=== PATIENT | female | born 1955 | race Caucasian/White ===

== ENCOUNTER 2017-01-28 11:10 | Observation (INO) | payer OTHER ==
[~2017-01-28] VITALS: Ht 149.9 cm; Wt 105.4 kg
[~2017-01-28 11:10] MED LIST: ALPR1TAB2 PO; CLOT45CR28 VG; CPR250T; FLUC100T PO; HYDR-3714 PO; HYDR-3812 PO; MELO15TA14 PO; METF-380 PO; METH4TAB PO; METR500T PO; MICO45CR71 VG; MOTRIN; OXYC-12 PO; PRD1T; SIMV20TA3 PO; SULF1TAB35 PO
--- OUTSIDE RECORDS SUMMARY | 2017-01-28 11:17 | XMS REPORT | Continuity of Care Document ---
Author Author Formerly [facility], [facility] of [facility] Address Unknown Phone Unavailable Allergies Active Description Code Type Severity Reaction Onset Reported/Identified Relationship to Patient Clinical Status Yes No Known Drug Allergies [id number] Drug Allergy Unknown N/ A 08/14/2007 Yes sulfa drug Drug Allergy 06/18/2010 Yes SULFA SULFA Unknown NAUSEA 06/14/2015 Medications Problems Date Dx Coded Attending Type Code Diagnosis Diagnosed By 06/12/2010 Ot 250.00 06/12/2010 Ot 272.4 06/12/2010 Ot 278.00 06/12/2010 Ot 305.1 06/12/2010 Ot 345.90 06/12/2010 Ot 414.01 06/12/2010 Ot 790.6 06/12/2010 Ot V17.3 06/12/2010 Ot V85.4 06/18/2010 KATE PALOMO MD 272.4 HYPERLIPIDEMIA UNSPECIFIED 06/18/2010 KATE PALOMO MD 311 Depressive Disorder Nos 06/18/2010 KATE PALOMO MD 401.1 HYPERTENSION, BENIGN ESSENTIAL 06/18/2010 KATE PALOMO MD 414.00 Coronary Atherosclerosis Of Unspecified Type Of Vessel [place] Graft 06/18/2010 KATE PALOMO MD 716.90 Arthritis/ Arthropathy, Unspecified 06/18/2010 272.4 HYPERLIPIDEMIA UNSPECIFIED 06/18/2010 311 Depressive Disorder Nos 06/18/2010 401.1 HYPERTENSION, BENIGN ESSENTIAL 06/18/2010 414.00 Coronary Atherosclerosis Of Unspecified Type Of Vessel [place] Graft 06/18/2010 716.90 Arthritis/ Arthropathy, Unspecified 06/18/2010 272.4 HYPERLIPIDEMIA UNSPECIFIED 06/18/2010 311 Depressive Disorder Nos 06/18/2010 401.1 HYPERTENSION, BENIGN ESSENTIAL 06/18/2010 414.00 Coronary Atherosclerosis Of Unspecified Type Of Vessel [place] Graft 06/18/2010 716.90 Arthritis/ Arthropathy, Unspecified 06/18/2010 WILBERTO ROGERS PHD 272.4 HYPERLIPIDEMIA UNSPECIFIED 06/18/2010 KEN PORTILLO, WILBERTO A 311 Depressive Disorder Nos 06/18/2010 KEN PHD, WILBERTO A 401.1 HYPERTENSION, BENIGN ESSENTIAL 06/18/2010 KEN PHD, WILBERTO A 414.00 Coronary Atherosclerosis Of Unspecified Type Of Vessel [place] Graft 06/18/2010 KEN PHD, WILBERTO A 716.90 Arthritis/ Arthropathy, Unspecified 06/18/2010 STACIA GOVEA, KATE 272.4 HYPERLIPIDEMIA UNSPECIFIED 06/18/2010 STACIA GOVEA, KATE 311 Depressive Disorder Nos 06/18/2010 STACIA GOVEA, KATE 401.1 HYPERTENSION, BENIGN ESSENTIAL 06/18/2010 STACIA GOVEA, KATE 414.00 Coronary Atherosclerosis Of Unspecified Type Of Vessel [place] Graft 06/18/2010 STACIA GOVEA, KATE 71Eduardo.90 Arthritis/ Arthropathy, Unspecified 06/18/2010 STACIA GOVEA, KATE 272.4 HYPERLIPIDEMIA UNSPECIFIED 06/18/2010 STACIA GOVEA, KATE 311 Depressive Disorder Nos 06/18/2010 STACIA GOVEA, KATE 401.1 HYPERTENSION, BENIGN ESSENTIAL 06/18/2010 STACIA GOVEA, KATE 414.00 Coronary Atherosclerosis Of Unspecified Type Of Vessel [place] Graft 06/18/2010 STACIA GOVEA, KATE 716.90 Arthritis/ Arthropathy, Unspecified 06/18/2010 STACIA GOVEA, KATE 272.4 HYPERLIPIDEMIA UNSPECIFIED 06/18/2010 STACIA GOVEA, KATE 311 Depressive Disorder Nos 06/18/2010 STACIA GOVEA, KATE 401.1 HYPERTENSION, BENIGN ESSENTIAL 06/18/2010 STACIA GOVEA, KATE 414.00 Coronary Atherosclerosis Of Unspecified Type Of Vessel [place] Graft 06/18/2010 KATE PALOMO MD 716.90 Arthritis/ Arthropathy, Unspecified 06/18/2010 STACIA GOVEA, KATE 272.4 HYPERLIPIDEMIA UNSPECIFIED 06/18/2010 STACIA GOVEA, KATE 311 Depressive Disorder Nos 06/18/2010 STACIA GOVEA, KATE 401.1 HYPERTENSION, BENIGN ESSENTIAL 06/18/2010 STACIA GOVEA, KATE 414.00 Coronary Atherosclerosis Of Unspecified Type Of Vessel [place] Graft 06/18/2010 STACIA GOVEA, KATE 716.90 Arthritis/ Arthropathy, Unspecified 06/18/2010 STACIA GOVEA, KATE 272.4 HYPERLIPIDEMIA UNSPECIFIED 06/18/2010 STACIA GOVEA, KATE 311 Depressive Disorder Nos 06/18/2010 STACIA GOVEA, KATE 401.1 HYPERTENSION, BENIGN ESSENTIAL 06/18/2010 STACIA GOVEA, KATE 414.00 Coronary Atherosclerosis Of Unspecified Type Of Vessel [place] Graft 06/18/2010 STACIA GOVEA, KATE 716.90 Arthritis/ Arthropathy, Unspecified 06/18/2010 STACIA GOVEA, KATE 272.4 HYPERLIPIDEMIA UNSPECIFIED 06/18/2010 STACIA GOVEA, KATE 311 Depressive Disorder Nos 06/18/2010 STACIA GOVEA, KATE 401.1 HYPERTENSION, BENIGN ESSENTIAL 06/18/2010 STACIA GOVEA, KATE 414.00 Coronary Atherosclerosis Of Unspecified Type Of Vessel [place] Graft 06/18/2010 STACIA GOVEA, KATE 716.90 Arthritis/ Arthropathy, Unspecified 06/23/2010 STACIA GOVEA, KATE 414.01 CAD 06/23/2010 414.01 CAD 06/23/2010 414.01 CAD 06/23/2010 KEN PHD, WILBERTO Fabian 414.01 CAD 06/23/2010 STACIA GOVEA, KATE 414.01 CAD 06/23/2010 STACIA GOVEA, KATE 414.01 CAD 06/23/2010 STACIA GOVEA, KATE 414.01 CAD 06/23/2010 STACIA GOVEA, KATE 414.01 CAD 06/23/2010 STACIA GOVEA, KATE 414.01 CAD 06/23/2010 STACIA GOVEA, KATE 414.01 CAD 12/19/2010 Ot 724.1 03/14/2011 KATE PALOMO MD 272.0 HYPERCHOLESTEROLEMIA PURE 03/14/2011 KATE PALOMO MD 599.0 Urinary Tract Infection Site Not Specified 03/14/2011 272.0 HYPERCHOLESTEROLEMIA PURE 03/14/2011 599.0 Urinary Tract Infection Site Not Specified 03/14/2011 272.0 HYPERCHOLESTEROLEMIA PURE 03/14/2011 599.0 Urinary Tract Infection Site Not Specified 03/14/2011 KEN PHD, WILBERTO Fabian 272.0 HYPERCHOLESTEROLEMIA PURE 03/14/2011 WILBERTO ROGERS PHD 599.0 Urinary Tract Infection Site Not Specified 03/14/2011 KATE PALOMO MD 272.0 HYPERCHOLESTEROLEMIA PURE 03/14/2011 KATE PALOMO MD 599.0 Urinary Tract Infection Site Not Specified 03/14/2011 KATE PALOMO MD 272.0 HYPERCHOLESTEROLEMIA PURE 03/14/2011 STACIA GOVEA, KATE 599.0 Urinary Tract Infection Site Not Specified 03/14/2011 KATE PALOMO MD 272.0 HYPERCHOLESTEROLEMIA PURE 03/14/2011 STACIA GOVEA, KATE 599.0 Urinary Tract Infection Site Not Specified 03/14/2011 STACIA GOVEA, KATE 272.0 HYPERCHOLESTEROLEMIA PURE 03/14/2011 STACIA GOVEA, KATE 599.0 Urinary Tract Infection Site Not Specified 03/14/2011 KATE PALOMO MD 272.0 HYPERCHOLESTEROLEMIA PURE 03/14/2011 STACIA GOVEA, KATE 599.0 Urinary Tract Infection Site Not Specified 03/14/2011 KATE PALOMO MD 272.0 HYPERCHOLESTEROLEMIA PURE 03/14/2011 STACIA GOVEA, KATE 599.0 Urinary Tract Infection Site Not Specified 03/31/2011 KATE PALOMO MD 790.29 Hyperglycemia 03/31/2011 790.29 Hyperglycemia 03/31/2011 790.29 Hyperglycemia 03/31/2011 WILBERTO ROGERS PHD 790.29 Hyperglycemia 03/31/2011 STACIA GOVEA, KATE 790.29 Hyperglycemia 03/31/2011 STACIA GOVEA, KATE 790.29 Hyperglycemia 03/31/2011 STACIA GOVEA, KATE 790.29 Hyperglycemia 03/31/2011 STACIA GOVEA, KATE 790.29 Hyperglycemia 03/31/2011 STACIA GOVEA, KATE 790.29 Hyperglycemia 03/31/2011 STACIA GOVEA, KATE 790.29 Hyperglycemia 10/25/2011 KATE PALOMO MD 250.00 DIABETES MELLITUS WITHOUT MENTION OF COMPLICATION TYPE II OR UNSPECIFIED TYPE NOT STATED UNCONTROLLED 10/25/2011 250.00 DIABETES MELLITUS WITHOUT MENTION OF COMPLICATION TYPE II OR UNSPECIFIED TYPE NOT STATED UNCONTROLLED 10/25/2011 250.00 DIABETES MELLITUS WITHOUT MENTION OF COMPLICATION TYPE II OR UNSPECIFIED TYPE NOT STATED UNCONTROLLED 10/25/2011 WILBERTO ROGERS PHD 250.00 DIABETES MELLITUS WITHOUT MENTION OF COMPLICATION TYPE II OR UNSPECIFIED TYPE NOT STATED UNCONTROLLED 10/25/2011 KATE PALOMO MD 250.00 DIABETES MELLITUS WITHOUT MENTION OF COMPLICATION TYPE II OR UNSPECIFIED TYPE NOT STATED UNCONTROLLED 10/25/2011 KATE PALOMO MD 250.00 DIABETES MELLITUS WITHOUT MENTION OF COMPLICATION TYPE II OR UNSPECIFIED TYPE NOT STATED UNCONTROLLED 10/25/2011 KATE PALOMO MD 250.00 DIABETES MELLITUS WITHOUT MENTION OF COMPLICATION TYPE II OR UNSPECIFIED TYPE NOT STATED UNCONTROLLED 10/25/2011 KATE PALOMO MD 250.00 DIABETES MELLITUS WITHOUT MENTION OF COMPLICATION TYPE II OR UNSPECIFIED TYPE NOT STATED UNCONTROLLED 10/25/2011 STACIA GOVEA, KATE 250.00 DIABETES MELLITUS WITHOUT MENTION OF COMPLICATION TYPE II OR UNSPECIFIED TYPE NOT STATED UNCONTROLLED 10/25/2011 STACIA GOVEA, KATE 250.00 DIABETES MELLITUS WITHOUT MENTION OF COMPLICATION TYPE II OR UNSPECIFIED TYPE NOT STATED UNCONTROLLED 12/02/2011 KATE PALOMO MD 726.32 LATERAL EPICONDYLITIS (TENNIS ELBOW) 12/02/2011 726.32 LATERAL EPICONDYLITIS (TENNIS ELBOW) 12/02/2011 726.32 LATERAL EPICONDYLITIS (TENNIS ELBOW) 12/02/2011 WILBERTO ROGERS PHD 726.32 LATERAL EPICONDYLITIS (TENNIS ELBOW) 12/02/2011 STACIA GOVEA, KATE 726.32 LATERAL EPICONDYLITIS (TENNIS ELBOW) 12/02/2011 STACIA GOVEA, KATE 726.32 LATERAL EPICONDYLITIS (TENNIS ELBOW) 12/02/2011 STACIA GOVEA, KATE 726.32 LATERAL EPICONDYLITIS (TENNIS ELBOW) 12/02/2011 STACIA GOVEA, KATE 726.32 LATERAL EPICONDYLITIS (TENNIS ELBOW) 12/02/2011 STACIA GOVEA, KATE 726.32 LATERAL EPICONDYLITIS (TENNIS ELBOW) 12/02/2011 STACIA GOVEA, KATE 726.32 LATERAL EPICONDYLITIS (TENNIS ELBOW) 10/30/2012 311 DEPRESSIVE DISORDER NOS 10/30/2012 311 DEPRESSIVE DISORDER NOS 10/30/2012 KEN PORTILLO, WILBERTO Fabian 311 DEPRESSIVE DISORDER NOS 10/30/2012 KATE PALOMO MD 311 DEPRESSIVE DISORDER NOS 10/30/2012 STACIA GOVEA, KATE 311 DEPRESSIVE DISORDER NOS 10/30/2012 STACIA GOVEA, KATE 311 DEPRESSIVE DISORDER NOS 10/30/2012 STACIA GOVEA, KATE 311 DEPRESSIVE DISORDER NOS 10/30/2012 STACIA GOVEA, KATE 311 DEPRESSIVE DISORDER NOS 02/04/2013 KATE PALOMO MD 781.0 ABNORMAL INVOLUNTARY MOVEMENTS 02/04/2013 KATE PALOMO MD 781.0 ABNORMAL INVOLUNTARY MOVEMENTS 02/04/2013 KATE PALOMO MD 781.0 ABNORMAL INVOLUNTARY MOVEMENTS 02/04/2013 KATE PALOMO MD 781.0 ABNORMAL INVOLUNTARY MOVEMENTS 02/04/2013 KATE PALOMO MD 781.0 ABNORMAL INVOLUNTARY MOVEMENTS 01/09/2014 KATE PALOMO MD 724.5 BACKACHE UNSPECIFIED 01/09/2014 KATE PALOMO MD 724.5 BACKACHE UNSPECIFIED 06/14/2015 DONNIE GOVEA, STEPHAN Fabian Ot 616.10 06/14/2015 DONNIE GOVEA, STEPHAN A Ot 625.8 08/01/2015 DONNIE GOVEA, STEPHAN A Ot 682.2 10/28/2015 MABLE BATISTA Ot B37.3 10/28/2015 MABLE BATISTA Ot F17.210 02/03/2016 ARGENTINA ULLOA DO Ot F17.210 02/03/2016 ARGENTINA ULLOA DO Ot M79.642 Procedures Code [place] [address] A1C (IN-HOUSE) 70175 ROUTINE VENIPUNCTURE 10/26/2012 00358 CMP 10/26/2012 95893 LIPID PANEL 10/26 [id number] GFR CALC (RESULT ONLY) 10/26/2012 61344 PSYCH DIAG INTER EXAM 10/30/2012 61099 PSYCHO TESTING 1 HR W COMP 12/26/2012 66691 PSYTX PT&/FAMILY 45 MINUTES 12/31/2012 30158 ROUTINE VENIPUNCTURE 02/04/2013 33401 MICRO ALBUMIN-IN HOUSE 02/04/2013 17349 A1C (IN-HOUSE) 35937 CMP 02/04/2013 96423 LIPID PANEL 02/04 7138858 GFR CALC (RESULT ONLY) 02/04/2013 44484 ROUTINE VENIPUNCTURE 10/22/2013 56133 A1C (IN-HOUSE) 66525 LIPID PANEL 10/22 74111 CMP 10/22/2013 [id number] GFR CALC (RESULT ONLY) 10/22/2013 47439 URINE DRUG SCREEN (IN-HOUSE) 01/09/2014 64387 URINE OPIATES GC/MS 01/10/2014 72138 A1C (IN-HOUSE) 39019 MICRO ALBUMIN-IN HOUSE 06/19/2014 49623 MICROALBUMIN Results Encounters ACCT No. Visit Date/Time Discharge Status Pt. Type Provider Facility Loc./Unit Complaint [id number] 06/19/2014 08:58:00 06/19/2014 23: 59:59 CLS Outpatient KATE PALOMO MD [id number] 01/09/2014 15:54:00 01/09/2014 23: 59:59 CLS Outpatient KATE PALOMO MD [id number] 10/22/2013 08:47:00 10/22/2013 23: 59:59 CLS Outpatient KATE PALOMO MD [id number] 05/27/2013 15:22:00 05/27/2013 23: 59:59 CLS Outpatient KATE PALOMO MD [id number] 02/04/2013 09:04:00 02/04/2013 23: 59:59 CLS Outpatient KATE PALOMO MD [id number] 12/28/2012 08:51:00 12/28/2012 23: 59:59 CLS Outpatient KEN PHD, WILBERTO Fabian [id number] 12/25/2012 12:01:00 12/25/2012 23: 59:59 CLS Outpatient [id number] 10/30/2012 08:00:00 10/30/2012 23: 59:59 CLS Outpatient [id number] 10/26/2012 08:03:00 10/26/2012 23: 59:59 [place] [id number] 12/02/2011 08:12:00 12/02/2011 23: 59:59 CLS Outpatient KATE PALOMO MD
[2017-01-28] MEDS ORDERED: RX-NITROGLYCERIN 0.4 MG TAB BTL 25'S SL ONE ×2 (11:21→11:30)
[2017-01-28] MEDS ORDERED: ASPIRIN 81 MG CHEW (CHILDREN'S ASA) ONE (11:21)
[2017-01-28 11:30] LABS: BASOPHILS # (AUTO) 0.1 10^3/uL (0.0-0.1); BASOPHILS % (AUTO) 1 % (0-10); EOSINOPHILS # (AUTO) 0.2 10^3/uL (0.0-0.3); EOSINOPHILS % (AUTO) 1 % (0-10); LYMPHOCYTES # (AUTO) 3.6 X 10^3 (1.0-4.0); LYMPHOCYTES % (AUTO) 28 % (12-44); MEAN CORPUSCULAR HEMOGLOBIN 30 PG (25-34); MEAN CORPUSCULAR HGB CONC 35 G/DL (32-36); MEAN CORPUSCULAR VOLUME 88 FL (80-99); MEAN PLATELET VOLUME 11.3 FL (7.4-10.4); MONOCYTES # (AUTO) 0.5 X 10^3 (0.0-1.0); MONOCYTES % (AUTO) 4 % (0-12); NEUTROPHILS # (AUTO) 8.6 X 10^3 (1.8-7.8); NEUTROPHILS % (AUTO) 66 % (42-75); PLATELET COUNT 272 10^3/uL (130-400); RED BLOOD COUNT 5.42 10^6/uL (4.35-5.85); RED CELL DISTRIBUTION WIDTH 13.7 % (10.0-14.5)
[2017-01-28] MEDS ORDERED: ASPIRIN 81 MG CHEW (CHILDREN'S ASA) PO ONE (11:30)
--- NOTE | 2017-01-28 11:38 | ED Chest Pain ---
General Chief Complaint: Chest Pain Stated Complaint: L ARM PAIN, CP Nursing Triage Note: Ambulatory to ED 5 with reports of intermittent chest pain for the past two weeks. Patient reports that she woke up this morning and was more short of breath than normal and her left shoulder hurt, then progressed into chest pain. Nursing Sepsis Screen: No Definite Risk Source: patient Exam Limitations: no limitations History of Present Illness Time seen by provider: 11:11 Initial Comments Here with report of intermittent chest pain over the last 2 weeks but worse this morning. She states she woke up at about 530 and she was short of breath. She then was having left shoulder pain. That has progressed to intermittent chest pain and numbness of the left hand. She has history of previous heart catheter procedure with ballooning but no stent. She has been off meds for a while for cholesterol problems. Has had some intermittent nausea and vomiting recently. Also intermittent sweating that is sometimes associated with the chest pain. Timing/Duration: 1 week, getting worse, changing over time, intermittent Severity/Quality: moderate Location: shoulder Radiation: arms Prior CP/Workup: cardiac cath Modifying Factors: improves with rest ASA po COMPUTER SYSTEM TECHNICIAN: No NTG SL COMPUTER SYSTEM TECHNICIAN: No Associated Symptoms: No abdominal pain, No back pain, diaphoresis fatigue nausea/vomiting shortness of breath Allergies and Home Medications Allergies Uncoded Allergies: SULFA (Adverse Reaction, Unknown, NAUSEA, 06/14/15) Home Medications No Active Prescriptions or Reported Meds Review of Systems Constitutional: see HPINo chills, No fever EENTM: No Symptoms Reported Respiratory: See HPIDenies Cough, Shortness of Air Cardiovascular: See HPI Gastrointestinal: See HPI Genitourinary: No Symptoms Reported Musculoskeletal: see HPINo back pain, muscle pain Skin: no symptoms reported Psychiatric/Neurological: No Symptoms Reported All Other Systems Reviewed Negative Unless Noted: Yes Past Tfvztzm-Sozipu-Xsnurn Hx Patient Social History Alcohol Use: Denies Use Recreational Drug Use: No Smoking Status: Current Everyday Smoker Type Used: Cigarettes 2nd Hand Smoke Exposure: Yes Recent Foreign Travel: No Contact w/Someone Who Travel: No Recent Infectious Disease Expo: No Recent Hopitalizations: No Immunizations Up To Date Tetanus Booster (TDap): Unknown Surgeries HX Surgeries: Yes (TUBAL LIGATION 30 YRS AGO) Surgeries: Cardiac, Tubal Ligation Respiratory Hx Respiratory Disorders: No Cardiovascular Hx Cardiac Disorders: Yes (yrs ago irreg heart beat) Cardiac Disorders: High Cholesterol, Hypertension Neurological Hx Neurological Disorders: No Reproductive System Hx Reproductive Disorders: No Sexually Transmitted Disease: No Genitourinary Hx Genitourinary Disorders: Yes (recurrent vulvovaginal candidiasis) Gastrointestinal Hx Gastrointestinal Disorders: No Musculoskeletal Hx Musculoskeletal Disorders: No Endocrine Hx Endocrine Disorders: Yes Endocrine Disorders: Diabetes, Non-Insulin dep HEENT HX ENT Disorders: No Cancer Hx Cancer: No Psychosocial Hx Psychiatric Problems: No Integumentary HX Skin/Integumentary Disorder: No Blood Transfusions Hx Blood Disorders: No Reviewed Nursing Assessment Reviewed/Agree w Nursing PMH: Yes Family Medical History Significant Family History: Heart Disease, Hypertension Physical Exam Vital Signs Vital Sign - Last 12Hours 01/28/17 11:12 Temp 98.1 Pulse 72 Resp 18 B/P 186/106 Pulse Ox 92 O2 Delivery Room Air Capillary Refill : Less Than 3 Seconds General Appearance: No Apparent Distress WD/WN HEENT: PERRL/EOMI Pharynx Normal Neck: Non Tender Supple Respiratory: Lungs Clear Normal Breath Sounds Cardiovascular: Regular Rate, Rhythm No Murmur Gastrointestinal: Non Tender Soft Extremity: Non Tender No Calf Tenderness Neurologic/Psychiatric: Alert Oriented x3 Skin: Normal Color Warm/Dry Progress/Results/Core Measures Results/Orders Lab Results Laboratory Tests Test 01/28/17 11:20 01/28/17 11:31 Range/Units Alanine Aminotransferase (ALT/SGPT) 26 0-55 U/L Albumin 3.6 3.2-4.5 G/DL Alkaline Phosphatase 102 40-136 U/L Anion Gap 12 5-14 MMOL/L Aspartate Amino Transf (AST/SGOT) 29 5-34 U/L BUN/Creatinine Ratio 9 Basophils # (Auto) 0.1 0.0-0.1 10^3/uL Basophils (%) (Auto) 1 0-10 % Blood Urea Nitrogen 7 7-18 MG/DL Calcium Level 9.2 8.5-10.1 MG/DL Carbon Dioxide Level 24 21-32 MMOL/L Chloride Level 102 98-107 MMOL/L Creatinine 0.74 0.60-1.30 MG/DL Eosinophils # (Auto) 0.2 0.0-0.3 10^3/uL Eosinophils (%) (Auto) 1 0-10 % Estimat Glomerular Filtration Rate > 60 Glucose Level 253 H 70-105 MG/DL Hematocrit 48 35-52 % Hemoglobin 16.5 H 11.5-16.0 G/DL Lymphocytes # (Auto) 3.6 1.0-4.0 X 10^3 Lymphocytes (%) (Auto) 28 12-44 % Magnesium Level 1.6 L 1.8-2.4 MG/DL Mean Corpuscular Hemoglobin 30 25-34 PG Mean Corpuscular Hemoglobin Concent 35 32-36 G/DL Mean Corpuscular Volume 88 80-99 FL Mean Platelet Volume 11.3 H 7.4-10.4 FL Monocytes # (Auto) 0.5 0.0-1.0 X 10^3 Monocytes (%) (Auto) 4 0-12 % Myoglobin 18.5 10.0-92.0 NG/ML Neutrophils # (Auto) 8.6 H 1.8-7.8 X 10^3 Neutrophils (%) (Auto) 66 42-75 % Platelet Count 272 130-400 10^3/uL Potassium Level 3.9 3.6-5.0 MMOL/L Red Blood Count 5.42 4.35-5.85 10^6/uL Red Cell Distribution Width 13.7 10.0-14.5 % Sodium Level 138 135-145 MMOL/L Total Bilirubin 0.3 0.1-1.0 MG/DL Total Protein 7.3 6.4-8.2 G/DL Troponin I < 0.30 <0.30 NG/ML White Blood Count 13.0 H 4.3-11.0 10^3/uL Activated Partial Thromboplast Time 30 24-35 SEC D-Dimer 0.35 0.00-0.49 UG/ML INR Comment 0.9 0.8-1.4 Prothrombin Time 12.2 12.2-14.7 SEC My Orders Orders-JEFFREY WATSON MD Cbc With Automated Diff (01/28/17 11:21) Magnesium (01/28/17 11:21) Chest 1 View, Ap/Pa Only (01/28/17 11:21) Ekg Tracing (01/28/17 11:21) Cardiac Profile 1 (01/28/17 11:21) Comprehensive Metabolic Panel (01/28/17 11:21) Myoglobin Serum (01/28/17 11:21) Protime With Inr (01/28/17 11:21) Partial Thromboplastin Time (01/28/17 11:21) O2 (01/28/17 11:21) Monitor-Rhythm Ecg Trace Only (01/28/17 11:21) Lipid Panel (01/29/17 06:00) Aspirin Chewable Tablet (Baby Aspirin Ch (01/28/17 11:30) Rx-Nitroglycerin Sl Tabs (Rx-Nitrostat S (01/28/17 11:30) Saline Lock/Iv-Start (01/28/17 11:21) Fibrin Degradation Products (01/28/17 11:21) Aspirin Chewable Tablet (Baby Aspirin Ch (01/28/17 11:21) Rx-Nitroglycerin Sl Tabs (Rx-Nitrostat S (01/28/17 11:21) Metoprolol Succinate (Xl) Tab (Toprol Xl (01/28/17 11:45) Medications Given in ED Current Medications Medications Dose Ordered Sig/Maegan Route Start Time Stop Time Status Last Admin Dose Admin Aspirin 324 mg ONCE ONCE PO 01/28/17 11:30 01/28/17 11:31 DC 01/28/17 11:28 324 MG Metoprolol Succinate 50 mg ONCE ONCE PO 01/28/17 11:45 01/28/17 11:46 DC 01/28/17 11:54 50 MG Nitroglycerin 0.4 mg UD ONCE SL 01/28/17 11:30 01/28/17 11:31 DC 01/28/17 11:30 0.4 MG Vital Signs/I&O Vital Sign - Last 12Hours 01/28/17 01/28/17 01/28/17 01/28/17 11:12 11:12 11:15 11:28 Temp 98.1 98.1 Pulse 72 Resp 18 B/P 186/106 Pulse Ox 92 92 O2 Delivery Room Air Room Air Room Air 01/28/17 11:29 Temp 98.1 Blood Pressure Mean: 132 Progress Note : Progress Note Seen and evaluated on arrival. IV, labs, EKG and chest x-ray ordered. ASA 324 mg by mouth. Nitroglycerin sublingual ordered. This was given one time with complete relief of pain. Blood pressure was noted to be elevated. Monitor patient. Toprol-XL 50 mg by mouth given. 1225: Dr. Matteo carreno for admission. 1230: Discussed case with Dr. Decker. He accepts patient in consult. Dr. Felipe accepts patient for admission, observation status. Patient agrees with plan. ECG Initial ECG Impression Date: Jan 28, 2017 Initial ECG Impression Time: 11:15 Initial ECG Rate: 74 Initial ECG Rhythm: Normal Sinus Initial ECG Impression: Normal Comment Sinus rhythm with leftward axis. No evidence of ST elevation [place]. Similar to previous of 06/12/2010 except rate increased slightly. Interpreted by me. Departure Communication Time/Spoke to Admitting Phy: 12:25 Time/Spoke to Consulting Physi: 12:30 Impression Impression: Primary Impression: Chest pain Qualified Code: R07.9 - Chest pain, unspecified Disposition: ADMITTED INPATIENT Condition: Stable Decision to Admit Reason: Admit from ER (General) Decision to Admit/Date: Jan 28, 2017 Time/Decision to Admit Time: 12:25 Departure-Patient Inst. Referrals: KATE PALOMO MD (PCP/Family) Primary Care Physician Scripts No Active Prescriptions or Reported Meds JEFFREY WATSON MD Jan 28, 2017 11:38
[2017-01-28 11:49] LABS: ALANINE AMINOTRANSFERASE 26 U/L (0-55); ALBUMIN 3.6 G/DL (3.2-4.5); ANION GAP 12 MMOL/L (5-14); ASPARTATE AMINO TRANSFERASE 29 U/L (5-34); BILIRUBIN,TOTAL 0.3 MG/DL (0.1-1.0); BLOOD UREA NITROGEN 7 MG/DL (7-18); BUN/CREATININE RATIO 9; CALCIUM 9.2 MG/DL (8.5-10.1); CARBON DIOXIDE 24 MMOL/L (21-32); CHLORIDE 102 MMOL/L (98-107); CREATININE SERUM 0.74 MG/DL (0.60-1.30); GFR ESTIMATED > 60; GLUCOSE 253 MG/DL (70-105); MAGNESIUM 1.6 MG/DL (1.8-2.4); POTASSIUM 3.9 MMOL/L (3.6-5.0); SODIUM 138 MMOL/L (135-145); TOTAL PROTEIN 7.3 G/DL (6.4-8.2)
[2017-01-28 11:56] LABS: INR 0.9 (0.8-1.4); PROTHROMBIN TIME PATIENT 12.2 SEC (12.2-14.7)
[2017-01-28 11:56] LABS: MYOGLOBIN SERUM 18.5 NG/ML (10.0-92.0)
--- NOTE | 2017-01-28 11:58 | Diagnostic Imaging Report ---
INDICATION: Chest pain x2 weeks. Increasing shortness of air. Left shoulder pain.. TECHNIQUE: Single view chest 11:35 AM. CORRELATION STUDY: 12/19/2010 FINDINGS: Heart size and mediastinum are relatively stable. Lung [place] overall relatively clear. No infiltrate. IMPRESSION: 1. Overall relatively stable portable chest. Dictated by: Dictated on workstation # [id number]
[2017-01-28 13:10] VITALS: BP 162/77
[2017-01-28] MEDS ORDERED: NITROGLYCERIN SUBLINGUAL 0.4 MG TAB (NITROSTAT) SL PRN (13:30)
[2017-01-28] MEDS ORDERED: morphine INJ 4 MG/ML 1 ML (VIAL/SYRINGE) IV PRN (13:30)
[2017-01-28] MEDS ORDERED: CATHETER FLUSH 10 ML SYR IV PRN (13:30)
[2017-01-28] MEDS: NS IV 1000 ML 1,000 ML IV SCH (13:42)
[2017-01-28] MEDS ORDERED: FLU TRIvalent (5 YOA+) 2016-17 (AFLURIA) 0.5 ML IM ONE (14:00)
[2017-01-28 14:26] LABS: BILIRUBIN,URINE NEGATIVE (NEGATIVE); KETONES,URINE NEGATIVE (NEGATIVE); LEUKOCYTE ESTERASE ,URINE 3+ (NEGATIVE); NITRITE,URINE POSITIVE (NEGATIVE); PH,URINE 6 (5-9); PROTEIN,URINE 1+ (NEGATIVE); UROBILINOGEN,URINE NORMAL (NORMAL)
[2017-01-28 14:37] LABS: SQUAMOUS EPITHELIAL CELL,UR 25-50 /HPF; WBC,URINE 25-50 /HPF
--- NOTE | 2017-01-28 14:39 | Consultation-Cardiology ---
HPI-Cardiology Cardiology Consultation: Date of Consultation 01/28/17 Date of Admission 01/28/17 Attending Physician Bc Car MD Admitting Physician Bc Car MD Consulting Physician PATO SANDERS MD, FACP, FACC, [facility] [place], CCDS HPI: Chief Complaint: Chest discomfort 62 yo woman with approx 3 weeks of chest discomfort: L parasternal, sharp to dull, mild to moderate, lasting up to 3 hours, a few times a week, with radiation to L arm only on one occasion (today), improved with s/l NTG but not completely relieved, aggravated by emotional stress but not physical exertion. She also has chronic slowly progressive exertional shortness of breath. Denies leg swelling or palp or syncope Review of Systems-Cardiology Review of Systems Constitutional: No malaise, No tiredness Eyes: No vision change Ears/Nose/Throat: No ear discharge, No nasal drainage, No recent hearing loss Respiratory: As described under HPI Cardiovascular: As described under HPI Gastrointestinal: No constipation, No diarrhea, No vomiting Genitourinary: No dysuria, No hematuria, No urine frequency changes Musculoskeletal: back pain (chronic) joint pain (chronic) Skin: No rash, No ulcerations Psychiatric/Neurological: No focal weakness, No seizure, No syncope Hematologic: No bleeding abnormalities All Other Systems Reviewed Negative Unless Noted: Yes [id number] Hx Patient Social History Alcohol Use: Denies Use Recreational Drug Use: No Smoking Status: Current Everyday Smoker Type Used: Cigarettes 2nd Hand Smoke Exposure: Yes Recent Foreign Travel: No Recent Infectious Disease Expo: No Hospitalization with Isolation: Denies Physical Abuse Screen: No Sexual Abuse: No Immunizations Up To Date Tetanus Booster (TDap): Unknown Past Medical History PMH As described under Assessment. Family Medical History Family Medical History: Has fam history of early CAD (father and a brother) Allergies and Home Medications Allergies Uncoded Allergies: SULFA (Adverse Reaction, Unknown, NAUSEA, 06/14/15) Home Medications No Active Prescriptions or Reported Meds Physical Exam-Cardiology Physical Exam Vital Signs/I&O Vital Sign - Last 12Hours 01/28/17 01/28/17 01/28/17 01/28/17 11:12 11:12 11:15 11:28 Temp 98.1 98.1 Pulse 72 Resp 18 B/P 186/106 Pulse Ox 92 92 O2 Delivery Room Air Room Air Room Air 01/28/17 01/28/17 01/28/17 01/28/17 11:29 12:49 13:10 13:30 Temp 98.1 98.1 98.1 Pulse 60 60 Resp 18 18 B/P 162/77 Pulse Ox 97 97 O2 Delivery Room Air Room Air 01/28/17 14:00 Pulse 58 Capillary Refill : Less Than 3 Seconds Constitutional: AAO x 3 well-developed well-nourished other (obese) HEENT: PERRL other (bilateral palpebral xanthelasma) EOMINo xanthelasmas are seen Neck: carotid pulses are 2 + bilaterally with good upstrokes Respiratory: No accessory muscle use, lungs clear to percussion lungs clear to auscultation Cardiovascular: regular rate-rhythm S1 and S2 systolic murmur (faint ASHLEY at card base) Gastrointestinal: No tender, softNo guarding, No rebound, No audible bowel sounds Extremities: No clubbing, No cyanosis, No significant edema Neurologic/Psychiatric: oriented x 3 grossly intact power is 5/5 both on sides Skin: No rash on exposed areas, No ulcerations on exposed areas Data Review Labs Laboratory Tests 01/28/17 11:20: Alanine Aminotransferase (ALT/SGPT) 26, Albumin 3.6, Alkaline Phosphatase 102, Anion Gap 12, Aspartate Amino Transf (AST/SGOT) 29, BUN/Creatinine Ratio 9, Basophils # (Auto) 0.1, Basophils (%) (Auto) 1, Blood Urea Nitrogen 7, Calcium Level 9.2, Carbon Dioxide Level 24, Chloride Level 102, Creatinine 0.74, Eosinophils # (Auto) 0.2, Eosinophils (%) (Auto) 1, Estimat Glomerular Filtration Rate > 60, Glucose Level 253H, Hematocrit 48, Hemoglobin 16.5H, Lymphocytes # (Auto) 3.6, Lymphocytes (%) (Auto) 28, Magnesium Level 1.6L, Mean Corpuscular Hemoglobin 30, Mean Corpuscular Hemoglobin Concent 35, Mean Corpuscular Volume 88, Mean Platelet Volume 11.3H, Monocytes # (Auto) 0.5, Monocytes (%) (Auto) 4, Myoglobin 18.5, Neutrophils # (Auto) 8.6H, Neutrophils ( %) (Auto) 66, Platelet Count 272, Potassium Level 3.9, Red Blood Count 5.42, Red Cell Distribution Width 13.7, Sodium Level 138, Total Bilirubin 0.3, Total Protein 7.3, Troponin I < 0.30, White Blood Count 13.0H 01/28/17 11:31: Activated Partial Thromboplast Time 30, D-Dimer 0.35, INR Comment 0.9, Prothrombin Time 12.2 01/28/17 14:15: Laboratory Tests 01/28/17 11:20 A/P-Cardiology Assessment/Admission Diagnosis Nonspecific chest discomfort without evidence of ACS so far Hypertension Hyperlipidemia, by history Bilateral xanthelasmas DM II Obesity with BMI approx 47 Chronic tobacco use Fam history of early CAD Discussion and Recomendations * Admitted to tele. Serial card enzymes and ECG. Consider cath if positive for NSTEMI, otherwise noninvasive cor risk stratification * Treat with beta-christy and aspirin and statin * Management of DM II is by the Medical Service * I advised her to quit smoking * Monitor labs * Further decisions based on hosp course Clinical Quality Measures AMI/AHF: ASA po Prior to arrival: No DVT/VTE Risk/Contraindication: Risk Factor Score Per Nursin RFS Level Per Nursing on Admit: 4+=Very High PATO SANDERS MD FACP FACC CCDS Jan 28, 2017 14:39
[2017-01-28] MEDS ORDERED: meTOproloL SUCCINATE 50 MG (TOPROL XL) TAB PO NR (14:45)
[2017-01-28 16:03] VITALS: BP 137/83
[2017-01-28] MEDS: inSUlin (REGULAR) HUMAN 1 UNIT/0.01 ML (CHARGE PER UNIT) SC SCH ×2 (17:39→21:34)
--- NOTE | 2017-01-28 19:29 | History & Physicial (CHS) ---
HPI History of Present Illness: 62-year-old female presents to [facility] emergency department with a report of chest pain intermittently. She does admit this been going on off and on over the past 2 weeks but was worse upon awakening today. She also had associated shortness of breath. She describes the pain was in the left shoulder also. She does complain of numbness of her left hand but she wonders whether this has something to do with diabetes as well. She recently had trouble with her insurance and has been off of her medications for diabetes and hyperlipidemia. Source: patient Exam Limitations: no limitations Date seen by provider: Jan 28, 2017 Time seen by provider: 18:00 Attending Physician Bc Car MD PCP Bc Car MD Consult Date of Admission Jan 28, 2017 at 12:44 Home Medications Home Medications Reviewed patient Home Medication Reconciliation Form Allergies Uncoded Allergies: SULFA (Adverse Reaction, Unknown, NAUSEA, 06/14/15) [id number] Hx Patient Social History Marrital Status: Alcohol Use: Denies Use Recreational Drug Use: No Smoking Status: Current Everyday Smoker Type Used: Cigarettes 2nd Hand Smoke Exposure: Yes Recent Foreign Travel: No Contact w/other who traveled: No Recent Hopitalizations: No Recent Infectious Disease Expo: No Physical Abuse Screen: No Sexual Abuse: No Immunizations Up To Date Tetanus Booster (TDap): Unknown Family Medical History Significant Family History: Heart Disease, Hypertension Review of Systems (CHC) Constitutional: see HPI Reviewed Test Results Reviewed Test Results Lab Laboratory Tests Test 01/28/17 11:20 01/28/17 11:31 01/28/17 14:15 01/28/17 16:03 Range/Units Alanine Aminotransferase (ALT/SGPT) 26 0-55 U/L Albumin 3.6 3.2-4.5 G/DL Alkaline Phosphatase 102 40-136 U/L Anion Gap 12 5-14 MMOL/L Aspartate Amino Transf (AST/SGOT) 29 5-34 U/L BUN/Creatinine Ratio 9 Basophils # (Auto) 0.1 0.0-0.1 10^3/uL Basophils (%) (Auto) 1 0-10 % Blood Urea Nitrogen 7 7-18 MG/DL Calcium Level 9.2 8.5-10.1 MG/DL Carbon Dioxide Level 24 21-32 MMOL/L Chloride Level 102 98-107 MMOL/L Creatinine 0.74 0.60-1.30 MG/DL Eosinophils # (Auto) 0.2 0.0-0.3 10^3/uL Eosinophils (%) (Auto) 1 0-10 % Estimat Glomerular Filtration Rate > 60 Glucose Level 253 H 70-105 MG/DL Hematocrit 48 35-52 % Hemoglobin 16.5 H 11.5-16.0 G/DL Lymphocytes # (Auto) 3.6 1.0-4.0 X 10^3 Lymphocytes (%) (Auto) 28 12-44 % Magnesium Level 1.6 L 1.8-2.4 MG/DL Mean Corpuscular Hemoglobin 30 25-34 PG Mean Corpuscular Hemoglobin Concent 35 32-36 G/DL Mean Corpuscular Volume 88 80-99 FL Mean Platelet Volume 11.3 H 7.4-10.4 FL Monocytes # (Auto) 0.5 0.0-1.0 X 10^3 Monocytes (%) (Auto) 4 0-12 % Myoglobin 18.5 10.0-92.0 NG/ML Neutrophils # (Auto) 8.6 H 1.8-7.8 X 10^3 Neutrophils (%) (Auto) 66 42-75 % Platelet Count 272 130-400 10^3/uL Potassium Level 3.9 3.6-5.0 MMOL/L Red Blood Count 5.42 4.35-5.85 10^6/uL Red Cell Distribution Width 13.7 10.0-14.5 % Sodium Level 138 135-145 MMOL/L Total Bilirubin 0.3 0.1-1.0 MG/DL Total Protein 7.3 6.4-8.2 G/DL Troponin I < 0.30 <0.30 NG/ML White Blood Count 13.0 H 4.3-11.0 10^3/uL Activated Partial Thromboplast Time 30 24-35 SEC D-Dimer 0.35 0.00-0.49 UG/ML INR Comment 0.9 0.8-1.4 Prothrombin Time 12.2 12.2-14.7 SEC Urine Bacteria LARGE H /HPF Urine Bilirubin NEGATIVE NEGATIVE Urine Casts NONE /LPF Urine Clarity VERY CLOUDY H Urine Color YELLOW Urine Crystals NONE /LPF Urine Culture Indicated YES Urine Glucose (UA) 1+ H NEGATIVE Urine Ketones NEGATIVE NEGATIVE Urine Leukocyte Esterase 3+ H NEGATIVE Urine Mucus NEGATIVE /LPF Urine Nitrite POSITIVE H NEGATIVE Urine Protein 1+ H NEGATIVE Urine RBC 0-2 /HPF Urine RBC (Auto) 3+ H NEGATIVE Urine Specific [place] 1.010 L 1.016-1.022 Urine Squamous Epithelial Cells 25-50 H /HPF Urine Urobilinogen NORMAL NORMAL MG/DL Urine WBC 25-50 H /HPF Urine pH 6 5-9 Glucometer 220 H 70-110 MG/DL Test 01/28/17 17:18 Range/Units Troponin I < 0.30 <0.30 NG/ML Radiology NAME: KENISHA LUA [facility] REC#: [id number] PT STATUS: ADM Enzo : 1955 PHYSICIAN: JEFFREY WATSON MD ADMIT DATE: 01/28/17/ICU Signed Date of Exam: 01/28/17 CHEST 1 VIEW, AP/PA ONLY INDICATION: Chest pain x2 weeks. Increasing shortness of air. Left shoulder pain.. TECHNIQUE: Single view chest 11:35 AM. CORRELATION STUDY: 12/19/2010 FINDINGS: Heart size and mediastinum are relatively stable. Lung domingo overall relatively clear. No infiltrate. IMPRESSION: 1. Overall relatively stable portable chest. Dictated by: Dictated on workstation # [id number] Dict: 01/28/17 1150 Trans: 01/28/17 1720 [facility] [id number] Interpreted by: RILEY VILLATORO DO Electronically signed by:RILEY VILLATORO DO 01/28/17 1722 Physical Exam-([facility]) Physical Exam Vital Signs VS - Last 72 Hours, by Label 01/28/17 01/28/17 01/28/17 01/28/17 11:12 11:12 11:15 11:28 Temp 98.1 98.1 Pulse 72 Resp 18 B/P 186/106 Pulse Ox 92 92 O2 Delivery Room Air Room Air Room Air 01/28/17 01/28/17 01/28/17 01/28/17 11:29 12:49 13:10 13:30 Temp 98.1 98.1 98.1 Pulse 60 60 Resp 18 18 B/P 162/77 Pulse Ox 97 97 O2 Delivery Room Air Room Air 01/28/17 01/28/17 01/28/17 14:00 16:03 16:05 Temp 97.4 Pulse 58 54 Resp 18 B/P 137/83 Pulse Ox 96 96 O2 Delivery Room Air Capillary Refill : Less Than 3 Seconds General Appearance: no apparent distress Eyes: Bilateral Eye Normal Inspection HEENT: pharynx normal Neck: non-tender supple Respiratory: lungs clear Cardiovascular: regular rate, rhythm no edema no gallop bradycardia Gastrointestinal: soft Rectal: deferred Back: normal inspection Extremities: no pedal edema Assessment/Plan Assessment/Plan Admission Dx 1. Chest pain with negative cardiac enzymes and EKG 2. Diabetes mellitus--known but untreated Plan 1. Chest pain with negative cardiac enzymes and EKG -Cardiology consultation 2. Diabetes mellitus--known but untreated -Patient to be started back on metformin 1 g twice a day. -She is currently on sliding scale insulin. Diagnosis/Problems: Clinical Quality Measures AMI/AHF: ASA po Prior to arrival: No DVT/VTE Risk/Contraindication: Risk Factor Score Per Nursin RFS Level Per Nursing on Admit: 4+=Very High ALFREDO SANDOVAL MD Jan 28, 2017 19:29
[2017-01-28 20:00] VITALS: BP 134/68
[2017-01-28] MEDS: ATORVASTATIN 40 MG (LIPITOR) TABLET PO SCH (21:33)
[2017-01-28 23:59] VITALS: BP 132/67
[2017-01-29 04:00] VITALS: BP 136/76
[2017-01-29 04:34] LABS: BASOPHILS # (AUTO) 0.1 10^3/uL (0.0-0.1); BASOPHILS % (AUTO) 1 % (0-10); EOSINOPHILS # (AUTO) 0.3 10^3/uL (0.0-0.3); EOSINOPHILS % (AUTO) 2 % (0-10); LYMPHOCYTES % (AUTO) 33 % (12-44); MEAN CORPUSCULAR HEMOGLOBIN 30 PG (25-34); MEAN CORPUSCULAR HGB CONC 33 G/DL (32-36); MEAN CORPUSCULAR VOLUME 90 FL (80-99); MEAN PLATELET VOLUME 11.9 FL (7.4-10.4); MONOCYTES # (AUTO) 0.6 X 10^3 (0.0-1.0); MONOCYTES % (AUTO) 5 % (0-12); NEUTROPHILS # (AUTO) 7.1 X 10^3 (1.8-7.8); NEUTROPHILS % (AUTO) 59 % (42-75); PLATELET COUNT 249 10^3/uL (130-400); RED BLOOD COUNT 5.08 10^6/uL (4.35-5.85); RED CELL DISTRIBUTION WIDTH 13.9 % (10.0-14.5)
[2017-01-29 05:03] LABS: ALANINE AMINOTRANSFERASE 20 U/L (0-55); ALBUMIN 3.2 G/DL (3.2-4.5); ANION GAP 11 MMOL/L (5-14); ASPARTATE AMINO TRANSFERASE 22 U/L (5-34); BILIRUBIN,TOTAL 0.3 MG/DL (0.1-1.0); BLOOD UREA NITROGEN 11 MG/DL (7-18); BUN/CREATININE RATIO 14; CALCIUM 8.8 MG/DL (8.5-10.1); CARBON DIOXIDE 26 MMOL/L (21-32); CHLORIDE 103 MMOL/L (98-107); CREATININE SERUM 0.76 MG/DL (0.60-1.30); GFR ESTIMATED > 60; GLUCOSE 167 MG/DL (70-105); MAGNESIUM 1.6 MG/DL (1.8-2.4); SODIUM 140 MMOL/L (135-145); TOTAL PROTEIN 6.1 G/DL (6.4-8.2)
[2017-01-29 05:04] LABS: CHOLESTEROL 244 MG/DL (< 200); DIRECT LDL 187 MG/DL (1-129); TRIGLYCERIDES 284 MG/DL (<150); VLDL CHOLESTEROL 57 MG/DL (5-40)
[2017-01-29 05:24] LABS: THYROID STIMULATING HORMONE 3.34 UIU/ML (0.35-4.94)
[2017-01-29] MEDS: inSUlin (REGULAR) HUMAN 1 UNIT/0.01 ML (CHARGE PER UNIT) SC SCH ×4 (05:54→20:16)
[2017-01-29] MEDS: metFORMIN 500 MG (GLUCOPHAGE) TAB PO SCH ×2 (06:11→17:56)
[2017-01-29 08:00] VITALS: BP 135/59
[2017-01-29] MEDS ORDERED: meTOprolol SUCCINATE 100 MG (TOPROL XL) TAB PO SCH (09:00)
[2017-01-29 09:13] VITALS: BP 106/50
[2017-01-29] MEDS: ASPIRIN E.C. 325 MG (ECOTRIN) TABLET PO SCH (09:18)
--- NOTE | 2017-01-29 10:27 | Cardiology Progress Note ---
Subjective Subjective/Events-last exam patient is sitting up in a chair, still having mild left sided chest discomfort. No shortness of breath. Review of Systems General: No Chills, No Night Sweats, No Fatigue, No Malaise, No Appetite, No Other HEENT: No Head Aches, No Visual Changes, No Eye Pain, No Ear Pain, No Dysphasia , No Sinus Congestion, No Post Nasal Drip, No Sore Throat, No Other Pulmonary: No Dyspnea, No Cough, No Pleuritic Chest Pain, No Other Cardiovascular: : Chest Pain: PalpitationsNo: Edema, Lt Headedness, Other, Paroxysmal Noc. Dyspnea Objective-Cardiology Exam Last Set of Vital Signs Vital Signs 01/29/17 09:13 Temp 98.2 Pulse 46 Resp 12 B/P 106/50 Pulse Ox 95 O2 Delivery Room Air Capillary Refill : Less Than 3 Seconds I&O Bad tableGeneral: Alert, Oriented X3, Cooperative HEENT: Atraumatic, PERRLA Neck: Supple, No JVD, No Thyromegaly Lungs: Clear to Auscultation, Normal Air Movement Heart: Regular Rate, Normal S1, Normal S2, No Murmurs Abdomen: Normal Bowel Sounds, Soft, No Tenderness, No Hepatosplenomegaly, No Masses Extremities: No Clubbing, No Cyanosis, No Edema, Normal Pulses, No Tenderness/ Swelling Skin: No Rashes, No Breakdown, No Significant Lesion Neuro: Normal Gait, Normal Speech, Strength at 5/5 X4 Ext, Normal Tone, Sensation Intact Psych/Mental Status: Mental Status NL, Mood NL Results Lab Laboratory Tests 01/28/17 11:20 01/29/17 03:50 A/P-Cardiology Admission Diagnosis chest pain nonspecific etiology Coronary artery disease Hypertension Hyperlipidemia Assessment/Plan Chest pain nonspecific etiology, atypical in presentation, history of coronary artery disease, planning to evaluate stress test in the morning. Coronary artery disease, history of cardiac catheterization done in 2009 with balloon angioplasty to the obtuse marginal branch. Maintained on aspirin at this time. Bradycardia, intolerance to beta blockers. I will discontinue. Hypertension, evaluate tolerance to lisinopril Hyperlipidemia, on Lipitor, monitor lipids, add Fish oil Bilateral xanthelasmas DM II, followed and managed by primary care physician Obesity with BMI approx 47, High risk for sleep apnea, consider sleep study Chronic tobacco use Fam history of early CAD Clinical Quality Measures AMI/AHF: ASA po Prior to arrival: No DVT/VTE Risk/Contraindication: Risk Factor Score Per Nursin RFS Level Per Nursing on Admit: 4+=Very High ALMA ROSA EDMOND MD Jan 29, 2017 10:27 ALMA ROSA EDMOND MD Jan 29, 2017 10:27
[2017-01-29 12:25] VITALS: BP 137/85
[2017-01-29] MEDS: NS IV 1000 ML 1,000 ML IV SCH (13:54)
--- NOTE | 2017-01-29 14:47 | Progress Note (SOAP) ---
Subjective Subjective/Events-last exam Patient reports she slept overnight without much severe pain. She still has discomfort in the left arm. No shortness of breath. Date seen by provider: Jan 29, 2017 Objective Exam Last Set of Vital Signs Vital Signs Date Time Temp Pulse Resp B/P Pulse Ox O2 Delivery O2 Flow Rate FiO2 01/29/17 13:00 56 01/29/17 12:25 97.5 20 137/85 96 Room Air Capillary Refill : Less Than 3 Seconds I&O Bad tableGeneral: No Acute Distress Neck: Supple Lungs: Clear to Auscultation Heart: Regular Rate Abdomen: Soft Extremities: No Clubbing, No Edema, No Tenderness/Swelling Results/Procedures Lab Laboratory Tests 01/28/17 16:03: Glucometer 220H 01/28/17 17:18: Troponin I < 0.30 01/28/17 21:27: Glucometer 227H 01/29/17 03:50: Alanine Aminotransferase (ALT/SGPT) 20, Albumin 3.2, Alkaline Phosphatase 80, Anion Gap 11, Aspartate Amino Transf (AST/SGOT) 22, BUN/Creatinine Ratio 14, Basophils # (Auto) 0.1, Basophils (%) (Auto) 1, Blood Urea Nitrogen 11, Calcium Level 8.8, Carbon Dioxide Level 26, Chloride Level 103, Cholesterol Level 244H, Creatinine 0.76, Eosinophils # (Auto) 0.3, Eosinophils (%) (Auto) 2, Estimat Glomerular Filtration Rate > 60, Glucose Level 167H, HDL Cholesterol 31L, Hematocrit 46, Hemoglobin 15.1, LDL Cholesterol Direct 187H, Lymphocytes # (Auto ) 4.0, Lymphocytes (%) (Auto) 33, Magnesium Level 1.6L, Mean Corpuscular Hemoglobin 30, Mean Corpuscular Hemoglobin Concent 33, Mean Corpuscular Volume 90, Mean Platelet Volume 11.9H, Monocytes # (Auto) 0.6, Monocytes (%) (Auto) 5, Neutrophils # (Auto) 7.1, Neutrophils (%) (Auto) 59, Platelet Count 249, Potassium Level 4.0, Red Blood Count 5.08, Red Cell Distribution Width 13.9, Sodium Level 140, Thyroid Stimulating Hormone (TSH) 3.34, Total Bilirubin 0.3, Total Protein 6.1L, Triglycerides Level 284H, VLDL Cholesterol 57H, White Blood Count 12.0H 01/29/17 10:12: Glucometer 282H Microbiology 01/28/17 Urine Culture - Preliminary, Resulted Gram Negative Andrey Radiology NAME: KENISHA LUA [facility] REC#: [id number] PT STATUS: ADM Enzo : 1955 PHYSICIAN: JEFFREY WATSON MD ADMIT DATE: 01/28/17/ICU Signed Date of Exam: 01/28/17 CHEST 1 VIEW, AP/PA ONLY INDICATION: Chest pain x2 weeks. Increasing shortness of air. Left shoulder pain.. TECHNIQUE: Single view chest 11:35 AM. CORRELATION STUDY: 12/19/2010 FINDINGS: Heart size and mediastinum are relatively stable. Lung domingo overall relatively clear. No infiltrate. IMPRESSION: 1. Overall relatively stable portable chest. Dictated by: Dictated on workstation # [id number] Dict: 01/28/17 1150 Trans: 01/28/17 1720 [facility] [id number] Interpreted by: RILEY VILLATORO DO Electronically signed by:RILEY VILLATORO DO 01/28/17 1722 Assessment/Plan Assessment/Plan Admission Dx 1. Chest pain with negative cardiac enzymes and EKG 2. Diabetes mellitus--known but untreated Plan 1. Chest pain with negative cardiac enzymes and EKG -Cardiology consultation 01/29 cardiology consultation noted. -at this time patient will remained on cardiac stepdown and have lexiscan in the morning 2. Diabetes mellitus--known but untreated -Patient to be started back on metformin 1 g twice a day. -She is currently on sliding scale insulin. 01/29 she is back on metformin -she was informed of her glucose 167 this morning and she received a total of 3 units insulin -insulin has not became part of her standard regiment as of yet. Will continue to monitor the glucose. Diagnosis/Problems: Clinical Quality Measures AMI/AHF: ASA po Prior to arrival: No DVT/VTE Risk/Contraindication: Risk Factor Score Per Nursin RFS Level Per Nursing on Admit: 4+=Very High ALFREDO SANDOVAL MD Jan 29, 2017 14:47
[2017-01-29 15:00] VITALS: BP 117/54
[2017-01-29 19:42] VITALS: BP 117/63
[2017-01-29] MEDS: ATORVASTATIN 40 MG (LIPITOR) TABLET PO SCH (20:16)
[2017-01-29] MEDS: NITROFURANTOIN 100 MG (MACROBID) CAPSULE PO SCH (20:16)
[2017-01-30] VITALS (7 sets, daily range): BP systolic 118–171; BP diastolic 56–96
[2017-01-30] MEDS: inSUlin (REGULAR) HUMAN 1 UNIT/0.01 ML (CHARGE PER UNIT) SC SCH ×3 (06:00→15:42)
[2017-01-30] MEDS: metFORMIN 500 MG (GLUCOPHAGE) TAB PO SCH (06:14)
[2017-01-30] MEDS ORDERED: MAGNESIUM OXIDE (MAG-OX)400 MG TAB PO NR (08:45)
[2017-01-30] MEDS ORDERED: lisINopril 5 MG (PRINIVIL) TABLET PO SCH (09:00)
[2017-01-30] MEDS: ASPIRIN E.C. 325 MG (ECOTRIN) TABLET PO SCH (09:12)
--- NOTE | 2017-01-30 09:16 | Progress Note-Cardiology ---
Cardiology SOAP Progress Note Subjective: She does not report cp or palp or syncope Objective: I&O/Vital Signs Vital Sign - Last 12Hours 01/30/17 01/30/17 01/30/17 00:00 00:56 04:00 Temp 97.8 98.2 Pulse 66 49 56 Resp 14 16 B/P 123/56 118/64 Pulse Ox 96 97 O2 Delivery Room Air Room Air Intake and Output 01/29/17 23:59 Intake Total 1095 ml Output Total 300 ml Balance 795 ml Weight (Pounds): 232 Weight (Ounces): 7.0 Weight (Calculated Kilograms): 105.898306 Constitutional: AAO x 3 well-developed well-nourished other (obese) Respiratory: No accessory muscle use, lungs clear to percussion lungs clear to auscultation Cardiovascular: regular rate-rhythm S1 and S2 systolic murmur (faint ASHLEY at card base) Gastrointestional: No tender, softNo guarding, No rebound, No audible bowel sounds Extremities: No clubbing, No cyanosis, No significant edema Neurologic/Psychiatric: oriented x 3 grossly intact power is 5/5 both on sides Skin: No rash on exposed areas, No ulcerations on exposed areas Results/Procedures: Labs Laboratory Tests 01/29/17 10:12: Glucometer 282H 01/29/17 14:51: Glucometer 253H 01/29/17 19:57: Glucometer 211H 01/30/17 06:13: Glucometer 161H Microbiology 01/28/17 Urine Culture - Preliminary, Resulted Escherichia Coli A/P: Assessment: Nonspecific chest discomfort without evidence of ACS so far Hypertension Hyperlipidemia, by history Bilateral xanthelasmas DM II Obesity with BMI approx 47 Chronic tobacco use Fam history of early CAD Plan: * Continue current regimen * MPI today * Risk factor modification again reviewed; advised to quit smoking immediately and completely Clinical Quality Measures AMI/AHF: ASA po Prior to arrival: PATO Epps MD FACP FAC CCDS Jan 30, 2017 09:16
[2017-01-30] MEDS ORDERED: IBUP-2055 PO (09:53)
[2017-01-30] MEDS ORDERED: ACET325T49 PO (09:53)
[2017-01-30] MEDS: NITROFURANTOIN 100 MG (MACROBID) CAPSULE PO SCH (10:49)
[2017-01-30] MEDS ORDERED: REGADENOSON 0.4 MG/5 ML SYR (LEXISCAN) IV ONE ×2 (14:11→14:30)
[2017-01-30] MEDS ORDERED: METF500T4 PO (15:45)
[2017-01-30] MEDS ORDERED: ATOR40TA PO (15:45)
[2017-01-30] MEDS ORDERED: LISI-556 PO (15:45)
[2017-01-30] MEDS ORDERED: ACETAMINOPHEN 325 MG TABLET/CAPLET (TYLENOL) PO NR (15:45)
[2017-01-30] MEDS ORDERED: ASPI325T32 PO (15:45)
[2017-01-30] MEDS ORDERED: NITR100C10 PO (15:45)
[2017-01-30] MEDS ORDERED: METO-352 PO (17:05)
--- NOTE | 2017-01-31 09:47 | STRESS TEST ---
PROCEDURE PHYSICIAN: PATO DECKER DATE OF PROCEDURE: 01/30/2017 RESTING AND POST REGADENOSON TECHNETIUM 99M TETROFOSMIN SPECT CT IMAGING: ORDERING PHYSICIAN: Dr. Decker. PRIMARY PHYSICIAN: Dr. Car OTHER PHYSICIAN: Dr. Felipe Baseline images were carried out after injection of 10.94 mCi of technetium 99m tetrofosmin. This was followed by 0.4 mg of regadenoson and 31.2 mCi of technetium 99m tetrofosmin for stress imaging. The electrocardiogram showed sinus rhythm at baseline with nonspecific T wave abnormality. The electrocardiogram did not change significantly with regadenoson infusion. Review of images at rest and following stress, does not indicate any distinct perfusion defects consistent with significant myocardial ischemia or infarction. Gated images show normal global left ventricular systolic function with normal regional wall motion. Left ventricular ejection fraction is calculated to be 71%. Left ventricular end-diastolic volume is 52 mL. TID is absent (1.07). CONCLUSIONS: 1. No evidence of significant ischemia or infarction on this study. 2. Normal regional wall motion. Normal global left ventricular systolic function with a calculated ejection fraction of 71%. 3. Normal left ventricular cavity size. Job ID: [id number] Dictated Date: 01/30/2017 16:45:00 Station Helper Date: 01/31/2017 09:43:36 / erica
--- NOTE | 2017-01-31 11:33 | ECHOCARDIOGRAPHY REPORT ---
PROCEDURE PHYSICIAN: PATO DECKER DATE OF PROCEDURE: 01/29/2017 TWO DIMENSIONAL ECHOCARDIOGRAM REPORT PRIMARY PHYSICIAN: Dr. Car OTHER PHYSICIAN: REFERRING PHYSICIAN: ORDERING PHYSICIAN: Dr. Decker INDICATION FOR THE PROCEDURE: Chest discomfort. MEASUREMENTS DERIVED VALUES LV DIAMETER (LAX) NORMALS NORMALS Diastolic 4.5 (3.6-5.2) Eject. Fract. (60%+/-6%) Systolic (2.3-3.9) Diastolic Vol. % Shortening (0.22-0.42) Systolic Vol. Aortic Root 2.5 IVS THICKNESS Diastolic 1.3 (0.6-1.1) LVPW THICKNESS Diastolic 1.3 (0.6-1.1) LA DIAMETER Systolic 4 (2.1-3.7) DESCRIPTION: This is a technically difficult study. It is not suitable for wall motion analysis. Global left systolic function appears well preserved. There appears to be a minimal amount of pericardial fluid which does not appear to be of hemodynamic significance. There is mild to moderate mitral annular calcification and aortic valve sclerosis. Aortic, mitral and tricuspid valve leaflets, to the extent visualized, seemed to have good leaflet excursion. There is no Doppler evidence of significant valvular stenosis. There is no evidence of significant intracardiac shunt on this transthoracic echocardiographic study. Inferior vena cava is not well visualized. CONCLUSIONS: 1. Technically difficult study. 2. Normal global left ventricular systolic function with an ejection fraction of approximately 65%. 3. No evidence of significant valvular regurgitation. 4. Aortic valve sclerosis and mitral annular calcification, mild to moderate, without evidence of significant valvular stenosis. 5. Mild concentric left ventricular hypertrophy. Job ID: [id number] Dictated Date: 01/31/2017 10:02:53 Assistant Golf Course Superintendent Date: 01/31/2017 11:28:10 / erica
--- NOTE | 2017-01-31 21:03 | Discharge Summary ---
Diagnosis/Chief Complaint Date of Admission Jan 28, 2017 at 13:04 Date of Discharge Jan 30, 2017 at 18:10 Admission Diagnosis Admission Diagnosis 1. Chest pain with negative cardiac enzymes and EKG 2. Diabetes mellitus--known but untreated Discharge Diagnosis 1. Chest pain with negative cardiac enzymes and EKG -Cardiology consultation 01/29 cardiology consultation noted. 01/30 Stress test done and unremarkable 2. Diabetes mellitus--known but untreated -Patient to be started back on metformin 1 g twice a day. -She is currently on sliding scale insulin. 01/29 she is back on metformin -she was informed of her glucose 167 this morning and she received a total of 3 units insulin -insulin has not became part of her standard regiment as of yet. Will continue to monitor the glucose. 01/30 on d/c resumed metformin, lisinopril, beta christy started per Cardiology and statin Chief Complaint/HPI Chief Complaint/HPI 62-year-old female presents to [facility] emergency department with a report of chest pain intermittently. She does admit this been going on off and on over the past 2 weeks but was worse upon awakening today. She also had associated shortness of breath. She describes the pain was in the left shoulder also. She does complain of numbness of her left hand but she wonders whether this has something to do with diabetes as well. She recently had trouble with her insurance and has been off of her medications for diabetes and hyperlipidemia. Discharge Summary-Simple/Stand Consultations Discharge Physical Examination Allergies: Uncoded Allergies: SULFA (Adverse Reaction, Unknown, NAUSEA, 06/14/15) Vitals & I&Os Vital Sign - Last 12Hours Date Time Temp Pulse Resp B/P Pulse Ox O2 Delivery O2 Flow Rate FiO2 01/30/17 19:32 68 18 149/67 97 01/30/17 16:00 96.6 Room Air General Appearance: Alert, No Acute Distress Respiratory: Clear to Auscultation, Normal Air Movement Cardiovascular: Regular Rate, No Murmurs Abdominal: Normal Bowel Sounds, Soft Neuro: Normal Speech Psych/Mental Status: Mental Status NL Hospital Course See final discharge diagnosis. Labs Laboratory Tests Test 01/30/17 06:13 01/30/17 10:47 01/30/17 15:41 Range/Units Glucometer 161 H 158 H 138 H 70-110 MG/DL Radiology Reviewed NAME: CHANELLKENISHA Kenyon MED REC#: [id number] PT STATUS: ADM Enzo : 1955 PHYSICIAN: JEFFREY WATSON MD ADMIT DATE: 01/28/17/ICU Signed Date of Exam: 01/28/17 CHEST 1 VIEW, AP/PA ONLY INDICATION: Chest pain x2 weeks. Increasing shortness of air. Left shoulder pain.. TECHNIQUE: Single view chest 11:35 AM. CORRELATION STUDY: 12/19/2010 FINDINGS: Heart size and mediastinum are relatively stable. Lung domingo overall relatively clear. No infiltrate. IMPRESSION: 1. Overall relatively stable portable chest. Dictated by: Dictated on workstation # [id number] Dict: 01/28/17 1150 Trans: 01/28/17 1720 JUAN RAMON [id number] Interpreted by: RILEY VILLATORO DO Electronically signed by:RILEY VILLATORO DO 01/28/17 1722 Discharge Instructions to patient/family Please see electonic discharge instructions given to patient. Discharge Medications Reviewed and agree with Discharge Medication list on patient's Discharge Instruction sheet Clinical Quality Measures AMI/AHF: ASA po Prior to arrival: No DVT/VTE Risk/Contraindication: Risk Factor Score Per Nursin RFS Level Per Nursing on Admit: 4+=Very High Copy Copies To 1: KATE PALOMO MD, BETHANY N MD Jan 31, 2017 21:03
== END 2017-01-30 17:54 | disposition home or self-care (01) ==
LOC: EDUNIT# 11:10 → ER 11:12 → UNDOADMOB 12:44 → ICU 12:44 → UNDODISOB 01-30 18:10
PROVIDERS: ADMIT Family Medicine; ATTEND Internal Medicine
DX: R07.9 Chest pain, unspecified (principal); E11.65 Type 2 diabetes mellitus with hyperglycemia; I10 Essential (primary) hypertension; F17.210 Nicotine dependence, cigarettes, uncomplicated; Z79.84 Long term (current) use of oral hypoglycemic drugs; Z79.899 Other long term (current) drug therapy; Z91.14 Patient's other noncompliance with medication regimen
CPT/HCPCS: 36415; 71010; 78452; 80053; 80061; 81000; 82962; 83735; 83874; 84443; 84484; 85025; 85379; 85610; 85730; 87077; 87088; 87186; 93005; 93017; 93041; 93306; G0378

== ENCOUNTER 2018-06-05 12:03 | Emergency (ER) | payer SELFPAY ==
[~2018-06-05] VITALS: Ht 149.9 cm; Wt 105.4 kg
[~2018-06-05 12:03] MED LIST changes: +ACET325T49 PO; +ACHD5005 PO; +ASPI325T32 PO; +ATOR40TA PO; -HYDR-3812 PO; +IBUP-2055 PO; +LISI-556 PO; +METF500T5 PO; +METO-352 PO; +NITR100C10 PO
--- OUTSIDE RECORDS SUMMARY | 2018-06-05 12:09 | XMS REPORT ---
Author Author KATE PALOMO [facility] Address [address] [place] [address] Care Team Providers Care Ict Development Manager Name Role Phone KATE PALOMO Unavailable PROBLEMS Type Condition ICD9-CM Code [id number] Code Onset Dates Condition Status SNOMED Code Problem Type 2 diabetes mellitus without complication, without long-term current use of insulin E11.9 Active [id number] ALLERGIES No Information SOCIAL HISTORY Never Assessed PLAN OF CARE VITAL SIGNS MEDICATIONS Unknown Medications RESULTS No Results PROCEDURES No Known procedures IMMUNIZATIONS No Known Immunizations MEDICAL (GENERAL) HISTORY Type Description Date Medical History hypertension Medical History hyperlipidemia Medical History type II diabetes Surgical History tubal ligation Surgical History heart cath Hospitalization History chest pain, uncontrolled DM, HTN-[facility] 01/28/17 Hospitalization History surgeries
--- OUTSIDE RECORDS SUMMARY | 2018-06-05 12:09 | XMS REPORT ---
Author Author KATE PALOMO [facility] Address [address] [place] [address] Care Team Providers Care Geodetic Technician Name Role Phone KATE PALOMO Unavailable PROBLEMS Type Condition ICD9-CM Code [id number] Code Onset Dates Condition Status SNOMED Code Problem Type 2 diabetes mellitus without complication, without long-term current use of insulin E11.9 Active [id number] ALLERGIES No Information SOCIAL HISTORY Never Assessed PLAN OF CARE VITAL SIGNS MEDICATIONS Unknown Medications RESULTS No Results PROCEDURES No Known procedures IMMUNIZATIONS No Known Immunizations MEDICAL (GENERAL) HISTORY Type Description Date Medical History hypertension Medical History hyperlipidemia Medical History type II diabetes Surgical History tubal ligation Surgical History heart cath Hospitalization History chest pain, uncontrolled DM, HTN-[facility] 01/28/17 Hospitalization History surgeries
--- OUTSIDE RECORDS SUMMARY | 2018-06-05 12:09 | XMS REPORT ---
Author Author DOROTHY FUNG Organization [facility] Address [address] [place] [address] Care Team Providers Care Obstetric Assistant Name Role Phone DOROTHY FUNG Unavailable PROBLEMS Type Condition ICD9-CM Code [id number] Code Onset Dates Condition Status SNOMED Code Problem Type 2 diabetes mellitus without complication, without long-term current use of insulin E11.9 Active [id number] ALLERGIES No Information SOCIAL HISTORY Never Assessed PLAN OF CARE VITAL SIGNS MEDICATIONS Medication Instructions Dosage Frequency Start Date End Date Duration Status Ibuprofen 200 mg Orally PRN 2-3 tablets as needed Active Nitrofurantoin 100 mg Orally twice a day 1 capsule with food 12h Jan, Jan, Active Acetaminophen 325 MG Orally PRN 1 tablet as needed Active Lisinopril 5 MG Orally Once a day 1 tablet 24h Active metformin 1,000 mg by oral route 2 times a day 1 tablet 12h Nov, Active Atorvastatin Calcium 40 MG Orally Once a day 1 tablet 24h Active Aspirin 325 MG Orally Once a day 1 tablet 24h Active Metoprolol Succinate 50 mg Orally Once a day 1 tablet 24h Active RESULTS No Results PROCEDURES No Known procedures IMMUNIZATIONS No Known Immunizations MEDICAL (GENERAL) HISTORY Type Description Date Medical History hypertension Medical History hyperlipidemia Medical History type II diabetes Surgical History tubal ligation Surgical History heart cath Hospitalization History chest pain, uncontrolled DM, HTN-[facility] 01/28/17 Hospitalization History surgeries
--- OUTSIDE RECORDS SUMMARY | 2018-06-05 12:11 | XMS REPORT | Continuity of Care Document ---
Author Author Formerly [facility] Address Unknown Phone Unavailable Allergies Active Description Code Type Severity Reaction Onset Reported/Identified Relationship to Patient Clinical Status Yes No Known Drug Allergies [id number] Drug Allergy Unknown N/A 08/14/2007 Yes sulfa drug Drug Allergy 06/18/2010 Yes SULFA SULFA Unknown NAUSEA 06/14/2015 Medications There is no data. Problems Date Dx Coded Attending Type Code Diagnosis Diagnosed By 06/12/2010 Ot 250.00 DIAB ESSIE WO COMPL, TYPE II OR UNSPEC TY 06/12/2010 Ot 272.4 HYPERLIPIDEMIA NEC/NOS 06/12/2010 Ot 278.00 OBESITY, NOS 06/12/2010 Ot 305.1 TOBACCO USE DISORDER 06/12/2010 Ot 345.90 EPILEPSY UNSPEC W/O MENTION INTRACTABLE 06/12/2010 Ot 414.01 CORONARY ATHEROSCLEROSIS OF [place] CORON 06/12/2010 Ot 790.6 ABN BLOOD CHEMISTRY NEC 06/12/2010 Ot V17.3 FAM HX- ISCHEM HEART DIS 06/12/2010 Ot V85.4 BODY MASS INDEX 40 AND OVER, ADULT 06/18/2010 KATE PALOMO MD 272.4 HYPERLIPIDEMIA UNSPECIFIED 06/18/2010 KATE PALOMO MD 311 Depressive Disorder Nos 06/18/2010 KATE PALOMO MD 401.1 HYPERTENSION, BENIGN ESSENTIAL 06/18/2010 KATE PALOMO MD 414.00 Coronary Atherosclerosis Of Unspecified Type Of Vessel [place] Or Graft 06/18/2010 KATE PALOMO MD 716.90 Arthritis/ Arthropathy, Unspecified 06/18/2010 272.4 HYPERLIPIDEMIA UNSPECIFIED 06/18/2010 311 Depressive Disorder Nos 06/18/2010 401.1 HYPERTENSION, BENIGN ESSENTIAL 06/18/2010 414.00 Coronary Atherosclerosis Of Unspecified Type Of Vessel [place] Or Graft 06/18/2010 716.90 Arthritis/ Arthropathy, Unspecified 06/18/2010 272.4 HYPERLIPIDEMIA UNSPECIFIED 06/18/2010 311 Depressive Disorder Nos 06/18/2010 401.1 HYPERTENSION, BENIGN ESSENTIAL 06/18/2010 414.00 Coronary Atherosclerosis Of Unspecified Type Of Vessel [place] Graft 06/18/2010 716.90 Arthritis/ Arthropathy, Unspecified 06/18/2010 KEN PHD, WILBERTO A 272.4 HYPERLIPIDEMIA UNSPECIFIED 06/18/2010 KEN PHD, WILBERTO A 311 Depressive Disorder Nos 06/18/2010 KEN PHD, WILBERTO A 401.1 HYPERTENSION, BENIGN ESSENTIAL 06/18/2010 [facility] PHD, WILBERTO A 414.00 Coronary Atherosclerosis Of Unspecified Type Of Vessel [place] Graft 06/18/2010 [facility] PHD, WILBERTO A 716.90 Arthritis/ Arthropathy, Unspecified 06/18/2010 STACIA GOVEA, KATE 272.4 HYPERLIPIDEMIA UNSPECIFIED 06/18/2010 STACIA GOVEA, KATE 311 Depressive Disorder Nos 06/18/2010 STACIA GOVEA, KATE 401.1 HYPERTENSION, BENIGN ESSENTIAL 06/18/2010 STACIA GOVEA, KATE 414.00 Coronary Atherosclerosis Of Unspecified Type Of Vessel [place] Graft 06/18/2010 STACIA GOVEA, KATE 716.90 Arthritis/ Arthropathy, Unspecified 06/18/2010 STACIA GOVEA, KATE 272.4 HYPERLIPIDEMIA UNSPECIFIED 06/18/2010 STACIA GOVEA, KATE 311 Depressive Disorder Nos 06/18/2010 STACIA GOVEA, KATE 401.1 HYPERTENSION, BENIGN ESSENTIAL 06/18/2010 STACIA GOVEA, KATE 414.00 Coronary Atherosclerosis Of Unspecified Type Of Vessel [place] Graft 06/18/2010 STACIA GOVEA, KATE 716.90 Arthritis/ Arthropathy, Unspecified 06/18/2010 STACIA GOVEA, KATE 272.4 HYPERLIPIDEMIA UNSPECIFIED 06/18/2010 STACIA GOVEA, KATE 311 Depressive Disorder Nos 06/18/2010 STACIA GOVEA, KATE 401.1 HYPERTENSION, BENIGN ESSENTIAL 06/18/2010 STACIA GOVEA, KATE 414.00 Coronary Atherosclerosis Of Unspecified Type Of Vessel [place] Graft 06/18/2010 STACIA GOVEA, KATE 716.90 Arthritis/ Arthropathy, Unspecified 06/18/2010 STACIA GOVEA, KATE 272.4 HYPERLIPIDEMIA UNSPECIFIED 06/18/2010 STACIA GOVEA, KATE 311 Depressive Disorder Nos 06/18/2010 STACIA GOVEA, KATE 401.1 HYPERTENSION, BENIGN ESSENTIAL 06/18/2010 STACIA GOVEA, KATE 414.00 Coronary Atherosclerosis Of Unspecified Type Of Vessel [place] Graft 06/18/2010 STACIA GOVEA, KATE 716.90 Arthritis/ Arthropathy, Unspecified 06/18/2010 STACIA GOVEA, KATE 272.4 HYPERLIPIDEMIA UNSPECIFIED 06/18/2010 STACIA GOVEA, KATE 311 Depressive Disorder Nos 06/18/2010 STACIA GOVEA, KATE 401.1 HYPERTENSION, BENIGN ESSENTIAL 06/18/2010 STACIA GOVEA, KATE 414.00 Coronary Atherosclerosis Of Unspecified Type Of Vessel [place]raft 06/18/2010 KATE PALOMO MD 716.90 Arthritis/ Arthropathy, Unspecified 06/18/2010 STACIA GOVEA, KATE 272.4 HYPERLIPIDEMIA UNSPECIFIED 06/18/2010 STACIA GOVEA, KATE 311 Depressive Disorder Nos 06/18/2010 STACIA GOVEA, KATE 401.1 HYPERTENSION, BENIGN ESSENTIAL 06/18/2010 STACIA GOVEA, KATE 414.00 Coronary Atherosclerosis Of Unspecified Type Of Vessel [place] 06/18/2010 STACIA GOVEA, KATE 716.90 [...] GOVEA, KATE 414.01 CAD 12/19/2010 Ot 724.1 PAIN IN THORACIC SPINE 03/14/2011 KATE PALOMO MD 272.0 HYPERCHOLESTEROLEMIA PURE 03/14/2011 KATE PALOMO MD 599.0 Urinary Tract Infection Site Not Specified 03/14/2011 272.0 HYPERCHOLESTEROLEMIA PURE 03/14/2011 599.0 Urinary Tract Infection Site Not Specified 03/14/2011 272.0 HYPERCHOLESTEROLEMIA PURE 03/14/2011 599.0 Urinary Tract Infection Site Not Specified 03/14/2011 WILBERTO ROGERS PHD 272.0 HYPERCHOLESTEROLEMIA PURE 03/14/2011 WILBERTO ROGERS PHD [...] 03/31/2011 STACIA GOVEA, KATE 790.29 Hyperglycemia 03/31/2011 KATE PALOMO MD 790.29 Hyperglycemia 03/31/2011 STACIA GOVEA, KATE 790.29 [...] EPICONDYLITIS (TENNIS ELBOW) 12/02/2011 STACIA GOVEA, KATE Gibbs6.32 LATERAL EPICONDYLITIS (TENNIS ELBOW) 12/02/2011 STACIA GOVEA, KATE Gibbs6.32 LATERAL EPICONDYLITIS (TENNIS ELBOW) 12/02/2011 KATE PALOMO MD6.32 LATERAL EPICONDYLITIS (TENNIS ELBOW) 10/30/2012 311 DEPRESSIVE DISORDER NOS 10/30/2012 311 DEPRESSIVE DISORDER NOS 10/30/2012 KEN PORTILLO, WILBERTO Fabian 311 DEPRESSIVE DISORDER NOS 10/30/2012 STACIA GOVEA, KATE 311 DEPRESSIVE DISORDER NOS 10/30/2012 STACIA GOVEA, KATE 311 DEPRESSIVE DISORDER NOS 10/30/2012 KATE PALOMO MD 311 DEPRESSIVE DISORDER NOS 10/30/2012 STACIA GOVEA, KATE 311 DEPRESSIVE DISORDER NOS 10/30/2012 KATE PALOMO MD 311 DEPRESSIVE DISORDER NOS 02/04/2013 KATE PALOMO MD 781.0 ABNORMAL INVOLUNTARY MOVEMENTS 02/04/2013 KATE PALOMO MD 781.0 ABNORMAL INVOLUNTARY MOVEMENTS 02/04/2013 KATE PALOMO MD 781.0 ABNORMAL INVOLUNTARY MOVEMENTS 02/04/2013 KATE PALOMO MD 781.0 ABNORMAL INVOLUNTARY MOVEMENTS 02/04/2013 KATE PALOMO MD 781.0 ABNORMAL INVOLUNTARY MOVEMENTS 01/09/2014 KATE PALOMO MD 724.5 BACKACHE UNSPECIFIED 01/09/2014 KATE PALOMO MD 724.5 BACKACHE UNSPECIFIED 06/14/2015 DONNIE GOVEA, STEPHAN A Ot 616.10 VAGINITIS NOS 06/14/2015 DONNIE GOVEA, STEPHAN A Ot 625.8 FEM GENITAL SYMPTOMS NEC 08/01/2015 DONNIE GOVEA, STEPHAN Fabian Ot 682.2 CELLULITIS OF TRUNK 10/28/2015 MABLE BATISTA Ot B37.3 CANDIDIASIS OF [place] AND VAGINA 10/28/2015 MABLE BATISTA Ot F17.210 NICOTINE DEPENDENCE, CIGARETTES, UNCOMPL 02/01/2016 EDOUARD ULLOA DOA K Ot F17.210 NICOTINE DEPENDENCE, CIGARETTES, UNCOMPL 02/01/2016 EDOUARD ULLOA DOA K Ot M79.642 PAIN IN LEFT HAND 02/03/2016 EDOUARD ULLOA DOA K Ot F17.210 02/03/2016 EDOUARD ULLOA DOA K Ot M79.642 01/30/2017 KATE PALOMO MD Ot E11.65 TYPE 2 DIABETES MELLITUS WITH HYPERGLYCE 01/30/2017 KATE PALOMO MD Ot F17.210 NICOTINE DEPENDENCE, CIGARETTES, UNCOMPL 01/30/2017 KATE PALOMO MD Ot I10 ESSENTIAL (PRIMARY) HYPERTENSION 01/30/2017 KATE PALOMO MD Ot R07.9 CHEST PAIN, UNSPECIFIED 01/30/2017 KATE PALOMO MD Ot Z79.84 LONG-TERM (CURRENT) USE OF ORAL HYPOGLYC 01/30/2017 KATE PALOMO MD Ot Z79.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 01/30/2017 KATE PALOMO MD Ot Z91.14 PATIENT'S OTHER NONCOMPLIANCE WITH MEDIC 01/31/2017 DONNIE GOVEA, STEPHAN A Ot 616.10 VAGINITIS NOS 01/31/2017 STEPHAN FIELDS MD Ot 625.8 FEM GENITAL SYMPTOMS NEC 01/31/2017 ARGENTINA ULLOA DO Ot F17.210 NICOTINE DEPENDENCE, CIGARETTES, UNCOMPL 01/31/2017 ARGENTINA ULLOA DO Ot M79.642 PAIN IN LEFT HAND 02/08/2017 ARGENTINA ULLOA DO Ot F17.210 NICOTINE DEPENDENCE, CIGARETTES, UNCOMPL 02/08/2017 ARGENTINA ULLOA DO Ot M79.642 PAIN IN LEFT HAND Procedures Code Description Performed By Performed On 00.40 PROCEDURE ON SINGLE VESSEL 06/11/2010 00.66 PERC TRANSLUMINAL CORON ANGIOPLASTY PTCA 06/11/2010 88.56 CORONAR ARTERIOGR-2 CATH 06/11/2010 17149 A1C (IN-HOUSE) 10/25/2012 95565 ROUTINE VENIPUNCTURE 10/26/2012 99627 CMP 10/26/2012 33756 LIPID PANEL 10/26/2012 5900553 GFR CALC (RESULT ONLY) 10/26/2012 06945 PSYCH DIAG INTER EXAM 10/30/2012 57129 PSYCHO TESTING 1 HR W COMP 12/26/2012 61011 PSYTX PT&/FAMILY 45 MINUTES 12/31/2012 35521 ROUTINE VENIPUNCTURE 02/04/2013 51901 MICRO ALBUMIN-IN HOUSE 02/04/2013 74850 A1C (IN-HOUSE) 02/04/2013 88324 CMP 02/04/2013 39326 LIPID PANEL 02/04/2013 9816733 GFR CALC (RESULT ONLY) 02/04/2013 01693 ROUTINE VENIPUNCTURE 10/22/2013 43212 A1C (IN-HOUSE) 10/22/2013 40806 LIPID PANEL 10/22/2013 47213 CMP 10/22/2013 6548003 GFR CALC (RESULT ONLY) 10/22/2013 36452 URINE DRUG SCREEN (IN-HOUSE ) 01/09/2014 71350 URINE OPIATES GC/MS 01/10/2014 27457 A1C (IN-HOUSE) 06/19/2014 18917 MICRO ALBUMIN-IN HOUSE 06/19/2014 15942 MICROALBUMIN 06/19/2014 Results Test Result Range Complete blood count (CBC) with automated white blood cell (WBC) differential - 01/28/17 11:20 Blood leukocytes automated count (number/volume) 13.0 10*3/uL 4.3-11.0 Blood erythrocytes automated count (number/volume) 5.42 10*6/uL 4.35-5.85 Venous blood hemoglobin measurement (mass/volume) 16.5 g/dL 11.5-16.0 Blood hematocrit (volume fraction) 48 % 35-52 Automated erythrocyte mean corpuscular volume 88 [foz_us] 80-99 Automated erythrocyte mean corpuscular hemoglobin (mass per erythrocyte) 30 pg 25-34 Automated erythrocyte mean corpuscular hemoglobin concentration measurement ( mass/volume) 35 g/dL 32-36 Automated erythrocyte distribution width ratio 13.7 % 10.0-14.5 Automated blood platelet count (count/volume) 272 10*3/uL 130-400 Automated blood platelet mean volume measurement 11.3 [foz_us] 7.4-10.4 Automated blood neutrophils/100 leukocytes 66 % 42-75 Automated blood lymphocytes/100 leukocytes 28 % 12-44 Blood monocytes/100 leukocytes 4 % 0-12 Automated blood eosinophils/100 leukocytes 1 % 0-10 Automated blood basophils/100 leukocytes 1 % 0-10 Blood neutrophils automated count (number/volume) 8.6 10*3 1.8-7.8 Blood lymphocytes automated count (number/volume) 3.6 10*3 1.0-4.0 Blood monocytes automated count (number/volume) 0.5 10*3 0.0-1.0 Automated eosinophil count 0.2 10*3/uL 0.0-0.3 Automated blood basophil count (count/volume) 0.1 10*3/uL 0.0-0.1 Comprehensive metabolic panel - 01/28/17 11:20 Serum or plasma sodium measurement (moles/volume) 138 mmol/L 135-145 Serum or plasma potassium measurement (moles/volume) 3.9 mmol/L 3.6-5.0 Serum or plasma chloride measurement (moles/volume) 102 mmol/L 98-107 Carbon dioxide 24 mmol/L 21-32 Serum or plasma anion gap determination (moles/volume) 12 mmol/L 5-14 Serum or plasma urea nitrogen measurement (mass/volume) 7 mg/dL 7-18 Serum or plasma creatinine measurement (mass/volume) 0.74 mg/dL 0.60-1.30 Serum or plasma urea nitrogen/creatinine mass ratio 9 NRG Serum or plasma creatinine measurement with calculation of estimated glomerular filtration rate > NRG Serum or plasma glucose measurement (mass/volume) 253 mg/dL 70-105 Serum or plasma calcium measurement (mass/volume) 9.2 mg/dL 8.5-10.1 Serum or plasma total bilirubin measurement (mass/volume) 0.3 mg/dL 0.1-1.0 Serum or plasma alkaline phosphatase measurement (enzymatic activity/volume) 102 U/L 40-136 Serum or plasma aspartate aminotransferase measurement (enzymatic activity/ volume) 29 U/L 5-34 Serum or plasma alanine aminotransferase measurement (enzymatic activity/volume ) 26 U/L 0-55 Serum or plasma protein measurement (mass/volume) 7.3 g/dL 6.4-8.2 Serum or plasma albumin measurement (mass/volume) 3.6 g/dL 3.2-4.5 Magnesium - 01/28/17 11:20 Magnesium 1.6 mg/dL 1.8-2.4 Serum or plasma troponin i.cardiac measurement (mass/volume) - 01/28/17 11:20 Serum or plasma troponin i.cardiac measurement (mass/volume) < ng/ mL <0.30 Myoglobin, serum - 01/28/17 11:20 Myoglobin, serum 18.5 ng/mL 10.0-92.0 Fibrin D-dimer FEU measurement in platelet poor plasma (mass/volume) - 11:31 Fibrin D-dimer FEU measurement in platelet poor plasma (mass/volume) 0.35 ug/mL 0.00-0.49 PT panel in platelet poor plasma by coagulation assay - 01/28/17 11:31 Prothrombin time (PT) in platelet poor plasma by coagulation assay 12.2 s 12.2-14.7 INR in platelet poor plasma or blood by coagulation assay 0.9 0.8-1.4 Activated partial thromboplastin time (aPTT) in platelet poor plasma bycoagulation assay - 01/28/17 11:31 Activated partial thromboplastin time (aPTT) in platelet poor plasma bycoagulation assay 30 s 24-35 Complete urinalysis with reflex to culture - 01/28/17 14:15 Urine color determination YELLOW NRG Urine clarity determination VERY CLOUDY NRG Urine pH measurement by test strip 6 5-9 Specific gravity of urine by test strip 1.010 1.016- 1.022 Urine protein assay by test strip, semi-quantitative 1+ NEGATIVE Urine glucose detection by automated test strip 1+ NEGATIVE Erythrocytes detection in urine sediment by light microscopy 3+ NEGATIVE Urine ketones detection by automated test strip NEGATIVE NEGATIVE Urine nitrite detection by test strip POSITIVE NEGATIVE Urine total bilirubin detection by test strip NEGATIVE NEGATIVE Urine urobilinogen measurement by automated test strip (mass/volume) NORMAL NORMAL Urine leukocyte esterase detection by dipstick 3+ NEGATIVE Automated urine sediment erythrocyte count by microscopy (number/high power field) [HPF] NRG Automated urine sediment leukocyte count by microscopy (number/high power field ) [HPF] NRG Bacteria detection in urine sediment by light microscopy LARGE NRG Squamous epithelial cells detection in urine sediment by light microscopy 25-50 NRG Crystals detection in urine sediment by light microscopy NONE NRG Casts detection in urine sediment by light microscopy NONE NRG Mucus detection in urine sediment by light microscopy NEGATIVE NRG Complete urinalysis with reflex to culture YES NRG Bacterial urine culture - 01/28/17 14:15 Bacterial urine culture [id number] NRG COLONY COUNT >100,000/ML NRG FTX;REPORTABLE SENSITIVITY REPORTED AT 1642, 3-17 NR FREE TEXT ENTRY 3 MIXED GRAM POSITIVE NORMAN NR Bacterial susceptibility panel - 01/28/17 14:15 Gentamicin susceptibility test by minimum inhibitory concentration < = NRG Trimethoprim/sulfamethoxazole susceptibility test by minimum inhibitoryconcentration <= NRG Ampicillin susceptibility test by minimum inhibitory concentration 8 NRG Tobramycin susceptibility test by minimum inhibitory concentration < = NRG Cefazolin susceptibility test by minimum inhibitory concentration < = NRG Ceftriaxone susceptibility test by minimum inhibitory concentration <= NRG Ampicillin/sulbactam susceptibility test by minimum inhibitory concentration 4 NRG Piperacillin/tazobactam susceptibility test by minimum inhibitory concentration <= NRG Ciprofloxacin susceptibility test by minimum inhibitory concentration <= NRG Meropenem susceptibility test by minimum inhibitory concentration < = NRG Nitrofurantoin susceptibility test by minimum inhibitory concentration <= NRG Aztreonam susceptibility test by minimum inhibitory concentration < = NRG Extended spectrum beta lactamase (ESBL) producing bacteria susceptibility test by minimum inhibitory concentration - NR Capillary blood glucose measurement by glucometer (mass/volume) - 01/28/17 16: 03 Capillary blood glucose measurement by glucometer (mass/volume) 220 mg/dL 70-110 Serum or plasma troponin i.cardiac measurement (mass/volume) - 01/28/17 17:18 Serum or plasma troponin i.cardiac measurement (mass/volume) < ng/ mL <0.30 Capillary blood glucose measurement by glucometer (mass/volume) - 01/28/17 21: 27 Capillary blood glucose measurement by glucometer (mass/volume) 227 mg/dL 70-110 Complete blood count (CBC) with automated white blood cell (WBC) differential - 01/29/17 03:50 Blood leukocytes automated count (number/volume) 12.0 10*3/uL 4.3-11.0 Blood erythrocytes automated count (number/volume) 5.08 10*6/uL 4.35-5.85 Venous blood hemoglobin measurement (mass/volume) 15.1 g/dL 11.5-16.0 Blood hematocrit (volume fraction) 46 % 35-52 Automated erythrocyte mean corpuscular volume 90 [foz_us] 80-99 Automated erythrocyte mean corpuscular hemoglobin (mass per erythrocyte) 30 pg 25-34 Automated erythrocyte mean corpuscular hemoglobin concentration measurement ( mass/volume) 33 g/dL 32-36 Automated erythrocyte distribution width ratio 13.9 % 10.0-14.5 Automated blood platelet count (count/volume) 249 10*3/uL 130-400 Automated blood platelet mean volume measurement 11.9 [foz_us] 7.4-10.4 Automated blood neutrophils/100 leukocytes 59 % 42-75 Automated blood lymphocytes/100 leukocytes 33 % 12-44 Blood monocytes/100 leukocytes 5 % 0-12 Automated blood eosinophils/100 leukocytes 2 % 0-10 Automated blood basophils/100 leukocytes 1 % 0-10 Blood neutrophils automated count (number/volume) 7.1 10*3 1.8-7.8 Blood lymphocytes automated count (number/volume) 4.0 10*3 1.0-4.0 Blood monocytes automated count (number/volume) 0.6 10*3 0.0-1.0 Automated eosinophil count 0.3 10*3/uL 0.0-0.3 Automated blood basophil count (count/volume) 0.1 10*3/uL 0.0-0.1 Comprehensive metabolic panel - 01/29/17 03:50 Serum or plasma sodium measurement (moles/volume) 140 mmol/L 135-145 Serum or plasma potassium measurement (moles/volume) 4.0 mmol/L 3.6-5.0 Serum or plasma chloride measurement (moles/volume) 103 mmol/L 98-107 Carbon dioxide 26 mmol/L 21-32 Serum or plasma anion gap determination (moles/volume) 11 mmol/L 5-14 Serum or plasma urea nitrogen measurement (mass/volume) 11 mg/dL 7-18 Serum or plasma creatinine measurement (mass/volume) 0.76 mg/dL 0.60-1.30 Serum or plasma urea nitrogen/creatinine mass ratio 14 NRG Serum or plasma creatinine measurement with calculation of estimated glomerular filtration rate > NRG Serum or plasma glucose measurement (mass/volume) 167 mg/dL 70-105 Serum or plasma calcium measurement (mass/volume) 8.8 mg/dL 8.5-10.1 Serum or plasma total bilirubin measurement (mass/volume) 0.3 mg/dL 0.1-1.0 Serum or plasma alkaline phosphatase measurement (enzymatic activity/volume) 80 U/L 40-136 Serum or plasma aspartate aminotransferase measurement (enzymatic activity/ volume) 22 U/L 5-34 Serum or plasma alanine aminotransferase measurement (enzymatic activity/volume ) 20 U/L 0-55 Serum or plasma protein measurement (mass/volume) 6.1 g/dL 6.4-8.2 Serum or plasma albumin measurement (mass/volume) 3.2 g/dL 3.2-4.5 Magnesium - 01/29/17 03:50 Magnesium 1.6 mg/dL 1.8-2.4 Lipid 1996 panel - 01/29/17 03:50 Serum or plasma triglyceride measurement (mass/volume) 284 mg/dL <150 Serum or plasma cholesterol measurement (mass/volume) 244 mg/dL < 200 Serum or plasma cholesterol in HDL measurement (mass/volume) 31 mg/ dL 40-60 Cholesterol in LDL [mass/volume] in serum or plasma by direct assay 187 mg/dL 1-129 Serum or plasma cholesterol in VLDL measurement (mass/volume) 57 mg/ dL 5-40 THYROID STIMULATING HORMONE - 01/29/17 03:50 THYROID STIMULATING HORMONE 3.34 u[iU]/mL 0.35-4.94 Capillary blood glucose measurement by glucometer (mass/volume) - 01/29/17 10: 12 Capillary blood glucose measurement by glucometer (mass/volume) 282 mg/dL 70-110 Capillary blood glucose measurement by glucometer (mass/volume) - 01/29/17 14: 51 Capillary blood glucose measurement by glucometer (mass/volume) 253 mg/dL 70-110 Capillary blood glucose measurement by glucometer (mass/volume) - 01/29/17 19: 57 Capillary blood glucose measurement by glucometer (mass/volume) 211 mg/dL 70-110 Capillary blood glucose measurement by glucometer (mass/volume) - 01/30/17 06: 13 Capillary blood glucose measurement by glucometer (mass/volume) 161 mg/dL 70-110 Capillary blood glucose measurement by glucometer (mass/volume) - 01/30/17 10: 47 Capillary blood glucose measurement by glucometer (mass/volume) 158 mg/dL 70-110 Capillary blood glucose measurement by glucometer (mass/volume) - 01/30/17 15: 41 Capillary blood glucose measurement by glucometer (mass/volume) 138 mg/dL 70-110 Encounters ACCT No. Visit Date/Time Discharge Status Pt. Type Provider Facility Loc./Unit Complaint [id number] 06/19/2014 08:58:00 06/19/2014 23:59:59 CLS Outpatient KATE PALOMO MD [id number] 01/09/2014 15:54:00 01/09/2014 23:59:59 CLS Outpatient KATE PALOMO MD [id number] 10/22/2013 08:47:00 10/22/2013 23:59:59 CLS Outpatient KATE PALOMO MD [id number] 05/27/2013 15:22:00 05/27/2013 23:59:59 CLS Outpatient KATE PALOMO MD [id number] 02/04/2013 09:04:00 02/04/2013 23:59:59 CLS Outpatient KATE PALOMO MD [id number] 12/28/2012 08:51:00 12/28/2012 23:59:59 CLS Outpatient KEN PHD, WILBERTO Fabian [id number] 12/25/2012 12:01:00 12/25/2012 23:59:59 CLS Outpatient [id number] 10/30/2012 08:00:00 10/30/2012 23:59:59 CLS Outpatient [id number] 10/26/2012 08:03:00 10/26/2012 23:59:59 [place] [id number] 12/02/2011 08:12:00 12/02/2011 23:59:59 CLS Outpatient KATE PALOMO MD [id number] 01/28/2017 12:44:00 01/30/2017 18:10:00 DIS Inpatient KATE PALOMO MD [facility] ICU CHEST PAIN, DM UNCONTROLLED, HTN [id number] 02/01/2016 09:22:00 02/01/2016 10:47:00 DIS Emergency ARTEMIO DO, ARGENTINA K [facility] ER LEFT THUMB/HAND PAIN [id number] 10/28/2015 14:23:00 10/28/2015 16:38:00 DIS Emergency MABLE BATISTA [facility] ER POSS YEAST INFECTION [id number] 08/01/2015 18:44:00 08/01/2015 19:53:00 DIS Emergency DONNIE GOVEA, STEPHAN Fabian [facility] ER BITE/ALLERGIC REACTION [id number] 06/14/2015 09:44:00 06/14/2015 10:16:00 DIS Emergency DONNIE GOVEA, STEPHAN Fabian [facility] ER VAGINAL PAIN [id number] 06/05/2018 12:05:00 ACT Emergency WALTER GOVEA, JEFFREY Renner [facility] ER LARGE BUMP DRAINING ON REAR-END [id number] 02/15/2017 15:16:00 Document Registration [id number] 02/15/2017 15:16:00 Document Registration [id number] 02/15/2017 15:16:00 Document Registration [id number] 02/15/2017 15:16:00 Document Registration [id number] 02/15/2017 15:16:00 Document Registration [id number] 06/14/2015 09:44:00 Document Registration [id number] 06/14/2015 09:44:00 Document Registration
--- NOTE | 2018-06-05 12:40 | ED Integumentary General ---
General Stated Complaint: LARGE BUMP DRAINING ON REAR-END Source: patient Exam Limitations: no limitations History of Present Illness Date Seen by Provider: Jun 05, 2018 Time Seen by Provider: 12:35 Initial Comments Patient is a 63-year-old female who presents to the emergency room with complaints of a large bump on her left buttocks that has been draining for the past few days. She said it started with pain to that area and she started taking Bactrim that she had left over from a previous infection and has been on it for 2 days. Patient reports the pain has become worse. Timing/Duration: week, getting worse, changing over time Severity: mild Possible Cause: no cause identified Modifying Factors: improves with other (antibiotics) Associated Symptoms: No fever Allergies and Home Medications Home Medications Acetaminophen 325 Mg Tablet, 325 MG PO DAILY PRN PRN for PAIN, (Reported) Aspirin 325 Mg Tablet.dr, 325 MG PO DAILY Prescribed by: DOROTHY FUNG on 01/30/17 154 Atorvastatin Calcium 40 Mg Tablet, 40 MG PO HS Prescribed by: DOROTHY FUNG on 01/30/17 1545 Hydrocodone Bit/Acetaminophen 1 Tab Tab, 1 EACH PO Q6H PRN for PAIN Prescribed by: CODY MENDES on 06/05/18 1501 Ibuprofen 200 Mg Tablet, 400-600 MG PO DAILY PRN PRN for INFLAMMATION, (Reported ) TAKES 2-3 (200 MG) TABLETS Lisinopril 5 Mg Tablet, 5 MG PO DAILY Prescribed by: DOROTHY FUNG on 01/30/17 1545 Metformin HCl 500 Mg Tablet, 1,000 MG PO BID@ Prescribed by: DOROTHY FUNG on 01/30/17 1545 Metoprolol Succinate 50 Mg Tab.er.24h, 50 MG PO DAILY Prescribed by: KEYSHA ELMORE on 01/30/17 1705 Nitrofurantoin Monohyd/M-Cryst 100 Mg Capsule, 100 MG PO BID Prescribed by: DOROTHY FUNG on 01/30/17 1545 Sulfamethoxazole/Trimethoprim 1 Each Tablet, 1 EACH PO BID Prescribed by: CODY MENDES on 06/05/18 1501 Patient Home Medication List Home Medication List Reviewed: Yes Constitutional: see HPI; No chills, No diaphoresis, No fever EENTM: no symptoms reported Respiratory: see HPI; No short of breath, No wheezing Cardiovascular: see HPI; No chest pain, No palpitations Gastrointestinal: see HPI; No abdominal pain, No nausea, No vomiting Genitourinary: see HPI; No decreased output, No discharge, No dysuria Musculoskeletal: see HPI; No back pain, No gout Skin: see HPI, lesions, lumps Psychiatric/Neurological: See HPI; Denies Anxiety, Denies Depressed Endocrine: See HPI; Denies Excessive Sweating, Denies Flushing Hematologic/Lymphatic: See HPI Past Rtiulvp-Naynvt-Kenobc Hx Past Med/Social Hx: Reviewed Nursing Past Med/Soc Hx Patient Social History Type Used: Cigarettes 2nd Hand Smoke Exposure: Yes Recent Foreign Travel: No Contact w/Someone Who Travel: No Recent Hopitalizations: No Immunizations Up To Date Tetanus Booster (TDap): Unknown Past Medical History Surgeries: Yes (TUBAL LIGATION 30 YRS AGO) Cardiac, Tubal Ligation Respiratory: No Cardiac: Yes High Cholesterol, Hypertension Neurological: No Reproductive Disorders: No Sexually Transmitted Disease: No Gastrointestinal: No Musculoskeletal: No Endocrine: Yes Diabetes, Non-Insulin dep Cancer: No Psychosocial: No Integumentary: No Blood Disorders: No Family Medical History Reviewed Nursing Family Hx Heart Disease, Hypertension Physical Exam Vital Signs Vital Signs - First Documented 06/05/18 12:21 Temp 96.9 Pulse 81 Resp 18 B/P (MAP) 120/104 (109) Pulse Ox 98 O2 Delivery Room Air Capillary Refill : General Appearance: WD/WN, no apparent distress HEENT: PERRL/EOMI, normal ENT inspection, TMs normal, pharynx normal Neck: non-tender, full range of motion, supple, normal inspection Cardiovascular: regular rate, rhythm, no edema, no gallop, no JVD, no murmur Respiratory: chest non-tender, lungs clear, normal breath sounds, no respiratory distress, no accessory muscle use Gastrointestinal: normal bowel sounds, non tender, soft, no organomegaly, no pulsatile mass Back: normal inspection, no CVA tenderness, no vertebral tenderness Extremities: normal range of motion, non-tender, normal inspection, no pedal edema, no calf tenderness Neurologic/Psychiatric: alert, normal mood/affect, oriented x 3 Skin: other (abscess to the left buttocks) Skin Problem Location: other Skin Problem Character: abscess (left buttocks.), drainage (purulent brown drainage), erythema (there is an area about the size of 8 cm around abscess that is erythematous.) Procedures/Interventions I&D : Blade Size: 11 I & D Procedure: betadine prep Progress The area of the abscess was already draining a purulent brown drainage. A culture was sent. The area was white down with a Betadine swab and opening the abscess was unroofed with an 11 blade scalpel and large amounts of purulent drainage was expressed. I explored the wound and there is no evidence of tunneling just localized collection of drainage. Progress/Results/Core Measures Results/Orders Lab Results Laboratory Tests Test 06/05/18 13:03 06/05/18 13:55 Range/Units White Blood Count 23.8 H 4.3-11.0 10^3/uL Red Blood Count 4.84 4.35-5.85 10^6/uL Hemoglobin 14.7 11.5-16.0 G/DL Hematocrit 43 35-52 % Mean Corpuscular Volume 90 80-99 FL Mean Corpuscular Hemoglobin 30 25-34 PG Mean Corpuscular Hemoglobin Concent 34 32-36 G/DL Red Cell Distribution Width 13.8 10.0-14.5 % Platelet Count 272 130-400 10^3/uL Mean Platelet Volume 11.7 H 7.4-10.4 FL Neutrophils (%) (Auto) 88 H 42-75 % Lymphocytes (%) (Auto) 7 L 12-44 % Monocytes (%) (Auto) 4 0-12 % Eosinophils (%) (Auto) 0 0-10 % Basophils (%) (Auto) 0 0-10 % Neutrophils # (Auto) 21.0 H 1.8-7.8 X 10^3 Lymphocytes # (Auto) 1.7 1.0-4.0 X 10^3 Monocytes # (Auto) 1.0 0.0-1.0 X 10^3 Eosinophils # (Auto) 0.1 0.0-0.3 10^3/uL Basophils # (Auto) 0.0 0.0-0.1 10^3/uL Neutrophils % (Manual) 85 % Lymphocytes % (Manual) 10 % Monocytes % (Manual) 5 % Eosinophils % (Manual) 0 % Basophils % (Manual) 0 % Band Neutrophils 0 % Blood Morphology Comment NORMAL Sodium Level 138 135-145 MMOL/L Potassium Level 3.8 3.6-5.0 MMOL/L Chloride Level 102 98-107 MMOL/L Carbon Dioxide Level 25 21-32 MMOL/L Anion Gap 11 5-14 MMOL/L Blood Urea Nitrogen 16 7-18 MG/DL Creatinine 1.31 H 0.60-1.30 MG/DL Estimat Glomerular Filtration Rate 41 BUN/Creatinine Ratio 12 Glucose Level 218 H 70-105 MG/DL Calcium Level 9.8 8.5-10.1 MG/DL Total Bilirubin 0.4 0.1-1.0 MG/DL Aspartate Amino Transf (AST/SGOT) 17 5-34 U/L Alanine Aminotransferase (ALT/SGPT) 16 0-55 U/L Alkaline Phosphatase 96 40-136 U/L C-Reactive Protein High Sensitivity 34.60 H 0.00-0.50 MG/DL Total Protein 7.6 6.4-8.2 GM/DL Albumin 3.5 3.2-4.5 GM/DL Lactic Acid Level 1.64 0.50-2.00 MMOL/L My Orders Orders - CODY MENDES Wound Culture (06/05/18 12:32) Cbc With Automated Diff (06/05/18 12:32) Comprehensive Metabolic Panel (06/05/18 12:32) Hs C Reactive Protein (06/05/18 12:32) Lidocaine 1% Inj 20 Ml (Xylocaine 1% Inj (06/05/18 12:45) Hydrocodone/Apap 5/325 Tablet (Lortab 5 (06/05/18 12:45) Manual Differential (06/05/18 13:03) Blood Culture (06/05/18 13:59) Lactic Acid Analyzer (06/05/18 13:59) Ceftriaxone Injection (Rocephin Injectio (06/05/18 15:00) Medications Given in ED Current Medications Medications Dose Ordered Sig/Maegan Route Start Time Stop Time Status Last Admin Dose Admin Acetaminophen/ Hydrocodone Bitart 1 tab ONCE ONCE PO 06/05/18 12:45 06/05/18 12:46 DC 06/05/18 12:50 1 TAB Ceftriaxone Sodium 1000 mg/ Sodium Chloride 50 ml @ 100 mls/hr ONCE ONCE IV 06/05/18 15:00 06/05/18 15:29 DC 06/05/18 15:10 100 MLS/HR Vital Signs/I&O 06/05/18 06/05/18 12:21 16:00 Temp 96.9 96.8 Pulse 81 72 Resp 18 12 B/P (MAP) 120/104 (109) 153/77 Pulse Ox 98 98 O2 Delivery Room Air Room Air Departure Impression Primary Impression: Abscess Disposition: 01 HOME, SELF-CARE Condition: Stable/Unchanged Departure-Patient Inst. Decision time for Depature: 13:40 Referrals: KATE PALOMO MD (PCP/Family) Primary Care Physician Patient Instructions: Skin Abscess, MRSA (DC) Add. Discharge Instructions: Take medication as directed. Follow-up with Dr. Palomo tomorrow at 1:20 PM for recheck. Return back to the emergency room for any increased fevers, pain, nausea, vomiting. Scripts Hydrocodone Bit/Acetaminophen (Hydrocodone/Acetaminophen 5/325mg Tablet) 1 Tab Tab 1 EACH PO Q6H PRN for PAIN, #14 TAB Prov: CODY MENDES 06/05/18 Sulfamethoxazole/Trimethoprim (Bactrim Ds Tablet) 1 Each Tablet 1 EACH PO BID for 7 Days, #14 TAB Prov: CODY MENDES 06/05/18 CODY MENDES Jun 05, 2018 12:40
[2018-06-05] MEDS ORDERED: LIDOCAINE 1% INJ 20 ML 20 ML VIAL INJ ONE (12:45)
[2018-06-05] MEDS ORDERED: HYDROcodone/APAP 5 MG/325 MG (LORTAB) TAB PO ONE (12:45)
[2018-06-05 13:13] LABS: BASOPHILS % (AUTO) 0 % (0-10); EOSINOPHILS # (AUTO) 0.1 10^3/uL (0.0-0.3); EOSINOPHILS % (AUTO) 0 % (0-10); HEMATOCRIT 43 % (35-52); HEMOGLOBIN 14.7 G/DL (11.5-16.0); LYMPHOCYTES # (AUTO) 1.7 X 10^3 (1.0-4.0); LYMPHOCYTES % (AUTO) 7 % (12-44); MEAN CORPUSCULAR HEMOGLOBIN 30 PG (25-34); MEAN CORPUSCULAR HGB CONC 34 G/DL (32-36); MEAN CORPUSCULAR VOLUME 90 FL (80-99); MEAN PLATELET VOLUME 11.7 FL (7.4-10.4); MONOCYTES % (AUTO) 4 % (0-12); NEUTROPHILS % (AUTO) 88 % (42-75); PLATELET COUNT 272 10^3/uL (130-400); RED BLOOD COUNT 4.84 10^6/uL (4.35-5.85); RED CELL DISTRIBUTION WIDTH 13.8 % (10.0-14.5); WHITE BLOOD COUNT 23.8 10^3/uL (4.3-11.0)
[2018-06-05 13:29] LABS: BAND NEUTROPHILS 0 %; BASOPHILS % (MANUAL) 0 %; EOSINOPHILS % (MANUAL) 0 %; LYMPHOCYTES % (MANUAL) 10 %; MONOCYTES % (MANUAL) 5 %; NEUTROPHILS % (MANUAL) 85 %; RBC MORPH NORMAL
[2018-06-05 13:36] LABS: ALBUMIN 3.5 GM/DL (3.2-4.5); BILIRUBIN,TOTAL 0.4 MG/DL (0.1-1.0); CALCIUM 9.8 MG/DL (8.5-10.1); CREATININE SERUM 1.31 MG/DL (0.60-1.30); POTASSIUM 3.8 MMOL/L (3.6-5.0); TOTAL PROTEIN 7.6 GM/DL (6.4-8.2)
[2018-06-05] MEDS ORDERED: ACHD5005 PO ×2 (13:42→15:01)
[2018-06-05] MEDS ORDERED: SULF1TAB35 PO ×2 (13:42→15:01)
[2018-06-05] MEDS ORDERED: cefTRIAXone INJECTION 1,000 MG in NS (IVPB) 50 ML IV ONE (15:00)
[2018-06-05 16:00] VITALS: BP 153/77
== END 2018-06-05 16:00 | disposition home or self-care (01) ==
LOC: EDUNIT# 12:03 → ER 12:05
DX: L02.31 Cutaneous abscess of buttock (principal); I10 Essential (primary) hypertension; E78.00 Pure hypercholesterolemia, unspecified; E11.9 Type 2 diabetes mellitus without complications; Z79.82 Long term (current) use of aspirin; Z79.84 Long term (current) use of oral hypoglycemic drugs; Z98.51 Tubal ligation status; Z77.22 Contact with and (suspected) exposure to environmental tobacco smoke (acute) (chronic)
CPT/HCPCS: 36415; 80053; 83605; 85007; 85027; 86141; 87040; 87070; 87077; 87186; 87205; 96365

== ENCOUNTER 2018-09-22 16:30 | Emergency (ER) | payer SELFPAY ==
[~2018-09-22] VITALS: Ht 147.3 cm; Wt 117.9 kg
[~2018-09-22 16:30] MED LIST changes: +METF-397 PO; -METF500T5 PO
[2018-09-22] MEDS ORDERED: ALTEPLASE 100 MG/VIAL (ACTIVASE) IV ONE ×2 (16:38→17:30)
[2018-09-22 16:51] LABS: BASOPHILS # (AUTO) 0.1 10^3/uL (0.0-0.1); BASOPHILS % (AUTO) 1 % (0-10); EOSINOPHILS # (AUTO) 0.2 10^3/uL (0.0-0.3); EOSINOPHILS % (AUTO) 2 % (0-10); HEMATOCRIT 46 % (35-52); HEMOGLOBIN 15.6 G/DL (11.5-16.0); LYMPHOCYTES # (AUTO) 3.5 X 10^3 (1.0-4.0); LYMPHOCYTES % (AUTO) 24 % (12-44); MEAN CORPUSCULAR HEMOGLOBIN 30 PG (25-34); MEAN CORPUSCULAR HGB CONC 34 G/DL (32-36); MEAN CORPUSCULAR VOLUME 90 FL (80-99); MEAN PLATELET VOLUME 11.5 FL (7.4-10.4); MONOCYTES # (AUTO) 0.7 X 10^3 (0.0-1.0); MONOCYTES % (AUTO) 5 % (0-12); NEUTROPHILS # (AUTO) 10.5 X 10^3 (1.8-7.8); NEUTROPHILS % (AUTO) 70 % (42-75); PLATELET COUNT 307 10^3/uL (130-400); RED BLOOD COUNT 5.13 10^6/uL (4.35-5.85); RED CELL DISTRIBUTION WIDTH 13.8 % (10.0-14.5)
--- NOTE | 2018-09-22 16:52 | Diagnostic Imaging Report ---
INDICATION: New onset right-sided weakness and slurred speech. COMPARISON: None. DISCUSSION: No intracranial hemorrhage, mass, midline shift, or hydrocephalus. The ventricles and sulci are normal size and configuration for age. The visualized orbits, paranasal sinuses, mastoid air cells, and calvarium are unremarkable. IMPRESSION: 1. Negative head CT. Dictated by: Dictated on workstation # [id number]
--- NOTE | 2018-09-22 16:58 | Diagnostic Imaging Report ---
Indication: Altered mental status. Comparison: 01/28/2017. Discussion: Single portable upright view of the chest was obtained. Mild cardiomegaly. No focal consolidation, pleural fluid or pneumothorax. No osseous abnormality. Impression: Mild cardiomegaly. Dictated by: Dictated on workstation # [id number]
--- OUTSIDE RECORDS SUMMARY | 2018-09-22 17:01 | XMS REPORT ---
Author Author VINEET IRAHETA Organization [facility] Address [address] [place] [address] Care Team Providers Care Cigar Maker Name Role Phone VINEET IRAHETA Unavailable PROBLEMS Type Condition ICD9-CM Code [id number] Code Onset Dates Condition Status SNOMED Code Problem Type 2 diabetes mellitus without complication, without long-term current use of insulin E11.9 Active [id number] ALLERGIES No Known Allergies ENCOUNTERS Encounter Location Date Diagnosis [facility] [id number] [place] [address] May, [facility] [id number] [place] [address]98- 6569 May, Abscess, gluteal, left L02.31 [facility] [id number] [place] [address]- 2509 March, [facility] [id number] [place] [address]- 1071 Jan, Type 2 diabetes mellitus without complication, without long- term current use of insulin E11.9 [facility] [id number] [place] [id number] Jan, [facility] [id number] [place] [address]78- 9639 Jan, [facility] [id number] [place] [address] 17[address]- 4998 Feb, [facility] [id number] [place] [address] 65609- 7664 Feb, [facility] [address] [place] [address] Nov, [facility] [id number] [address] Nov, [facility] [address] [id number] [place] [address] May, [facility] [place] [facility] [address] [id number] [place] [address]006 May, [facility] [place] [facility] [address] [id number] [place] [address] 80[address] Apr, [facility] [place] [facility] [address] [id number] [place] [address] 9762 Apr, [facility] [place] [facility] [address] [id number] [place] [address] Jan, [facility] [place] [facility] [address] [id number] [place] [address] 3867 Jan, [facility] [place] [facility] [address] [id number] [place] [address]461 Dec, [facility] [place] [facility] [address] [id number] [place] [address] 0608 Dec, [facility] [place] [facility] [address] [facility] [id number] [place] [address] Dec, [facility] [place] [facility] [address] [facility] [id number] [place] [address] Dec, [facility] [place] [facility] [address] [id number] [place] [address] 8606 Dec, [facility] [place] [facility] [address] [id number] [place] [address] 7981 Oct, [facility] [place] [facility] [address] [id number] [place] [address] 8196 Oct, [facility] [place] [facility] [address] [facility] [id number] [place] [address] 7536 Oct, [facility] [place] [facility] [address] [id number] [place] [address] 254 Oct, [facility] [address] [id number] [place] [address] 4[address] Sep, [facility] [place] [facility] [address] [id number] [place] [address] 2546 Sep, [facility] [place] [facility] [address] [facility] [id number] [place] [address] 2546 Aug, [facility] [place] [facility] [address] [id number] [place] [address] 2546 Aug, [facility] [place] [facility] [address] [id number] [place] [address]46 Jun, [facility] [place] [facility] [address] [id number] [place] [address] 8[address] May, [facility] [place] [facility] [address] [id number] [place] [address] 2546 May, [facility] [place] [facility] [address] [id number] [place] [address] May, [facility] [place] [facility] [address] [id number] [place] [address]36 May, [facility] [place] [facility] [address] [facility] [id number] [place] [address] 8786 Apr, [facility] [place] [facility] [address] [id number] [place] [address] Feb, [facility] [place] [facility] [address] [id number] [place] [address] Jan, [facility] [place] [facility] [address] [id number] [place] [address]46 Jan, [facility] [place] [facility] [address] [facility] [id number] [place] [address] Jan, [facility] [place] [facility] [address] [facility] [id number] [place] [address] 2546 Dec, [facility] [place] [facility] [address] [id number] [place] [address] 9153 Dec, 2012 [facility] [address] [id number] [place] [address] 08 Dec, 2012 [facility] [place] [facility] [address] [id number] [place] [address]76 05 Dec, 2012 [facility] [address] [id number] [place] [address]- [address]236 Oct, [facility] [place] [facility] [address] [id number] [place] [address] 0366 Oct, [facility] [address] [id number] [place] [address] Oct, [facility] [address] [facility] [id number] [place] [address]- [address]45 Oct, [facility] [address] [id number] [place] [address]- [address]328 Oct, [facility] [address] [id number] [place] [address]- 9445 Oct, [facility] [address] [facility] [id number] [place] [address]- 8955 Sep, [facility] [address] [facility] [id number] [place] [address]- [address] 13 Sep, 2012 [facility] [place] [facility] [address] [id number] [place] [address] Sep, [facility] [place] [facility] [address] [id number] [place] [address]- 2581 Sep, [facility] [place] [facility] [address] [id number] [place] [address]- 3216 Sep, [facility] [place] [facility] [address] [facility] [id number] [place] [address]- 9926 Sep, [facility] [place] [facility] [address] [id number] [place] [address]- 8496 Aug, [facility] [address] [id number] [place] [address]- 2633 Aug, [facility] [place] [facility] [address] [id number] [place] [address]- 5884 Jul, [facility] [place] [facility] [address] [id number] [place] [address]- 5729 May, [facility] [place] [facility] [address] [id number] [place] [address]- 9265 Apr, [facility] [place] [facility] [address] [id number] [place] [address]- 5362 March, [facility] [place] [facility] [address] [id number] [place] [address]- 9206 Feb, [facility] [place] [facility] [address] [id number] [place] [address]- 1353 Feb, [facility] [place] [facility] [address] [id number] [place] [address]- 0334 Jan, [facility] [place] [facility] [address] [id number] [place] [address]- 5989 Jan, [facility] [place] [facility] [address] [id number] [place] [address]- 9306 Jan, [facility] [place] [facility] [address] [id number] [place] [address]- 4005 Dec, [facility] [place] [facility] [address] [id number] [place] [address]- 4307 Nov, [facility] [place] [facility] [address] [id number] [place] [address]- 7869 Nov, [facility] [place] [facility] [address] [id number] [place] [address]- 5946 Nov, [facility] [place] [facility] [address] [id number] [place] [address]- 1866 Nov, [facility] [place] [facility] [address] [id number] [place] [address]- [address] Oct, [facility] [address] [address] Oct, [facility] [address] [address] Oct, [facility] [address] [address]- 9[address] Oct, [facility] [address] [address]- 2541 Oct, [facility] [address] [address]- [address] Sep, [facility] [id number] [address] Aug, [facility] [address] [address] Oct, [facility] [id number] [address]- 8041 Oct, [facility] [address] [address]- [address] Sep, [facility] [id number] [address]- [address] Sep, [facility] [address] [address] Aug, [facility] [id number] [address]- [address] Aug, IMMUNIZATIONS Vaccine Route Administration Date Status ROCEPHIN 1 GM (IM) IM Intramuscular June 06, 2018 Administered SOCIAL HISTORY Never Assessed REASON FOR VISIT Incision and Drainage--tcuppettRn, ER fu for I & D done yesterday, Pt reports she thought was to get an rx for Bactrim from ER. No rx was sent. Pt taking Bactrim that she had from home old rx. PLAN OF CARE Activity Details Follow Up 1 Week with PCP f.u abscess Reason: VITAL SIGNS Height 59 in 2018-06-06 Weight 231.7 lbs 2018-06-06 Temperature 98.2 degrees Fahrenheit 2018-06-06 Heart Rate 84 bpm 2018-06-06 Respiratory Rate 20 2018-06-06 BMI 46.79 kg/m2 2018-06-06 Blood pressure systolic 128 mmHg 2018-06-06 Blood pressure diastolic 82 mmHg 2018-06-06 MEDICATIONS Medication Instructions Dosage Frequency Start Date End Date Duration Status Bactrim DS 800-160 MG Orally Twice a day 1 tablet 12h May,May 10 day(s) Active Metoprolol Succinate 50 mg Orally Once a day 1 tablet 24h Not- Taking Atorvastatin Calcium 40 MG Orally Once a day 1 tablet 24h Not- Taking Lisinopril 5 MG Orally Once a day 1 tablet 24h Not-Taking Hydrocodone-Acetaminophen 5-325 MG Orally every 6 hrs 1 tablet as needed 6h Active metformin 1,000 mg by oral route 2 times a day 1 tablet 12h Nov, Not-Taking Aspirin 325 MG Orally Once a day 1 tablet 24h Not-Taking RESULTS No Results PROCEDURES Procedure Date Ordered Result Body Site ROCEPHIN 1 GM (IM) June 06, 2018 THER/PROPH/DIAG INJ, SC/IM June 06, 2018 INSTRUCTIONS MEDICATIONS ADMINISTERED No Known Medications MEDICAL (GENERAL) HISTORY Type Description Date Medical History hypertension Medical History hyperlipidemia Medical History type II diabetes Surgical History tubal ligation Surgical History heart cath Hospitalization History chest pain, uncontrolled DM, HTN-[facility] 01/28/17 Hospitalization History surgeries
--- OUTSIDE RECORDS SUMMARY | 2018-09-22 17:01 | XMS REPORT ---
Author Author VINEET IRAHETA Organization [facility], [place] Address [address] [place] [address] Care Team Providers Care Tar Boiler Name Role Phone VINEET IRAHETA Unavailable PROBLEMS Type Condition ICD9-CM Code [id number] Code Onset Dates Condition Status SNOMED Code Problem Type 2 diabetes mellitus without complication, without long-term current use of insulin E11.9 Active [id number] ALLERGIES No Information ENCOUNTERS Encounter Location Date Diagnosis [facility] [place] [id number] [place] [address] 97700- 6270 May, [facility] [place] [id number] [place] [address] 28587- 9414 May, [facility] [place] [id number] [place] [address] 83032- 2295 March, [facility] [place] [id number] [place] [address] 85569- 7238 Jan, Type 2 diabetes mellitus without complication, without long- term current use of insulin E11.9 [facility] [id number] [place] [address] [id number] Jan, [facility] [place] [id number] [place] [address]- 1954 Jan, [facility] [place] [id number] [place] [address] 18098- 3238 Feb, [facility] [place] [id number] [place] [address] 37275- 7947 Feb, [facility] [place] [id number] [place] [address] 78581- 1172 Nov, [facility] [place] [id number] [place] [address] 68664- 2546 Nov, [facility] [place] [facility] [address] [id number] [place] [address] May, [facility] [place] [facility] [address] [id number] [place] [address]- 0384 May, [facility] [place] [facility] [address] [facility] [id number] [place] [address]- 7665 Apr, [facility] [place] [facility] [address] [id number] [place] [address] 1243 Apr, [facility] [place] [facility] [address] [id number] [place] [address]- 0392 Jan, [facility] [place] [facility] [address] [facility] [id number] [place] [address]- 7335 Jan, [facility] [place] [facility] [address] [facility] [id number] [place] [address]- 0959 Dec, [facility] [place] [facility] [address] [facility] [id number] [place] [address]- 1532 Dec, [facility] [place] [facility] [address] [facility] [id number] [place] [address]- 6099 Dec, [facility] [place] [facility] [address] [facility] [id number] [place] [address]- 0777 Dec, [facility] [place] [facility] [address] [facility] [id number] [place] [address]- 6252 Dec, [facility] [place] [facility] [address] [facility] [id number] [place] [address]- 1445 Oct, [facility] [place] [facility] [address] [facility] [id number] [place] [address] Oct, [facility] [place] [facility] [address] [facility] [id number] [place] [address]- 8956 Oct, [facility] [place] [facility] [address] [facility] [id number] [place] [address] 1986 Oct, [facility] [place] [facility] [address] [id number] [place] [address]- 4573 07 Sep, 2013 [facility] [place] [facility] [address] [id number] [place] [address]- 8248 Sep, [facility] [place] [facility] [address] [id number] [place] [address]- 2702 10 Aug, 2013 [facility] [place] [facility] [address] [id number] [place] [address]- 9474 Aug, [facility] [place] [facility] [address] [id number] [place] [address]- 2934 Jun, [facility] [place] [facility] [address] [id number] [place] [address]- 7516 May, [facility] [place] [facility] [address] [id number] [place] [address]- 7314 May, [facility] [place] [facility] [address] [id number] [place] [address]- 2386 May, [facility] [place] [facility] [address] [id number] [place] [address]- 9444 May, [facility] [place] [facility] [address] [id number] [place] [address]- 2179 Apr, [facility] [place] [facility] [address] [id number] [place] [address]- 5082 Feb, [facility] [place] [facility] [address] [id number] [place] [address]- 4408 Jan, [facility] [place] [facility] [address] [id number] [place] [address]- 0936 Jan, [facility] [place] [facility] [address] [id number] [place] [address]- 2546 Jan, [facility] [place] [facility] [address] [id number] [place] [address]- 2826 Dec, [facility] [place] [facility] [address] [id number] [place] [address]- 0925 Dec, [facility] [place] [facility] [address] [id number] [place] [address]- 5481 Dec, [facility] [place] [facility] [address] [id number] [place] [address] Dec, [facility] [place] [facility] [address] [id number] [place] [address]- 1421 Oct, [facility] [place] [facility] [address] [id number] [place] [address]- 1045 Oct, [facility] [place] [facility] [address] [id number] [place] [address]- 2089 Oct, [facility] [place] [facility] [address] [id number] [place] [address]- 0941 Oct, [facility] [place] [facility] [address] [id number] [place] [address]- 3439 Oct, [facility] [place] [facility] [address] [id number] [place] [address]- 1331 Oct, [facility] [place] [facility] [address] [id number] [place] [address]- 5810 Sep, [facility] [place] [facility] [address] [id number] [place] [address]- 0883 Sep, [facility] [place] [facility] [address] [id number] [address]- 2853 Sep, [facility] [place] [facility] [address] [id number], [place] [address]- 3645 Sep, [facility] [place] [facility] [address] [id number], [place] [address]- 4088 Sep, [facility] [place] [facility] [address] [id number] [place] [address]- 5844 Sep, [facility] [place] [facility] [address] [id number] [place] [address]- 1320 Aug, [facility] [place] [facility] [address] [id number] [place] [address]- 6806 11 Aug, 2012 [facility] [address] [id number] [place] [address]- 2966 Jul, [facility] [address] [id number] [place] [address] 2546 May, [facility] [address] [id number] [place] [address]- 3466 Apr, [facility] [address] [id number] [place] [address]- 2216 March, [facility] [address] [id number] [place] [address]- 1906 Feb, [facility] [address] [id number] [place] [address]- 0786 Feb, [facility] [address] [id number] [place] [address]- 5666 Jan, [facility] [address] [id number] [place] [address]- 1986 Jan, [facility] [address] [id number] [place] [address]- 0286 Jan, [facility] [address] [id number] [place] [address]- 8546 Dec, [facility] [address] [id number] [place] [address]- 4646 Nov, [facility] [address] [id number] [place] [address]- 6826 Nov, [facility] [address] [id number] [place] [address]- 4076 Nov, [facility] [address] [id number] [place] [address]- 2546 Nov, [facility] [address] [id number] [place] [address]- 3730 Oct, [facility] [place] [address] [address]- 5541 Oct, [facility] [place] [address] [facility] [id number] 7085 Oct, [facility] [place] [address] 3338 Oct, [facility] [place] [address] [facility] [id number], [place] [address]- 1980 Oct, [facility] [place] [address] [facility] [id number], [place] [address]- 8188 Sep, [facility] [place] [id number] [place] [address] 57563- 6849 Aug, [facility] [place] [id number], [place] [address]- 4736 Oct, [facility] [place] [id number], [place] [address]- 4841 Oct, [facility] [place] [id number], [place] [address]- 9676 Sep, [facility] [place] [id number] [place] [address]- 0859 Sep, [facility] [place] [id number] [address]- 5791 Aug, [facility] [place] [address] [address]- 1146 Aug, IMMUNIZATIONS No Known Immunizations SOCIAL HISTORY Never Assessed REASON FOR VISIT Medication question PLAN OF CARE VITAL SIGNS MEDICATIONS Medication Instructions Dosage Frequency Start Date End Date Duration Status Hydrocodone-Acetaminophen 5-325 MG Orally every 6 hrs 1 tablet as needed May, May, 07 days Active RESULTS No Results PROCEDURES No Known procedures INSTRUCTIONS MEDICATIONS ADMINISTERED No Known Medications MEDICAL (GENERAL) HISTORY Type Description Date Medical History hypertension Medical History hyperlipidemia Medical History type II diabetes Surgical History tubal ligation Surgical History heart cath Hospitalization History chest pain, uncontrolled DM, [facility] 01/28/17 Hospitalization History surgeries
--- OUTSIDE RECORDS SUMMARY | 2018-09-22 17:02 | XMS REPORT | Continuity of Care Document ---
Author Author [facility] Address Unknown Phone Unavailable Allergies Active Description Code Type Severity Reaction Onset Reported/Identified Relationship to Patient Clinical Status Yes No Known Drug Allergies [id number] Drug Allergy Unknown N/A 08/14/2007 Yes sulfa [...] INTRACTABLE 06/12/2010 Ot 414.01 CORONARY ATHEROSCLEROSIS OF [place] CORON 06/12/2010 Ot 790.6 ABN BLOOD CHEMISTRY NEC 06/12/2010 Ot V17.3 FAM HX- ISCHEM HEART DIS 06/12/2010 Ot V85.4 BODY MASS INDEX 40 AND OVER, ADULT 06/18/2010 KATE PALOMO MD 272.4 HYPERLIPIDEMIA UNSPECIFIED 06/18/2010 KATE PALOMO MD 311 Depressive Disorder Nos 06/18/2010 KATE PALOMO MD 401.1 HYPERTENSION, BENIGN ESSENTIAL 06/18/2010 KATE PALOMO MD 414.00 Coronary Atherosclerosis Of Unspecified Type Of Vessel [place] Or Graft 06/18/2010 KATE PALOMO MD 716.90 Arthritis/ Arthropathy, Unspecified 06/18/2010 272.4 HYPERLIPIDEMIA UNSPECIFIED 06/18/2010 311 Depressive Disorder Nos 06/18/2010 401.1 HYPERTENSION, BENIGN ESSENTIAL 06/18/2010 414.00 Coronary Atherosclerosis Of Unspecified Type Of Vessel [place] Or Graft 06/18/2010 716.90 Arthritis/ Arthropathy, Unspecified 06/18/2010 272.4 HYPERLIPIDEMIA UNSPECIFIED 06/18/2010 311 Depressive Disorder Nos 06/18/2010 401.1 HYPERTENSION, BENIGN ESSENTIAL 06/18/2010 414.00 Coronary Atherosclerosis Of Unspecified Type Of Vessel [place] Or Graft 06/18/2010 716.90 Arthritis/ Arthropathy, Unspecified 06/18/2010 KEN PHD, WILBERTO A 272.4 HYPERLIPIDEMIA UNSPECIFIED 06/18/2010 KEN PHD, WILBERTO A 311 Depressive Disorder Nos 06/18/2010 KEN PHD, WILBERTO A 401.1 HYPERTENSION, BENIGN ESSENTIAL 06/18/2010 [facility], WIL[facility]ERTO A 414.00 Coronary Atherosclerosis Of Unspecified Type Of Vessel [place] Or Graft 06/18/2010 [facility] PHD, WILBERTO A 716.90 Arthritis/ Arthropathy, Unspecified 06/18/2010 STACIA GOVEA, KATE 272.4 HYPERLIPIDEMIA UNSPECIFIED 06/18/2010 STACIA GOVEA, KATE 311 Depressive Disorder Nos 06/18/2010 STACIA GOVEA, KATE 401.1 HYPERTENSION, BENIGN ESSENTIAL 06/18/2010 STACIA GOVEA, KATE 414.00 Coronary Atherosclerosis Of Unspecified Type Of Vessel [place] Or Graft 06/18/2010 STACIA GOVEA, KATE 716.90 Arthritis/ Arthropathy, Unspecified 06/18/2010 STACIA GOVEA, KATE 272.4 HYPERLIPIDEMIA UNSPECIFIED 06/18/2010 STACIA GOVEA, KATE 311 Depressive Disorder Nos 06/18/2010 STACIA GOVEA, KATE 401.1 HYPERTENSION, BENIGN ESSENTIAL 06/18/2010 STACIA GOVEA, KATE 414.00 Coronary Atherosclerosis Of Unspecified Type Of Vessel [place] Or Graft 06/18/2010 STACIA GOVEA, KATE 716.90 Arthritis/ Arthropathy, Unspecified 06/18/2010 STACIA GOVEA, KATE 272.4 HYPERLIPIDEMIA UNSPECIFIED 06/18/2010 STACIA GOVEA, KATE 311 Depressive Disorder Nos 06/18/2010 STACIA GOVEA, KATE 401.1 HYPERTENSION, BENIGN ESSENTIAL 06/18/2010 STACIA GOVEA, KATE 414.00 Coronary Atherosclerosis Of Unspecified Type Of Vessel [place] Or Graft 06/18/2010 STACIA GOVEA, KATE 716.90 Arthritis/ Arthropathy, Unspecified 06/18/2010 STACIA GOVEA, KATE 272.4 HYPERLIPIDEMIA UNSPECIFIED 06/18/2010 STACIA GOVEA, KATE 311 Depressive Disorder Nos 06/18/2010 STACIA GOVEA, KATE 401.1 HYPERTENSION, BENIGN ESSENTIAL 06/18/2010 STACIA GOVEA, KATE 414.00 Coronary Atherosclerosis Of Unspecified Type Of Vessel [place] Or Graft 06/18/2010 STACIA GOVEA, KATE 716.90 Arthritis/ Arthropathy, Unspecified 06/18/2010 STACIA GOVEA, KATE 272.4 HYPERLIPIDEMIA UNSPECIFIED 06/18/2010 STACIA GOVEA, KATE 311 Depressive Disorder Nos 06/18/2010 STACIA GOVEA, KATE 401.1 HYPERTENSION, BENIGN ESSENTIAL 06/18/2010 STACIA GOVEA, KATE 414.00 Coronary Atherosclerosis Of Unspecified Type Of Vessel [place] Or Graft 06/18/2010 KATE PALOMO MD 716.90 Arthritis/ Arthropathy, Unspecified 06/18/2010 STACIA GOVEA, KATE 272.4 HYPERLIPIDEMIA UNSPECIFIED 06/18/2010 STACIA GOVEA, KATE 311 Depressive Disorder Nos 06/18/2010 STACIA GOVEA, KATE 401.1 HYPERTENSION, BENIGN ESSENTIAL 06/18/2010 STACIA GOVEA, KATE 414.00 Coronary Atherosclerosis Of Unspecified Type Of Vessel [place] Or Graft 06/18/2010 STACIA GOVEA, KATE 716.90 Arthritis/ Arthropathy, Unspecified 06/23/2010 STACIA GOVEA, KATE 414.01 CAD 06/23/2010 414.01 CAD 06/23/2010 414.01 CAD 06/23/2010 KEN PHD, WILBRETO Fabian 414.01 CAD 06/23/2010 STACIA GOVEA, KATE [...] 625.8 FEM GENITAL SYMPTOMS NEC 08/01/2015 DONNIE GOEVA, STEPHAN Fabian Ot 682.2 CELLULITIS OF TRUNK [...] UNSPECIFIED 01/30/2017 KATE PALOMO MD Ot Z79.84 CUSTODIAL (CURRENT) USE OF ORAL HYPOGLYC 01/30/2017 KATE PALOMO MD Ot Z79.899 OTHER CLINICAL SUPPORT ASSOCIATE (CURRENT) DRUG THERAPY 01/30/2017 KATE PALOMO MD Ot Z91.14 PATIENT'S OTHER NONCOMPLIANCE WITH MEDIC 01/31/2017 STEPHAN FIELDS MD Ot 616.10 VAGINITIS NOS 01/31/2017 STEPHAN FIELDS MD Ot 625.8 FEM GENITAL SYMPTOMS NEC 01/31/2017 ARGENTINA ULLOA DO Ot F17.210 NICOTINE DEPENDENCE, CIGARETTES, UNCOMPL 01/31/2017 ARGENTINA ULLOA DO Ot M79.642 PAIN IN LEFT HAND 02/08/2017 ARGENTINA ULLOA DO Ot F17.210 NICOTINE DEPENDENCE, CIGARETTES, UNCOMPL 02/08/2017 ARGENTINA ULLOA DO Ot M79.642 PAIN IN LEFT HAND 06/07/2018 CODY MENDES Ot E11.9 TYPE 2 DIABETES MELLITUS WITHOUT COMPLIC 06/07/2018 CODY MENDES Ot E78.00 PURE HYPERCHOLESTEROLEMIA, UNSPECIFIED 06/07/2018 CODY MENDES Ot I10 ESSENTIAL (PRIMARY) HYPERTENSION 06/07/2018 CODY MENDES Ot L02.31 CUTANEOUS ABSCESS OF BUTTOCK 06/07/2018 CODY MENDES Ot R22.2 LOCALIZED SWELLING, MASS AND LUMP, TRUNK 06/07/2018 CODY MENDES Ot Z77.22 CNTCT W AND EXPSR TO ENVIRON TOBACCO SMO 06/07/2018 CODY MENDES Ot Z79.82 CUSTODIAL (CURRENT) USE OF ASPIRIN 06/07/2018 CODY MENDES Ot Z79.84 CLINICAL SUPPORT ASSOCIATE (CURRENT) USE OF ORAL HYPOGLYC 06/07/2018 CODY MENDES Ot Z98.51 TUBAL LIGATION STATUS Procedures Code Description Performed By Performed On 00.40 PROCEDURE ON SINGLE VESSEL 06/11/2010 00.66 PERC TRANSLUMINAL CORON ANGIOPLASTY PTCA 06/11/2010 88.56 CORONAR ARTERIOGR-2 CATH 06/11/2010 42267 A1C (IN-HOUSE) 10/25/2012 87393 ROUTINE VENIPUNCTURE 10/26/2012 26203 CMP 10/26/2012 47904 LIPID PANEL 10/26/2012 1646723 GFR CALC (RESULT ONLY) 10/26/2012 65260 PSYCH DIAG INTER EXAM 10/30/2012 51757 PSYCHO TESTING 1 HR W COMP 12/26/2012 26237 PSYTX PT&/FAMILY 45 MINUTES 12/31/2012 25289 ROUTINE VENIPUNCTURE 02/04/2013 42934 MICRO ALBUMIN-IN HOUSE 02/04/2013 00773 A1C (IN-HOUSE) 02/04/2013 29824 CMP 02/04/2013 18020 LIPID PANEL 02/04/2013 2147323 GFR CALC (RESULT ONLY) 02/04/2013 79675 ROUTINE VENIPUNCTURE 10/22/2013 50824 A1C (IN-HOUSE) 10/22/2013 21630 LIPID PANEL 10/22/2013 10559 CMP 10/22/2013 2864652 GFR CALC (RESULT ONLY) 10/22/2013 93101 URINE DRUG SCREEN (IN-HOUSE ) 01/09/2014 85816 URINE OPIATES GC/MS 01/10/2014 81203 A1C (IN-HOUSE) 06/19/2014 29202 MICRO ALBUMIN-IN HOUSE 06/19/2014 63288 MICROALBUMIN 06/19/2014 Results Test Result Range Complete [...] culture - 01/28/17 14:15 Bacterial urine culture [id number] NRG COLONY COUNT >100,000/ML NRG FTX;REPORTABLE SENSITIVITY REPORTED AT 1642, 317 NR FREE TEXT ENTRY 3 MIXED GRAM POSITIVE NORMAN NRG Bacterial susceptibility panel - 01/28/17 14:15 Gentamicin [...] susceptibility test by minimum inhibitory concentration - NRG Capillary blood glucose measurement by glucometer (mass/volume) [...] measurement by glucometer (mass/volume) 138 mg/dL 70-110 Gram stain microscopy - 06/05/18 12:30 GRAM STAIN RESULT FEW WBC'S NRG Bacteria identification in wound by culture - 06/05/18 12:30 Bacteria identification in wound by culture [id number] NR FREE TEXT EXTERNAL SEE COMMENT NRG QUANTITY OF GROWTH Moderate Growth NR Bacterial susceptibility panel - 06/05/18 12:30 Gentamicin susceptibility test by minimum inhibitory concentration < = NRG Trimethoprim/sulfamethoxazole susceptibility test by minimum inhibitoryconcentration <= NRG Tobramycin susceptibility test by minimum inhibitory concentration < = NRG Cefazolin susceptibility test by minimum inhibitory concentration < = NRG Ceftriaxone susceptibility test by minimum inhibitory concentration <= NRG Piperacillin/tazobactam susceptibility test by minimum inhibitory concentration <= NRG Ciprofloxacin susceptibility test by minimum inhibitory concentration <= NRG Meropenem susceptibility test by minimum inhibitory concentration < = NRG Aztreonam susceptibility test by minimum inhibitory concentration < = NRG Complete blood count (CBC) with automated white blood cell (WBC) differential - 06/05/18 13:03 Blood leukocytes automated count (number/volume) 23.8 10*3/uL 4.3-11.0 Blood erythrocytes automated count (number/volume) 4.84 10*6/uL 4.35-5.85 Venous blood hemoglobin measurement (mass/volume) 14.7 g/dL 11.5-16.0 Blood hematocrit (volume fraction) 43 % 35-52 Automated erythrocyte mean corpuscular volume 90 [foz_us] 80-99 Automated erythrocyte mean corpuscular hemoglobin (mass per erythrocyte) 30 pg 25-34 Automated erythrocyte mean corpuscular hemoglobin concentration measurement ( mass/volume) 34 g/dL 32-36 Automated erythrocyte distribution width ratio 13.8 % 10.0-14.5 Automated blood platelet count (count/volume) 272 10*3/uL 130-400 Automated blood platelet mean volume measurement 11.7 [foz_us] 7.4-10.4 Automated blood neutrophils/100 leukocytes 88 % 42-75 Automated blood lymphocytes/100 leukocytes 7 % 12-44 Blood monocytes/100 leukocytes 4 % 0-12 Automated blood eosinophils/100 leukocytes 0 % 0-10 Automated blood basophils/100 leukocytes 0 % 0-10 Blood neutrophils automated count (number/volume) 21.0 10*3 1.8-7.8 Blood lymphocytes automated count (number/volume) 1.7 10*3 1.0-4.0 Blood monocytes automated count (number/volume) 1.0 10*3 0.0-1.0 Automated eosinophil count 0.1 10*3/uL 0.0-0.3 Automated blood basophil count (count/volume) 0.0 10*3/uL 0.0-0.1 Blood manual differential performed detection - 06/05/18 13:03 Blood monocytes/100 leukocytes 5 % NRG Manual blood segmented neutrophils/100 leukocytes 85 % NRG Blood band neutrophils/100 leukocytes 0 % NRG Manual blood lymphocytes/100 leukocytes 10 % NRG Manual eosinophils/100 leukocytes in nose 0 % NRG Manual blood basophils/100 leukocytes 0 % NR Blood erythrocyte morphology finding identification [facility] Comprehensive metabolic panel - 06/05/18 13:03 Serum or plasma sodium measurement (moles/volume) 138 mmol/L 135-145 Serum or plasma potassium measurement (moles/volume) 3.8 mmol/L 3.6-5.0 Serum or plasma chloride measurement (moles/volume) 102 mmol/L 98-107 Carbon dioxide 25 mmol/L 21-32 Serum or plasma anion gap determination (moles/volume) 11 mmol/L 5-14 Serum or plasma urea nitrogen measurement (mass/volume) 16 mg/dL 7-18 Serum or plasma creatinine measurement (mass/volume) 1.31 mg/dL 0.60-1.30 Serum or plasma urea nitrogen/creatinine mass ratio 12 NRG Serum or plasma creatinine measurement with calculation of estimated glomerular filtration rate 41 NRG Serum or plasma glucose measurement (mass/volume) 218 mg/dL 70-105 Serum or plasma calcium measurement (mass/volume) 9.8 mg/dL 8.5-10.1 Serum or plasma total bilirubin measurement (mass/volume) 0.4 mg/dL 0.1-1.0 Serum or plasma alkaline phosphatase measurement (enzymatic activity/volume) 96 U/L 40-136 Serum or plasma aspartate aminotransferase measurement (enzymatic activity/ volume) 17 U/L 5-34 Serum or plasma alanine aminotransferase measurement (enzymatic activity/volume ) 16 U/L 0-55 Serum or plasma protein measurement (mass/volume) 7.6 g/dL 6.4-8.2 Serum or plasma albumin measurement (mass/volume) 3.5 g/dL 3.2-4.5 Serum or plasma C reactive protein measurement (mass/volume) - 06/05/18 13:03 Serum or plasma C reactive protein measurement (mass/volume) 34.60 mg/dL 0.00-0.50 Blood lactic acid measurement (moles/volume) - 06/05/18 13:55 Blood lactic acid measurement (moles/volume) 1.64 mmol/L 0.50-2.00 Bacterial blood culture - 06/05/18 13:55 Bacterial blood culture NG NRG Bacterial blood culture - 06/05/18 14:20 Bacterial blood culture NG NRG Encounters ACCT No. Visit Date/Time Discharge Status Pt. Type Provider Facility Loc./Unit Complaint [id number] 06/19/2014 08:58:00 06/19/2014 23:59:59 CLS Outpatient KATE PALOMO MD [id number] 01/09/2014 15:54:00 01/09/2014 23:59:59 CLS Outpatient KATE PALOMO MD [id number] 10/22/2013 08:47:00 10/22/2013 23:59:59 CLS Outpatient KATE PALOMO MD [id number] 05/27/2013 15:22:00 05/27/2013 23:59:59 CLS Outpatient KATE PALOMO MD [id number] 02/04/2013 09:04:00 02/04/2013 23:59:59 CLS Outpatient KATE PALOMO MD [id number] 12/28/2012 08:51:00 12/28/2012 23:59:59 CLS Outpatient KEN PORTILLO, WILBERTO Fabian [id number] 12/25/2012 12:01:00 12/25/2012 23:59:59 CLS Outpatient [id number] 10/30/2012 08:00:00 10/30/2012 23:59:59 CLS Outpatient [id number] 10/26/2012 08:03:00 10/26/2012 23:59:59 [place] [id number] 12/02/2011 08:12:00 12/02/2011 23:59:59 [place] [id number] 06/06/2018 13:20:00 06/06/2018 23:59:59 [facility] [id number] 06/05/2018 12:05:00 06/05/2018 16:00:00 DIS Outpatient CODY MENDES [facility] ER LARGE BUMP DRAINING ON REAR-END [id number] 01/28/2017 12:44:00 01/30/2017 18:10:00 DIS Inpatient KATE PALOMO MD [facility] ICU CHEST PAIN, DM UNCONTROLLED, HTN [id number] 02/01/2016 09:22:00 02/01/2016 10:47:00 DIS Emergency ARGENTINA ULLOA DO [facility] ER LEFT THUMB/HAND PAIN [id number] 10/28/2015 14:23:00 10/28/2015 16:38:00 DIS Emergency MABLE BATISTA [facility] ER POSS YEAST INFECTION [id number] 08/01/2015 18:44:00 08/01/2015 19:53:00 DIS Emergency STEPHAN FIELDS MD [facility] ER BITE/ALLERGIC REACTION [id number] 06/14/2015 09:44:00 06/14/2015 10:16:00 DIS Emergency STEPHAN FIELDS MD [facility] ER VAGINAL PAIN [id number] 02/15/2017 15:16:00 Document Registration [id number] 02/15/2017 15:16:00 Document Registration [id number] 02/15/2017 15:16:00 Document Registration [id number] 02/15/2017 15:16:00 Document Registration [id number] 02/15/2017 15:16:00 Document Registration [id number] 06/14/2015 09:44:00 Document Registration [id number] 06/14/2015 09:44:00 Document Registration
[2018-09-22 17:11] LABS: ALANINE AMINOTRANSFERASE 17 U/L (0-55); ALBUMIN 3.6 GM/DL (3.2-4.5); ALKALINE PHOSPHATASE 81 U/L (40-136); BILIRUBIN,TOTAL 0.3 MG/DL (0.1-1.0); BUN/CREATININE RATIO 14; CALCIUM 9.5 MG/DL (8.5-10.1); CARBON DIOXIDE 22 MMOL/L (21-32); CHLORIDE 102 MMOL/L (98-107); CREATININE SERUM 0.81 MG/DL (0.60-1.30); GFR ESTIMATED > 60; GLUCOSE 235 MG/DL (70-105); POTASSIUM 4.1 MMOL/L (3.6-5.0); SODIUM 138 MMOL/L (135-145); TOTAL PROTEIN 7.5 GM/DL (6.4-8.2)
[2018-09-22] MEDS ORDERED: NS 250 ML (IVPB) BAG IV ONE (17:15)
[2018-09-22] MEDS ORDERED: IOHEXOL 350 MG/ML 100 ML (OMNIPAQUE 350) VIAL IV ONE (17:15)
[2018-09-22] MEDS ORDERED: RECEIVED CONTRAST (Hold Metformin) IV SCH (17:15)
[2018-09-22 17:16] LABS: FIBRIN DEGRADATION PRODUCTS 1.54 UG/ML (0.00-0.49); PROTHROMBIN TIME PATIENT 13.2 SEC (12.2-14.7)
[2018-09-22 17:22] LABS: BAND NEUTROPHILS 1 %; BASOPHILS % (MANUAL) 1 %; EOSINOPHILS % (MANUAL) 2 %; LYMPHOCYTES % (MANUAL) 26 %; MONOCYTES % (MANUAL) 2 %; NEUTROPHILS % (MANUAL) 65 %; REACTIVE LYMPHOCYTES 3 %
[2018-09-22 17:24] LABS: POIKILOCYTOSIS SLIGHT
[2018-09-22 17:25] LABS: ROULEAUX MOD; STOMATOCYTES SLIGHT; TOXIC GRANULATION/VACUOLAZATIO 3+
[2018-09-22 17:35] LABS: BILIRUBIN,URINE NEGATIVE (NEGATIVE); CLARITY,URINE CLEAR; COLOR,URINE YELLOW; GLUCOSE, URINE (UA) NEGATIVE (NEGATIVE); KETONES,URINE NEGATIVE (NEGATIVE); LEUKOCYTE ESTERASE ,URINE NEGATIVE (NEGATIVE); NITRITE,URINE NEGATIVE (NEGATIVE); PH,URINE 5 (5-9); PROTEIN,URINE 2+ (NEGATIVE); UROBILINOGEN,URINE NORMAL (NORMAL)
--- NOTE | 2018-09-22 17:40 | Diagnostic Imaging Report ---
PROCEDURE: CT angiography of the head and CT angiography of the neck with and without contrast. TECHNIQUE: Contiguous noncontrast images were obtained from the skull base through the vertex. After intravenous contrast administration, helical CT angiography of the neck was performed. Source data was reformatted into multiple 2D MIP projections. Delayed post contrast acquisition was also obtained. INDICATION: Right weakness and difficulty with speech. There is a normal three-vessel branching pattern arising from the aortic arch. Common carotid arteries are widely patent in the neck, however, there is mild atherosclerotic disease at the bifurcation of the right carotid artery with sjux-gb-[id number] stenosis related to atherosclerosis at the origin of the left internal carotid artery. Otherwise, internal carotid arteries are widely patent in the neck. Both vertebral arteries are also patent as is the basilar artery. Within the head, there is normal opacification of anterior, middle and posterior cerebral arteries without evidence of filling defect or stenosis. Note is made of origin of the left posterior cerebral artery. There is no evidence of aneurysm or vascular malformation. IMPRESSION: Atherosclerotic disease at the origins of internal carotid arteries, greater on the left. No stenosis, occlusion or filling defect is seen within the great vessels of the neck or head. Dictated by: Dictated on workstation # [id number]
[2018-09-22 17:43] LABS: AMORPHOUS SEDIMENT,UR MOD AMOR URATES /LPF; BACTERIA,URINE NEGATIVE /HPF; SQUAMOUS EPITHELIAL CELL,UR 0-2 /HPF
--- NOTE | 2018-09-22 18:19 | ED Neurological Problem ---
General Chief Complaint: Neuro-Stroke Like Symptoms Stated Complaint: STROKE Nursing Triage Note: BACK FROM CT. PT ARRIVED WITH RIGHT SIDED WEAKNESS, FACIAL DROOPING, AND NOT ABLE TO ANSWER SOME QUESTIONS. SYMPTOMS STARTED AT APPX 1600 ET WAS WITNESSED BY FAMILY. EMS REPORTS BLOOD SUGAR 217 Nursing Sepsis Screen: No Definite Risk Source: patient Exam Limitations: no limitations History of Present Illness Date Seen by Provider: Sep 22, 2018 Time Seen by Provider: 16:30 Initial Comments This 63-year-old woman presents to the emergency room with acute stroke like symptoms including right facial droop, difficulty with speech, and right-sided weakness that started suddenly at a proximally 16:00. Onset was witnessed by family. EMS reports fingerstick blood sugar was 217. She is unable to answer questions appropriately or follow commands appropriately. Family provided additional history after arrival and helped with the stroke exclusion criteria. Decision for TPA was deferred to patient's daughter who is the next of kin present. Allergies and Home Medications Allergies Coded Allergies: Sulfa (Sulfonamide Antibiotics) (Verified Adverse Reaction, Unknown, NAUSEA, 09/22/18) Home Medications Acetaminophen 325 Mg Tablet, 325 MG PO DAILY PRN PRN for PAIN, (Reported) Aspirin 325 Mg Tablet.dr, 325 MG PO DAILY Prescribed by: DOROTHY FUNG on 01/30/17 1545 Atorvastatin Calcium 40 Mg Tablet, 40 MG PO HS Prescribed by: DOROTHY FUNG on 01/30/17 1545 Hydrocodone Bit/Acetaminophen 1 Tab Tab, 1 EACH PO Q6H PRN for PAIN Prescribed by: CODY MENDES on 06/05/18 1501 Ibuprofen 200 Mg Tablet, 400-600 MG PO DAILY PRN PRN for INFLAMMATION, (Reported ) TAKES 2-3 (200 MG) TABLETS Lisinopril 5 Mg Tablet, 5 MG PO DAILY Prescribed by: DOROTHY FUNG on 01/30/17 1545 Metformin HCl 500 Mg Tablet, 1,000 MG PO BID@ Prescribed by: DOROTHY FUNG on 01/30/17 1545 Metoprolol Succinate 50 Mg Tab.er.24h, 50 MG PO DAILY Prescribed by: KEYSHA ELMORE on 01/30/17 1705 Nitrofurantoin Monohyd/M-Cryst 100 Mg Capsule, 100 MG PO BID Prescribed by: DOROTHY FUNG on 01/30/17 1545 Sulfamethoxazole/Trimethoprim 1 Each Tablet, 1 EACH PO BID Prescribed by: CODY MENDES on 06/05/18 1501 Patient Home Medication List Home Medication List Reviewed: Yes Review of Systems Review of Systems Constitutional: no symptoms reported Eyes: No Symptoms Reported Ears, Nose, Mouth, Throat: see HPI Respiratory: no symptoms reported Cardiovascular: no symptoms reported Gastrointestinal: no symptoms reported Genitourinary: no symptoms reported : No Musculoskeletal: no symptoms reported Skin: no symptoms reported Psychiatric/Neurological: See HPI Endocrine: See HPI Hematologic/Lymphatic: No Symptoms Reported Past Nfcmyjs-Bcwdak-Vuvibf Hx Patient Social History Smoking Status: Current Everyday Smoker Type Used: Cigarettes 2nd Hand Smoke Exposure: Yes Recent Foreign Travel: No Contact w/Someone Who Travel: No Recent Infectious Disease Expo: No Recent Hopitalizations: No Immunizations Up To Date Tetanus Booster (TDap): Unknown Past Medical History Surgeries: Yes (TUBAL LIGATION 30 YRS AGO) Cardiac (angioplasty), Tubal Ligation Respiratory: No Cardiac: Yes Coronary Artery Disease, High Cholesterol, Hypertension Neurological: No : No Reproductive Disorders: No Sexually Transmitted Disease: No Genitourinary: No Gastrointestinal: Yes Irritable Bowel (with fecal incontinence) Musculoskeletal: No Endocrine: Yes Diabetes, Non-Insulin dep, Lupus Cancer: No Psychosocial: No Integumentary: No Blood Disorders: No Family Medical History Heart Disease, Hypertension Physical Exam Vital Signs Vital Signs - First Documented 09/22/18 09/22/18 16:40 17:42 Pulse 74 Resp 16 B/P (MAP) 154/96 (115) Pulse Ox 93 O2 Delivery Room Air O2 Flow Rate 2.00 Capillary Refill : Less Than 3 Seconds Height, Weight, BMI Height: 4'10.00" Weight: 260lbs. 7.0oz. 117.357866py; 46.9 BMI Method:Stated General Appearance: WD/WN, mild distress HEENT: PERRL/EOMI, pharynx normal, other (right-sided facial droop) Neck: normal inspection Respiratory: lungs clear, normal breath sounds, no respiratory distress, no accessory muscle use Cardiovascular: regular rate, rhythm, no edema, no murmur Gastrointestinal: non tender, soft Extremities: normal inspection Neurologic/Psychiatric: alert, other (see NIH for) Crainal Nerves: PERRL, abnormal speech (and expressive aphasia, dysarthria, and apraxia), facial droop (right-sided) Coordination/Gait: ABN nose to finger (R) (weakness of the right arm prevents test), ABN nose to finger (L) (could not follow the commands to perform this function) Motor/Sensory: no sensory deficit Skin: normal color, warm/dry Stroke Onset of Symptoms Date of Onset of Symptoms: Sep 22, 2018 NIH Stroke Scale Assessment Level of Consciousness: 0=Alert (0), Level of Consciousness-Questions: 2= Answer neither question (2), LOC Commands: 0=Performs both tasks (0), Visual Hdez: 0=No visual loss (0), Facial Movement (Facial Paresis): 2=Partial paralysis (2), Motor Function-Arms Right: 3=No effort/gravity (3), Motor Function-Arms Left: 0=No drift (0), Motor Function-Legs Right: 3=No effort/ gravity (3), Motor Function-Legs Left: 3=No effort/gravity (3), Limb Ataxia: 1= Present in one limb (1), Sensory: 0=Normal:no loss (0), Best Language: 2=Severe aphasia (2), Dysarthria: 1=Mild to moderate loss (1), Extinction & Inattention: 2=ProfoundHemiInattention (2), Total: 19 Stroke Thrombolytic Exclusion Age 18 or Over: Yes Intracranial Neoplasm/Aneurysm: No Progress/Results/Core Measures Results/Orders Lab Results Laboratory Tests Test 09/22/18 16:45 09/22/18 17:01 Range/Units White Blood Count 15.0 H 4.3-11.0 10^3/uL Red Blood Count 5.13 4.35-5.85 10^6/uL Hemoglobin 15.6 11.5-16.0 G/DL Hematocrit 46 35-52 % Mean Corpuscular Volume 90 80-99 FL Mean Corpuscular Hemoglobin 30 25-34 PG Mean Corpuscular Hemoglobin Concent 34 32-36 G/DL Red Cell Distribution Width 13.8 10.0-14.5 % Platelet Count 307 130-400 10^3/uL Mean Platelet Volume 11.5 H 7.4-10.4 FL Neutrophils (%) (Auto) 70 42-75 % Lymphocytes (%) (Auto) 24 12-44 % Monocytes (%) (Auto) 5 0-12 % Eosinophils (%) (Auto) 2 0-10 % Basophils (%) (Auto) 1 0-10 % Neutrophils # (Auto) 10.5 H 1.8-7.8 X 10^3 Lymphocytes # (Auto) 3.5 1.0-4.0 X 10^3 Monocytes # (Auto) 0.7 0.0-1.0 X 10^3 Eosinophils # (Auto) 0.2 0.0-0.3 10^3/uL Basophils # (Auto) 0.1 0.0-0.1 10^3/uL Neutrophils % (Manual) 65 % Lymphocytes % (Manual) 26 % Monocytes % (Manual) 2 % Eosinophils % (Manual) 2 % Basophils % (Manual) 1 % Band Neutrophils 1 % Reactive Lymphocytes 3 % Toxic Granulation 3+ Poikilocytosis SLIGHT Stomatocytes SLIGHT Rouleau MOD Prothrombin Time 13.2 12.2-14.7 SEC INR Comment 1.0 0.8-1.4 Activated Partial Thromboplast Time 25 24-35 SEC D-Dimer 1.54 H 0.00-0.49 UG/ML Sodium Level 138 135-145 MMOL/L Potassium Level 4.1 3.6-5.0 MMOL/L Chloride Level 102 98-107 MMOL/L Carbon Dioxide Level 22 21-32 MMOL/L Anion Gap 14 5-14 MMOL/L Blood Urea Nitrogen 11 7-18 MG/DL Creatinine 0.81 0.60-1.30 MG/DL Estimat Glomerular Filtration Rate > 60 BUN/Creatinine Ratio 14 Glucose Level 235 H 70-105 MG/DL Calcium Level 9.5 8.5-10.1 MG/DL Corrected Calcium 9.8 8.5-10.1 MG/DL Total Bilirubin 0.3 0.1-1.0 MG/DL Aspartate Amino Transf (AST/SGOT) 21 5-34 U/L Alanine Aminotransferase (ALT/SGPT) 17 0-55 U/L Alkaline Phosphatase 81 40-136 U/L Troponin I < 0.30 <0.30 NG/ML Total Protein 7.5 6.4-8.2 GM/DL Albumin 3.6 3.2-4.5 GM/DL Urine Color YELLOW Urine Clarity CLEAR Urine pH 5 5-9 Urine Specific Wilson 1.025 H 1.016-1.022 Urine Protein 2+ H NEGATIVE Urine Glucose (UA) NEGATIVE NEGATIVE Urine Ketones NEGATIVE NEGATIVE Urine Nitrite NEGATIVE NEGATIVE Urine Bilirubin NEGATIVE NEGATIVE Urine Urobilinogen NORMAL NORMAL MG/DL Urine Leukocyte Esterase NEGATIVE NEGATIVE Urine RBC (Auto) 4+ H NEGATIVE Urine RBC 5-10 H /HPF Urine WBC NONE /HPF Urine Squamous Epithelial Cells 0-2 /HPF Urine Crystals PRESENT H /LPF Urine Amorphous Sediment MOD SHERRELL URATES H /LPF Urine Bacteria NEGATIVE /HPF Urine Casts NONE /LPF Urine Mucus NEGATIVE /LPF Urine Culture Indicated NO My Orders Orders - BANDAR BAR MD Ct Head Wo-R/O Stroke (09/22/18 16:33) Cbc With Automated Diff (09/22/18 16:34) Protime With Inr (09/22/18 16:34) Partial Thromboplastin Time (09/22/18 16:34) Comprehensive Metabolic Panel (09/22/18 16:34) Fibrin Degradation Products (09/22/18 16:34) Troponin I (09/22/18 16:34) Ua Culture If Indicated (09/22/18 16:34) Chest 1 View, Ap/Pa Only (09/22/18 16:34) Catheter(Urinary) Insert & Ass 03,15 (09/22/18 16:34) Ekg Tracing (09/22/18 16:34) Nothing By Mouth (09/23/18 Breakfast) Accucheck Stat ONCE (09/22/18 16:34) Saline Lock/Iv-Start (09/22/18 16:34) Saline Lock/Iv-Start (09/22/18 16:34) Vital Signs Stroke Patient Q15M (09/22/18 16:34) O2 (09/22/18 16:34) Intake & Output 06,14,22 (09/22/18 16:34) Monitor-Rhythm Ecg Trace Only (09/22/18 16:34) Dysphagia Screening Tool (09/22/18 16:34) Post Thrombolytic Adminstratio (09/22/18 16:34) Lipid Panel (09/23/18 06:00) Alteplase (Activase) (Activase Injection (09/22/18 16:38) I-Stat Bedside Testing (09/22/18 16:42) Manual Differential (09/22/18 16:45) Ct Angio Head/Neck (09/22/18 16:59) Iohexol Injection (Omnipaque 350 Mg/Ml 1 (09/22/18 17:15) Contrast Received (Contrast Received) (09/22/18 17:15) Ns (Ivpb) (Sodium Chloride 0.9%) (09/22/18 17:15) Alteplase (Activase) (Activase Injection (09/22/18 17:30) Post Thrombolytic Adminstratio (09/22/18 17:20) Medications Given in ED Current Medications Medications Dose Ordered Sig/Maegan Route Start Time Stop Time Status Last Admin Dose Admin Alteplase, Recombinant (0.9mg/ kg-max 90mg) with ... ONCE ONCE IV 09/22/18 17:30 09/22/18 17:31 DC 09/22/18 16:58 90 MG Iohexol 75 ml ONCE ONCE IV 09/22/18 17:15 09/22/18 17:23 DC 09/22/18 17:07 80 ML Sodium Chloride 250 ml ONCE ONCE IV 09/22/18 17:15 09/22/18 17:23 DC 09/22/18 17:07 80 ML Vital Signs/I&O 09/22/18 09/22/18 16:40 17:42 Pulse 74 Resp 16 B/P (MAP) 154/96 (115) Pulse Ox 93 O2 Delivery Room Air Nasal Cannula O2 Flow Rate 2.00 Blood Pressure Mean: 115 iStat Bedside Lab Testing Sodium (Na): 140.00 Potassium (K): 4.10 Chloride (CI): 100.00 TCO2: 28.00 Glucose (Glu): 232.00 Urea Nitrogen (BUN)/Urea: 12.00 Creatinine (Crea): 0.60 Anion Gap*: 17.00 FSBG Bedside Testing Finger Stick Blood Glucose: 232 Initial ECG Impression Date: Sep 22, 2018 Initial ECG Impression Time: 17:19 Initial ECG Rate: 67 Initial ECG Rhythm: Normal Sinus Initial ECG Intervals: Normal Initial ECG Impression: Normal Comment Normal sinus rhythm with no ST elevation or depression. No abnormal intervals or axis deviation. Diagnostic Imaging Diagonstic Imaging: CT Plain Films/CT/US/NM/MRI: head Comments CT head viewed by me and report reviewed. See report below: NAME: KENISHA LUA [facility] REC#: [id number] PT STATUS: REG ER : 1955 PHYSICIAN: BANDAR BAR MD ADMIT DATE: 09/22/18/ER Signed Date of Exam: 09/22/18 CT HEAD WO-R/O STROKE INDICATION: New onset right-sided weakness and slurred speech. COMPARISON: None. DISCUSSION: No intracranial hemorrhage, mass, midline shift, or hydrocephalus. The ventricles and sulci are normal size and configuration for age. The visualized orbits, paranasal sinuses, mastoid air cells, and calvarium are unremarkable. IMPRESSION: 1. Negative head CT. Dictated by: Dictated on workstation # [id number] Dict: 09/22/18 1649 Trans: 09/22/181702 Interpreted by: KATE KENNEY MD Electronically signed by: KATE KENNEY MD 09/22/181702 Diagonstic Imaging: Xray Plain Films/CT/US/NM/MRI: chest Comments NAME: KENISHA LUA [facility] REC#: [id number] PT STATUS: REG ER : 1955 PHYSICIAN: BANDAR BAR MD ADMIT DATE: 09/22/18/ER Signed Date of Exam: 09/22/18 CHEST 1 VIEW, AP/PA ONLY Indication: Altered mental status. Comparison: 01/28/2017. Discussion: Single portable upright view of the chest was obtained. Mild cardiomegaly. No focal consolidation, pleural fluid or pneumothorax. No osseous abnormality. Impression: Mild cardiomegaly. Dictated by: Dictated on workstation # [id number] Dict: 09/22/18 165 Trans: 09/22/181702 Interpreted by: KATE KENNEY MD Electronically signed by: KATE KENNEY MD 09/22/181702 Diagonstic Imaging: CT Plain Films/CT/US/NM/MRI: other (CT angiogram head and neck) Comments CT angiogram head and neck discussed with radiologist and report reviewed. See report below: NAME: KENISHA LUA [facility] REC#: [id number] PT STATUS: REG ER : 1955 PHYSICIAN: BANDAR BAR MD ADMIT DATE: 09/22/18/ER Draft Date of Exam:09/22/18 CT ANGIO HEAD/NECK PROCEDURE: CT angiography of the head and CT angiography of the neck with and without contrast. TECHNIQUE: Contiguous noncontrast images were obtained from the skull base through the vertex. After intravenous contrast administration, helical CT angiography of the neck was performed. Source data was reformatted into multiple 2D MIP projections. Delayed post contrast acquisition was also obtained. INDICATION: Right weakness and difficulty with speech. There is a normal three-vessel branching pattern arising from the aortic arch. Common carotid arteries are widely patent in the neck, however, there is mild atherosclerotic disease at the bifurcation of the right carotid artery with [id number] stenosis related to atherosclerosis at the origin of the left internal carotid artery. Otherwise, internal carotid arteries are widely patent in the neck. Both vertebral arteries are also patent as is the basilar artery. Within the head, there is normal opacification of anterior, middle and posterior cerebral arteries without evidence of filling defect or stenosis. Note is made of origin of the left posterior cerebral artery. There is no evidence of aneurysm or vascular malformation. IMPRESSION: Atherosclerotic disease at the origins of internal carotid arteries, greater on the left. No stenosis, occlusion or filling defect is seen within the great vessels of the neck or head. Dictated on workstation # [id number] Dict: 09/22/18 1732 Trans: 09/22/18 1739 [facility] [id number] Interpreted by: NANCY CHOWDHURY MD Critical Care Note Critical Care Start Time: 16:30 Stop Time: 18:30 Total Time (minutes) 120 Progress Patient was identified as a probable stroke in the field. Stroke activation was paged and patient was taken promptly to the CT scanner. No hemorrhage or mass was identified. NIH was performed with an initial score of 19. Patient had significant speech deficits including dysarthria, expressive aphasia, and apraxia. She also had significant right sided weakness with nearly flaccid right upper extremity. She had significant facial droop. I reviewed TPA exclusion criteria with the family. Patient was a TPA candidate and risks and benefits were discussed with family. Decision for TPA was deferred to the patient's daughter who was the only next of kin family member present. I explained the benefits including potential reduction in stroke symptoms versus risks which included up to a 6 percent chance of life-threatening bleed. The patient's daughter believed her mother would want to accept the risks and proceed with TPA treatment. TPA was initiated by 16:58. Creatinine was found to be 0.6 by i-STAT testing. Patient was then taken to CT angiogram for evaluation for possible large vessel occlusion. In the meantime case was discussed with Dr. Marie, stroke neurologist at [facility]. She agreed with TPA administration and further evaluation with CT angiogram. [facility] was placed on standby and arrived at this facility shortly thereafter to remain on standby. CT angiogram was discussed with the radiologist. No large vessel occlusion was identified and patient did not appear immediately a candidate for intravascular interventions. I discussed the case with Dr. Smyth on the primary attending service who preferred the patient be transferred due to her more complex presentation of stroke deficits. I discussed with family as well who also agreed they wanted the patient transferred to receive the best possible specialty care. Risks and benefits of transfer were reviewed with the family. Transfer was accepted by [facility]. Patient's symptoms remained fairly unchanged throughout her ER stay. She did complete the TPA infusion and departed for transfer to with [facility] at 16:30. Imaging studies were clouded to . Departure Impression Primary Impression: Stroke Qualified Codes: I63.9 - Cerebral infarction, unspecified Additional Impressions: Expressive aphasia Apraxia Right sided weakness Disposition: XFER T-[facility] HOSP Condition: Improved Departure-Patient Inst. Referrals: KATE PALOMO MD (PCP/Family) Primary Care Physician BANDAR BAR MD Sep 22, 2018 18:19
[2018-09-22 18:32] VITALS: BP 173/96
== END 2018-09-22 18:32 | disposition short-term general hospital (02) ==
LOC: EDUNIT# 16:30 → ER 16:33
DX: I63.9 Cerebral infarction, unspecified (principal); R48.2 Apraxia; R47.01 Aphasia; R53.1 Weakness; I25.10 Atherosclerotic heart disease of native coronary artery without angina pectoris; E78.00 Pure hypercholesterolemia, unspecified; I10 Essential (primary) hypertension; F17.210 Nicotine dependence, cigarettes, uncomplicated; E11.9 Type 2 diabetes mellitus without complications; Z95.5 Presence of coronary angioplasty implant and graft; Z98.51 Tubal ligation status; Z88.2 Allergy status to sulfonamides; Z79.82 Long term (current) use of aspirin; Z79.84 Long term (current) use of oral hypoglycemic drugs
CPT/HCPCS: 36415; 51702; 70450; 70496; 70498; 71045; 80053; 81000; 84484; 85007; 85027; 85379; 85610; 85730; 92977; 93005; 93041; 96374; 99291

== ENCOUNTER 2018-10-05 14:40 | Inpatient (IN) | payer SELFPAY ==
[~2018-10-05] VITALS: Ht 147.3 cm; Wt 99.8 kg
[2018-10-07 14:25] VITALS: BP 133/74
--- OUTSIDE RECORDS SUMMARY | 2018-10-07 14:34 | XMS REPORT | Clinical Summary ---
Author Author [facility] Organization [facility] Address Unknown Phone Unavailable Care Team Providers Care Tower Hoist Operator Name Role Phone Bc Car MD PCP Source Comments Some departments are not documenting in the electronic medical record. If you do not see the information that you expected, contact Release of Information in the Health Information Management department at [phone] for further assistance in locating additional records.[facility] Allergies Active Allergy Reactions Severity Noted Date Comments Sulfa (Sulfonamide UNKNOWN Low 09/23/2018 Antibiotics) Current Medications Prescription Sig. Disp. Refills Start End Date Status Date atorvastatin (LIPITOR) 80 Take one tablet by mouth 10/07/20 Active mg tablet daily. 18 lisinopril (PRINIVIL; Take one tablet by mouth 10/07/20 Active ZESTRIL) 10 mg tablet daily. 18 aspirin 81 mg chewable Chew one tablet by mouth 10/07/20 Active tablet daily. Take with food. 18 fluoxetine (PROZAC) 20 mg Take one capsule by mouth 10/07/20 Active capsule daily. 18 docusate (COLACE) 100 mg Take one capsule by mouth 10/07/20 Active capsule twice daily. 18 metFORMIN (GLUCOPHAGE) Take one tablet by mouth 10/07/20 Active 500 mg tablet twice daily with meals. 18 Active Problems Problem Noted Date Morbid obesity (HCC) 09/26/2018 DMII (diabetes mellitus, type 2) (HCC) 09/24/2018 HLD (hyperlipidemia) 09/24/2018 HTN (hypertension) 09/24/2018 Stroke (cerebrum) ([facility]) 09/22/2018 Resolved Problems Problem Noted Date Resolved Date Dysphagia 09/24/2018 09/28/2018 Encounters Date Type Specialty Care Team Description 09/26/2018 Hospital Cardiology Porfirio Patton DO Encounter 09/25/2018 Anesthesia Cardiology Ryan Lerner MD Event 09/23/2018 Procedure Pass 09/22/2018 [facility] Apple Marie MD Stroke (cerebrum) (HCC) - Encounter Manny Lake MD 10/07/2018 Porfirio Patton DO Maali, Laith, MD Faheem, Nida, MD 09/22/2018 Procedure Pass from Last 3 Months Family History Medical History Relation Name Comments Stroke Brother Relation Name Status Comments Brother Social History Tobacco Use Types Packs/Day Years Used Date Current Every Day Smoker Cigarettes 1 46 Smokeless Tobacco: Never Used Alcohol Use Drinks/Week oz/Week Comments No Sex Assigned at Date Recorded Not on file Last Filed Vital Signs Vital Sign Reading Time Taken Blood Pressure 114/68 10/07/2018 5:47 AM LEAD RADIATION THERAPIST Pulse 58 10/07/2018 5:47 AM LEAD RADIATION THERAPIST Temperature 36.3 C (97.4 F) 10/07/2018 5:47 AM LEAD RADIATION THERAPIST Respiratory Rate - - Oxygen Saturation 97% 10/07/2018 5:47 AM LEAD RADIATION THERAPIST Inhaled Oxygen - - Concentration Weight 102.9 kg (226 lb 13.7 oz) 09/26/2018 5:00 PM LEAD RADIATION THERAPIST Height 160 cm (5' 2.99") 09/26/2018 5:00 PM LEAD RADIATION THERAPIST Body Mass Index 40.2 09/26/2018 5:00 PM LEAD RADIATION THERAPIST Plan of Treatment Health Maintenance Due Date Last Done Comments HEPATITIS C SCREENING 1954 PHYSICAL (COMPREHENSIVE) 1961 EXAM HIV SCREENING 1969 DTAP/TDAP VACCINES (1 - 1972 Tdap) CERVICAL CANCER SCREENING 1984 BREAST CANCER SCREENING 1994 COLORECTAL CANCER 2004 SCREENING SHINGLES RECOMBINANT 2004 VACCINE (1 of 2) INFLUENZA VACCINE 06/20/2018 Procedures Procedure Name Priority Date/Time Associated Diagnosis Comments POC GLUCOSE 10/07/2018 Results for this 9:06 AM LEAD RADIATION THERAPIST procedure are in the results section. CBC Routine 10/07/2018 Results for this 4:55 AM LEAD RADIATION THERAPIST procedure are in the results section. BASIC METABOLIC PANEL Routine 10/07/2018 Results for this 4:55 AM LEAD RADIATION THERAPIST procedure are in the results section. POC GLUCOSE 10/07/2018 Results for this 3:18 AM LEAD RADIATION THERAPIST procedure are in the results section. POC GLUCOSE 10/06/2018 Results for this 9:12 PM LEAD RADIATION THERAPIST procedure are in the results section. POC GLUCOSE 10/06/2018 Results for this 5:26 PM LEAD RADIATION THERAPIST procedure are in the results section. POC GLUCOSE 10/06/2018 Results for this 12:17 PM LEAD RADIATION THERAPIST procedure are in the results section. POC GLUCOSE 10/06/2018 Results for this 8:10 AM LEAD RADIATION THERAPIST procedure are in the results section. POC GLUCOSE 10/06/2018 Results for this 3:34 AM LEAD RADIATION THERAPIST procedure are in the results section. POC GLUCOSE 10/05/2018 Results for this 8:34 PM LEAD RADIATION THERAPIST procedure are in the results section. POC GLUCOSE 10/05/2018 Results for this 5:02 PM LEAD RADIATION THERAPIST procedure are in the results section. POC GLUCOSE 10/05/2018 Results for this 1:12 PM LEAD RADIATION THERAPIST procedure are in the results section. POC GLUCOSE 10/05/2018 Results for this 7:57 AM LEAD RADIATION THERAPIST procedure are in the results section. CBC Routine 10/05/2018 Results for this 5:06 AM LEAD RADIATION THERAPIST procedure are in the results section. BASIC METABOLIC PANEL Routine 10/05/2018 Results for this 5:06 AM LEAD RADIATION THERAPIST procedure are in the results section. POC GLUCOSE 10/05/2018 Results for this 3:23 AM LEAD RADIATION THERAPIST procedure are in the results section. POC GLUCOSE 10/04/2018 Results for this 9:51 PM LEAD RADIATION THERAPIST procedure are in the results section. POC GLUCOSE 10/04/2018 Results for this 5:45 PM LEAD RADIATION THERAPIST procedure are in the results section. POC GLUCOSE 10/04/2018 Results for this 11:56 AM LEAD RADIATION THERAPIST procedure are in the results section. POC GLUCOSE 10/04/2018 Results for this 9:04 AM LEAD RADIATION THERAPIST procedure are in the results section. POC GLUCOSE 10/04/2018 Results for this 7:41 AM LEAD RADIATION THERAPIST procedure are in the results section. POC GLUCOSE 10/04/2018 Results for this 2:57 AM LEAD RADIATION THERAPIST procedure are in the results section. POC GLUCOSE 10/03/2018 Results for this 8:46 PM LEAD RADIATION THERAPIST procedure are in the results section. POC GLUCOSE 10/03/2018 Results for this 8:37 PM LEAD RADIATION THERAPIST procedure are in the results section. POC GLUCOSE 10/03/2018 Results for this 5:35 PM LEAD RADIATION THERAPIST procedure are in the results section. POC GLUCOSE 10/03/2018 Results for this 12:29 PM LEAD RADIATION THERAPIST procedure are in the results section. POC GLUCOSE 10/03/2018 Results for this 8:06 AM LEAD RADIATION THERAPIST procedure are in the results section. BASIC METABOLIC PANEL Routine 10/03/2018 Results for this 6:12 AM LEAD RADIATION THERAPIST procedure are in the results section. CBC Routine 10/03/2018 Results for this 6:12 AM LEAD RADIATION THERAPIST procedure are in the results section. POC GLUCOSE 10/02/2018 Results for this 8:55 PM LEAD RADIATION THERAPIST procedure are in the results section. POC GLUCOSE 10/02/2018 Results for this 5:22 PM LEAD RADIATION THERAPIST procedure are in the results section. POC GLUCOSE 10/02/2018 Results for this 12:24 PM LEAD RADIATION THERAPIST procedure are in the results section. POC GLUCOSE 10/02/2018 Results for this 8:28 AM LEAD RADIATION THERAPIST procedure are in the results section. POC GLUCOSE 10/02/2018 Results for this 1:57 AM LEAD RADIATION THERAPIST procedure are in the results section. POC GLUCOSE 10/01/2018 Results for this 9:26 PM LEAD RADIATION THERAPIST procedure are in the results section. POC GLUCOSE 10/01/2018 Results for this 6:19 PM LEAD RADIATION THERAPIST procedure are in the results section. POC GLUCOSE 10/01/2018 Results for this 12:38 PM LEAD RADIATION THERAPIST procedure are in the results section. POC GLUCOSE 10/01/2018 Results for this 9:05 AM LEAD RADIATION THERAPIST procedure are in the results section. BASIC METABOLIC PANEL Routine 10/01/2018 Results for this 5:35 AM LEAD RADIATION THERAPIST procedure are in the results section. CBC Routine 10/01/2018 Results for this 5:35 AM LEAD RADIATION THERAPIST procedure are in the results section. POC GLUCOSE 10/01/2018 Results for this 3:10 AM LEAD RADIATION THERAPIST procedure are in the results section. POC GLUCOSE 09/30/2018 Results for this 9:14 PM LEAD RADIATION THERAPIST procedure are in the results section. POC GLUCOSE 09/30/2018 Results for this 12:50 PM LEAD RADIATION THERAPIST procedure are in the results section. POC GLUCOSE 09/30/2018 Results for this 9:53 AM LEAD RADIATION THERAPIST procedure are in the results section. POC GLUCOSE 09/30/2018 Results for this 8:53 AM LEAD RADIATION THERAPIST procedure are in the results section. POC GLUCOSE 09/30/2018 Results for this 3:08 AM LEAD RADIATION THERAPIST procedure are in the results section. POC GLUCOSE 09/29/2018 Results for this 9:22 PM LEAD RADIATION THERAPIST procedure are in the results section. POC GLUCOSE 09/29/2018 Results for this 5:10 PM LEAD RADIATION THERAPIST procedure are in the results section. POC GLUCOSE 09/29/2018 Results for this 11:43 AM LEAD RADIATION THERAPIST procedure are in the results section. ANTI-NUCLEAR Routine 09/29/2018 Results for this AB(ANITHA)-QUANT 9:28 AM LEAD RADIATION THERAPIST procedure are in the results section. ANTI-NUCLEAR Routine 09/29/2018 Results for this ANTIBODY(ANITHA) 9:28 AM LEAD RADIATION THERAPIST procedure are in the results section. POC GLUCOSE 09/29/2018 Results for this 8:11 AM LEAD RADIATION THERAPIST procedure are in the results section. POC GLUCOSE 09/29/2018 Results for this 2:36 AM LEAD RADIATION THERAPIST procedure are in the results section. POC GLUCOSE 09/28/2018 Results for this 8:47 PM LEAD RADIATION THERAPIST procedure are in the results section. POC GLUCOSE 09/28/2018 Results for this 5:52 PM LEAD RADIATION THERAPIST procedure are in the results section. BASIC METABOLIC PANEL Routine 09/28/2018 Results for this 1:38 PM LEAD RADIATION THERAPIST procedure are in the results section. CBC Routine 09/28/2018 Results for this 1:38 PM LEAD RADIATION THERAPIST procedure are in the results section. POC GLUCOSE 09/28/2018 Results for this 11:24 AM LEAD RADIATION THERAPIST procedure are in the results section. POC GLUCOSE 09/28/2018 Results for this 7:42 AM LEAD RADIATION THERAPIST procedure are in the results section. POC GLUCOSE 09/27/2018 Results for this 8:58 PM LEAD RADIATION THERAPIST procedure are in the results section. POC GLUCOSE 09/27/2018 Results for this 5:23 PM LEAD RADIATION THERAPIST procedure are in the results section. ABDOMEN AP ONLY Routine 09/27/2018 Results for this 4:56 PM LEAD RADIATION THERAPIST procedure are in the results section. POC GLUCOSE 09/27/2018 Results for this 12:01 PM LEAD RADIATION THERAPIST procedure are in the results section. POC GLUCOSE 09/27/2018 Results for this 7:34 AM LEAD RADIATION THERAPIST procedure are in the results section. POC GLUCOSE 09/26/2018 Results for this 8:39 PM LEAD RADIATION THERAPIST procedure are in the results section. POC GLUCOSE 09/26/2018 Results for this 4:37 PM LEAD RADIATION THERAPIST procedure are in the results section. CBC Routine 09/26/2018 Results for this 11:31 AM LEAD RADIATION THERAPIST procedure are in the results section. BASIC METABOLIC PANEL Routine 09/26/2018 Results for this 11:29 AM LEAD RADIATION THERAPIST procedure are in the results section. POC GLUCOSE 09/26/2018 Results for this 11:17 AM LEAD RADIATION THERAPIST procedure are in the results section. KERI W/O CONTRAST & W/ 3D Routine 09/26/2018 Results for this ON CART 9:05 AM LEAD RADIATION THERAPIST procedure are in the results section. POC GLUCOSE 09/26/2018 Results for this 8:13 AM LEAD RADIATION THERAPIST procedure are in the results section. POC GLUCOSE 09/26/2018 Results for this 3:50 AM LEAD RADIATION THERAPIST procedure are in the results section. POC GLUCOSE 09/25/2018 Results for this 8:21 PM LEAD RADIATION THERAPIST procedure are in the results section. POC GLUCOSE 09/25/2018 Results for this 5:26 PM LEAD RADIATION THERAPIST procedure are in the results section. UA REFLEX CULTURE LABEL Routine 09/25/2018 Results for this 12:45 PM LEAD RADIATION THERAPIST procedure are in the results section. URINALYSIS MICROSCOPIC Routine 09/25/2018 Results for this REFLEX TO CULTURE 12:45 PM LEAD RADIATION THERAPIST procedure are in the results section. URINALYSIS DIPSTICK Routine 09/25/2018 Results for this REFLEX TO CULTURE 12:45 PM LEAD RADIATION THERAPIST procedure are in the results section. CULTURE-URINE 09/25/2018 Results for this W/SENSITIVITY 12:45 PM LEAD RADIATION THERAPIST procedure are in the results section. POC GLUCOSE 09/25/2018 Results for this 12:44 PM LEAD RADIATION THERAPIST procedure are in the results section. SWALLOW MOTION SERIES Routine 09/25/2018 Results for this 9:55 AM LEAD RADIATION THERAPIST procedure are in the results section. POC GLUCOSE 09/25/2018 Results for this 8:10 AM LEAD RADIATION THERAPIST procedure are in the results section. POC GLUCOSE 09/25/2018 Results for this 4:22 AM LEAD RADIATION THERAPIST procedure are in the results section. MAGNESIUM Routine 09/25/2018 Results for this 4:15 AM LEAD RADIATION THERAPIST procedure are in the results section. PHOSPHORUS Routine 09/25/2018 Results for this 4:15 AM LEAD RADIATION THERAPIST procedure are in the results section. CBC STAT 09/25/2018 Results for this 4:15 AM LEAD RADIATION THERAPIST procedure are in the results section. BASIC METABOLIC PANEL STAT 09/25/2018 Results for this 4:15 AM LEAD RADIATION THERAPIST procedure are in the results section. POC GLUCOSE 09/24/2018 Results for this 9:19 PM LEAD RADIATION THERAPIST procedure are in the results section. POC GLUCOSE 09/24/2018 Results for this 5:27 PM LEAD RADIATION THERAPIST procedure are in the results section. POC GLUCOSE 09/24/2018 Results for this 12:31 PM LEAD RADIATION THERAPIST procedure are in the results section. 2-D + DOPPLER Routine 09/24/2018 Results for this ECHOCARDIOGRAM 10:11 AM LEAD RADIATION THERAPIST procedure are in the results section. CT HEAD WO CONTRAST Routine 09/24/2018 Results for this 8:35 AM LEAD RADIATION THERAPIST procedure are in the results section. POC GLUCOSE 09/24/2018 Results for this 7:52 AM LEAD RADIATION THERAPIST procedure are in the results section. MAGNESIUM Routine 09/24/2018 Results for this 3:55 AM LEAD RADIATION THERAPIST procedure are in the results section. PHOSPHORUS Routine 09/24/2018 Results for this 3:55 AM LEAD RADIATION THERAPIST procedure are in the results section. CBC STAT 09/24/2018 Results for this 3:55 AM LEAD RADIATION THERAPIST procedure are in the results section. BASIC METABOLIC PANEL STAT 09/24/2018 Results for this 3:55 AM LEAD RADIATION THERAPIST procedure are in the results section. POC GLUCOSE 09/24/2018 Results for this 3:52 AM LEAD RADIATION THERAPIST procedure are in the results section. POC GLUCOSE 09/23/2018 Results for this 8:43 PM LEAD RADIATION THERAPIST procedure are in the results section. POC GLUCOSE 09/23/2018 Results for this 5:26 PM LEAD RADIATION THERAPIST procedure are in the results section. ABDOMEN AP ONLY Routine 09/23/2018 Results for this 2:40 PM LEAD RADIATION THERAPIST procedure are in the results section. ABDOMEN AP ONLY Routine 09/23/2018 Results for this 2:11 PM LEAD RADIATION THERAPIST procedure are in the results section. POC GLUCOSE 09/23/2018 Results for this 12:55 PM LEAD RADIATION THERAPIST procedure are in the results section. PHENCYCLIDINES-URINE Routine 09/23/2018 Results for this RANDOM 11:00 AM LEAD RADIATION THERAPIST procedure are in the results section. OPIATES-URINE RANDOM Routine 09/23/2018 Results for this 11:00 AM LEAD RADIATION THERAPIST procedure are in the results section. COCAINE-URINE RANDOM Routine 09/23/2018 Results for this 11:00 AM LEAD RADIATION THERAPIST procedure are in the results section. CANNABINOIDS-URINE RANDOM Routine 09/23/2018 Results for this 11:00 AM LEAD RADIATION THERAPIST procedure are in the results section. BENZODIAZEPINES-URINE Routine 09/23/2018 Results for this RANDOM 11:00 AM LEAD RADIATION THERAPIST procedure are in the results section. BARBITURATES-URINE RANDOM Routine 09/23/2018 Results for this 11:00 AM LEAD RADIATION THERAPIST procedure are in the results section. AMPHETAMINES-URINE RANDOM Routine 09/23/2018 Results for this 11:00 AM LEAD RADIATION THERAPIST procedure are in the results section. UA REFLEX CULTURE LABEL Routine 09/23/2018 Results for this 11:00 AM LEAD RADIATION THERAPIST procedure are in the results section. URINALYSIS MICROSCOPIC Routine 09/23/2018 Results for this REFLEX TO CULTURE 11:00 AM LEAD RADIATION THERAPIST procedure are in the results section. URINALYSIS DIPSTICK Routine 09/23/2018 Results for this REFLEX TO CULTURE 11:00 AM LEAD RADIATION THERAPIST procedure are in the results section. POC GLUCOSE 09/23/2018 Results for this 8:46 AM LEAD RADIATION THERAPIST procedure are in the results section. MAGNESIUM Routine 09/23/2018 Results for this 3:07 AM LEAD RADIATION THERAPIST procedure are in the results section. PHOSPHORUS Routine 09/23/2018 Results for this 3:07 AM LEAD RADIATION THERAPIST procedure are in the results section. CBC STAT 09/23/2018 Results for this 3:07 AM LEAD RADIATION THERAPIST procedure are in the results section. BASIC METABOLIC PANEL STAT 09/23/2018 Results for this 3:07 AM LEAD RADIATION THERAPIST procedure are in the results section. MRI HEAD WO CONTRAST Routine 09/22/2018 Results for this 11:03 PM CDT procedure are in the results section. HEMOGLOBIN A1C Routine 09/22/2018 Results for this 8:50 PM CDT procedure are in the results section. CBC Routine 09/22/2018 Results for this 8:50 PM CDT procedure are in the results section. CONSULT IV THERAPY TEAM STAT 09/22/2018 8:18 PM CDT PHOSPHORUS Add on 09/22/2018 Results for this 8:07 PM CDT procedure are in the results section. MAGNESIUM Add on 09/22/2018 Results for this 8:07 PM CDT procedure are in the results section. LIPID PROFILE 09/22/2018 Results for this 8:07 PM CDT procedure are in the results section. BASIC METABOLIC PANEL 09/22/2018 Results for this 8:07 PM CDT procedure are in the results section. POC GLUCOSE 09/22/2018 Results for this 7:55 PM CDT procedure are in the results section. from Last 3 Months Results * POC GLUCOSE (10/07/2018 9:06 AM) Only the most recent of 71 results within the time period is included. Glucose, POC 137 (H) 70 - 100 MG/DL [facility] Performing Organization Address City/State/Zipcode Phone Number [facility] [address] [place] [address] * CBC (10/07/2018 4:55 AM) Only the most recent of 10 results within the time period is included. White Blood Cells 14.1 (H) 4.5 - 11.0 K/UL [facility] RBC 5.03 (H) 4.0 - 5.0 M/UL [facility] Hemoglobin 15.2 (H) 12.0 - 15.0 GM/DL [facility] Hematocrit 46.5 (H) 36 - 45 % [facility] MCV 92.4 80 - 100 FL [facility] MCH 30.3 26 - 34 PG [facility] MCHC 32.7 32.0 - 36.0 G/DL [facility] RDW 13.7 11 - 15 % [facility] Platelet Count 251 150 - 400 K/UL [facility] MPV 9.5 7 - 11 FL [facility] Specimen Blood Performing Organization Address City/[facility] Phone Number [facility] [address] [place] [address] * BASIC METABOLIC PANEL (10/07/2018 4:55 AM) Only the most recent of 10 results within the time period is included. Sodium 134 (L) 137 - 147 MMOL/L [facility] Potassium 4.8 3.5 - 5.1 MMOL/L [facility] Chloride 100 98 - 110 MMOL/L [facility] CO2 26 21 - 30 MMOL/L [facility] Anion Gap 8 3 - 12 [facility] Glucose 134 (H) 70 - 100 MG/DL [facility] Blood Urea Nitrogen 23 7 - 25 MG/DL [facility] Creatinine 0.86 0.4 - 1.00 MG/DL [facility] Calcium 9.8 8.5 - 10.6 MG/DL [facility] eGFR Non >60 >60 mL/min [facility] Comment: The eGFR is not validated for use in drug dosing adjustments.Continue to use estimated creatinine clearance per dosing reference text.Please contact the Clinical Pharmacist for questions. eGFR >60 >60 mL/min [facility] Comment: The eGFR is not validated for use in drug dosing adjustments.Continue to use estimated creatinine clearance per dosing reference text.Please contact the Clinical Pharmacist for questions. Specimen Blood Performing Organization Address [facility] Cent[facility] Phone Number [facility] [address] [place] [address] * ANTI-NUCLEAR AB(ANITHA)-QUANT (09/29/2018 9:28 AM) ANITHA Titer/Pattern 80 (H)Comment: NUCLEOLAR <80 [facility] Performing Organization Address [facility]/Zipcode Phone Number [facility] [address] [place] [address] * ANTI-NUCLEAR ANTIBODY(ANITHA) (09/29/2018 9:28 AM) ANITHA Screen SEE TITER <80 TITER [facility] Specimen Blood Performing Organization Address City/State/Zipcode Phone Number [facility] [address] [place] [address] * ABDOMEN AP ONLY (09/27/2018 4:56 PM) Only the most recent of 3 results within the time period is included. Impressions Performed At Retained barium distributed throughout the colon related to prior swallow [facility] studies. Diverticulosis of the colon. No radiographic evidence of bowel obstruction. Finalized by Eliazar Velasquez M.D. on 09/28/2018 7:49 AM. Dictated by Eliazar Velasquez M.D. on 09/28/2018 7:47 AM. Narrative Performed At constipation. [facility] Technique: 2 portable AP supine views of the abdomen were obtained. Comparison: Comparison is made to an examination of 09/23/2018.. Findings: There is residual contrast distributed throughout the colon from the level of the cecum to the rectum. There are are diverticula lead of the distal descending colon and sigmoid. There is no significant dilatation of large or small bowel. Procedure Note Interface, Radiant Results - 09/28/2018 7:52 AM LEAD RADIATION THERAPIST constipation. Technique: 2 portable AP supine views of the abdomen were obtained. Comparison: Comparison is made to an examination of 09/23/2018.. Findings: There is residual contrast distributed throughout the colon from the level of the cecum to the rectum. There are are diverticula lead of the distal descending colon and sigmoid. There is no significant dilatation of large or small bowel. IMPRESSION Retained barium distributed throughout the colon related to prior swallow studies. Diverticulosis of the colon. No radiographic evidence of bowel obstruction. Finalized by Eliazar Velasquez M.D. on 09/28/2018 7:49 AM. Dictated by Eliazar Velasquez M.D. on 09/28/2018 7:47 AM. Performing Organization Address City/State/Zipcode Phone Number [facility] * TRANSESOPHAGEAL ECHOCARDIOGRAM (09/26/2018 9:05 AM) BSA 2.14 m2 [facility] CV ECHO PV CASHIER CHECKER Renetta RN, Natalia RN OTHER [facility] Cardiology Ultrasound Siemens [id number] [facility] Machine ECHO EF 55 % [facility] Narrative Performed At OTHER OUTSIDE LAB Aortic Valve: Mobile linear echodensity that inserts from the base of the LVOT to the level of the aortic valve and prolapses in the LVOT with cardiac motion. Very unusual location for (bacterial or non bacterial) vegetation or thrombus although in the Differential Diagnosis. Mobile or Flial Subaortic membrane also is a probability. No hemodynamically significant stenosis or regurgitation. Aorta: Normal aortic root and ascending aortic size. There is 8 x 6 x 10 mm calcified atherosclerotic plaque in the distal aortic arch/Proximal descending aorta. Left Ventricle: Normal size. Normal ejection fraction. Hypokinesis of the basal inferior inferolateral thomas. Performing Organization Address [facility] Phone Number OTHER [facility]SIDE LAB * UA REFLEX CULTURE LABEL (09/25/2018 12:45 PM) Only the most recent of 2 results within the time period is included. UA Reflex Culture LAB LABEL [facility] Specimen Urine Performing Organization Address [facility] Phone Number [facility] [address] [place] [address] * URINALYSIS MICROSCOPIC REFLEX TO CULTURE (09/25/2018 12:45 PM) Only the most recent of 2 results within the time period is included. WBCs,UA 20-50 0 - 2 /HPF [facility] RBCs,UA 2-10 0 - 3 /HPF [facility] Comment,UA Urine submitted for reflex [facility] culture if criteria are met:WBC>10, positive nitrite and/or >=1+ leukocyte esterase. If quantity is not sufficient, an addendum will follow. MucousUA TRACE [facility] Bacteria,UA FEW (A) NEG-NEG [facility] Squamous Epithelial Cells 0-2 0 - 5 [facility] Specimen Urine Performing Organization Address [facility] Phone Number MAIN LAB [address] [place] [address] * URINALYSIS DIPSTICK REFLEX TO CULTURE (09/25/2018 12:45 PM) Only the most recent of 2 results within the time period is included. Color,UA YELLOW [facility] Turbidity,UA 1+ (A) CLEAR-CLEAR [facility] Specific Mico-Urine 1.011 1.003 - 1.035 [facility] pH,UA 8.0 5.0 - 8.0 [facility] Protein,UA NEG NEG-NEG [facility] Glucose,UA NEG NEG-NEG [facility] Ketones,UA NEG NEG-NEG MAIN LAB Bilirubin,UA NEG NEG-NEG MAIN LAB Blood,UA 1+ (A) NEG-NEG MAIN LAB Urobilinogen,UA NORMAL NORM-NORMAL MAIN LAB Nitrite,UA POS (A) NEG-NEG MAIN LAB Leukocytes,UA 1+ (A) NEG-NEG MAIN LAB Urine Ascorbic Acid, UA NEG NEG-NEG MAIN LAB Specimen Urine Performing Organization Address City/State/Zipcode Phone Number MAIN LAB [address] [place] [address] * CULTURE-URINE W/SENSITIVITY (09/25/2018 12:45 PM) Battery Name URINE CULTURE MAIN LAB Specimen Description URINE MAIN LAB Special Requests NONE MAIN LAB Culture >100,000 organisms/ml MAIN LAB ESCHERICHIA COLI (A) Report Status FINAL MAIN LAB 09/27/2018 Organism ID >100,000 organisms/ml MAIN LAB ESCHERICHIA COLI Specimen Urine Organism Antibiotic Method Susceptibility >100,000 organisms/ml Ampicillin RAMÓN (MCG/ML) <=4 SUSCEPTIBLE: escherichia coli INTERPRETATION Susceptible >100,000 organisms/ml Amoxicil/Clav Acid RAMÓN (MCG/ML) <=4/2 SUSCEPTIBLE: escherichia coli INTERPRETATION Susceptible >100,000 organisms/ml Levofloxacin RAMÓN (MCG/ML) <=1 SUSCEPTIBLE: escherichia coli INTERPRETATION Susceptible >100,000 organisms/ml Nitrofurantoin RAMÓN (MCG/ML) <=16 SUSCEPTIBLE: escherichia coli INTERPRETATION Susceptible >100,000 organisms/ml Gentamicin RAMÓN (MCG/ML) <=2 SUSCEPTIBLE: escherichia coli INTERPRETATION Susceptible >100,000 organisms/ml Trimethsulfa RAMÓN (MCG/ML) <=0.5/9.5 SUSCEPTIBLE: escherichia coli INTERPRETATION Susceptible >100,000 organisms/ml Piperacil/Tazobactam RAMÓN (MCG/ML) <=2/4 SUSCEPTIBLE: escherichia coli INTERPRETATION Susceptible >100,000 organisms/ml Tetracycline RAMÓN (MCG/ML) <=2 SUSCEPTIBLE: escherichia coli INTERPRETATION Susceptible >100,000 organisms/ml Cefepime RAMÓN (MCG/ML) <=1 SUSCEPTIBLE: escherichia coli INTERPRETATION Susceptible >100,000 organisms/ml Ertapenem RAMÓN (MCG/ML) <=0.25 SUSCEPTIBLE: escherichia coli INTERPRETATION Susceptible >100,000 organisms/ml Ceftriaxone RAMÓN (MCG/ML) <=1 SUSCEPTIBLE: escherichia coli INTERPRETATION Susceptible >100,000 organisms/ml Method RAMÓN (MCG/ML) RAMÓN (MCG/ML) escherichia coli INTERPRETATION INTERPRETATION Performing Organization Address City/[facility] Phone Number [facility] [address] [place] [address] * SWALLOW MOTION SERIES (09/25/2018 9:55 AM) Impressions Performed At 1. Laryngeal penetration with thin consistency barium without aspiration. [facility] RESULTS 2. Please see separately dictated report from the Department of Speech Pathology for further description. By my electronic signature, I attest that I have personally reviewed the images for this examination and formulated the interpretations and opinions expressed in this report Finalized by Luigi Reyna M.D. on 09/25/2018 10:51 AM. Dictated by Evelina Hidalgo M.D. on 09/25/2018 10:35 AM. Narrative Performed At SWALLOW MOTION SERIES [facility] RAD RESULTS CLINICAL HISTORY: 63-year-old female, dysphagia. TECHNIQUE: The procedure was performed in conjunction with members of the department of speech pathology. Video fluoroscopy was performed during swallowing of various consistencies of barium. The patient tolerated the procedure well and left the department in stable condition. TOTAL FLUOROSCOPY TIME: 72 seconds FINDINGS: Laryngeal penetration with thin consistency barium. No aspiration with all tested consistencies of barium. Procedure Note Interface, Radiant Results - 09/25/2018 10:54 AM LEAD RADIATION THERAPIST SWALLOW MOTION SERIES CLINICAL HISTORY: 63-year-old female, dysphagia. TECHNIQUE: The procedure was performed in conjunction with members of the department of speech pathology. Video fluoroscopy was performed during swallowing of various consistencies of barium. The patient tolerated the procedure well and left the department in stable condition. TOTAL FLUOROSCOPY TIME: 72 seconds FINDINGS: Laryngeal penetration with thin consistency barium. No aspiration with all tested consistencies of barium. IMPRESSION 1. Laryngeal penetration with thin consistency barium without aspiration. 2. Please see separately dictated report from the Department of Speech Pathology for further description. By my electronic signature, I attest that I have personally reviewed the images for this examination and formulated the interpretations and opinions expressed in this report Finalized by Luigi Reyna M.D. on 09/25/2018 10:51 AM. Dictated by Evelina Hidalgo M.D. on 09/25/2018 10:35 AM. Performing Organization Address City/[facility] Phone Number [facility] RES[facility] * PHOSPHORUS (09/25/2018 4:15 AM) Only the most recent of 4 results within the time period is included. Phosphorus 3.3Comment: NOTE NEW REFERENCE 2.0 - 4.5 MG/DL [facility] MAIN LAB RANGES Specimen Blood Performing Organization Address [facility] Phone Number [facility] MAIN LAB [address] [place] [address] * MAGNESIUM (09/25/2018 4:15 AM) Only the most recent of 4 results within the time period is included. Magnesium 1.9 1.6 - 2.6 mg/dL [facility] MAIN LAB Specimen Blood Performing Organization Address [facility] Phone Number [facility] MAIN LAB [address] [place] [address] * 2-D + DOPPLER ECHOCARDIOGRAM (09/24/2018 10:11 AM) IVS 1.28 0.6 - 0.9 cm OTHER OUTSIDE LAB LVIDD 5.42 3.8 - 5.2 cm OTHER OUTSIDE LAB LVIDS 3.92 2.2 - 3.5 cm OTHER OUTSIDE LAB PW 1.29 0.6 - 0.9 cm OTHER OUTSIDE LAB TDI e' 0.09 m/s OTHER OUTSIDE LAB Right Ventricular Mid 2.52 1.9 - 3.5 cm OTHER OUTSIDE LAB Diameter LA size 3.64 2.7 - 3.8 cm OTHER OUTSIDE LAB LA volume 46.66 22 - 52 mL OTHER OUTSIDE LAB Right Atrial Area 15.03 <18 cm2 OTHER OUTSIDE LAB Right Atrial Major 5.01 2.2 - 2.8 cm OTHER OUTSIDE LAB Dimension and a peak gradient of 7.92 mmHg OTHER OUTSIDE LAB AV peak velocity 1.41 m/s OTHER OUTSIDE LAB MV Peak A Carlos 0.62 m/s OTHER OUTSIDE LAB MV Peak E Carlos PW 0.88 m/s OTHER OUTSIDE LAB Right Ventricular Basal 3.69 2.5 - 4.1 cm OTHER OUTSIDE LAB Diameter Right Heart Systolic 2.20 >1.7 cm OTHER OUTSIDE LAB Mmode TAPSE Sinus 3.14 2.7 - 3.3 cm OTHER OUTSIDE LAB Ascending aorta 3.37 2.0 - 3.6 cm OTHER OUTSIDE LAB BSA 2.15 m2 OTHER OUTSIDE LAB FS 27.68 28 - 44 % OTHER OUTSIDE LAB EF 47.06 % OTHER OUTSIDE LAB Left Atrium Index 21.70 16 - 34 OTHER OUTSIDE LAB E/A ratio 1.42 OTHER OUTSIDE LAB E/E' ratio 9.78 OTHER OUTSIDE LAB LV mass 292.52 66 - 150 g OTHER OUTSIDE LAB RWT 0.48 <=0.42 OTHER OUTSIDE LAB Cardiology Ultrasound Siemens [id number] OTHER OUTSIDE LAB Machine Left Ventricle Mass Index 136.05 44 - 88 g/m2 OTHER OUTSIDE LAB ECHO EF 55 % OTHER OUTSIDE LAB Narrative Performed At OTHER OUTSIDE LAB 1. Technically difficult study with poor visualization of cardiac structures. 2. Probably normal left ventricular systolic function with an EF of 55%. 3. Assessment of wall motion was limited due to poor visualization.On the contrast images, the basal inferolateral wall and anterolateral wall appeared akinetic. 4. Normal diastolic function.Normal left atrial pressure. 5. RV is not well seen, but in limited views, the size and function are probably normal. 6. MAC with non specific mitral valve thickening.Trace MR. 7. Valvular structures note well visualized.Doppler interrogation suggested no significant dysfunction. 8. Peak PAP not able to be calculated due to poor TR envelope. 9. Normal aortic root size. 10. No pericardial effusion. No prior studies available for comparison. Performing Organization Address City/State/Zipcode Phone Number OTHER OUTSIDE LAB * CT HEAD WO CONTRAST (09/24/2018 8:35 AM) Impressions Performed At 1. Evolving subacute infarct within the left MCA distribution predominantly [facility] RESULTS involving the basal ganglia, external capsule, and small portion of the frontal convexity. 2. Stable small areas of intermediate attenuation hemorrhage within portions of the putamen and caudate concordant with the recent MRI. 3. No new areas of hemorrhage or new foci of low attenuation ischemia Finalized by Elbert Guillen M.D. on 09/24/2018 11:50 AM. Dictated by Elbert Guillen M.D. on 09/24/2018 11:41 AM. Narrative Performed At CT head [facility] RESULTS Stroke, suspected. TPA administration with some conversion. Technique: Multiple contiguous axial images were obtained through the head without contrast. Coronal reconstructions were performed from the source data. Findings: Comparison is made with the MRI of the head from September 22, 2018. Areas of hypodensity involving the left basal ganglia and cortical portions of the left frontal lobe and insula and left external capsule are again noted concordant with areas of infarction which were also demonstrated on the diffusion-weighted MRI from November 3. Areas of intermediate attenuation within a portions of the basal ganglia infarct (image 17 of series 2 at the putamen and 19 of series 2 at the caudate) are concordant with the areas of susceptibility demonstrated on the MRI heme sensitive sequences and are compatible with some areas of hemorrhage within the infarct territory. There has been no significant progression of hemorrhage since the MRI. Additional there are no new areas of hemorrhage. Ventricle sizes remain normal. There is no extra-axial fluid collection. Basilar cisterns are patent. Procedure Note Interface, Radiant Results - 09/24/2018 11:53 AM LEAD RADIATION THERAPIST CT head Stroke, suspected. TPA administration with some conversion. Technique: Multiple contiguous axial images were obtained through the head without contrast. Coronal reconstructions were performed from the source data. Findings: Comparison is made with the MRI of the head from September 22, 2018. Areas of hypodensity involving the left basal ganglia and cortical portions of the left frontal lobe and insula and left external capsule are again noted concordant with areas of infarction which were also demonstrated on the diffusion-weighted MRI from September 22. Areas of intermediate attenuation within a portions of the basal ganglia infarct (image 17 of series 2 at the putamen and 19 of series 2 at the caudate) are concordant with the areas of susceptibility demonstrated on the MRI heme sensitive sequences and are compatible with some areas of hemorrhage within the infarct territory. There has been no significant progression of hemorrhage since the MRI. Additional there are no new areas of hemorrhage. Ventricle sizes remain normal. There is no extra-axial fluid collection. Basilar cisterns are patent. IMPRESSION 1. Evolving subacute infarct within the left MCA distribution predominantly involving the basal ganglia, external capsule, and small portion of the frontal convexity. 2. Stable small areas of intermediate attenuation hemorrhage within portions of the putamen and caudate concordant with the recent MRI. 3. No new areas of hemorrhage or new foci of low attenuation ischemia Finalized by Elbert Guillen M.D. on 09/24/2018 11:50 AM. Dictated by Elbert Guillen M.D. on 09/24/2018 11:41 AM. Performing Organization Address City/State/Zipcode Phone Number [facility] RAD RESULTS * PHENCYCLIDINES-URINE RANDOM (09/23/2018 11:00 AM) Phencyclidine (PCP) NEG NEG-NEG [facility] Comment: RESULTS WERE OBTAINED BY IMMUNOASSAY AND ARE PRESUMPTIVE ONLY. POSITIVE INDICATES THE PRESENCE OF SUBSTANCE WITH CHARACTERISTICS SIMILAR TO DRUG-DRUG CLASS OR METABOLITE IN CONC. EQUAL TO OR EXCEEDING VALUES LISTED. PHENCYCLIDINE (PCP)25 NG/ML Specimen Urine - Urine Performing Organization Address [facility] Phone Number MAIN LAB [address] [place] [address] * OPIATES-URINE RANDOM (09/23/2018 11:00 AM) Opiates-Urine NEG NEG-NEG [facility] Comment: RESULTS WERE OBTAINED BY IMMUNOASSAY AND ARE PRESUMPTIVE ONLY. POSITIVE INDICATES THE PRESENCE OF SUBSTANCE WITH CHARACTERISTICS SIMILAR TO DRUG-DRUG CLASS OR METABOLITE IN CONC. EQUAL TO OR EXCEEDING VALUES LISTED. OPIATES 2000 NG/ML Specimen Urine - Urine Performing Organization Address [facility] Phone Number MAIN LAB [address] [place] [address] * COCAINE-URINE RANDOM (09/23/2018 11:00 AM) Cocaine-Urine NEG NEG-NEG MAIN LAB Comment: RESULTS WERE OBTAINED BY IMMUNOASSAY AND ARE PRESUMPTIVE ONLY. POSITIVE INDICATES THE PRESENCE OF SUBSTANCE WITH CHARACTERISTICS SIMILAR TO DRUG-DRUG CLASS OR METABOLITE IN CONC. EQUAL TO OR EXCEEDING VALUES LISTED. COCAINE 300 NG/ML Specimen Urine - Urine Performing Organization [facility] Phone Number MAIN LAB [address] [place] [address] * CANNABINOIDS-URINE RANDOM (09/23/2018 11:00 AM) THC NEG NEG-NEG MAIN LAB Comment: RESULTS WERE OBTAINED BY IMMUNOASSAY AND ARE PRESUMPTIVE ONLY. POSITIVE INDICATES THE PRESENCE OF SUBSTANCE WITH CHARACTERISTICS SIMILAR TO DRUG-DRUG CLASS OR METABOLITE IN CONC. EQUAL TO OR EXCEEDING VALUES LISTED. CANNABINOIDS 50 NG/ML Specimen Urine - Urine Performing Organization Address [facility] Phone Number MAIN LAB [address] [place] [address] * BENZODIAZEPINES-URINE RANDOM (09/23/2018 11:00 AM) Benzodiazepines NEG NEG-NEG MAIN LAB Comment: RESULTS WERE OBTAINED BY IMMUNOASSAY AND ARE PRESUMPTIVE ONLY. POSITIVE INDICATES THE PRESENCE OF SUBSTANCE WITH CHARACTERISTICS SIMILAR TO DRUG-DRUG CLASS OR METABOLITE IN CONC. EQUAL TO OR EXCEEDING VALUES LISTED. BENZODIAZEPINES 200 NG/ML Specimen Urine - Urine Performing Organization Address [facility] Phone Number MAIN LAB [address] [place] [address] * BARBITURATES-URINE RANDOM (09/23/2018 11:00 AM) Barbiturates,Urine NEG NEG-NEG [facility] Comment: RESULTS WERE OBTAINED BY IMMUNOASSAY AND ARE PRESUMPTIVE ONLY. POSITIVE INDICATES THE PRESENCE OF SUBSTANCE WITH CHARACTERISTICS SIMILAR TO DRUG-DRUG CLASS OR METABOLITE IN CONC. EQUAL TO OR EXCEEDING VALUES LISTED. BARBITURATES 200 NG/ML Specimen Urine - Urine Performing Organization Address [facility] Phone Number [facility] [address] [place] [address] * AMPHETAMINES-URINE RANDOM (09/23/2018 11:00 AM) Amphetamines NEG NEG-NEG [facility] Comment: RESULTS WERE OBTAINED BY IMMUNOASSAY AND ARE PRESUMPTIVE ONLY. POSITIVE INDICATES THE PRESENCE OF SUBSTANCE WITH CHARACTERISTICS SIMILAR TO DRUG-DRUG CLASS OR METABOLITE IN CONC. EQUAL TO OR EXCEEDING VALUES LISTED. AMPHETAMINES 1000 NG/ML Specimen Urine - Urine Performing Organization Address [facility] Phone Number [facility] MAIN LAB [address] [place] [address] * MRI HEAD WO CONTRAST (09/22/2018 11:03 PM) Impressions Performed At 1.Recent infarct (6 hours to 7 days in age) within the left lentiform [facility] RESULTS nucleus with associated susceptibility signal suggestive of hemorrhage. No mass effect or midline shift. 2.Other scattered small areas of high diffusion signal throughout the left MCA distribution likely additional tiny infarcts. 3.Mild supratentorial white matter FLAIR hyperintensities most likely chronic microvascular ischemic changes. Finalized by CALEB MONTOYA M.D. on 09/23/2018 7:33 AM. Dictated by CALEB MONTOYA M.D. on 09/23/2018 7:07 AM. Narrative Performed At MRI BRAIN WITHOUT CONTRAST [facility] RESULTS HISTORY: 63 years old Female, left basal ganglia stroke. TECHNIQUE: MR images of the brain were acquired without intravenous contrast. COMPARISON: None available at the time of this dictation. FINDINGS: BRAIN PARENCHYMA: There is an area of restricted diffusion within the left lentiform nucleus with associated FLAIR hyperintensities and susceptibility signal. No other scattered faint small areas of high diffusion signal within the left MCA distribution involving the cortex scattered deep white matter. There is involvement of the left insula, lateral temporal lobe, high frontal lobe, and high parietal lobe. Mild white matter chronic small vessel ischemic changes. VENTRICLES/EXTRA-AXIAL SPACES: No hydrocephalus or extra-axial fluid collections. FLOW VOIDS: Intact. EXTRACRANIAL STRUCTURES: Visualized structures are normal. Procedure Note Interface, Radiant Results - 09/23/2018 7:36 AM LEAD RADIATION THERAPIST MRI BRAIN WITHOUT CONTRAST HISTORY: 63 years old Female, left basal ganglia stroke. TECHNIQUE: MR images of the brain were acquired without intravenous contrast. COMPARISON: None available at the time of this dictation. FINDINGS: BRAIN PARENCHYMA: There is an area of restricted diffusion within the left lentiform nucleus with associated FLAIR hyperintensities and susceptibility signal. No other scattered faint small areas of high diffusion signal within the left MCA distribution involving the cortex scattered deep white matter. There is involvement of the left insula, lateral temporal lobe, high frontal lobe, and high parietal lobe. Mild white matter chronic small vessel ischemic changes. VENTRICLES/EXTRA-AXIAL SPACES: No hydrocephalus or extra-axial fluid collections. FLOW VOIDS: Intact. EXTRACRANIAL STRUCTURES: Visualized structures are normal. IMPRESSION 1. Recent infarct (6 hours to 7 days in age) within the left lentiform nucleus with associated susceptibility signal suggestive of hemorrhage. No mass effect or midline shift. 2. Other scattered small areas of high diffusion signal throughout the left MCA distribution likely additional tiny infarcts. 3. Mild supratentorial white matter FLAIR hyperintensities most likely chronic microvascular ischemic changes. Finalized by CALEB MONTOYA M.D. on 09/23/2018 7:33 AM. Dictated by CALEB MONTOYA M.D. on 09/23/2018 7:07 AM. Performing Organization Address City/State/Zipcode Phone Number RAD RESULTS * HEMOGLOBIN A1C (09/22/2018 8:50 PM) Hemoglobin A1C 7.6 (H) 4.0 - 6.0 % [facility] Comment: The ADA recommends that most patients with type 1 and type 2 diabetes maintain an A1c level <7%. Specimen Blood Performing Organization Address City/State/Zipcode Phone Number MAIN LAB [address] [place] [address] * LIPID PROFILE (09/22/2018 8:07 PM) Cholesterol 256 (H) <200 MG/DL [facility] Triglycerides 226 (H) <150 MG/DL [facility] HDL 34 (L) >40 MG/DL [facility] LDL 175 (H) <100 MG/DL [facility] VLDL 45 MG/DL [facility] Non HDL Cholesterol 222 MG/DL [facility] Comment: Calculated non-HDL Cholesterol (non-HDL-C) indirectly measures LDL-C, Lp(a), IDL-C, and VLDL-C.It is a surrogate marker for Apoprotein B.Goal should be less than 130 mg/dL. Performing Organization Address City/State/Zipcode Phone Number MAIN LAB [address] [place] [address] from Last 3 Months
--- OUTSIDE RECORDS SUMMARY | 2018-10-07 14:38 | XMS REPORT | Encounter Summary ---
Author Author [facility] Organization [facility] Address Unknown Phone Unavailable Care Team Providers Care Pediatric Surgeon Name Role Phone Bc Car MD PCP Reason for Visit * Auth/Cert Status Reason Specialty Diagnoses / Referred By Referred To Procedures Contact Contact Diagnoses Stroke (cerebrum) (HCC) Stroke Encounter Details Date Type Department Care Team Description 09/26/2018 Anesthesia Cardiovascular Medicine Ryan Lerner MD Event [facility] [place] [address] [place] [address] [phone] Anesthesia Record Procedure Name Responsible Anesthesia Start Time Anesthesia Stop Time Anesthesiologist TRANSESOPHAGEAL Ryan Lerner MD 09/26/18 0833 09/26/18 0914 ECHOCARDIOGRAM Date Time Event Comment 753 AN Equip Check 2017 0833 Anes Start 0833 An Start Data 0835 Start Supplemental O2 0835 Anesthesia Ready 0913 an stop data 0914 Handoff to RN I completed my SBAR handoff to the receiving nurse. 0914 An Stop Meds Name Total lidocaine (2%) 200 mg/10mL Injection 40 mg syringe propofol (DIPRIVAN) infusion 375.49 mg phenylephrine (ODILON-SYNEPHRINE) 0.1 mg/mL 400 mcg injection (SYRINGE) sodium chloride 0.9 % infusion (500 200 mL mL bag) * Name O2 * No blood administrations on file. Type Details Placement Removal Peripheral PreHospital Outside Facility; R; 09/22/18 1947 by 09/27/18 1044 by Jeovanny IV Forearm; 18 G; Dislodgement; 09/27/18; Grady 1044 Peripheral 09/22/18; 2049; IV Therapy; L; Anterior; 09/22/182049 by Robbi , 10/01/18403 by Eddie, IV Forearm; 22 G; No; 2; 1 inches (Rita Anne, ROBINSON Hartman, ROBINSON drawn.); 10/01/18; 0404 Wounds 09/23/18; 0900; Right; Arm; Rash; 09/23/18 0900 by Desean, 1033 by Carissa, (NOT for 09/29/18; 1033 ROBINSON Michael RN Pressure Injuries) in this encounter Social History Tobacco Use Types Packs/Day Years Used Date Current Every Day Smoker Cigarettes 1 46 Smokeless Tobacco: Never Used Alcohol Use Drinks/Week oz/Week Comments No Sex Assigned at Date Recorded Not on file as of this encounter Functional Status Functional Status Response Date of Assessment Does the patient have a hearing impairment: No 09/25/2018 as of this encounter OR Notes * Anesthesia Postprocedure Evaluation - Ryan Lerner MD - 09/26/2018 9:31 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 Sex: female Procedure Date: 09/26/2018 Procedure: * No procedures listed * Surgeon: * No surgeons listed * Post-Anesthesia Vitals BP: 118/69 (09/26 920) Pulse: 68 (09/26 920) Respirations: 20 PER MINUTE (09/26 920) SpO2: 94 % (09/26 920) O2 Delivery: Nasal Cannula (09/26 920) Height: 160 cm (63") (09/26 905) Post Anesthesia Evaluation Note Evaluation location: pre/post Patient participation: recovered; patient participated in evaluation Level of consciousness: sleepy but conscious Pain score: 0 Pain management: adequate Hydration: normovolemia Temperature: 36.0C - 38.4C Airway patency: adequate Perioperative Events Perioperative events: no Post-op nausea and vomiting: no PONV Postoperative Status Cardiovascular status: hemodynamically stable Respiratory status: spontaneous ventilation and supplemental oxygen Follow-up needed: none Perioperative Events Perioperative Event: No Emergency Case Activation: No * Anesthesia Preprocedure Evaluation - Ryan Lerner MD - 09/26/2018 8:04 AM SOFT WORK 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 Anesthesia Pre-Procedure Evaluation Name: Vidhi Andrea : 1955 Age: 63 y.o. Sex: female Procedure Date: 09/26/2018 Procedure: * No procedures listed * Physical Assessment Vital Signs (last filed in past 24 hours): BP: 140/67 (09/26 400) Temp: 36.9 C (98.5 F) (09/26 400) Pulse: 60 (09/26 400) Respirations: 17 PER MINUTE (09/26 400) SpO2: 94 % (09/26 400) O2 Delivery: None (Room Air) (09/25 2000) Patient History Allergies Allergen Reactions Sulfa (Sulfonamide Antibiotics) UNKNOWN Current Medications Not on File Review of Systems/Medical History Patient summary reviewed Nursing notes reviewed Pertinent labs reviewed PONV Screening: Female gender No history of anesthetic complications No family history of anesthetic complications Airway - negative Pulmonary Current smoker 1 ppd x 40 years Cardiovascular Exercise tolerance: <4 METS (recent stroke) Beta Toña therapy: No Beta blockers within 24 hours: n/a Hypertension, Hyperlipidemia GI/Hepatic/Renal Failed swallow test yesterday Neuro/Psych CVA (right sided weakness), residual symptoms L basal ganglia stroke, transferred here on 09/22/18 after [facility]. Endocrine/Other Diabetes; using insulin 157 fsbs today Physical Exam Airway Findings Mallampati: III TM distance: <3 FB Mouth opening: good Airway patency: adequate Dental Findings: Comments: Edentulous upper, poor dentition lower. Multiple missing teeth Cardiovascular Findings: Rhythm: regular Rate: normal Pulmonary Findings: Negative Abdominal Findings: Negative Neurological Findings: Motor deficit Comments: Recent L basal ganglia stroke with deficits on right side. Diagnostic Tests Hematology: Lab Results Component Value Date HGB 14.5 09/25/2018 HCT 43.0 09/25/2018 PLTCT 249 09/25/2018 WBC 15.1 09/25/2018 MCV 91.3 09/25/2018 MCH 30.7 09/25/2018 MCHC 33.7 09/25/2018 MPV 10.4 09/25/2018 RDW 13.9 09/25/2018 General Chemistry: Lab Results Component Value Date NA 137 09/25/2018 K 4.0 09/25/2018 CL 102 09/25/2018 CO2 25 09/25/2018 GAP 10 09/25/2018 BUN 13 09/25/2018 CR 0.56 09/25/2018 GLU 224 09/25/2018 CA 9.2 09/25/2018 MG 1.9 09/25/2018 PO4 3.3 09/25/2018 Coagulation: No results found for: PT, PTT, INR Anesthesia Plan ASA score: 3 Plan: MAC Induction method: intravenous NPO status: acceptable Informed Consent Anesthetic plan and risks discussed with patient (daughter, consent obtained from. ). Blood products consent: daughter. Blood Consent: consented Plan discussed with: anesthesiologist. in this encounter Plan of Treatment Not on fileas of this encounter Visit Diagnoses Not on filein this encounter Administered Medications Medication Order MAR Action Action Date Dose Rate Site lidocaine (PF) injection Given 09/26/2018 40 mg INTRA-PROCEDURE MED, Starting Mon 08:36 SOFT WORK CIGAR MACHINE OPERATOR 09/26/18 at 0836, Until Mon09/26/18 at 0913, Anesthesia Intra-op phenylephrine in NS injection syringe Given 09/26/2018 100 mcg INTRA-PROCEDURE MED, Starting Mon 09:00 SOFT WORK CIGAR MACHINE OPERATOR 09/26/18 at 0854, Until Mon09/26/18 at 0913, Symptomatic Hypotension, Anesthesia Intra-op Given 09/26/2018 100 mcg 09:05 SOFT WORK CIGAR MACHINE OPERATOR Given 09/26/2018 100 mcg 09:09 SOFT WORK CIGAR MACHINE OPERATOR propofol (DIPRIVAN) infusion Bolus 09/26/2018 20,600 mcg 20 mL, Intravenous, INTRA-PROCEDURE 08:40 SOFT WORK CIGAR MACHINE OPERATOR MED(CONT), Starting Mon09/26/18 at 0835, Until Mon09/26/18 at 0913, Anesthesia Intra-op Dose/Rate Change 09/26/2018 120 74.3 mL/hr 08:43 SOFT WORK CIGAR MACHINE OPERATOR mcg/kg/min Bolus 09/26/2018 20,600 mcg 08:45 SOFT WORK CIGAR MACHINE OPERATOR sodium chloride 0.9 % infusion Given - New 09/26/2018 INTRA-PROCEDURE MED(CONT), Starting Mon Bag 08:33 SOFT WORK CIGAR MACHINE OPERATOR 09/26/18 at 0833, Until 09/26/18 at 0913, Anesthesia Intra-op in this encounter
--- OUTSIDE RECORDS SUMMARY | 2018-10-07 14:38 | XMS REPORT | Encounter Summary ---
Author Author [facility] Organization [facility] Address Unknown Phone Unavailable Care Team Providers Care Lathe Sander Name Role Phone Bc Car MD PCP Encounter Details Date Type Department Care Team Description 09/22/2018 Procedure [address] [facility] [place] [address] Social History Tobacco Use Types Packs/Day Years Used Date Never Assessed Sex Assigned at Date Recorded Not on file as of this encounter Plan of Treatment Not on fileas of this encounter Visit Diagnoses Not on filein this encounter
--- OUTSIDE RECORDS SUMMARY | 2018-10-07 14:38 | XMS REPORT | Encounter Summary ---
Author Author [facility] Organization [facility] Address Unknown Phone Unavailable Care Team Providers Care Topstitcher Zigzag Name Role Phone Bc Car MD PCP Encounter Details Date Type Department Care Team Description 09/23/2018 Procedure [facility] [place] [address] Social History Tobacco Use Types Packs/Day Years Used Date Current Every Day Smoker Cigarettes 1 46 Smokeless Tobacco: Never Used Alcohol Use Drinks/Week oz/Week Comments No Sex Assigned at Date Recorded Not on file as of this encounter Plan of Treatment Not on fileas of this encounter Visit Diagnoses Not on filein this encounter
--- OUTSIDE RECORDS SUMMARY | 2018-10-07 14:38 | XMS REPORT | Encounter Summary ---
Author Author [facility] Organization [facility] Address Unknown Phone Unavailable Care Team Providers Care Blower And Compressor Assembler Name Role Phone Bc Car MD PCP Reason for Visit * Auth/Cert Status Reason Specialty Diagnoses / Referred By Referred To Procedures Contact Contact Diagnoses Stroke (cerebrum) ([facility]) Stroke Encounter Details Date Type Department Care Team Description 09/22/2018 [place] [id number] Apple Marie MD Stroke (cerebrum) (HCC) - Encounter [id number] [facility] [address] [facility] 10/07/2018 [place] [address] [place] [address] [phone] Manny Artis MD [address] [place] [address] [phone] Porfirio Nina DO [address] [facility] [address] [place] [address] [phone] Jarocho Yarbrough MD [address] [place] [address] [phone] Anali Paris MD [address] [facility] [address] [place] [address] Social History Tobacco Use Types Packs/Day Years Used Date Current Every Day Smoker Cigarettes 1 46 Smokeless Tobacco: Never Used Alcohol Use Drinks/Week oz/Week Comments No Sex Assigned at Date Recorded Not on file as of this encounter Last Filed Vital Signs Vital Sign Reading Time Taken Blood Pressure 114/68 10/07/2018 5:47 AM ELECTRICAL RESEARCH ENGINEER Pulse 58 10/07/2018 5:47 AM ELECTRICAL RESEARCH ENGINEER Temperature 36.3 C (97.4 F) 10/07/2018 5:47 AM ELECTRICAL RESEARCH ENGINEER Respiratory Rate - - Oxygen Saturation 97% 10/07/2018 5:47 AM ELECTRICAL RESEARCH ENGINEER Inhaled Oxygen - - Concentration Weight 102.9 kg (226 lb 13.7 oz) 09/26/2018 5:00 PM ELECTRICAL RESEARCH ENGINEER Height 160 cm (5' 2.99") 09/26/2018 5:00 PM ELECTRICAL RESEARCH ENGINEER Body Mass Index 40.2 09/26/2018 5:00 PM ELECTRICAL RESEARCH ENGINEER in this encounter Functional Status Functional Status Response Date of Assessment Does the patient have a hearing impairment: No 09/25/2018 as of this encounter Medications at Time of Discharge Medication Sig. Disp. Refills Start Date End Date aspirin 81 mg chewable Chew one tablet by mouth 10/07/2018 tablet daily. Take with food. atorvastatin (LIPITOR) 80 Take one tablet by mouth 10/07/2018 mg tablet daily. docusate (COLACE) 100 mg Take one capsule by mouth 10/07/2018 capsule twice daily. fluoxetine (PROZAC) 20 mg Take one capsule by mouth 10/07/2018 capsule daily. lisinopril (PRINIVIL; Take one tablet by mouth 10/07/2018 ZESTRIL) 10 mg tablet daily. metFORMIN (GLUCOPHAGE) Take one tablet by mouth 10/07/2018 500 mg tablet twice daily with meals. as of this encounter Progress Notes * Grady Up - 10/07/2018 11:10 AM ELECTRICAL RESEARCH ENGINEER Report given to ROBINSON Cabrera at [facility], contact information of Primary RN given incase of further questions or complications. [facility] * Grady Up - 10/07/2018 10:29 AM ELECTRICAL RESEARCH ENGINEER Vidhi Andrea discharged on 10/07/2018. . Discharge instructions reviewed with patient and family. Valuables returned: Personal Items / Valuables: Clothing. Home medications: . Functional assessment at discharge complete: Yes . * Hernando Alexandre, ROBINSON - 10/06/2018 6:17 PM ELECTRICAL RESEARCH ENGINEER Patient offered assistance with eating but, patient able to eat and refused remainder of meal after eating bites of chicken, mashed potatoes with gravy and apple sauce. Patient offered to have different food ordered but, patient declined. Patient up once during shift without using call light. Patient given demonstration and return demonstration of call light use prior to and after patient out of bed with alarm alert when patient exited bed. * Andre Yoon DO - 10/06/2018 3:11 AM ELECTRICAL RESEARCH ENGINEER Formatting of this note may be different from the original. Neurology Progress Note Today's Date: 10/06/2018 Name: Vidhi Andrea Admission Date: 09/22/2018 LOS: 14 days Assessment/Plan: Active Problems: Stroke (cerebrum) (HCC) DMII (diabetes mellitus, type 2) (HCC) HLD (hyperlipidemia) HTN (hypertension) Morbid obesity (HCC) Vidhi Valera a 63 y.o.femalewith DMII, HLD, HTN transferred from OSH for right sided weakness, aphasia and found to have a left MCA ischemic stroke ( ESUS) with hemorrhagic conversion involving the basal ganglia. Patients mental status is improving but she continues to have significant expressive aphasia. L BG Ischemic Stroke S/p t-PA at OSH prior to transfer CTA with no LVO, no intervention pursued MRI with left Basal ganglia ischemic stroke with evidence of mild hemorrhagic conversion Repeat CT head 09/24 with stable findings and expected evolution of ischemic stroke Stroke workup: a1c 7.6, LDL 175 Echo technically limited, EF 55% normal left ventricle size, but possible inferolateral akinesis. No hx or evidence of afib 09/26 KERI w/ LVOT echodensity that may be a subaortic membrane, less likely to be a vegetation or thrombus. Etiology: cryptogenic PLAN: - continue ASA 81mg - LDCF while inpatient; will discharge on metformin 500mg BID - continue lisinopril 10mg daily - continue atorvastatin 80mg - PT/OT/NEIGHBORHOOD WORKER - machine hamper maker monitor on discharge - Continue prozac 20mg qD for motor recovery Stroke risk factor modification - optimize BP, goal SBP<140mmHg - optimize blood sugar, goal HbA1c<7 - optimize lipids, goal LDL<100 (or <70 if HbA1c>7) - Tobacco cessation - ASA compliance - Rehab to follow up with the patient 09/30, appreciate insight and expertise regarding disposition planning and post-stroke rehabilitation - patient qualifies for IPR per Rehab Medicine - Plan for event monitor at discharge UTI, resolved - s/p cefpodoxime HTN - continue lisinopril 10mg daily HLD - LDL 176 on admission - continueatorvastatin to 80mg Constipation - continue milk of magnesia, senokot, docusate - BM achieved with milk of molasses enema Morbid Obesity CTM Weight loss counseling when appropriate FEN: no IVF; replace electrolytes as needed; full liquid diet PPx: heparin Code: FULL Dispo: family involved in decision to have patient go to [facility] vs another [facility] facility closer to home. Medicaid application approved. Pt to be seen by Dr Muro during the day. Andre Yoon, PGY-2 Subjective: Vidhi Andrea is a 63 y.o. female. Pt seen and examined at bedside this AM. NAEO , no complaints. Pt still w/ expressive aphasia and some receptive aphasia as well. Plan to discharge to [facility] soon. Objective: Scheduled Meds: aspirin chewable tablet 81 mg 81 mg Oral QDAY atorvastatin (LIPITOR) tablet 80 mg 80 mg Oral QDAY docusate (COLACE) capsule 100 mg 100 mg Oral BID fluoxetine (PROZAC) capsule 20 mg 20 mg Oral QDAY heparin (porcine) PF syringe 5,000 Units 5,000 Units Subcutaneous Q8H insulin aspart U-100 (NOVOLOG FLEXPEN) injection PEN 0-7 Units 0-7 Units Subcutaneous 5 X Day lisinopril (PRINIVIL; ZESTRIL) tablet 10 mg 10 mg Oral QDAY milk of magnesia (CONC) oral suspension 10 mL 10 mL Oral QDAY senna/docusate (SENOKOT-S) tablet 1 tablet 1 tablet Oral BID Continuous Infusions: PRN and Respiratory Meds:pancrelipase 20,000 Units/ sodium bicarbonate 650 mg(# ) PRN (Clean Rice Grader And Reel Tender from Rx) Vital Signs: Last Filed Vital Signs: 24 Hour Range BP: 128/63 (10/05 2123) Temp: 36.4 C (97.5 F) (10/05 2123) Pulse: 56 (10/05 2123) Respirations: 18 PER MINUTE (10/05 2123) SpO2: 95 % (10/05 2123) O2 Delivery: None (Room Air) (10/05 2123) BP: (107-132)/(58-99) Temp: [36.4 C (97.5 F)-36.8 C (98.3 F)] Pulse: [54-72] Respirations: [16 PER MINUTE-18 PER MINUTE] SpO2: [94 %-98 %] O2 Delivery: None (Room Air) Intensity Pain Scale (Self Report): 0 PAINAD Total Score: 0 ICP Monitoring: Intake/Output Summary: (Last 24 hours) Intake/Output Summary (Last 24 hours) at 10/06/18 0311 Last data filed at 10/05/18 0541 Gross per 24 hour Intake 0 ml Output 0 ml Net 0 ml Physical Exam: General: NAD, lethargic, obese HEENT: normocephalic, atraumatic Mental status: lethargic, following commands but requires repeated questioning Speech: expressive aphasia w/ limited vocabulary, normal articulation CN: PERRL, EOMI, tongue midline, hearing intact, V1-3 intact LT, facial symmetry Motor: 5/5 throughout Sensation intact LT throughout Reflexes: 2+ throughout Laboratory Review: 24-hour labs: Results for orders placed or performed during the hospital encounter of (from the past 24 hour(s)) BASIC METABOLIC PANEL Collection Time: 10/05/18 5:06 AM Result Value Ref Range Sodium 133 (L) 137 - 147 MMOL/L Potassium 4.3 3.5 - 5.1 MMOL/L Chloride 102 98 - 110 MMOL/L CO2 23 21 - 30 MMOL/L Anion Gap 8 3 - 12 Glucose 140 (H) 70 - 100 MG/DL Blood Urea Nitrogen 25 7 - 25 MG/DL Creatinine 0.72 0.4 - 1.00 MG/DL Calcium 9.2 8.5 - 10.6 MG/DL eGFR Non >60 >60 mL/min eGFR >60 >60 mL/min CBC Collection Time: 10/05/18 5:06 AM Result Value Ref Range White Blood Cells 13.1 (H) 4.5 - 11.0 K/UL RBC 4.99 4.0 - 5.0 M/UL Hemoglobin 15.7 (H) 12.0 - 15.0 GM/DL Hematocrit 45.7 (H) 36 - 45 % MCV 91.7 80 - 100 FL MCH 31.4 26 - 34 PG MCHC 34.3 32.0 - 36.0 G/DL RDW 13.9 11 - 15 % Platelet Count 244 150 - 400 K/UL MPV 10.5 7 - 11 FL POC GLUCOSE Collection Time: 10/05/18 7:57 AM Result Value Ref Range Glucose, POC 149 (H) 70 - 100 MG/DL POC GLUCOSE Collection Time: 10/05/18 1:12 PM Result Value Ref Range Glucose, POC 128 (H) 70 - 100 MG/DL POC GLUCOSE Collection Time: 10/05/18 5:02 PM Result Value Ref Range Glucose, POC 128 (H) 70 - 100 MG/DL POC GLUCOSE Collection Time: 10/05/18 8:34 PM Result Value Ref Range Glucose, POC 124 (H) 70 - 100 MG/DL POC GLUCOSE Collection Time: 10/06/18 3:34 AM Result Value Ref Range Glucose, POC 136 (H) 70 - 100 MG/DL Point of Care Testing: (Last 24 hours): Glucose: (!) 140 (10/05/18 0506) POC Glucose (Download): (!) 124 (10/05/182033) Radiology and Other Diagnostics Review: Pertinent radiology reviewed. Andre Yoon DO Pager Associated attestation - Anali Muro MD - 10/06/2018 1:30 PM ELECTRICAL RESEARCH ENGINEER Formatting of this note may be different from the original. ATTESTATION I personally performed the lawson portions of the E/M visit, discussed case with resident and concur with resident documentation of history, physical exam, assessment, and treatment plan unless otherwise noted. Staff name: Anali Muro MD Date: 10/06/2018 * Mare Vieyra MA,CCC-NEIGHBORHOOD WORKER - 10/05/2018 3:46 PM ELECTRICAL RESEARCH ENGINEER SPEECH-LANGUAGE PATHOLOGY DAILY TREATMENT NOTE Patient seen 1x this date. Documentation reflects all daily treatment sessions. SUMMARY OF THERAPY SESSION: Follow up this date for ongoing dysphagia and aphasia therapy completed with no family present. Pt demonstrated increased frustration and intermittent yelling throughout session. Pt tolerated regular solids and thin liquids with no overt s/s aspiration. No diet upgrade observed in orders, so re-confirmed with team. Pt participated in object identification and simple step command following. Pt demonstrated increased verbal output, although phrasing limited and responses minimally effective in making wants and needs known. Pt identified items in F=3 in with 30% accuracy. Y/N response accuracy remains ~80% for general information and ~100% for biographical information. Continue t question efficacy of communication board given inconsistency with picture identification. See below for further details. RECOMMENDATIONS: Regular diet with thin liquids Swallow precautions; 100% supervision, small bites/sips, slow rate, check for pocketing PO meds as tolerated NEIGHBORHOOD WORKER will follow for ongoing dysphagia and aphasia management. Ongoing NEIGHBORHOOD WORKER at next level of care Consistent supervision recommended upon discharge as anticipate patient's impaired safety awareness and/or problem solving (or communication) will impact their ability to call for help. Goal : Pt will participate in ongoing assessment of speech/language given minimal cues to participate. Met Comment: See Summary above and goal description below. Pt demonstrated intermittent frustration with frequent verbal responses of "I don't know" when unable to achieve correct verbalization. Continue to address this goal Goal: Pt will identify objects from a field of three with use of written/verbal cues. Met Comment: Pt able to identify 1/3 items in x2 tasks when presented with verbal and tactile cues. Pt observed to "draw lines" from picture to picture. Continue to Address this goal Goal : Pt will answer simple y/n questions with 70% accuracy, given moderate cues. Met Comment: pt answered simple y/n biographical questions with 100% accuracy when given written cues for Y/N. She answered simple y/n questions regarding general information with 80% accuracy and minimal cues. Continue goal at this level to ensure accuracy Goal : Pt will follow simple 1-step commands with 60% accuracy, given moderate cues. Not met Comment: Despite maximum multimodal cues and written instruction, pt unable to complete simple one step commands. Perseveration noted. Continue to address this goal Goal: pt will tolerate regular diet with thin liquids with adequate mastication and less than 10% overt s/s aspiration Met Comment: No concerns for aspiration with regular solids and thin liquids. Pt remains on mechanical soft solids despite NEIGHBORHOOD WORKER recs. See summary above for clarification. Continue goal at this level to ensure accuracy PLAN / RECOMMENDATIONS: Continue treatment 3-5x/week and Patient would benefit from further speech therapy post acute hospitalization. Speech Discharge Recommendations: The patient could benefit from further intervention in a/an, Inpatient Setting Speech recommend ongoing assistance for: Safety concerns, Swallow strategies, To maximize communication Therapist: Mare Vieyra MA,CCC-NEIGHBORHOOD WORKER Voalte: [id number] Date: 10/05/2018 * Grazyna Matthews - 10/05/2018 3:10 PM ELECTRICAL RESEARCH ENGINEER PHYSICAL THERAPY MOBILITY NOTE Patient was assigned for activity with the mobility aide by the supervising therapist. Patient declined to participate despite encouragement. Aide: Grazyna Matthews Date: 10/05/2018 * Hannah Ro, RN - 10/05/2018 1:22 PM ELECTRICAL RESEARCH ENGINEER Pt AOx3, NIHS score 4. Tolerating RA. SR c PVCs on tele, HR 60s. Denies pain. Up to chair this am. Will continue to monitor. * Moraima Baig, OT - 10/05/2018 1:10 PM ELECTRICAL RESEARCH ENGINEER OCCUPATIONAL THERAPY Occupational therapy attempted to see patient for therapy session. Patient currently eating lunch and requesting therapy return later. OT will continue to follow and provide intervention as indicated. oMraima Baig, OTR/L [id number] * Enriqueta Gonsales, PT - 10/05/2018 11:52 AM ELECTRICAL RESEARCH ENGINEER PHYSICAL THERAPY PROGRESS NOTE MOBILITY: Progressive Mobility Level: Walk laps Distance Walked (feet): 400 ft Level of Assistance: Stand by assistance Assistive Device: None Time Tolerated: 11-30 minutes Activity Limited By: Fatigue SUBJECTIVE: Significant hospital events: Hx: HTN, DM, admitted with left basal ganglia ischemic stroke s/p tPa with mild hemorrhagic conversion Mental / Cognitive Status: Alert;Cooperative;Inconsistent with Command Following Pain: Patient demonstrates no signs of pain Pain Interventions: Patient agrees to participate in therapy;Patient assisted into position of comfort Comments: Indepedent prior to admission and living in a 2 level home with her kids and she is guardian of grandson per previous notes this admission BED MOBILITY/TRANSFERS: Bed Mobility: Supine to Sit: Standby Assist;Head of Bed Elevated;No Rail Bed Mobility: Sit to Supine: Standby Assist;HOB Elevated;No Rail Transfer Type: Sit to/from Stand Transfer: Assistance Level: To/From;Bed;Standby Assist Transfer: Assistive Device: None Transfers: Type Of Assistance: For Safety Considerations End Of Activity Status: In Bed;Nursing Notified;Instructed Patient to Request Assist with Mobility;Instructed Patient to Use Call Light GAIT: Gait Distance: 400 feet Gait: Assistance Level: Standby Assist Gait: Assistive Device: None Gait: Descriptors: Pathway deviations Comments: R inattention Comments: Patient completed side stepping along railing to the left and right, backwards walking and high knee walking with cues. Patient declines further mobility following this activity. ASSESSMENT/PROGRESS: Impaired Mobility Due To: Impaired Balance;Safety Concerns;Decreased Activity Tolerance Assessment/Progress: Improving as Expected Comments: Patient remains limited due to fatigue, right inattention and aphasia. Will benefit from ongoing skilled intervention to address deficits and progress safety with mobility. AM-PAC 6 Clicks Basic Mobility Inpatient Turning from your back to your side while in a flat bed without using bed rails : None Moving from lying on your back to sitting on the side of a flatbed without using bedrails : None Moving to and from a bed to a chair (including a wheelchair): None Standing up from a chair using your arms (e.g. wheelchair, or bedside chair): None To walk in hospital room: A Little Climbing 3-5 steps with a railing: A Little Raw Score: 22 Standardized (T-scale) Score: 47.4 Basic Mobility CMS 0-100%: 25.02 CMS G Code Modifier for Basic Mobility: CJ GOALS: Goal Formulation: Patient Unable to Participate in Goal Setting Time For Goal Achievement: 5 days, To, 7 days Pt Will Go Supine To/From Sit: w/ Minimal Assist, Met Pt Will Transfer Bed/Chair: w/ Minimal Assist, Met Pt Will Transfer Sit to Stand: w/ Minimal Assist, Met, Independently Pt Will Ambulate: Greater than 200 Feet, w/ No Device, w/ Stand By Assist Pt Will Go Up / Down Stairs: 3-5 Stairs, w/ Minimal Assist PLAN: Treatment Interventions: Mobility Training;Strengthening;Balance Activities; Endurance Training;Neuromuscular Reeducation Plan Frequency: 5 Days per Week PT Plan for Next Visit: Gait/tasks with focus on attention to the right, stairs if she is agreeable, dynamic balance challenges in standing/upright RECOMMENDATIONS: PT Discharge Recommendations: Inpatient Setting;Recommend Physical Medicine and Rehabilitation Consult to address most appropriate level of rehabilitation placement Therapist: Enriqueta Gonsales, PT Date: 10/05/2018 * Chelsi Santana MD - 10/05/2018 11:39 AM ELECTRICAL RESEARCH ENGINEER Formatting of this note may be different from the original. Neurology Stroke Progress Note Name: Vidhi Andrea Today's Date: 10/05/2018 Admission Date: 09/22/2018 LOS: 13 days Assessment/Plan: Active Problems: Stroke (cerebrum) (HCC) DMII (diabetes mellitus, type 2) (HCC) HLD (hyperlipidemia) HTN (hypertension) Morbid obesity (HCC) Vidhi Valera a 63 y.o.femalewith DMII, HLD, HTN transferred from OSH for right sided weakness, aphasia and found to have a left MCA ischemic stroke ( ESUS) with hemorrhagic conversion involving the basal ganglia. Patients mental status is improving but she continues to have significant expressive aphasia. L BG Ischemic Stroke S/p t-PA at OSH prior to transfer CTA with no LVO, no intervention pursued MRI with left Basal ganglia ischemic stroke with evidence of mild hemorrhagic conversion Repeat CT head 09/24 with stable findings and expected evolution of ischemic stroke Stroke workup: a1c 7.6, LDL 175 Echo technically limited, EF 55% normal left ventricle size, but possible inferolateral akinesis. No hx or evidence of afib 09/26 KERI w/ LVOT echodensity that may be a subaortic membrane, less likely to be a vegetation or thrombus. Etiology: cryptogenic PLAN: - continue ASA 81mg - LDCF while inpatient; will discharge on metformin 500mg BID - continue lisinopril 10mg daily - continue atorvastatin 80mg - PT/OT/NEIGHBORHOOD WORKER - machine hamper maker monitor on discharge - Continue prozac 20mg qD for motor recovery Stroke risk factor modification - optimize BP, goal SBP<140mmHg - optimize blood sugar, goal HbA1c<7 - optimize lipids, goal LDL<100 (or <70 if HbA1c>7) - Tobacco cessation - ASA compliance - Rehab to follow up with the patient 09/30, appreciate insight and expertise regarding disposition planning and post-stroke rehabilitation - patient qualifies for IPR per Rehab Medicine - Plan for event monitor at discharge UTI, resolved - s/p cefpodoxime HTN - continue lisinopril 10mg daily HLD - LDL 176 on admission - continueatorvastatin to 80mg Constipation - continue milk of magnesia, senokot, docusate - BM achieved with milk of molasses enema Morbid Obesity CTM Weight loss counseling when appropriate FEN: no IVF; replace electrolytes as needed; full liquid diet PPx: heparin Code: FULL Dispo: family involved in decision to have patient go to [facility] vs another IPR facility closer to home. Medicaid application approved. Patient seen an discussed with Dr. Marie. Chelsi Santana MD, PhD Neurology Resident, PGY-3 Pager: [phone] Subjective Patient with no acute events overnight. Doing well this morning. used a new word in her vocabulary today (wondering). Still not okay with going to Rehab and gets frustrated at the thought of this. Objective Vital Signs: Last Filed Vital Signs: 24 Hour Range BP: 127/58 (10/05 1016) Temp: 36.8 C (98.3 F) (10/05 1016) Pulse: 60 (10/05 1016) Respirations: 18 PER MINUTE (10/05 1016) SpO2: 96 % (10/05 1016) O2 Delivery: None (Room Air) (10/05 1016) BP: (102-132)/(33-99) Temp: [36.4 C (97.6 F)-36.8 C (98.3 F)] Pulse: [54-78] Respirations: [16 PER MINUTE-18 PER MINUTE] SpO2: [94 %-98 %] O2 Delivery: None (Room Air) Intensity Pain Scale (Self Report): 0 (10/05/18 0846) Vitals: 09/24/18 1011 09/25/18 0601 09/26/18 1700 Weight: 103.6 kg (228 lb 6.3 oz) 103.2 kg (227 lb 8.2 oz) 102.9 kg (226 lb 13.7 oz) Physical Exam Mental status: Patient is alert, unable to answer orientation questions due to aphasia Speech:Expressive aphasia with limited speech and inconsistent command following but improving CN II-XII: PERRL (4->2), EOMI, facial sensation intact. Symmetrical facial movement. Hearing grossly intact. Strong cough, elevates palate, uvula midline. Strong shoulder shrug. Tongue midline. Motor: Normal tone and bulk. No abnormal movement, fasciculation or pronator drift. SA EF EE WE WF FF FE FA TA HF WILLIS HE KF KE DF PF R 4+ 4+ 4+ 5 4+ 4+ 4+ 4+ 4+ L 5 5 5 5 5 5 5 5 5 Sensory: intact to light touch in all four extremities. Reflexes: No clonus, cross adductor. Babinski negative. Right Left Triceps 2 2 Biceps 2 2 Brachioradialis 2 2 Patella 2 2 Ankle 2 2 Plantar flexor flexor Coordination/ fine movement: coordination grossly intact as she reaches for objects Gait: mild hemiparetic gait Lab Review 24-hour labs: Results for orders placed or performed during the hospital encounter of (from the past 24 hour(s)) POC GLUCOSE Collection Time: 10/04/18 11:56 AM Result Value Ref Range Glucose, POC 129 (H) 70 - 100 MG/DL POC GLUCOSE Collection Time: 10/04/18 5:45 PM Result Value Ref Range Glucose, POC 111 (H) 70 - 100 MG/DL POC GLUCOSE Collection Time: 10/04/18 9:51 PM Result Value Ref Range Glucose, POC 132 (H) 70 - 100 MG/DL POC GLUCOSE Collection Time: 10/05/18 3:23 AM Result Value Ref Range Glucose, POC 122 (H) 70 - 100 MG/DL BASIC METABOLIC PANEL Collection Time: 10/05/18 5:06 AM Result Value Ref Range Sodium 133 (L) 137 - 147 MMOL/L Potassium 4.3 3.5 - 5.1 MMOL/L Chloride 102 98 - 110 MMOL/L CO2 23 21 - 30 MMOL/L Anion Gap 8 3 - 12 Glucose 140 (H) 70 - 100 MG/DL Blood Urea Nitrogen 25 7 - 25 MG/DL Creatinine 0.72 0.4 - 1.00 MG/DL Calcium 9.2 8.5 - 10.6 MG/DL eGFR Non >60 >60 mL/min eGFR >60 >60 mL/min CBC Collection Time: 10/05/18 5:06 AM Result Value Ref Range White Blood Cells 13.1 (H) 4.5 - 11.0 K/UL RBC 4.99 4.0 - 5.0 M/UL Hemoglobin 15.7 (H) 12.0 - 15.0 GM/DL Hematocrit 45.7 (H) 36 - 45 % MCV 91.7 80 - 100 FL MCH 31.4 26 - 34 PG MCHC 34.3 32.0 - 36.0 G/DL RDW 13.9 11 - 15 % Platelet Count 244 150 - 400 K/UL MPV 10.5 7 - 11 FL POC GLUCOSE Collection Time: 10/05/18 7:57 AM Result Value Ref Range Glucose, POC 149 (H) 70 - 100 MG/DL Radiology and other Diagnostics Review: Pertinent radiology reviewed. Associated attestation - Apple Marie MD - 10/05/2018 12:01 PM ELECTRICAL RESEARCH ENGINEER Neurology Attending Attestation Patient has been seen and evaluated on attending rounds; lawson elements of the history and physical examination were repeated in order to confirm findings. Goals and plan of care was discussed with the patient. I have reviewed the above note and generally agree with the findings, plan and documentation. I spent a total of 40 minutes in patient care today, with 25 minutes spent counseling the patient and coordinating care. No acute issues overnight, remains stable with expressive aphasia today. Plan for discharge to inpatient rehab today, medically stable for discharge. Apple Marie MD Vascular Neurology * Harjinder Day - 10/04/2018 3:20 PM ELECTRICAL RESEARCH ENGINEER PHYSICAL THERAPY MOBILITY NOTE Patient was mobilized today with the assistance of the P.T. mobility aide as part of the ongoing physical therapy plan of care. Mobility Progressive Mobility Level: Walk laps Distance Walked (feet): 300 ft Level of Assistance: Assist X1 Assistive Device: None Time Tolerated: 11-30 minutes Activity Limited By: Fatigue Aide: Harjinder Day Date: 10/04/2018 * Mare Vieyra MA,CCC-NEIGHBORHOOD WORKER - 10/04/2018 3:18 PM ELECTRICAL RESEARCH ENGINEER SPEECH-LANGUAGE PATHOLOGY NO TREATMENT NOTE @1435: Upon clinician arrival, pt working with Occupational Therapy. This department will attempt to follow up again this PM. @1518: Clinician returned to initiate treatment. Despite maximum encouragement and reinforcement of the importance of speech therapy as part of the rehabilitation process, pt declined. Pt stated with difficulty, "I know what I want and I don't want it." Clinician encouraged pt to participate with next follow up to ensure diet tolerance and to work on improvement of communication. Pt in agreement. Attempted to see patient 2 times Therapist: Mare Vieyra MA,CCC-NEIGHBORHOOD WORKER Voalte: [phone] Date: 10/04/2018 * Moraima Baig OT - 10/04/2018 2:23 PM ELECTRICAL RESEARCH ENGINEER Formatting of this note may be different from the original. OCCUPATIONAL THERAPY PROGRESS NOTE Patient Name: Vidhi Andrea Room/Bed: [id number]/01 Admitting Diagnosis: Stroke Past Medical History: Diagnosis Date DMII (diabetes mellitus, type 2) (HCC) HLD (hyperlipidemia) HTN (hypertension) Mobility Progressive Mobility Level: Walk laps Distance Walked (feet): 400 ft Level of Assistance: Assist X1 Assistive Device: None Time Tolerated: 11-30 minutes Activity Limited By: Mental Status Variability;Fatigue Subjective Pertinent Dx per Physician: 63yo female h/o HTN, HLD, DM, admitted with left basal ganglia ischemic stroke s/p tPa with mild hemorrhagic conversion Precautions: Standard;Falls Pain / Complaints: Patient agrees to participate in therapy;Patient has no c/o pain Comments: Patient supine in bed upon arrival of OT. Patient left sitting in chair, alarm on, call light near, and all needs in reach. Objective Psychosocial Status: Willing and Cooperative to Participate Vision Visual Screen Results: Right Sided Edgar-Inattention Comment: Mild right side edgar-attention noted when walking through doorwards or around obsticles. ADL's Where Assessed: Standing at Sink;In Bathroom Grooming Assist: Minimal Assist Grooming Deficits: Steadying;Verbal Cueing;Supervision/Safety LE Dressing Assist: Minimal Assist LE Dressing Deficits: Steadying;Don/Doff R Sock;Don/Doff L Sock Toileting Assist: Moderate Assist Toileting Deficits: Verbal Cueing;Clothing Management Up;Perineal Hygiene Functional Transfer Assist: Minimal Assist Functional Transfer Deficits: Steadying;Verbal Cueing;Supervision/Safety Comment: Patient ambulated to/from bathroom with minimal assist. Patient initiates pulling down pants, requires maximal verbal cues and direction to remaining tasks. Despite cues patient attempted to ambulate without performing pericare or pulling up brief. Utilized picture board for hand washing sequencing , pt with poor visual attention to task and impulsive as turning on water and ambulating out of bathroom. Performed visual scanning in hallway working on right visual attention. Activity Tolerance Endurance: 3/5 Tolerates 25-30 Minutes Exercise w/Multiple Rests Sitting Balance: 5/5 Moves/Returns Trunkal Midpoint in All Planes > 2 Inches Cognition Overall Cognitive Status: Impaired Comprehension: Receptive Aphasia Expression: Expressive Aphasia Problem Solving: Cueing to Sequence Task;Direction Following Assist Cognition Comment: Performed automatic verbal tasks, patient signing "Happy Birthday" and "[place]" with 100% accuracy. Patient verbalizing "I want" on this date but unable to verbalize remainder of sentence. UE AROM Coordination: Adequate to Complete ADLs Grasp: R Weakened;L Weakened Assessment Assessment: Decreased ADL Status;Decreased Self-Care Trans;Decreased High-Level ADLs;Decreased Endurance;Decreased UE Strength;Decreased Cognition Prognosis: Good;w/Cont OT s/p Acute Discharge Goal Formulation: Patient AM-PAC 6 Clicks Daily Activity Inpatient Putting on and taking off regular lower body clothes?: A Lot Bathing (Including washing, rinsing, drying): A Lot Toileting, which includes using toilet, bedpan, or urinal: A Little Putting on and taking off regular upper body clothing: A Little Taking care of personal grooming such as brushing teeth: A Little Eating meals?: A Little Daily Activity Raw Score: 16 Standardized (t-scale) score: 35.96 CMS 0-100% Score: 53.32 CMS G Code Modifier: CK Plan OT Frequency: 5x/week OT Plan for Next Visit: Duel tasking, command following with 3 choices, making a simple sandwhich with written cues, visual scanning ADL Goals Patient Will Perform Grooming: Standing at Sink;w/ Minimum Assist Patient Will Perform LE Dressing: w/ Minimum Assist Patient Will Perform Toileting: w/ Minimum Assist Functional Transfer Goals Pt Will Perform All Functional Transfers: Minimum Assist OT Discharge Recommendations OT Discharge Recommendations: Inpatient Setting, Recommend PM&R Consult to address most appropriate level of rehabilitation placement ([phone]). Equipment Recommendations: Too early to be determined Therapist: KT Gee [id number] Date: 10/04/2018 * Evangelina Bender - 10/04/2018 1:16 PM ELECTRICAL RESEARCH ENGINEER CLINICAL NUTRITION Clinical Nutrition Follow-Up Summary NAME:Vidhi Andrea :1955 AGE: 63 y.o. ADMISSION DATE: 09/22/2018 DAYS ADMITTED: LOS: 12 days Nutrition Assessment of Patient: Malnutrition Assessment: Does not meet criteria Current Oral Intake: Inconsistent Estimated Calorie Needs: 1227-5267 (25-30 kcal/kg desired wt) Estimated Protein Needs: 75-90 (1.2-1.4g/kg desired wt) Oral Diet Order: Mechanical Soft Oral Supplement: Boost Glucose Control, BID 63 yo F with PMH of HLD, HTN, DM, obesity transferred to after receiving tPA for right facial droop and right sided weakness with mild hemorrhagic conversion. See RD note from 09/24 for subjective information/nutritional Hx. Pt received EN via [facility]ak from 09/23-09/26. Corpak was pulled on 09/26 during KERI and NEIGHBORHOOD WORKER performed bedside swallow eval and recommended mechanical soft diet order. Pt's PO intakes are variable on [facility] soft diet. She was eating cottage cheese and pieces of fruit for lunch this morning and also had tomato soup. She had 2 boost glucose controls on her tray that were unopened but carnation breakfast essentials packet was in a cup. RD offered to mix with milk for pt and she expressed that she prefers this supplement over boost, RD adjusted order. FSBS have ranged between 119-157 mg/dL over the last 24hr. Stroke nutrition therapy not provided d/t cognitive deficits and plans to d/c to an inpatient facility. Recommendation: Continue diet textures/consistencies per NEIGHBORHOOD WORKER recs. Once advanced to regular textures, recommend carb controlled (60gm/meal) + cardiac diet order. Intervention / Plan: Modified supplement to carnation breakfast essentials BID per pt preference. Continue to monitor PO intakes, weight trends, labs, meds, GI health. Nutrition Diagnosis: Altered GI function Etiology: swallowing deficits s/p stroke Signs & Symptoms: NEIGHBORHOOD WORKER findings, need for mechanical soft diet Goals: Patient to consume >75% of meals/supplements Time Frame: Within 72 Hours Status: Partially met;Ongoing Brenda Bender RD, LD Pager: [phone] * Enriqueta Gonsales, PT - 10/04/2018 9:41 AM ELECTRICAL RESEARCH ENGINEER PHYSICAL THERAPY PROGRESS NOTE MOBILITY: Progressive Mobility Level: Walk laps Distance Walked (feet): 400 ft Level of Assistance: Assist X1 Assistive Device: None Time Tolerated: 11-30 minutes Activity Limited By: Mental Status Variability;Fatigue SUBJECTIVE: Significant hospital events: Hx: HTN, DM, admitted with left basal ganglia ischemic stroke s/p tPa with mild hemorrhagic conversion Mental / Cognitive Status: Alert;Cooperative;Inconsistent with Command Following Pain: Patient demonstrates no signs of pain Pain Interventions: Patient agrees to participate in therapy;Patient assisted into position of comfort Comments: Patient mainly able to demonstrate automatic responses and echolalia. Comments: Indepedent prior to admission and living in a 2 level home with her kids and she is guardian of grandson per previous notes this admission BED MOBILITY/TRANSFERS: Bed Mobility: Supine to Sit: Standby Assist;Head of Bed Elevated;No Rail Transfer Type: Sit to/from Stand Transfer: Assistance Level: To/From;Bed;Standby Assist Transfer: Assistive Device: None Transfers: Type Of Assistance: For Safety Considerations Other Transfer Type: Sit to/from Stand Other Transfer: Assistance Level: To/From;Toilet;Standby Assist Other Transfer: Assistive Device: None Other Transfer: Type Of Assistance: For Safety Considerations End Of Activity Status: Up in Chair;Nursing Notified;Instructed Patient to Request Assist with Mobility;Instructed Patient to Use Call Light Comments: Patient able to doff/doff new gown and brief with some assistance. Patient requires cues and assistance for performing hyigene following toileting. GAIT: Gait Distance: 400 feet Gait: Assistance Level: Minimal Assist Gait: Assistive Device: None Gait: Descriptors: Pathway deviations Comments: R inattention ASSESSMENT/PROGRESS: Impaired Mobility Due To: Impaired Balance;Safety Concerns;Decreased Activity Tolerance Assessment/Progress: Improving as Expected;Expect Good Progress Comments: Patient remains limited due to fatigue, right inattention and aphasia. Will benefit from ongoing skilled intervention to address deficits and progress safety with mobility. AM-PAC 6 Clicks Basic Mobility Inpatient Turning from your back to your side while in a flat bed without using bed rails : None Moving from lying on your back to sitting on the side of a flatbed without using bedrails : None Moving to and from a bed to a chair (including a wheelchair): None Standing up from a chair using your arms (e.g. wheelchair, or bedside chair): None To walk in hospital room: A Little Climbing 3-5 steps with a railing: A Little Raw Score: 22 Standardized (T-scale) Score: 47.4 Basic Mobility CMS 0-100%: 25.02 CMS G Code Modifier for Basic Mobility: CJ GOALS: Goal Formulation: Patient Unable to Participate in Goal Setting Time For Goal Achievement: 5 days, To, 7 days Pt Will Go Supine To/From Sit: w/ Minimal Assist, Met Pt Will Transfer Bed/Chair: w/ Minimal Assist, Met Pt Will Transfer Sit to Stand: w/ Minimal Assist, Met, Independently Pt Will Ambulate: Greater than 200 Feet, w/ No Device, w/ Stand By Assist Pt Will Go Up / Down Stairs: 3-5 Stairs, w/ Minimal Assist PLAN: Treatment Interventions: Mobility Training;Strengthening;Balance Activities; Endurance Training;Neuromuscular Reeducation Plan Frequency: 5 Days per Week PT Plan for Next Visit: Gait/tasks with focus on attention to the right, stairs if she is agreeable, dynamic balance challenges in standing/upright RECOMMENDATIONS: PT Discharge Recommendations: Inpatient Setting;Recommend Physical Medicine and Rehabilitation Consult to address most appropriate level of rehabilitation placement Therapist: Enriqueta Gonsales, PT Date: 10/04/2018 * Chelsi Santana MD - 10/04/2018 7:59 AM ELECTRICAL RESEARCH ENGINEER Formatting of this note may be different from the original. Neurology Stroke Progress Note Name: Vidhi Andrea Today's Date: 10/04/2018 Admission Date: 09/22/2018 LOS: 12 days Assessment/Plan: Active Problems: Stroke (cerebrum) (HCC) DMII (diabetes mellitus, type 2) (HCC) HLD (hyperlipidemia) HTN (hypertension) Morbid obesity (HCC) Vidhi Valera a 63 y.o.femalewith DMII, HLD, HTN transferred from OSH for right sided weakness, aphasia and found to have a left MCA ischemic stroke ( ESUS) with hemorrhagic conversion involving the basal ganglia. Patients mental status is improving but she continues to have significant expressive aphasia. L BG Ischemic Stroke S/p t-PA at OSH prior to transfer CTA with no LVO, no intervention pursued MRI with left Basal ganglia ischemic stroke with evidence of mild hemorrhagic conversion Repeat CT head 09/24 with stable findings and expected evolution of ischemic stroke Stroke workup: a1c 7.6, LDL 175 Echo technically limited, EF 55% normal left ventricle size, but possible inferolateral akinesis. No hx or evidence of afib 09/26 KERI w/ LVOT echodensity that may be a subaortic membrane, less likely to be a vegetation or thrombus. Etiology: cryptogenic PLAN: - continue ASA 81mg - LDCF while inpatient; will discharge on metformin 500mg BID - continue lisinopril 10mg daily - continue atorvastatin 80mg - PT/OT/NEIGHBORHOOD WORKER - machine hamper maker monitor on discharge - Continue prozac 20mg qD for motor recovery Stroke risk factor modification - optimize BP, goal SBP<140mmHg - optimize blood sugar, goal HbA1c<7 - optimize lipids, goal LDL<100 (or <70 if HbA1c>7) - Tobacco cessation - ASA compliance - Rehab to follow up with the patient 09/30, appreciate insight and expertise regarding disposition planning and post-stroke rehabilitation - patient qualifies for IPR per Rehab Medicine - Plan for event monitor at discharge UTI, resolved - s/p cefpodoxime HTN - continue lisinopril 10mg daily HLD - LDL 176 on admission - continueatorvastatin to 80mg Constipation - continue milk of magnesia, senokot, docusate - BM achieved with milk of molasses enema Morbid Obesity CTM Weight loss counseling when appropriate FEN: no IVF; replace electrolytes as needed; full liquid diet PPx: heparin Code: FULL Dispo: family involved in decision to have patient go to [facility] vs another IPR facility closer to home. Medicaid application is still pending at this time. Patient seen an discussed with Dr. Marie. Chelsi Santana MD, PhD Neurology Resident, PGY-3 Pager: [phone] Subjective Patient with no acute events overnight. Patient continues to be frustrated with her difficulty communicating but overall is doing well with her therapies. Vocabulary continues to increase. Objective Vital Signs: Last Filed Vital Signs: 24 Hour Range BP: 134/79 (10/04 613) Temp: 36.7 C (98 F) (10/04 613) Pulse: 65 (10/04 613) Respirations: 18 PER MINUTE (10/04 613) SpO2: 98 % (10/04 613) O2 Delivery: None (Room Air) (10/04 613) BP: (132-148)/(61-82) Temp: [36.4 C (97.5 F)-36.8 C (98.2 F)] Pulse: [54-74] Respirations: [17 PER MINUTE-18 PER MINUTE] SpO2: [95 %-99 %] O2 Delivery: None (Room Air) Vitals: 09/24/18 1011 09/25/18 0601 09/26/18 1700 Weight: 103.6 kg (228 lb 6.3 oz) 103.2 kg (227 lb 8.2 oz) 102.9 kg (226 lb 13.7 oz) Physical Exam Mental status: Patient is alert, unable to answer orientation questions due to aphasia Speech:Expressive aphasia with limited speech and inconsistent command following but improving CN II-XII: PERRL (4->2), EOMI, facial sensation intact. Symmetrical facial movement. Hearing grossly intact. Strong cough, elevates palate, uvula midline. Strong shoulder shrug. Tongue midline. Motor: Normal tone and bulk. No abnormal movement, fasciculation or pronator drift. SA EF EE WE WF FF FE FA TA HF WILLIS HE KF KE DF PF R 4+ 4+ 4+ 4+ 4+ 4+ 4+ 4+ 4+ 4+ 4+ 4+ 4+ 4+ 4+ 4+ L 5 5 5 5 5 5 5 5 5 5 5 5 5 5 5 5 Sensory: intact to light touch in all four extremities. Reflexes: No clonus, gurjit, cross adductor. Babinski negative. Right Left Triceps 2 2 Biceps 2 2 Brachioradialis 2 2 Patella 2 2 Ankle 2 2 Plantar flexor flexor Coordination/ fine movement: coordination grossly intact as she reaches for objects Gait: mild hemiparetic gait Lab Review 24-hour labs: Results for orders placed or performed during the hospital encounter of (from the past 24 hour(s)) POC GLUCOSE Collection Time: 10/03/18 8:06 AM Result Value Ref Range Glucose, POC 136 (H) 70 - 100 MG/DL POC GLUCOSE Collection Time: 10/03/18 12:29 PM Result Value Ref Range Glucose, POC 116 (H) 70 - 100 MG/DL POC GLUCOSE Collection Time: 10/03/18 5:35 PM Result Value Ref Range Glucose, POC 119 (H) 70 - 100 MG/DL POC GLUCOSE Collection Time: 10/03/18 8:37 PM Result Value Ref Range Glucose, POC 133 (H) 70 - 100 MG/DL POC GLUCOSE Collection Time: 10/03/18 8:46 PM Result Value Ref Range Glucose, POC 154 (H) 70 - 100 MG/DL POC GLUCOSE Collection Time: 10/04/18 2:57 AM Result Value Ref Range Glucose, POC 157 (H) 70 - 100 MG/DL POC GLUCOSE Collection Time: 10/04/18 7:41 AM Result Value Ref Range Glucose, POC 141 (H) 70 - 100 MG/DL Radiology and other Diagnostics Review: Pertinent radiology reviewed. Associated attestation - Apple Marie MD - 10/04/2018 3:06 PM ELECTRICAL RESEARCH ENGINEER Neurology Attending Attestation Patient has been seen and evaluated on attending rounds; lawson elements of the history and physical examination were repeated in order to confirm findings. Goals and plan of care was discussed with the patient. I have reviewed the above note and generally agree with the findings, plan and documentation. I spent a total of 40 minutes in patient care today, with 25 minutes spent counseling the patient and coordinating care. Stable this AM, awaiting discharge planning completion. . On ASA, antihypertensives, statin for secondary stroke prevention. Will need event monitor after discharge. Significant expressive aphasia which does appear to be minimally improving but certainly quite frustrating for her. Will require stroke follow-up outpatient 6-8 weeks. Apple Marie MD Vascular Neurology * Cristaltatianadarlyn Kenzie, KAIN - 10/03/2018 3:11 PM ELECTRICAL RESEARCH ENGINEER Formatting of this note may be different from the original. OCCUPATIONAL THERAPY PROGRESS NOTE Patient Name: Vidhi Andrea Room/Bed: LM8356/01 Admitting Diagnosis: Stroke Past Medical History: Diagnosis Date DMII (diabetes mellitus, type 2) (HCC) HLD (hyperlipidemia) HTN (hypertension) Mobility Progressive Mobility Level: Walk in hallway Distance Walked (feet): 300 ft Level of Assistance: Assist X1 Assistive Device: None Time Tolerated: 11-30 minutes Activity Limited By: Mental Status Variability;Fatigue Subjective Pertinent Dx per Physician: 63yo female h/o HTN, HLD, DM, admitted with left basal ganglia ischemic stroke s/p tPa with mild hemorrhagic conversion Precautions: Standard;Falls Pain / Complaints: Patient agrees to participate in therapy;Patient demonstrates no signs of pain Comments: Patient continues to be impulsive requiring verbal cues. Per discussion with daughter patient has poor eyesight and wears glasses to correct vision. Objective Psychosocial Status: Willing and Cooperative to Participate Persons Present: Family Vision Visual Screen Results: Right Sided Edgar-Inattention Comment: Mild right side edgar-attention noted when walking through doorwards or around obsticles. ADL's Where Assessed: Standing at Sink;In Bathroom Grooming Assist: Minimal Assist Grooming Deficits: Steadying;Verbal Cueing;Supervision/Safety LE Dressing Assist: Minimal Assist LE Dressing Deficits: Steadying;Don/Doff R Sock;Don/Doff L Sock Functional Transfer Assist: Minimal Assist Functional Transfer Deficits: Steadying;Verbal Cueing;Supervision/Safety Comment: Patient is able to initiate grooming or toileting task with one simple verbal command however is unable to sequence or complete task without verbal cues. Attempted picture board for toileting however patient was unable to sequence task with visual cues and required maximum assist. Activity Tolerance Endurance: 3/5 Tolerates 25-30 Minutes Exercise w/Multiple Rests Sitting Balance: 5/5 Moves/Returns Trunkal Midpoint in All Planes > 2 Inches Comment: Patient and family report feeling tired however patient agreeable to participate with encouragement. Cognition Overall Cognitive Status: Impaired Comprehension: Receptive Aphasia Expression: Expressive Aphasia Problem Solving: Cueing to Sequence Task;Direction Following Assist Cognition Comment: Worked with patient on divided attention and completion of tasks with visual cues. Concerns regarding patient safety in an emergency or with high level IADLs. UE AROM Coordination: Adequate to Complete ADLs UE Strength / Tone Overall Strength / Tone: WFL Able to Perform ADL Tasks Assessment Assessment: Decreased ADL Status;Decreased Self-Care Trans;Decreased High-Level ADLs;Decreased Endurance;Decreased UE Strength;Decreased Cognition Prognosis: Good;w/Cont OT s/p Acute Discharge Goal Formulation: Patient AM-PAC 6 Clicks Daily Activity Inpatient Putting on and taking off regular lower body clothes?: A Lot Bathing (Including washing, rinsing, drying): A Lot Toileting, which includes using toilet, bedpan, or urinal: A Little Putting on and taking off regular upper body clothing: A Little Taking care of personal grooming such as brushing teeth: A Little Eating meals?: A Little Daily Activity Raw Score: 16 Standardized (t-scale) score: 35.96 CMS 0-100% Score: 53.32 CMS G Code Modifier: CK Plan OT Frequency: 5x/week OT Plan for Next Visit: Duel tasking, command following with 3 choices, making a simple sandwhich with written cues ADL Goals Patient Will Perform Grooming: Standing at Sink;w/ Minimum Assist Patient Will Perform LE Dressing: w/ Minimum Assist Patient Will Perform Toileting: w/ Minimum Assist Functional Transfer Goals Pt Will Perform All Functional Transfers: Minimum Assist OT Discharge Recommendations OT Discharge Recommendations: Inpatient Setting, Recommend PM&R Consult to address most appropriate level of rehabilitation placement ([phone]). Equipment Recommendations: Too early to be determined Therapist: Kenzie Jordan, KAINR/L [id number] Date: 10/03/2018 * Mare Vieyra MA,CCC-NEIGHBORHOOD WORKER - 10/03/2018 2:30 PM ELECTRICAL RESEARCH ENGINEER SPEECH-LANGUAGE PATHOLOGY NO TREATMENT NOTE The patient was not seen due to pt meeting with [employer] at bedside. This department will continue to follow. RECOMMENDATIONS: Regular diet with thin liquids Swallow precautions; 100% supervision, small bites/sips, slow rate, check for pocketing PO meds as tolerated NEIGHBORHOOD WORKER will follow for ongoing dysphagia and aphasia management. Ongoing NEIGHBORHOOD WORKER at next level of care Consistent supervision recommended upon discharge as anticipate patient's impaired safety awareness and/or problem solving (or communication) will impact their ability to call for help. Therapist: Mare Vieyra MA,CCC-NEIGHBORHOOD WORKER Voalte: [phone] Date: 10/03/2018 * Enriqueta Gonsales, PT - 10/03/2018 10:14 AM ELECTRICAL RESEARCH ENGINEER PHYSICAL THERAPY NOTE Patient declined to participate despite encouragement and education about the role and benefits of physical therapy. Patient raises voice and repeated states "no." Educated patient on importance of participation in therapy in order to return home safely. Patient states "I want to go home." Despite extensive education, patient continues to decline therapy at this time. Will follow up as able. Physical therapy will continue to follow and provide intervention as indicated. Therapist: Enriqueta Gonsales, PT Date: 10/03/2018 * Chelsi Santana MD - 10/03/2018 7:25 AM ELECTRICAL RESEARCH ENGINEER Formatting of this note may be different from the original. Neurology Stroke Progress Note Name: Vidhi Andrea Today's Date: 10/03/2018 Admission Date: 09/22/2018 LOS: 11 days Assessment/Plan: Active Problems: Stroke (cerebrum) (HCC) DMII (diabetes mellitus, type 2) (HCC) HLD (hyperlipidemia) HTN (hypertension) Morbid obesity (HCC) Vidhi Mccartneys a 63 y.o.femalewith DMII, HLD, HTN transferred from OSH for right sided weakness, aphasia and found to have a left MCA ischemic stroke ( ESUS) with hemorrhagic conversion involving the basal ganglia. Patients mental status is improving but she continues to have significant expressive aphasia. L BG Ischemic Stroke S/p t-PA at OSH prior to transfer CTA with no LVO, no intervention pursued MRI with left Basal ganglia ischemic stroke with evidence of mild hemorrhagic conversion Repeat CT head 09/24 with stable findings and expected evolution of ischemic stroke Stroke workup: a1c 7.6, LDL 175 Echo technically limited, EF 55% normal left ventricle size, but possible inferolateral akinesis. No hx or evidence of afib 09/26 KERI w/ LVOT echodensity that may be a subaortic membrane, less likely to be a vegetation or thrombus. Etiology: cryptogenic PLAN: - continue ASA 81mg - LDCF while inpatient; will discharge on metformin 500mg BID - continue lisinopril 10mg daily - continue atorvastatin 80mg - PT/OT/NEIGHBORHOOD WORKER - snf monitor on discharge - Continue prozac 20mg qD for motor recovery Stroke risk factor modification - optimize BP, goal SBP<140mmHg - optimize blood sugar, goal HbA1c<7 - optimize lipids, goal LDL<100 (or <70 if HbA1c>7) - Tobacco cessation - ASA compliance - Rehab to follow up with the patient 09/30, appreciate insight and expertise regarding disposition planning and post-stroke rehabilitation - patient qualifies for IPR per Rehab Medicine - Plan for event monitor at discharge UTI, resolved - s/p cefpodoxime HTN - continue lisinopril 10mg daily HLD - LDL 176 on admission - continueatorvastatin to 80mg Constipation - continue milk of magnesia, senokot, docusate - BM achieved with milk of molasses enema Morbid Obesity CTM Weight loss counseling when appropriate FEN: no IVF; replace electrolytes as needed; full liquid diet PPx: heparin Code: FULL Dispo: family involved in decision to have patient go to [facility] vs another IPR facility closer to home. Medicaid application is still pending at this time. Patient seen an discussed with Dr. Marie. Chelsi Santana MD, PhD Neurology Resident, PGY-3 Pager: [phone] Subjective Patient with no acute events overnight. Patient continues to be frustrated with her difficulty communicating but overall is doing well with her therapies. Provided encouragement that things will get better with time. Objective Vital Signs: Last Filed Vital Signs: 24 Hour Range BP: 134/72 (10/03 610) Temp: 36.4 C (97.6 F) (10/03 610) Pulse: 60 (10/03 610) Respirations: 20 PER MINUTE (10/03 610) SpO2: 98 % (10/03 610) O2 Delivery: None (Room Air) (10/03 610) BP: (110-135)/(63-76) Temp: [36.4 C (97.6 F)-36.9 C (98.5 F)] Pulse: [56-70] Respirations: [18 PER MINUTE-20 PER MINUTE] SpO2: [94 %-98 %] O2 Delivery: None (Room Air) Vitals: 09/24/18 1011 09/25/18 0601 09/26/18 1700 Weight: 103.6 kg (228 lb 6.3 oz) 103.2 kg (227 lb 8.2 oz) 102.9 kg (226 lb 13.7 oz) Physical Exam Mental status: Patient is alert, unable to answer orientation questions due to aphasia Speech:Expressive aphasia with limited speech and inconsistent command following. CN II-XII: PERRL (4->2), EOMI, facial sensation intact. Symmetrical facial movement. Hearing grossly intact. Strong cough, elevates palate, uvula midline. Strong shoulder shrug. Tongue midline. Motor: Normal tone and bulk. No abnormal movement, fasciculation or pronator drift. SA EF EE WE WF FF FE FA TA HF WILLIS HE KF KE DF PF R 4+ 4+ 4+ 4+ 4+ 4+ 4+ 4+ 4+ 4+ 4+ 4+ 4+ 4+ 4+ 4+ L 5 5 5 5 5 5 5 5 5 5 5 5 5 5 5 5 Sensory: intact to light touch in all four extremities. Reflexes: No clonus, gurjit, cross adductor. Babinski negative. Right Left Triceps 2 2 Biceps 2 2 Brachioradialis 2 2 Patella 2 2 Ankle 2 2 Plantar flexor flexor Coordination/ fine movement: coordination grossly intact as she reaches for objects Gait: mild hemiparetic gait Lab Review 24-hour labs: Results for orders placed or performed during the hospital encounter of (from the past 24 hour(s)) POC GLUCOSE Collection Time: 10/02/18 8:28 AM Result Value Ref Range Glucose, POC 135 (H) 70 - 100 MG/DL POC GLUCOSE Collection Time: 10/02/18 12:24 PM Result Value Ref Range Glucose, POC 127 (H) 70 - 100 MG/DL POC GLUCOSE Collection Time: 10/02/18 5:22 PM Result Value Ref Range Glucose, POC 138 (H) 70 - 100 MG/DL POC GLUCOSE Collection Time: 10/02/18 8:55 PM Result Value Ref Range Glucose, POC 135 (H) 70 - 100 MG/DL CBC Collection Time: 10/03/18 6:12 AM Result Value Ref Range White Blood Cells 12.7 (H) 4.5 - 11.0 K/UL RBC 5.06 (H) 4.0 - 5.0 M/UL Hemoglobin 15.8 (H) 12.0 - 15.0 GM/DL Hematocrit 45.9 (H) 36 - 45 % MCV 90.8 80 - 100 FL MCH 31.2 26 - 34 PG MCHC 34.3 32.0 - 36.0 G/DL RDW 13.9 11 - 15 % Platelet Count 278 150 - 400 K/UL MPV 10.4 7 - 11 FL BASIC METABOLIC PANEL Collection Time: 10/03/18 6:12 AM Result Value Ref Range Sodium 135 (L) 137 - 147 MMOL/L Potassium 4.3 3.5 - 5.1 MMOL/L Chloride 100 98 - 110 MMOL/L CO2 27 21 - 30 MMOL/L Anion Gap 8 3 - 12 Glucose 137 (H) 70 - 100 MG/DL Blood Urea Nitrogen 24 7 - 25 MG/DL Creatinine 0.88 0.4 - 1.00 MG/DL Calcium 9.6 8.5 - 10.6 MG/DL eGFR Non >60 >60 mL/min eGFR >60 >60 mL/min Radiology and other Diagnostics Review: Pertinent radiology reviewed. Associated attestation - Apple Marie MD - 10/04/2018 1:06 PM ELECTRICAL RESEARCH ENGINEER Neurology Attending Attestation Patient has been seen and evaluated on attending rounds; lawson elements of the history and physical examination were repeated in order to confirm findings. Goals and plan of care was discussed with the patient. I have reviewed the above note and generally agree with the findings, plan and documentation. I spent a total of 40 minutes in patient care today, with 25 minutes spent counseling the patient and coordinating care. Stable this AM, awaiting discharge planning completion. . On ASA, antihypertensives, statin for secondary stroke prevention. Will need event monitor after discharge. Significant expressive aphasia which does appear to be minimally improving but certainly quite frustrating for her. Will require stroke follow-up outpatient 6-8 weeks. Apple Marie MD Vascular Neurology * Kenzie Jordan, OT - 10/02/2018 3:57 PM ELECTRICAL RESEARCH ENGINEER Formatting of this note may be different from the original. OCCUPATIONAL THERAPY PROGRESS NOTE Patient Name: Vidhi Andrea Room/Bed: [place] [address] Admitting Diagnosis: Stroke Past Medical History: Diagnosis Date DMII (diabetes mellitus, type 2) (HCC) HLD (hyperlipidemia) HTN (hypertension) Mobility Progressive Mobility Level: Walk in hallway Distance Walked (feet): 300 ft Level of Assistance: Assist X1 Assistive Device: None Time Tolerated: 11-30 minutes Activity Limited By: Mental Status Variability Subjective Pertinent Dx per Physician: 63yo female h/o HTN, HLD, DM, admitted with left basal ganglia ischemic stroke s/p tPa with mild hemorrhagic conversion Precautions: Standard;Falls Pain / Complaints: Patient agrees to participate in therapy;Patient demonstrates no signs of pain Comments: Patient very impulsive requiring consistent cues for safety. Objective Psychosocial Status: Willing and Cooperative to Participate Prior Function Other Function Comments: Pt unable to provide subjective information due to aphasia. No family present. Vision Visual Screen Results: Right Sided Edgar-Inattention Comment: Right side inattention when ambulating in hallways or crowded areas. ADL's Where Assessed: Standing at Sink;In Bathroom Grooming Assist: Minimal Assist Grooming Deficits: Verbal Cueing Toileting Assist: Maximum Assist Toileting Deficits: Verbal Cueing;Clothing Management Up;Perineal Hygiene Functional Transfer Assist: Minimal Assist Functional Transfer Deficits: Steadying;Verbal Cueing;Supervision/Safety Comment: Patient begins a grooming task however is unable to complete without verbal cues. Patient requires assistance for perineal hygiene and clothing management up due to poor sequenceing of toileting task. Patient wets hands and applys soap however does not rinse, dry or turn off water without verbal cues. Activity Tolerance Endurance: 3/5 Tolerates 25-30 Minutes Exercise w/Multiple Rests Sitting Balance: 4/5 Moves/Returns Trunkal Midpoint 1-2 Inches in Multiple Planes Comment: Patient in therapy gym working on visual comprehension of simple one step tasks. patient able to complete 1/5 with accuracy. Patient is able to read written communication with minimum verbal cues. Cognition Overall Cognitive Status: Impaired Comprehension: Receptive Aphasia Expression: Expressive Aphasia Problem Solving: Cueing to Sequence Task;Direction Following Assist Cognition Comment: Worked with patient on tabletop aphasia worksheet to categorize similar objects. Patient required assistance for 10/10 items. UE AROM Coordination: Adequate to Complete ADLs UE Strength / Tone Overall Strength / Tone: WFL Able to Perform ADL Tasks Education Persons Educated: Patient Barriers To Learning: Cognitive Deficits Interventions: Repetition of Instructions;Physical Cueing Teaching Methods: Verbal Instruction;Demonstration Patient Response: More Instruction Required Topics: Role of OT, Goals for Therapy Goal Formulation: Patient Unable to Participate in Goal Setting Assessment Assessment: Decreased ADL Status;Decreased Self-Care Trans;Decreased High-Level ADLs;Decreased Endurance;Decreased UE Strength;Decreased Cognition Prognosis: Good;w/Cont OT s/p Acute Discharge Goal Formulation: Patient AM-PAC 6 Clicks Daily Activity Inpatient Putting on and taking off regular lower body clothes?: A Lot Bathing (Including washing, rinsing, drying): A Lot Toileting, which includes using toilet, bedpan, or urinal: A Little Putting on and taking off regular upper body clothing: A Little Taking care of personal grooming such as brushing teeth: A Little Eating meals?: A Little Daily Activity Raw Score: 16 Standardized (t-scale) score: 35.96 CMS 0-100% Score: 53.32 CMS G Code Modifier: CK Plan OT Frequency: 5x/week OT Plan for Next Visit: Duel tasking, command following with 3 choices ADL Goals Patient Will Perform Grooming: Standing at Sink;w/ Minimum Assist Patient Will Perform LE Dressing: w/ Minimum Assist Patient Will Perform Toileting: w/ Minimum Assist Functional Transfer Goals Pt Will Perform All Functional Transfers: Minimum Assist OT Discharge Recommendations OT Discharge Recommendations: Inpatient Setting, Recommend PM&R Consult to address most appropriate level of rehabilitation placement ([phone]). Equipment Recommendations: Too early to be determined Therapist: Kenzie Jordan, OTR/L [id number] Date: 10/02/2018 * Mare Vieyra MA,CCC-NEIGHBORHOOD WORKER - 10/02/2018 3:53 PM ELECTRICAL RESEARCH ENGINEER SPEECH-LANGUAGE PATHOLOGY DAILY TREATMENT NOTE Patient seen 1x this date. Documentation reflects all daily treatment sessions. SUMMARY OF THERAPY SESSION: Follow up this date for ongoing dysphagia and aphasia therapy completed with no family present. Pt participated in object identification and simple step command following. Pt appeared to improve accuracy with visual cueing of written words for Y/N, simple object identification, and sentence completion. Overall conversation and verbal output limited with one word and often echolalic responses. Question efficacy of communication board, yet will attempt to reassess/train at next session. See below for further details. RECOMMENDATIONS: Regular diet with thin liquids Swallow precautions; 100% supervision, small bites/sips, slow rate, check for pocketing PO meds as tolerated NEIGHBORHOOD WORKER will follow for ongoing dysphagia and aphasia management. Ongoing NEIGHBORHOOD WORKER at next level of care Consistent supervision recommended upon discharge as anticipate patient's impaired safety awareness and/or problem solving (or communication) will impact their ability to call for help. Goal : Pt will participate in ongoing assessment of speech/language given minimal cues to participate. Met Comment: See Summary above and goal description below. Sentence completion with written stimulus: 3/5. Object identification with binary written stimulus: 2/4. Pt demonstrated intermittent frustration with frequent verbal responses of "I don't know" when unable to achieve correct verbalization. Continue to address this goal Goal: Pt will identify objects from a field of three with use of written/verbal cues. Met Comment: Pt able to identify 3/3 items when presented with verbal cues. However , pt only able to identify object function 1/3 despite maximum cues. Continue to Address this goal Goal : Pt will answer simple y/n questions with 70% accuracy, given moderate cues. Met Comment: pt answered simple y/n biographical questions with 100% accuracy when given written cues for Y/N. She answered simple y/n questions regarding general information with 80% accuracy and minimal cues. Continue goal at this level to ensure accuracy Goal : Pt will follow simple 1-step commands with 60% accuracy, given moderate cues. Not met Comment: Despite maximum multimodal cues and written instruction, pt unable to complete simple one step commands. Perseveration noted. Continue to address this goal Goal: pt will tolerate regular diet with thin liquids with adequate mastication and less than 10% overt s/s aspiration Not Addressed Comment: Did not address 2* speech-language goals. Continue goal at this level to ensure accuracy PLAN / RECOMMENDATIONS: Continue treatment 3-5x/week and Patient would benefit from further speech therapy post acute hospitalization. Speech Discharge Recommendations: The patient could benefit from further intervention in a/an, Inpatient Setting Speech recommend ongoing assistance for: Safety concerns, Swallow strategies, To maximize communication Therapist: Mare Vieyra MA,CCC-NEIGHBORHOOD WORKER Voalte: [phone] Date: 10/02/2018 * Mare Vieyra MA,CCC-NEIGHBORHOOD WORKER - 10/02/2018 3:01 PM ELECTRICAL RESEARCH ENGINEER SPEECH-LANGUAGE PATHOLOGY NO TREATMENT NOTE The patient was not seen due to schedule conflict with OT. This department will continue to follow. Attempted to see patient 1x RECOMMENDATIONS: Regular diet with thin liquids Swallow precautions; 100% supervision, small bites/sips, slow rate, check for pocketing PO meds as tolerated NEIGHBORHOOD WORKER will follow for ongoing dysphagia and aphasia management. Ongoing NEIGHBORHOOD WORKER at next level of care Consistent supervision recommended upon discharge as anticipate patient's impaired safety awareness and/or problem solving (or communication) will impact their ability to call for help. Therapist: Mare Vieyra MA,CCC-NEIGHBORHOOD WORKER Voalte: [phone] Date: 10/02/2018 * Rick Caceres, PT - 10/02/2018 1:58 PM ELECTRICAL RESEARCH ENGINEER PHYSICAL THERAPY PROGRESS NOTE MOBILITY: Progressive Mobility Level: Walk in hallway Distance Walked (feet): 160 ft Level of Assistance: Stand by assistance Assistive Device: None Time Tolerated: 0-10 minutes Pt requested to stop and was becoming fatigued SUBJECTIVE: Significant hospital events: Hx: HTN, DM, admitted with left basal ganglia ischemic stroke s/p tPa with mild hemorrhagic conversion Mental / Cognitive Status: Alert;Cooperative;Inconsistent with Command Following -Aphasia; Impulsive Pain: Patient demonstrates no signs of pain Comments: Indepedent prior to admission and living in a 2 level home with her kids and she is guardian of grandson per previous notes this admission BED MOBILITY/TRANSFERS: Bed Mobility: Sit to Supine: Standby Assist;HOB Elevated;No Rail Transfer Type: Sit to Stand Transfer: Assistance Level: From;Toilet;Standby Assist Transfer: Assistive Device: None Transfers: Type Of Assistance: For Safety Considerations GAIT: Gait Distance: 160 feet Gait: Assistance Level: Standby Assist Gait: Assistive Device: None Gait: Descriptors: Pathway deviations, runs into objects on right even with cues Comments: R inattention Stairs: Number Climbed: 3 Stairs: Descriptors: Reciprocal Stairs: Assistance Level: Minimal Assist Stairs: Assistive Device: Two Rails ASSESSMENT/PROGRESS: Impaired Mobility Due To: Impaired Balance;Safety Concerns;Decreased Activity Tolerance Assessment/Progress: Improving as Expected;Expect Good Progress AM-PAC 6 Clicks Basic Mobility Inpatient Turning from your back to your side while in a flat bed without using bed rails : None Moving from lying on your back to sitting on the side of a flatbed without using bedrails : None Moving to and from a bed to a chair (including a wheelchair): A Little Standing up from a chair using your arms (e.g. wheelchair, or bedside chair): A Little To walk in hospital room: A Little Climbing 3-5 steps with a railing: A Little Raw Score: 20 Standardized (T-scale) Score: 43.99 Basic Mobility CMS 0-100%: 33.32 CMS G Code Modifier for Basic Mobility: CJ GOALS: Goal Formulation: Patient Unable to Participate in Goal Setting Time For Goal Achievement: 5 days, To, 7 days Pt Will Go Supine To/From Sit: w/ Minimal Assist, Met Pt Will Transfer Bed/Chair: w/ Minimal Assist, Met Pt Will Transfer Sit to Stand: w/ Minimal Assist, Met, Independently Pt Will Ambulate: New Goal, Greater than 200 Feet, w/ No Device, w/ Stand By Assist Pt Will Go Up / Down Stairs: 3-5 Stairs, w/ Minimal Assist PLAN: Treatment Interventions: Mobility Training;Strengthening;Balance Activities; Endurance Training;Neuromuscular Reeducation Plan Frequency: 5 Days per Week PT Plan for Next Visit: Gait/tasks with focus on attention to the right, stairs if she is agreeable, dynamic balance challenges in standing/upright P.T. mobility aide to assist with ongoing mobilization and exercise per instructions of licensed physical therapy staff RECOMMENDATIONS: PT Discharge Recommendations: Inpatient Setting Therapist: Rick Caceres, PT Date: 10/02/2018 * Chelsi Santana MD - 10/02/2018 11:17 AM ELECTRICAL RESEARCH ENGINEER Formatting of this note may be different from the original. Neurology Stroke Progress Note Name: Vidhi Andrea Today's Date: 10/02/2018 Admission Date: 09/22/2018 LOS: 10 days Assessment/Plan: Active Problems: Stroke (cerebrum) (HCC) DMII (diabetes mellitus, type 2) (HCC) HLD (hyperlipidemia) HTN (hypertension) Morbid obesity (HCC) Vidhi Valera a 63 y.o.femalewith DMII, HLD, HTN transferred from OSH for right sided weakness, aphasia and found to have a left MCA ischemic stroke ( ESUS) with hemorrhagic conversion involving the basal ganglia. Patients mental status is improving but she continues to have significant expressive aphasia. L BG Ischemic Stroke S/p t-PA at OSH prior to transfer CTA with no LVO, no intervention pursued MRI with left Basal ganglia ischemic stroke with evidence of mild hemorrhagic conversion Repeat CT head 09/24 with stable findings and expected evolution of ischemic stroke Stroke workup: a1c 7.6, LDL 175 Echo technically limited, EF 55% normal left ventricle size, but possible inferolateral akinesis. No hx or evidence of afib 09/26 KERI w/ LVOT echodensity that may be a subaortic membrane, less likely to be a vegetation or thrombus. Etiology: cryptogenic PLAN: - continue ASA 81mg - LDCF while inpatient; will discharge on metformin 500mg BID - continue lisinopril 10mg daily - continue atorvastatin 80mg - PT/OT/NEIGHBORHOOD WORKER - snf monitor on discharge - Continue prozac 20mg qD for motor recovery Stroke risk factor modification - optimize BP, goal SBP<140mmHg - optimize blood sugar, goal HbA1c<7 - optimize lipids, goal LDL<100 (or <70 if HbA1c>7) - Tobacco cessation - ASA compliance - Rehab to follow up with the patient 09/30, appreciate insight and expertise regarding disposition planning and post-stroke rehabilitation - patient qualifies for IPR per Rehab Medicine - Plan for event monitor at discharge UTI - Continue cefpodoxime 100mg BID 09/26-09/30 HTN - Non-adherent with machine captain therapies - continue lisinopril 10mg daily HLD - LDL 176 - continueatorvastatin to 80mg Constipation - continue milk of magnesia, senokot, docusate - BM achieved with milk of molasses enema Morbid Obesity CTM Weight loss counseling when appropriate FEN: no IVF; replace electrolytes as needed; full liquid diet PPx: heparin Code: FULL Dispo: family involved in decision to have patient go to [facility] vs another [facility] facility closer to home. Medicaid application is still pending at this time. Patient seen an discussed with Dr. Marie. Chelsi Santana MD, PhD Neurology Resident, PGY-3 Pager: [phone] Subjective Patient with no acute events overnight. Patient finished eating breakfast this morning without difficulty Objective Vital Signs: Last Filed Vital Signs: 24 Hour Range BP: 124/67 (10/02 1006) Temp: 36.9 C (98.4 F) (10/02 1006) Pulse: 65 (10/02 1006) Respirations: 18 PER MINUTE (10/02 1006) SpO2: 94 % (10/02 1006) O2 Delivery: None (Room Air) (10/02 1006) BP: (108-133)/(59-67) Temp: [36.4 C (97.6 F)-37.1 C (98.7 F)] Pulse: [57-70] Respirations: [14 PER MINUTE-19 PER MINUTE] SpO2: [94 %-98 %] O2 Delivery: None (Room Air) Vitals: 09/24/18 1011 09/25/18 0601 09/26/18 1700 Weight: 103.6 kg (228 lb 6.3 oz) 103.2 kg (227 lb 8.2 oz) 102.9 kg (226 lb 13.7 oz) Physical Exam Mental status: Patient is alert, unable to answer orientation questions due to aphasia Speech:Expressive aphasia with limited speech and inconsistent command following. CN II-XII: Visual domingo intact to confrontation, PERRL (4->2), EOMI, facial sensation intact. Symmetrical facial movement. Hearing grossly intact. Strong cough, elevates palate, uvula midline. Strong shoulder shrug. Tongue midline. Motor: Normal tone and bulk. No abnormal movement, fasciculation or pronator drift. SA EF EE WE WF FF FE FA TA HF WILLIS HE KF KE DF PF R 4+ 4+ 4+ 4+ 4+ 4+ 4+ 4+ 4+ 4+ 4+ 4+ 4+ 4+ 4+ 4+ L 5 5 5 5 5 5 5 5 5 5 5 5 5 5 5 5 Sensory: intact to light touch in all four extremities. Reflexes: No clonus, gurjit, cross adductor. Babinski negative. Right Left Triceps 2 2 Biceps 2 2 Brachioradialis 2 2 Patella 2 2 Ankle 2 2 Plantar flexor flexor Coordination/ fine movement: coordination grossly intact as she reaches for objects Gait: mild hemiparetic gait Lab Review 24-hour labs: Results for orders placed or performed during the hospital encounter of (from the past 24 hour(s)) POC GLUCOSE Collection Time: 10/01/18 12:38 PM Result Value Ref Range Glucose, POC 123 (H) 70 - 100 MG/DL POC GLUCOSE Collection Time: 10/01/18 6:19 PM Result Value Ref Range Glucose, POC 128 (H) 70 - 100 MG/DL POC GLUCOSE Collection Time: 10/01/18 9:26 PM Result Value Ref Range Glucose, POC 136 (H) 70 - 100 MG/DL POC GLUCOSE Collection Time: 10/02/18 1:57 AM Result Value Ref Range Glucose, POC 127 (H) 70 - 100 MG/DL POC GLUCOSE Collection Time: 10/02/18 8:28 AM Result Value Ref Range Glucose, POC 135 (H) 70 - 100 MG/DL Radiology and other Diagnostics Review: Pertinent radiology reviewed. Associated attestation - Apple Marie MD - 10/03/2018 1:30 PM ELECTRICAL RESEARCH ENGINEER Neurology Attending Attestation Patient has been seen and evaluated on attending rounds; lawson elements of the history and physical examination were repeated in order to confirm findings. Goals and plan of care was discussed with the patient. I have reviewed the above note and generally agree with the findings, plan and documentation. I spent a total of 40 minutes in patient care today, with 25 minutes spent counseling the patient and coordinating care. Acute ischemic left middle cerebral artery infarction with small degree of left basal ganglia hemorrhagic transformation. Significant expressive aphasia of which she displays significant frustration with when attempting to converse. She does appear to be able to understand during our interaction and follow simple commands but was not able to communicate either verbally or with written word. Plan for event monitor at discharge. Medically stable for discharge, no family at bedside today. Apple Marie MD Vascular Neurology * Leny Cortez RN - 10/02/2018 10:23 AM ELECTRICAL RESEARCH ENGINEER Formatting of this note may be different from the original. Patient can repeat words and sentences from [facility] perfectly. Can not recall pictures or spontaneously offer her own words consistently 10/02/18 1006 NIH Stroke Scale Scores Best Language 2 * Enriqueta Gonsales, PT - 10/01/2018 4:05 PM ELECTRICAL RESEARCH ENGINEER PHYSICAL THERAPY PROGRESS NOTE MOBILITY: Progressive Mobility Level: Walk in hallway Distance Walked (feet): 400 ft Level of Assistance: Assist X1 Assistive Device: None Time Tolerated: 11-30 minutes Activity Limited By: Fatigue SUBJECTIVE: Significant hospital events: 63yo female h/o HTN, HLD, DM, admitted with left basal ganglia ischemic stroke s/p tPa with mild hemorrhagic conversion. Mental / Cognitive Status: Alert;Cooperative;Inconsistent with Command Following (due to aphasia) Persons Present: Family Pain: Patient demonstrates no signs of pain Pain Interventions: Patient agrees to participate in therapy;Patient assisted into position of comfort BED MOBILITY/TRANSFERS: Bed Mobility: Sit to Supine: Standby Assist;HOB Elevated;No Rail Transfer Type: Sit to/from Stand Transfer: Assistance Level: To/From;Bed;Standby Assist Transfer: Assistive Device: None Transfers: Type Of Assistance: For Safety Considerations End Of Activity Status: In Bed;Nursing Notified;Instructed Patient to Request Assist with Mobility;Instructed Patient to Use Call Light GAIT: Gait Distance: 400 feet Gait: Assistance Level: Minimal Assist Gait: Assistive Device: None Gait: Descriptors: Pace: Slow;Normal step length;Pathway deviations Comments: R inattention noted - pt running into thomas on right side x2. Patient fatigues quickly and requires encouragement to complete distance. Activity Limited By: Complaint of Fatigue Comments: Patient declines attempting stairs this date. ACTIVITY/EXERCISE: Comments: Repeated sit to stands with cues for counting out loud to 10. EDUCATION: Persons Educated: Patient/Family Patient Barriers To Learning: Impaired Communication (aphasia) Interventions: Repetition of Instructions;Demonstration Provided Teaching Methods: Verbal Instruction;Demonstration Patient Response: More Instruction Required Topics: Plan/Goals of PT Interventions;Mobility Progression;Safety Awareness;Up with Assist Only;Importance of Increasing Activity;Recommend Continued Therapy ASSESSMENT/PROGRESS: Impaired Mobility Due To: Impaired Balance;Safety Concerns;Decreased Activity Tolerance Assessment/Progress: Should Improve w/ Continued PT Comments: Patient remains limited due to fatigue, right inattention and aphasia. Will benefit from ongoing skilled intervention to address deficits and progress safety with mobility. AM-PAC 6 Clicks Basic Mobility Inpatient Turning from your back to your side while in a flat bed without using bed rails : None Moving from lying on your back to sitting on the side of a flatbed without using bedrails : None Moving to and from a bed to a chair (including a wheelchair): A Little Standing up from a chair using your arms (e.g. wheelchair, or bedside chair): A Little To walk in hospital room: A Little Climbing 3-5 steps with a railing: A Little Raw Score: 20 Standardized (T-scale) Score: 43.99 Basic Mobility CMS 0-100%: 33.32 CMS G Code Modifier for Basic Mobility: CJ GOALS: Goal Formulation: Patient Unable to Participate in Goal Setting Time For Goal Achievement: 5 days, To, 7 days Pt Will Go Supine To/From Sit: w/ Minimal Assist, Met Pt Will Transfer Bed/Chair: w/ Minimal Assist, Met Pt Will Transfer Sit to Stand: w/ Minimal Assist, Met, New Goal, Independently Pt Will Ambulate: 51-100 Feet, w/ Minimal Assist, Met, New Goal, Greater than 200 Feet, w/ No Device, w/ Stand By Assist Pt Will Go Up / Down Stairs: New Goal, 3-5 Stairs, w/ Minimal Assist PLAN: Treatment Interventions: Mobility Training;Strengthening;Balance Activities; Endurance Training;Neuromuscular Reeducation Plan Frequency: 5 Days per Week PT Plan for Next Visit: Trial stairs, repeated short bouts of gait, nustep, 6MWT P.T. mobility aide to assist with ongoing mobilization and exercise per instructions of licensed physical therapy staff. RECOMMENDATIONS: PT Discharge Recommendations: Inpatient Setting;Recommend Physical Medicine and Rehabilitation Consult to address most appropriate level of rehabilitation placement Therapist: Enriqueta Gonsales, PT Date: 10/01/2018 * Evangelina Bender - 10/01/2018 1:28 PM ELECTRICAL RESEARCH ENGINEER CLINICAL NUTRITION Clinical Nutrition Follow-Up Summary NAME:Vidhi Andrea :1955 AGE: 63 y.o. ADMISSION DATE: 09/22/2018 DAYS ADMITTED: LOS: 9 days Nutrition Assessment of Patient: Malnutrition Assessment: Does not meet criteria Current Oral Intake: Improving Estimated Calorie Needs: 9090-5256 (25-30 kcal/kg desired wt) Estimated Protein Needs: 75-90 (1.2-1.4g/kg desired wt) Oral Diet Order: Mechanical Soft Oral Supplement: Boost Glucose Control, BID 63 yo F with PMH of HLD, HTN, DM, obesity transferred to after receiving tPA for right facial droop and right sided weakness with mild hemorrhagic conversion. See RD note from 09/24 for subjective information/nutritional Hx. Pt received EN via corpak from 09/23-09/26. Corpak was pulled on 09/26 during KERI and NEIGHBORHOOD WORKER performed bedside swallow eval and recommended mechanical soft diet order. Pt consumed 100% of breakfast this morning per meal documentation. Corpak removed this morning per nursing documentation. FSBS have ranged between 116- 190 mg/dL over the last 24hr with LDCF insulin onboard. Noted that A1c was 7.6% , LDL 175, BMI 40. However, pt is not appropriate for stroke nutrition therapy at this time d/t aphasia and plans to d/c to a facility. Recommendation: Continue diet textures/consistencies per NEIGHBORHOOD WORKER recs. Once advanced to regular textures, recommend carb controlled (60gm/meal) + cardiac diet order. Intervention / Plan: Continue to monitor PO intakes, weight trends, labs, meds, GI health. Nutrition Diagnosis: Altered GI function Etiology: swallowing deficits s/p stroke Signs & Symptoms: NEIGHBORHOOD WORKER findings, need for mechanical soft diet Goals: Patient to consume >75% of meals/supplements Time Frame: Within 72 Hours Status: Partially met;Ongoing Brenda Bender RD, LD Pager: [phone] * James Martines MD - 10/01/2018 12:49 PM ELECTRICAL RESEARCH ENGINEER Formatting of this note may be different from the original. Physical Medicine & Rehabilitation Consult Service Patient name: Vidhi Andrea Patient age: 63 y.o. Reason for Consult: Evaluate for Post-Acute Rehab/Placement Referring Physician: Apple Marie MD Consulting Physician: Marciano Summers MD Insurance: Payor: / Today's Date: 10/01/2018 Date of Admission: 09/22/2018 Precautions: Fall Assessment & Plan: Vidhi Andrea is a 63 y.o. female admitted to [facility] on 09/22/2018 with the following issues: L basal ganglia ischemic stroke s/p tPA with mild hemorrhagic conversion Post-acute care rehabilitation needs: acute inpatient rehabilitation. Patient with clear medical complexity and goals in at least 2 therapy disciplines (PT/OT /NEIGHBORHOOD WORKER) appropriate for acute inpatient rehabilitation. Above plans discussed with Dr. Summers. Thank you for allowing us to participate in the care of your patient. James Martines MD [phone] PM&R consult pager: [phone] Subjective: Patient seen resting comfortably in bed this morning without any signs of acute distress. She continues to have expressive aphasia with intermittent command following, though she is able to mimic and follow commands much better today compared to when seen previously. No apparent problems per patient, no issues per nursing staff. Physical Exam: Vitals: BP: 125/75 (10/01 1015) Temp: 36.7 C (98.1 F) (10/01 1015) Pulse: 59 (10/01 1015) Respirations: 14 PER MINUTE (10/01 1015) SpO2: 95 % (10/01 1015) O2 Delivery: None (Room Air) (10/01 1015) Body mass index is 40.2 kg/m. GEN: awake, no acute distress HEAD: normocephalic, atraumatic EYES: sclera anicteric, conjunctiva not injected CV: limbs warm and well perfused RESP: respirations easy and regular ABD: non-distended EXT: no edema or erythema in bilateral lower limbs SKIN: no obvious rashes or lesions on exposed surfaces NEURO: Mental Status: alert Speech: + fluent, intermittent comprehension, + repeat Cranial Nerves: II-XII grossly intact MS: Strength 5/5 in all extremities Intake/Output Summary: Intake/Output Summary (Last 24 hours) at 10/01/18 1249 Last data filed at 10/01/18 0905 Gross per 24 hour Intake 240 ml Output 0 ml Net 240 ml Stool Occurrence: 1 Oral Diet Order: Mechanical Soft Last Bowel Movement Date: 10/01/18 Radiology reviewed. Lab: Results for orders placed or performed during the hospital encounter of (from the past 24 hour(s)) POC GLUCOSE Collection Time: 09/30/18 12:50 PM # # Low-High Glucose, POC 125 (H) 70 - 100 MG/DL POC GLUCOSE Collection Time: 09/30/18 9:14 PM # # Low-High Glucose, POC 116 (H) 70 - 100 MG/DL POC GLUCOSE Collection Time: 10/01/18 3:10 AM # # Low-High Glucose, POC 123 (H) 70 - 100 MG/DL CBC Collection Time: 10/01/18 5:35 AM # # Low-High White Blood Cells 11.9 (H) 4.5 - 11.0 K/UL RBC 5.04 (H) 4.0 - 5.0 M/UL Hemoglobin 15.7 (H) 12.0 - 15.0 GM/DL Hematocrit 45.5 (H) 36 - 45 % MCV 90.3 80 - 100 FL MCH 31.2 26 - 34 PG MCHC 34.6 32.0 - 36.0 G/DL RDW 13.4 11 - 15 % Platelet Count 255 150 - 400 K/UL MPV 10.3 7 - 11 FL BASIC METABOLIC PANEL Collection Time: 10/01/18 5:35 AM # # Low-High Sodium 135 (L) 137 - 147 MMOL/L Potassium 4.1 3.5 - 5.1 MMOL/L Chloride 102 98 - 110 MMOL/L CO2 24 21 - 30 MMOL/L Anion Gap 9 3 - 12 Glucose 136 (H) 70 - 100 MG/DL Blood Urea Nitrogen 24 7 - 25 MG/DL Creatinine 0.65 0.4 - 1.00 MG/DL Calcium 9.4 8.5 - 10.6 MG/DL eGFR Non >60 >60 mL/min eGFR >60 >60 mL/min POC GLUCOSE Collection Time: 10/01/18 9:05 AM # # Low-High Glucose, POC 190 (H) 70 - 100 MG/DL POC GLUCOSE Collection Time: 10/01/18 12:38 PM # # Low-High Glucose, POC 123 (H) 70 - 100 MG/DL James Martines MD [phone] PM&R consult pager: [phone] Associated attestation - Marciano Summers MD - 10/03/2018 12:38 AM [facility] Rehabilitation Medicine Attending Physician Attestation: I personally performed lawson portions of the history and exam. I discussed the case with the resident and concur with the resident's documentation of history, physical assessment and treatment plan unless otherwise noted. Marciano Summers MD * Kenzie Jordan, OT - 10/01/2018 11:22 AM ELECTRICAL RESEARCH ENGINEER Formatting of this note may be different from the original. OCCUPATIONAL THERAPY PROGRESS NOTE Patient Name: Vidhi Andrea Room/Bed: [id number] Admitting Diagnosis: Stroke Past Medical History: Diagnosis Date DMII (diabetes mellitus, type 2) (HCC) HLD (hyperlipidemia) HTN (hypertension) Mobility Progressive Mobility Level: Walk in hallway Distance Walked (feet): 300 ft Level of Assistance: Assist X1 Assistive Device: None Time Tolerated: 11-30 minutes Activity Limited By: Fatigue Subjective Pertinent Dx per Physician: 63yo female h/o HTN, HLD, DM, admitted with left basal ganglia ischemic stroke s/p tPa with mild hemorrhagic conversion Precautions: Standard;Falls Pain / Complaints: Patient agrees to participate in therapy;Patient demonstrates no signs of pain Comments: Patient seated in chair upon arrival. At end of session patient laying supine in bed, all needs within reach and bed alarm in place. Objective Psychosocial Status: Willing and Cooperative to Participate Prior Function Other Function Comments: Pt unable to provide subjective information due to aphasia. No family present. ADL's Where Assessed: Standing at Sink;In Bathroom Grooming Assist: Minimal Assist Grooming Deficits: Steadying;Verbal Cueing;Supervision/Safety LE Dressing Assist: Minimal Assist LE Dressing Deficits: Steadying;Don/Doff R Sock;Don/Doff L Sock Functional Transfer Assist: Minimal Assist Functional Transfer Deficits: Steadying;Verbal Cueing;Supervision/Safety Comment: Patient requires minimum assist to correct losses of balance when ambulatingi nthe hallway. worked with patient on duel tasking in an open environment. Patient requires two standing rest breaks due to fatigue. Activity Tolerance Endurance: 3/5 Tolerates 25-30 Minutes Exercise w/Multiple Rests Sitting Balance: 4/5 Moves/Returns Trunkal Midpoint 1-2 Inches in Multiple Planes Comment: Patient demonstrates endurance deficits and significant safety concerns requiring consistent supervision. Cognition Overall Cognitive Status: Impaired Comprehension: Receptive Aphasia Expression: Expressive Aphasia Problem Solving: Cueing to Sequence Task;Direction Following Assist Cognition Comment: Worked with patient on tabletop aphasia worksheet to categorize similar objects. Patient required assistance for 10/10 items. UE AROM Coordination: Adequate to Complete ADLs UE Strength / Tone Overall Strength / Tone: WFL Able to Perform ADL Tasks AM-PAC 6 Clicks Daily Activity Inpatient Putting on and taking off regular lower body clothes?: A Lot Bathing (Including washing, rinsing, drying): A Lot Toileting, which includes using toilet, bedpan, or urinal: A Little Putting on and taking off regular upper body clothing: A Little Taking care of personal grooming such as brushing teeth: A Little Eating meals?: A Little Daily Activity Raw Score: 16 Standardized (t-scale) score: 35.96 CMS 0-100% Score: 53.32 CMS G Code Modifier: CK Plan OT Frequency: 5x/week OT Plan for Next Visit: Duel tasking, command following ADL Goals Patient Will Perform Grooming: Standing at Sink;w/ Minimum Assist Patient Will Perform LE Dressing: w/ Minimum Assist Patient Will Perform Toileting: w/ Minimum Assist Functional Transfer Goals Pt Will Perform All Functional Transfers: Minimum Assist OT Discharge Recommendations OT Discharge Recommendations: Inpatient Setting, Recommend PM&R Consult to address most appropriate level of rehabilitation placement [phone]). Equipment Recommendations: Too early to be determined Therapist: Kenzie Jordan OTR/L [id number] Date: 10/01/2018 * Michelle Leal - 10/01/2018 11:09 AM ELECTRICAL RESEARCH ENGINEER SPEECH-LANGUAGE PATHOLOGY DAILY TREATMENT NOTE Patient seen 1x this date. Documentation reflects all daily treatment sessions. SUMMARY OF THERAPY SESSION: pt seen for dysphagia and aphasia therapy session. RN reports good tolerance of diet this date, corpak removed. No family present at time of evaluation. Ongoing speech-language tx completed this date. Please see details below. RECOMMENDATIONS Regular diet with thin liquids Swallow precautions; 100% supervision, small bites/sips, slow rate, check for pocketing PO meds as tolerated NEIGHBORHOOD WORKER will follow for ongoing dysphagia and aphasia management. Ongoing NEIGHBORHOOD WORKER at next level of care Consistent supervision recommended upon discharge as anticipate patient's impaired safety awareness and/or problem solving (or communication) will impact their ability to call for help. Goal : Pt will participate in ongoing assessment of speech/language given minimal cues to participate. Met Comment: Reading single words: 5/6. Confrontation namin/5 independently, noted to increase to 5/5 with phonemic lead-in cues. Repetition at word level: 3 /3, sentence level: 5/6 Continue to address this goal NEW GOAL: Pt will identify objects from a field of three with use of written/ verbal cues. Goal : Pt will answer simple y/n questions with 70% accuracy, given moderate cues. Partly met Comment: pt answered simple y/n questions regarding personal information with 100% accuracy. She answered simple y/n questions regarding general information with 60% accuracy and minimal cues Continue goal at this level to ensure accuracy Goal : Pt will follow simple 1-step commands with 60% accuracy, given moderate cues. Not met Comment: pt followed 1-step commands independently with 0% accuracy with max cues Continue to address this goal Goal : pt will participate in PO trials for purpose of potential diet advancement with adequate mastication and less than 10% overt s/s aspiration. Met Comment: Pt tolerated regular solids with adequate mastication and no pocketing ; pt with cough in 1/5 trials then declined further trials. Discharge this goal as met Goal: pt will tolerate regular diet with thin liquids with adequate mastication and less than 10% overt s/s aspiration Met Comment: RN reports good tolerance of diet free from overt s/s of aspiration. Continue goal at this level to ensure accuracy PLAN / RECOMMENDATIONS: Continue treatment 3x/week and Patient would benefit from further speech therapy post acute hospitalization. Speech Discharge Recommendations: The patient could benefit from further intervention in a/an, Inpatient Setting Speech recommend ongoing assistance for: Safety concerns, Swallow strategies, To maximize communication Therapist: Michelle FALCON/NEIGHBORHOOD WORKER Voalte: [phone] [employer] And Reel Tender Pager: [phone] Date: 10/01/2018 * Grady Up - 10/01/2018 10:03 AM ELECTRICAL RESEARCH ENGINEER Pt tolerating diet well this morning feeding self with minimal assistance, RN discussed removing corpak with team at [facility]. Team approved corpak removal, will continue to monitor. * Chelsi Santana MD - 10/01/2018 9:14 AM ELECTRICAL RESEARCH ENGINEER Formatting of this note may be different from the original. Neurology Stroke Progress Note Name: Vidhi Andrea Today's Date: 10/01/2018 Admission Date: 09/22/2018 LOS: 9 days Assessment/Plan: Active Problems: Stroke (cerebrum) (HCC) DMII (diabetes mellitus, type 2) (HCC) HLD (hyperlipidemia) HTN (hypertension) Morbid obesity (HCC) Vidhi Valera a 63 y.o.femalewith DMII, HLD, HTN transferred from OSH for right sided weakness, aphasia and found to have a left MCA ischemic stroke ( ESUS) with hemorrhagic conversion involving the basal ganglia. Patients mental status is improving but she continues to have significant expressive aphasia. L BG Ischemic Stroke S/p t-PA at OSH prior to transfer CTA with no LVO, no intervention pursued MRI with left Basal ganglia ischemic stroke with evidence of mild hemorrhagic conversion Repeat CT head 09/24 with stable findings and expected evolution of ischemic stroke Stroke workup: a1c 7.6, LDL 175 Echo technically limited, EF 55% normal left ventricle size, but possible inferolateral akinesis. No hx or evidence of afib 09/26 KERI w/ LVOT echodensity that may be a subaortic membrane, less likely to be a vegetation or thrombus. Etiology: cryptogenic PLAN: - continue ASA 81mg - LDCF while inpatient; will discharge on metformin 500mg BID - continue lisinopril 10mg daily - continue atorvastatin 80mg - PT/OT/NEIGHBORHOOD WORKER - snf monitor on discharge - Continue prozac 20mg qD for motor recovery Stroke risk factor modification - optimize BP, goal SBP<140mmHg - optimize blood sugar, goal HbA1c<7 - optimize lipids, goal LDL<100 (or <70 if HbA1c>7) - Tobacco cessation - ASA compliance - Rehab to follow up with the patient 09/30, appreciate insight and expertise regarding disposition planning and post-stroke rehabilitation - patient qualifies for IPR per Rehab Medicine - Plan for event monitor at discharge UTI - Continue cefpodoxime 100mg BID 09/26-09/30 HTN - Non-adherent with machine captain therapies - continue lisinopril 10mg daily HLD - LDL 176 - continueatorvastatin to 80mg Constipation - continue milk of magnesia, senokot, docusate - BM achieved with milk of molasses enema Morbid Obesity CTM Weight loss counseling when appropriate FEN: no IVF; replace electrolytes as needed; full liquid diet PPx: heparin Code: FULL Dispo: possible discharge to IPR vs SNF when appropriate from case management standpoint Patient seen an discussed with Dr. Mcleod Subjective Patient with no acute events overnight. No new issues or concerns. Objective Vital Signs: Last Filed Vital Signs: 24 Hour Range BP: 139/64 (10/01 557) Temp: 36.2 C (97.2 F) (10/01 557) Pulse: 57 (10/01 557) Respirations: 16 PER MINUTE (10/01 557) SpO2: 96 % (10/01 557) O2 Delivery: None (Room Air) (10/01 557) BP: (110-142)/(51-65) Temp: [36.2 C (97.2 F)-36.7 C (98.1 F)] Pulse: [57-68] Respirations: [16 PER MINUTE-18 PER MINUTE] SpO2: [95 %-97 %] O2 Delivery: None (Room Air) Vitals: 09/24/18 1011 09/25/18 0601 09/26/18 1700 Weight: 103.6 kg (228 lb 6.3 oz) 103.2 kg (227 lb 8.2 oz) 102.9 kg (226 lb 13.7 oz) Physical Exam Mental status: Patient is alert, unable to answer orientation questions due to aphasia Speech:Expressive aphasia with limited speech and inconsistent command following. CN II-XII: Visual domingo intact to confrontation, PERRL (4->2), EOMI, facial sensation intact. Symmetrical facial movement. Hearing grossly intact. Strong cough, elevates palate, uvula midline. Strong shoulder shrug. Tongue midline. Motor: Normal tone and bulk. No abnormal movement, fasciculation or pronator drift. SA EF EE WE WF FF FE FA TA HF WILLIS HE KF KE DF PF R 4+ 4+ 4+ 4+ 4+ 4+ 4+ 4+ 4+ 4+ 4+ 4+ 4+ 4+ 4+ 4+ L 5 5 5 5 5 5 5 5 5 5 5 5 5 5 5 5 Sensory: withdraws to painful stimuli. Can localize stimuli. Reflexes: No clonus, gurjit, cross adductor. Babinski negative. Right Left Triceps 2 2 Biceps 2 2 Brachioradialis 2 2 Patella 2 2 Ankle 2 2 Plantar flexor flexor Coordination/ fine movement: coordination grossly intact as she reaches for objects Gait: mild hemiparetic gait Lab Review 24-hour labs: Results for orders placed or performed during the hospital encounter of (from the past 24 hour(s)) POC GLUCOSE Collection Time: 09/30/18 9:14 PM Result Value Ref Range Glucose, POC 116 (H) 70 - 100 MG/DL POC GLUCOSE Collection Time: 10/01/18 3:10 AM Result Value Ref Range Glucose, POC 123 (H) 70 - 100 MG/DL CBC Collection Time: 10/01/18 5:35 AM Result Value Ref Range White Blood Cells 11.9 (H) 4.5 - 11.0 K/UL RBC 5.04 (H) 4.0 - 5.0 M/UL Hemoglobin 15.7 (H) 12.0 - 15.0 GM/DL Hematocrit 45.5 (H) 36 - 45 % MCV 90.3 80 - 100 FL MCH 31.2 26 - 34 PG MCHC 34.6 32.0 - 36.0 G/DL RDW 13.4 11 - 15 % Platelet Count 255 150 - 400 K/UL MPV 10.3 7 - 11 FL BASIC METABOLIC PANEL Collection Time: 10/01/18 5:35 AM Result Value Ref Range Sodium 135 (L) 137 - 147 MMOL/L Potassium 4.1 3.5 - 5.1 MMOL/L Chloride 102 98 - 110 MMOL/L CO2 24 21 - 30 MMOL/L Anion Gap 9 3 - 12 Glucose 136 (H) 70 - 100 MG/DL Blood Urea Nitrogen 24 7 - 25 MG/DL Creatinine 0.65 0.4 - 1.00 MG/DL Calcium 9.4 8.5 - 10.6 MG/DL eGFR Non >60 >60 mL/min eGFR >60 >60 mL/min POC GLUCOSE Collection Time: 10/01/18 9:05 AM Result Value Ref Range Glucose, POC 190 (H) 70 - 100 MG/DL POC GLUCOSE Collection Time: 10/01/18 12:38 PM Result Value Ref Range Glucose, POC 123 (H) 70 - 100 MG/DL Radiology and other Diagnostics Review: Pertinent radiology reviewed. Associated attestation - Apple Marie MD - 10/02/2018 8:18 AM ELECTRICAL RESEARCH ENGINEER Neurology Attending Attestation Patient has been seen and evaluated on attending rounds; lawson elements of the history and physical examination were repeated in order to confirm findings. Goals and plan of care was discussed with the patient. I have reviewed the above note and generally agree with the findings, plan and documentation. I spent a total of 40 minutes in patient care today, with 25 minutes spent counseling the patient and coordinating care. Acute ischemic left middle cerebral artery infarction with small degree of left basal ganglia hemorrhagic transformation. Significant expressive aphasia of which she displays significant frustration with when attempting to converse. She does appear to be able to understand during our interaction and follow simple commands but was not able to communicate either verbally or with written word. Plan for event monitor at discharge and d/c to inpatient rehab when available. Medically stable for this transition. Apple Marie MD Vascular Neurology * Minnie Morgan, RN - 10/01/2018 4:00 AM ELECTRICAL RESEARCH ENGINEER Pt removed IV. This RN failed to place IV access. MD Marquise updated on pt, ok to keep IV out for now. WC * Bc Araiza DO - 09/30/2018 10:29 AM ELECTRICAL RESEARCH ENGINEER Spoke with Neurology service on 09/29 regarding request for f/u for disposition recommendations. Reported that NGT has been removed and patient is following commands more than previous. Patient will be seen and staffed by primary Rehab consult team on 10/01 for disposition. Associated attestation - Pritesh Arreaga MD - 09/30/2018 11:43 AM ELECTRICAL RESEARCH ENGINEER Rehabilitation Medicine Attending Physician Attestation: I personally performed lawson portions of the history and exam. I discussed the case with the resident and agree with the resident's documentation of history, physical assessment and treatment plan unless otherwise noted. Thank you for allowing us to participate in the care of this patient. Pritesh Arreaga MD 09/30/2018 11:43 AM Attending physician * Jose M Camarillo MD - 09/30/2018 8:21 AM ELECTRICAL RESEARCH ENGINEER Formatting of this note may be different from the original. Neurology Stroke Progress Note Name: Vidhi Andrea Today's Date: 09/30/2018 Admission Date: 09/22/2018 LOS: 8 days Assessment/Plan: Active Problems: Stroke (cerebrum) (HCC) DMII (diabetes mellitus, type 2) (HCC) HLD (hyperlipidemia) HTN (hypertension) Morbid obesity (HCC) Vidhi Valera a 63 y.o.femalewith DMII, HLD, HTN transferred from OSH for right sided weakness, aphasia and found to have a left basal ganglia ischemic stroke. L BG Ischemic Stroke S/p t-PA CTA with no LVO, no intervention pursued MRI with left Basal ganglia ischemic stroke with evidence of mild hemorrhagic conversion Repeat CT head 09/24 with stable findings and expected evolution of ischemic stroke Stroke workup: a1c 7.6, LDL 175 Echo technically limited, EF 55% normal left ventricle size, but possible inferolateral akinesis. No hx or evidence of afib 09/26 KERI w/ LVOT echodensity that may be a subaortic membrane, less likely to be a vegetation or thrombus. Etiology: cryptogenic PLAN: - continue ASA 81mg - LDCF while inpatient; will discharge on metformin 500mg BID - continue lisinopril 10mg daily - continue atorvastatin 80mg - PT/OT/NEIGHBORHOOD WORKER - machine hamper maker monitor on discharge - start prozac 20mg qD for motor recovery Stroke risk factor modification - optimize BP, goal SBP<140mmHg - optimize blood sugar, goal HbA1c<7 - optimize lipids, goal LDL<100 (or <70 if HbA1c>7) - Tobacco cessation - ASA compliance - Rehab to follow up with the patient 09/30, appreciate insight and expertise regarding disposition planning and post-stroke rehabilitation - Plan for event monitor at discharge UTI - Continue cefpodoxime 100mg BID 09/26-09/30 HTN - Non-adherent with machine captain therapies - continue lisinopril 10mg daily HLD - LDL 176 - continueatorvastatin to 80mg Constipation - continue milk of magnesia, senokot, docusate - BM achieved with milk of molasses enema Morbid Obesity CTM Weight loss counseling when appropriate FEN: no IVF; replace electrolytes as needed; full liquid diet PPx: heparin Code: FULL Dispo: possible discharge to IPR vs SNF when appropriate from case management standpoint Patient seen an discussed with Dr. Mcleod Subjective Patient with no acute events overnight. No new issues or concerns. Objective Vital Signs: Last Filed Vital Signs: 24 Hour Range BP: 135/73 (09/30 538) Temp: 36.7 C (98.1 F) (09/30 538) Pulse: 62 (09/30 538) Respirations: 16 PER MINUTE (09/30 538) SpO2: 96 % (09/30 538) O2 Delivery: None (Room Air) (09/30 538) BP: (101-140)/(49-75) Temp: [36.3 C (97.4 F)-36.8 C (98.3 F)] Pulse: [57-66] Respirations: [16 PER MINUTE] SpO2: [94 %-96 %] O2 Delivery: None (Room Air) Vitals: 09/24/18 1011 09/25/18 0601 09/26/18 1700 Weight: 103.6 kg (228 lb 6.3 oz) 103.2 kg (227 lb 8.2 oz) 102.9 kg (226 lb 13.7 oz) Physical Exam Mental status: Patient is alert, not answering questions of orientation Speech:Expressive aphasia with limited speech and inconsistent command following. CN II-XII: Visual domingo intact to confrontation, PERRL (4->2), EOMI, facial sensation intact. Symmetrical facial movement. Hearing grossly intact. Strong cough, elevates palate, uvula midline. Strong shoulder shrug. Tongue midline. Motor: Normal tone and bulk. No abnormal movement, fasciculation or pronator drift. SA EF EE WE WF FF FE FA TA HF WILLIS HE KF KE DF PF R 4+ 4+ 4+ 4+ 4+ 4+ 4+ 4+ 4+ 4+ 4+ 4+ 4+ 4+ 4+ 4+ L 5 5 5 5 5 5 5 5 5 5 5 5 5 5 5 5 Sensory: withdraws to painful stimuli. Can localize stimuli. Reflexes: No clonus, gurjit, cross adductor. Babinski negative. Right Left Triceps 2 2 Biceps 2 2 Brachioradialis 2 2 Patella 2 2 Ankle 2 2 Plantar flexor flexor Coordination/ fine movement: coordination grossly intact as she reaches for objects Gait: mild hemiparetic gait Lab Review Pertinent labs reviewed Radiology and other Diagnostics Review: Pertinent radiology reviewed. Associated attestation - Jarocho Mcleod MD - 09/30/2018 8:20 PM ELECTRICAL RESEARCH ENGINEER Formatting of this note may be different from the original. ATTESTATION I personally performed the lawson portions of the E/M visit, discussed case with resident and concur with resident documentation of history, physical exam, assessment, and treatment plan unless otherwise noted. I personally reviewed vitals, labs. Pertinent neuroradiological imagings were viewed. 63-year-old female with left MCA territory infarct (left small basal ganglia hemorrhagic transformation),ESUS, pending Medicaid application for dispo, treating pansensitive E. coli UTI. Mostly with a aphasia on examination. Staff name: Jarocho Mcleod MD Date: 09/30/2018 * Abdi Stock DO - 09/29/2018 4:32 PM ELECTRICAL RESEARCH ENGINEER Formatting of this note may be different from the original. Neurology Stroke Progress Note Name: Vidhi Andrea Today's Date: 09/29/2018 Admission Date: 09/22/2018 LOS: 7 days Assessment/Plan: Active Problems: Stroke (cerebrum) (HCC) DMII (diabetes mellitus, type 2) (HCC) HLD (hyperlipidemia) HTN (hypertension) Morbid obesity (HCC) Vidhi Valera a 63 y.o.femalewith DMII, HLD, HTN transferred from OSH for right sided weakness, aphasia and found to have a left basal ganglia ischemic stroke. L BG Ischemic Stroke S/p tPA CTA with no LVO, no intervention pursued MRI with left Basal ganglia ischemic stroke with evidence of mild hemorrhagic conversion Repeat CT head 09/24 with stable findings and expected evolution of ischemic stroke Stroke workup: a1c 7.6, LDL 175 Echo technically limited, EF 55% normal left ventricle size, but possible inferolateral akinesis. No hx or evidence of afib 09/26 KERI w/ LVOT echodensity that may be a subaortic membrane, less likely to be a vegetation or thrombus. Etiology: cryptogenic Plan: - continue asa 81mg - LDCF while inpatient; will discharge on metformin 500mg BID - continue lisinopril 10mg daily - continue atorvastatin 80mg - PT/OT/NEIGHBORHOOD WORKER - snf monitor on discharge Stroke risk factor modification - optimize BP, goal SBP<140mmHg - optimize blood sugar, goal HbA1c<7 - optimize lipids, goal LDL<100 (or <70 if HbA1c>7) - Tobacco cessation - ASA compliance - Rehab to follow up with the patient 09/30, appreciate insight and expertise regarding disposition planning and post-stroke rehabilitation - Plan for event monitor at discharge UTI Continue cefpodoxime 100mg BID 09/26-09/30 HTN Non-adherent with machine captain therapies - continue lisinopril 10mg daily HLD LDL 176 - continueatorvastatin to 80mg Constipation - continue milk of magnesia, senokot, docusate - BM achieved with milk of molasses enema Morbid Obesity CTM Weight loss counseling when appropriate FEN: no IVF; replace electrolytes as needed; full liquid diet PPx: heparin Code: FULL Disposition: possible discharge to IPR vs SNF when appropriate from case management standpoint Patient seen an discussed with Dr. Mcleod Subjective Vidhi Andrea is a 63 y.o. female. Patient with no acute events overnight. Seems to be following commands even better today. No new issues or concerns. Medications Scheduled Meds: aspirin chewable tablet 81 mg 81 mg Oral QDAY atorvastatin (LIPITOR) tablet 80 mg 80 mg Oral QDAY cefpodoxime (VANTIN) tablet 100 mg 100 mg Oral BID docusate (COLACE) capsule 100 mg 100 mg Oral BID heparin (porcine) PF syringe 5,000 Units 5,000 Units Subcutaneous Q8H insulin aspart U-100 (NOVOLOG FLEXPEN) injection PEN 0-7 Units 0-7 Units Subcutaneous 5 X Day lisinopril (PRINIVIL; ZESTRIL) tablet 10 mg 10 mg Oral QDAY milk of magnesia (CONC) oral suspension 10 mL 10 mL Oral QDAY senna/docusate (SENOKOT-S) tablet 1 tablet 1 tablet Oral BID Continuous Infusions: PRN and Respiratory Meds:pancrelipase 20,000 Units/ sodium bicarbonate 650 mg(# ) PRN (Clean Rice Grader And Reel Tender from Rx) Objective Vital Signs: Last Filed Vital Signs: 24 Hour Range BP: 140/75 (09/29 1400) Temp: 36.8 C (98.3 F) (11/10 1400) Pulse: 66 (09/29 1400) Respirations: 16 PER MINUTE (09/29 1400) SpO2: 95 % (09/29 1400) O2 Delivery: None (Room Air) (09/29 1400) BP: (93-147)/(53-75) Temp: [36.3 C (97.4 F)-36.9 C (98.4 F)] Pulse: [58-66] Respirations: [16 PER MINUTE-18 PER MINUTE] SpO2: [95 %-98 %] O2 Delivery: None (Room Air) Vitals: 09/24/18 1011 09/25/18 0601 09/26/18 1700 Weight: 103.6 kg (228 lb 6.3 oz) 103.2 kg (227 lb 8.2 oz) 102.9 kg (226 lb 13.7 oz) Intake/Output Summary: (Last 24 hours) No intake or output data in the 24 hours ending 09/29/18 1632 Stool Occurrence: 1 Physical Exam Neurological: Mental status: Patient is alert, not answering questions of orientation Speech:Expressive aphasia with limited speech and inconsistent command following. CN II-XII: Visual domingo intact to confrontation, PERRL (4->2), EOMI, facial sensation intact. Symmetrical facial movement. Hearing grossly intact. Strong cough, elevates palate, uvula midline. Strong shoulder shrug. Tongue midline. Motor: (R/L) b/l UE/LE 5/5. Normal tone and bulk. No abnormal movement, fasciculation or pronator drift. SA EF EE WE WF FF FE FA TA HF WILLIS HE KF KE DF PF R 4+ 4+ 4+ 4+ 4+ 4+ 4+ 4+ 4+ 4+ 4+ 4+ 4+ 4+ 4+ 4+ L 5 5 5 5 5 5 5 5 5 5 5 5 5 5 5 5 Sensory: withdraws to painful stimuli. Can localize stimuli. Reflexes: (R/L) Bj, Trj, Brj, Knj, Aj. No clonus, gurjit, cross adductor. Babinski negative. Right Left Triceps 2 2 Biceps 2 2 Brachioradialis 2 2 Patella 2 2 Ankle 2 2 Plantar flexor flexor Coordination/ fine movement: coordination grossly intact as she reaches for objects Gait: mild hemiparetic gait Lab Review Pertinent labs reviewed Point of Care Testing (Last 24 hours) POC Glucose (Download): (!) 171 (09/29/18 1143) Radiology and other Diagnostics Review: Pertinent radiology reviewed. Signed Abdi Stock D.O., PGY-4 Neurology Resident Physician Pager [phone] Associated attestation - Jarocho Mcleod MD - 09/29/2018 6:35 PM ELECTRICAL RESEARCH ENGINEER Formatting of this note may be different from the original. ATTESTATION I personally performed the lawson portions of the E/M visit, discussed case with resident and concur with resident documentation of history, physical exam, assessment, and treatment plan unless otherwise noted. I personally reviewed vitals, labs. Pertinent neuroradiological imagings were viewed. L MCA territory scattered infarcts, embolic, will get ANITHA, event monitor on DC, rehab consult Staff name: Jarocho Mcleod MD Date: 09/29/2018 * Rick Acuña - 09/29/2018 4:19 PM ELECTRICAL RESEARCH ENGINEER Shipyard Painter Apprentice Note: Shipyard Painter Apprentice was rounding on the 6th floor of [place]. Pt's door was open and pt was alone and awake. Pt was unable to make conversation. Patient could only manage random sounds and one word responses like "yes" and "no." She did manage an "I don't know" and she told the vice president of brand management, "I love you." The vice president of brand management suspects that was her was of saying she was glad he stopped in. Pt appeared to be in good spirits. Admit Date: 09/22/2018 Date/Time: User: Pager: 09/29/2018 4:21 PM Rick Acuña PCU: 3 * Kenzie Jordan OT - 09/28/2018 4:13 PM ELECTRICAL RESEARCH ENGINEER Formatting of this note may be different from the original. OCCUPATIONAL THERAPY PROGRESS NOTE Patient Name: Vidih Andrea [id number] Admitting Diagnosis: Stroke Past Medical History: Diagnosis Date DMII (diabetes mellitus, type 2) (HCC) HLD (hyperlipidemia) HTN (hypertension) Mobility Progressive Mobility Level: Walk in hallway Distance Walked (feet): 300 ft Level of Assistance: Assist X1 Assistive Device: None Time Tolerated: 11-30 minutes Activity Limited By: Fatigue;Mental Status Variability Subjective Pertinent Dx per Physician: 63yo female h/o HTN, HLD, DM, admitted with left basal ganglia ischemic stroke s/p tPa with mild hemorrhagic conversion Precautions: Standard;Falls Pain / Complaints: Patient agrees to participate in therapy;Patient demonstrates no signs of pain Objective Psychosocial Status: Willing and Cooperative to Participate Prior Function Other Function Comments: Pt unable to provide subjective information due to aphasia. No family present. ADL's Where Assessed: Standing at Sink;In Bathroom Grooming Assist: Minimal Assist Grooming Deficits: Steadying;Verbal Cueing;Supervision/Safety LE Dressing Assist: Maximum Assist LE Dressing Deficits: Don/Doff R Sock;Don/Doff L Sock Functional Transfer Assist: Minimal Assist Functional Transfer Deficits: Steadying;Verbal Cueing;Supervision/Safety Comment: Patient requires moderate assist to correct loss of balance when ambulating in the hallway. Patient is very distractable requiring frequent redirection with increased stimuli. Attempted to have patient sort cards by color and suit. Task required consistent verbal cues with 75% incorrect responses. Activity Tolerance Endurance: 5/5 Endurance Does Not Limit Participation in Activity Sitting Balance: 2+/5 Supports Self w/ 1 UE Cognition Overall Cognitive Status: Impaired Comprehension: Receptive Aphasia Expression: Expressive Aphasia Problem Solving: Cueing to Sequence Task;Direction Following Assist UE AROM Grasp: R Weakened;L Weakened Comment: Generalized weakness UE Strength / Tone Overall Strength / Tone: WFL Able to Perform ADL Tasks Comment: Patient completes bimanual tasks appropraitely. Assessment Assessment: Decreased ADL Status;Decreased Self-Care Trans;Decreased High-Level ADLs;Decreased Endurance;Decreased UE Strength;Decreased Cognition Prognosis: Good;w/Cont OT s/p Acute Discharge Goal Formulation: Patient AM-PAC 6 Clicks Daily Activity Inpatient Putting on and taking off regular lower body clothes?: Total Bathing (Including washing, rinsing, drying): A Lot Toileting, which includes using toilet, bedpan, or urinal: A Lot Putting on and taking off regular upper body clothing: A Lot Taking care of personal grooming such as brushing teeth: A Lot Eating meals?: Total Daily Activity Raw Score: 10 Standardized (t-scale) score: 27.31 CMS 0-100% Score: 74.7 CMS G Code Modifier: CL Plan OT Frequency: 5x/week OT Plan for Next Visit: Duel tasking, high level balance. ADL Goals Patient Will Perform Grooming: Standing at Sink;w/ Minimum Assist Patient Will Perform LE Dressing: w/ Minimum Assist Patient Will Perform Toileting: w/ Minimum Assist Functional Transfer Goals Pt Will Perform All Functional Transfers: Minimum Assist OT Discharge Recommendations OT Discharge Recommendations: Inpatient Setting, Recommend PM&R Consult to address most appropriate level of rehabilitation placement ([phone]). Equipment Recommendations: Too early to be determined Therapist: Kenzie Jordan, OTR/L [id number] Date: 09/28/2018 * Grady Up - 09/28/2018 11:46 AM ELECTRICAL RESEARCH ENGINEER Phlebotomy reported to RN that they were able to obtain one lab from initial stick then Pt moved arm and lost the vein. Phlebotomy reported that Pt would not allow her to stick her arm again to obtain remaining lab. RN went into room to persuade Pt to allow the lab to be drawn. Pt is very aphasic and appeared frustrated phlebotomy offered to come back later to attempt drawing lab again. WCTM. * Monica Lara MS,CCC-NEIGHBORHOOD WORKER - 09/28/2018 10:26 AM ELECTRICAL RESEARCH ENGINEER SPEECH-LANGUAGE PATHOLOGY DAILY TREATMENT NOTE Patient seen 1x this date. Documentation reflects all daily treatment sessions. SUMMARY OF THERAPY SESSION: pt seen for dysphagia and aphasia therapy session. Pt tolerating mechanical soft diet with no overt s/s aspiration. Pt tolerated regular solids with adequate mastication and no pocketing; pt with cough in 1/5 trials then declined further trials. Pt with improved y/n, command following, and improved repetition this date. RECOMMENDATIONS Regular diet with thin liquids Swallow precautions; 100% supervision, small bites/sips, slow rate, check for pocketing PO meds as tolerated NEIGHBORHOOD WORKER will follow for ongoing dysphagia and aphasia management. Ongoing NEIGHBORHOOD WORKER at next level of care Consistent supervision recommended upon discharge as anticipate patient's impaired safety awareness and/or problem solving (or communication) will impact their ability to call for help. Goal : Pt will participate in ongoing assessment of speech/language given minimal cues to participate. Not addressed Comment: not directly targeted Continue to address this goal Goal : Pt will answer simple y/n questions with 70% accuracy, given moderate cues. Not met Comment: pt answered simple y/n questions regarding personal information with 90 % accuracy, a marked improve net as compared to previous sessions. She answered simple y/n questions regarding general information with 80% accuracy and minimal cues Continue goal at this level to ensure accuracy Goal : Pt will follow simple 1-step commands with 60% accuracy, given moderate cues. Met Comment: pt followed 1-step commands independently with 60% accuracy and in the presence of NEIGHBORHOOD WORKER model of target production with 80% accuracy Continue to address this goal Goal : pt will participate in PO trials for purpose of potential diet advancement with adequate mastication and less than 10% overt s/s aspiration. Met Comment: Pt tolerated regular solids with adequate mastication and no pocketing ; pt with cough in 1/5 trials then declined further trials. Continue to address this goal New goal: pt will tolerate regular with thin liquids with adequate mastication and less than 10% overt s/s aspiration Goal not yet addressed as diet just upgraded PLAN / RECOMMENDATIONS: Continue treatment 3x/week and Patient would benefit from further speech therapy post acute hospitalization. Speech Discharge Recommendations: The patient could benefit from further intervention in a/an, Inpatient Setting Speech recommend ongoing assistance for: Safety concerns, Swallow strategies, To maximize communication Therapist: Monica Lara MS,CCC-NEIGHBORHOOD WORKER [id number] Date: 09/28/2018 * Enriqueta Gonsales, PT - 09/28/2018 9:25 AM ELECTRICAL RESEARCH ENGINEER PHYSICAL THERAPY PROGRESS NOTE MOBILITY: Progressive Mobility Level: Walk in hallway Distance Walked (feet): 300 ft Level of Assistance: Assist X1 Assistive Device: None Time Tolerated: 11-30 minutes Activity Limited By: Fatigue;Mental Status Variability SUBJECTIVE: Significant hospital events: 63yo female h/o HTN, HLD, DM, admitted with left basal ganglia ischemic stroke s/p tPa with mild hemorrhagic conversion. Mental / Cognitive Status: Alert;Cooperative;Inconsistent with Command Following (due to aphasia) Pain: Patient demonstrates no signs of pain Comments: Pt able to state yes or no, count to 10 today. BED MOBILITY/TRANSFERS: Transfer Type: Sit to/from Stand Transfer: Assistance Level: To/From;Standby Assist;Bed Side Chair Transfer: Assistive Device: None Transfers: Type Of Assistance: For Balance;For Safety Considerations End Of Activity Status: Up in Chair;Instructed Patient to Request Assist with Mobility;Nursing Notified;Instructed Patient to Use Call Light (tabs alarm in place. ) Comments: Patient provided with extended education on use of call light and fall risk precations. Patient able to demonstrate pushing call light following educaiton, however unsure of true understanding due to aphasia. BALANCE: Comments: Attempted to complete vicente, however patient unable to follow commands despite demonstration for proper testing. GAIT: Gait Distance: 350 feet Gait: Assistance Level: Minimal Assist Gait: Assistive Device: None Gait: Descriptors: Pace: Slow;Normal step length;Pathway deviations Comments: R inattention noted - pt running into thomas on right side x2. Activity Limited By: Complaint of Fatigue Comments: Patient declines attempting stairs this date. ACTIVITY/EXERCISE: Comments: Seated balance at edge of mat while performing balloon batting with RUE and LUE. Patient able to follow commands for switching hands and demonstrates good dynmaic sitting balance. Attempted training for alternating toe taps to 6 inch step, however patient unable to perform and begins to perseverate on counting out loud. EDUCATION: Persons Educated: Patient Patient Barriers To Learning: Impaired Communication (aphasia) Interventions: Repetition of Instructions;Demonstration Provided Teaching Methods: Verbal Instruction;Demonstration Patient Response: More Instruction Required Topics: Plan/Goals of PT Interventions;Mobility Progression;Safety Awareness;Up with Assist Only;Importance of Increasing Activity;Recommend Continued Therapy ASSESSMENT/PROGRESS: Impaired Mobility Due To: Impaired Balance;Safety Concerns;Decreased Activity Tolerance Assessment/Progress: Should Improve w/ Continued PT AM-PAC 6 Clicks Basic Mobility Inpatient Turning from your back to your side while in a flat bed without using bed rails : None Moving from lying on your back to sitting on the side of a flatbed without using bedrails : A Little Moving to and from a bed to a chair (including a wheelchair): A Little Standing up from a chair using your arms (e.g. wheelchair, or bedside chair): A Little To walk in hospital room: A Little Climbing 3-5 steps with a railing: A Little Raw Score: 19 Standardized (T-scale) Score: 42.48 Basic Mobility [facility] 0-100%: 36.99 [facility] G Code Modifier for Basic Mobility: CJ GOALS: Goal Formulation: With Patient, Patient Unable to Participate in Goal Setting Time For Goal Achievement: 5 days, To, 7 days Pt Will Go Supine To/From Sit: w/ Minimal Assist Pt Will Transfer Bed/Chair: w/ Minimal Assist Pt Will Transfer Sit to Stand: w/ Minimal Assist Pt Will Ambulate: 51-100 Feet, w/ Minimal Assist PLAN: Treatment Interventions: Mobility Training;Strengthening;Balance Activities; Endurance Training;Neuromuscular Reeducation Plan Frequency: 5 Days per Week PT Plan for Next Visit: Test balance; trial stairs? RECOMMENDATIONS: PT Discharge Recommendations: Inpatient Setting;Recommend Physical Medicine and Rehabilitation Consult to address most appropriate level of rehabilitation placement Therapist: Enriqueta Gonsales, PT Date: 09/28/2018 * Shaun Best MD - 09/28/2018 9:05 AM ELECTRICAL RESEARCH ENGINEER Formatting of this note may be different from the original. Neurology Progress Note Name: Vidhi Andrea Today's Date: 09/28/2018 Admission Date: 09/22/2018 LOS: 6 days Assessment/Plan: Active Problems: Stroke (cerebrum) (HCC) DMII (diabetes mellitus, type 2) (HCC) HLD (hyperlipidemia) HTN (hypertension) Dysphagia Morbid obesity (HCC) Vidhi Valera a 63 y.o.femalewith DMII, HLD, HTN transferred from OSH for right sided weakness, aphasia and found to have a left basal ganglia ischemic stroke. L BG Ischemic stroke S/p tPA CTA with no LVO, no intervention pursued MRI with left Basal ganglia ischemic stroke with evidence of mild hemorrhagic conversion Repeat CT head 09/24 with stable findings and expected evolution of ischemic stroke Stroke workup: a1c 7.6, LDL 175 Echo technically limited, EF 55% normal left ventricle size, but possible inferolateral akinesis. No hx or evidence of afib 09/26 KERI w/ LVOT echodensity that may be a subaortic membrane, less likely to be a vegetation or thrombus. Etiology: cryptogenic Plan: - continue asa 81mg - LDCF while inpatient; will discharge on metformin 500mg BID - continue lisinopril 10mg daily - continue atorvastatin 80mg - PT/OT/NEIGHBORHOOD WORKER - snf monitor on discharge Stroke risk factor modification - optimize BP, goal SBP<140mmHg - optimize blood sugar, goal HbA1c<7 - optimize lipids, goal LDL<100 (or <70 if HbA1c>7) - Tobacco cessation - ASA compliance UTI Continue cefpodoxime 100mg BID 09/26-09/30 HTN Non-adherent with machine captain therapies - continue lisinopril 10mg daily HLD LDL 176 - continueatorvastatin to 80mg Constipation - continue milk of magnesia, senokot, docusate - BM achieved with milk of molasses enema Morbid Obesity CTM FEN: no IVF; replace electrolytes as needed; full liquid diet PPx: heparin Code: FULL Disposition: discharge to [facility] when suitable. Patient seen and discussed with Dr. Patton. Subjective Vidhi Andrea is a 63 y.o. female. Patient with no acute overnight events. She continues to improve over the days; she appears to follow commands better today. Medications Scheduled Meds: aspirin chewable tablet 81 mg 81 mg Oral QDAY atorvastatin (LIPITOR) tablet 80 mg 80 mg Oral QDAY cefpodoxime (VANTIN) tablet 100 mg 100 mg Oral BID docusate (COLACE) capsule 100 mg 100 mg Oral BID heparin (porcine) PF syringe 5,000 Units 5,000 Units Subcutaneous Q8H insulin aspart U-100 (NOVOLOG FLEXPEN) injection PEN 0-7 Units 0-7 Units Subcutaneous 5 X Day lisinopril (PRINIVIL; ZESTRIL) tablet 10 mg 10 mg Oral QDAY milk of magnesia (CONC) oral suspension 10 mL 10 mL Oral QDAY senna/docusate (SENOKOT-S) tablet 1 tablet 1 tablet Oral BID Continuous Infusions: PRN and Respiratory Meds:pancrelipase 20,000 Units/ sodium bicarbonate 650 mg(# ) PRN (Clean Rice Grader And Reel Tender from Rx) Objective Vital Signs: Last Filed Vital Signs: 24 Hour Range BP: 150/71 (09/28 555) Temp: 36.9 C (98.4 F) (09/28 555) Pulse: 66 (09/28 555) Respirations: 18 PER MINUTE (09/28 555) SpO2: 92 % (09/28 555) O2 Delivery: None (Room Air) (09/28 555) BP: (115-150)/(56-71) Temp: [36.7 C (98 F)-36.9 C (98.4 F)] Pulse: [59-70] Respirations: [16 PER MINUTE-18 PER MINUTE] SpO2: [92 %-96 %] O2 Delivery: None (Room Air) Vitals: 09/24/18 1011 11/06/60009/26/18 1700 Weight: 103.6 kg (228 lb 6.3 oz) 103.2 kg (227 lb 8.2 oz) 102.9 kg (226 lb 13.7 oz) Intake/Output Summary: (Last 24 hours) Intake/Output Summary (Last 24 hours) at 09/28/18 09 Last data filed at 09/28/18 0400 Gross per 24 hour Intake 0 ml Output 0 ml Net 0 ml Stool Occurrence: 0 Physical Exam Neurological: Mental status: Patient is alert, not answering questions of orientation Speech:Expressive aphasia with limited speech and inconsistent command following. CN II-XII: Visual domingo intact to confrontation, PERRL (4->2), EOMI, facial sensation intact. Symmetrical facial movement. Hearing grossly intact. Strong cough, elevates palate, uvula midline. Strong shoulder shrug. Tongue midline. Motor: (R/L) b/l UE/LE 5/5. Normal tone and bulk. No abnormal movement, fasciculation or pronator drift. SA EF EE WE WF FF FE FA TA HF WILLIS HE KF KE DF PF R 4+ 4+ 4+ 4+ 4+ 4+ 4+ 4+ 4+ 4+ 4+ 4+ 4+ 4+ 4+ 4+ L 5 5 5 5 5 5 5 5 5 5 5 5 5 5 5 5 Sensory: withdraws to painful stimuli. Can localize stimuli. Reflexes: (R/L) Bj, Trj, Brj, Knj, Aj. No clonus, gurjit, cross adductor. Babinski negative. Right Left Triceps 2 2 Biceps 2 2 Brachioradialis 2 2 Patella 2 2 Ankle 2 2 Plantar flexor flexor Coordination/ fine movement: coordination grossly intact as she reaches for objects Gait: mild hemiparetic gait Lab Review Pertinent labs reviewed Point of Care Testing (Last 24 hours) POC Glucose (Download): (!) 145 (09/28/18 0742) Radiology and other Diagnostics Review: Pertinent radiology reviewed. Shaun Best MD Neurology PGY-4 Pager Neurology construction technician pager [phone] Associated attestation - Porfirio Patton DO - 09/28/2018 12:24 PM ELECTRICAL RESEARCH ENGINEER Formatting of this note may be different from the original. ATTESTATION I personally performed the lawson portions of the E/M visit, discussed case with resident and concur with resident documentation of history, physical exam, assessment, and treatment plan unless otherwise noted. Staff name: Porfirio Patton, Date: 09/28/2018 * Shaun Best MD - 09/27/2018 3:34 PM ELECTRICAL RESEARCH ENGINEER Formatting of this note may be different from the original. Neurology Progress Note Name: Vidhi Andrea Today's Date: 09/27/2018 Admission Date: 09/22/2018 LOS: 5 days Assessment/Plan: Active Problems: Stroke (cerebrum) (HCC) DMII (diabetes mellitus, type 2) (HCC) HLD (hyperlipidemia) HTN (hypertension) Dysphagia Morbid obesity (HCC) Vidhi Valera a 63 y.o.femalewith DMII, HLD, HTN transferred from OSH for right sided weakness, aphasia and found to have a left basal ganglia ischemic stroke. L BG Ischemic stroke S/p tPA CTA with no LVO, no intervention pursued MRI with left Basal ganglia ischemic stroke with evidence of mild hemorrhagic conversion Repeat CT head 09/24 with stable findings and expected evolution of ischemic stroke Stroke workup: a1c 7.6, LDL 175 Echo technically limited, EF 55% normal left ventricle size, but possible inferolateral akinesis. No hx or evidence of afib 09/26 KERI w/ LVOT echodensity that may be a subaortic membrane, less likely to be a vegetation or thrombus. Etiology: cryptogenic Plan: - continue asa 81mg - LDCF while inpatient; will discharge on metformin 500mg BID - continue lisinopril 10mg daily - increase atorvastatin to 80mg - PT/OT/NEIGHBORHOOD WORKER - snf monitor on discharge Stroke risk factor modification - optimize BP, goal SBP<140mmHg - optimize blood sugar, goal HbA1c<7 - optimize lipids, goal LDL<100 (or <70 if HbA1c>7) - Tobacco cessation - ASA compliance HTN Non-adherent with machine captain therapies - continue lisinopril 10mg daily HLD LDL 176 - increaseatorvastatin to 80mg Constipation - continue milk of magnesia, senokot, docusate - no BMs, will attempt milk of molasses enema Morbid Obesity CTM FEN: no IVF; replace electrolytes as needed; full liquid diet PPx: heparin Code: FULL Disposition: discharge to [facility] when suitable. Patient seen and discussed with Dr. Patton. Subjective Vidhi Andrea is a 63 y.o. female. Patient with no acute overnight events. Continues to be aphasic, but following commands more consistently today. Medications Scheduled Meds: aspirin chewable tablet 81 mg 81 mg Oral QDAY atorvastatin (LIPITOR) tablet 80 mg 80 mg Oral QDAY cefpodoxime (VANTIN) tablet 100 mg 100 mg Oral BID docusate (COLACE) capsule 100 mg 100 mg Oral BID heparin (porcine) PF syringe 5,000 Units 5,000 Units Subcutaneous Q8H insulin aspart U-100 (NOVOLOG FLEXPEN) injection PEN 0-7 Units 0-7 Units Subcutaneous 5 X Day lisinopril (PRINIVIL; ZESTRIL) tablet 10 mg 10 mg Oral QDAY milk of magnesia (CONC) oral suspension 10 mL 10 mL Oral QDAY senna/docusate (SENOKOT-S) tablet 1 tablet 1 tablet Oral BID Continuous Infusions: PRN and Respiratory Meds:pancrelipase 20,000 Units/ sodium bicarbonate 650 mg(# ) PRN (Clean Rice Grader And Reel Tender from Rx) Objective Vital Signs: Last Filed Vital Signs: 24 Hour Range BP: 144/70 (09/27 936) Temp: 36.7 C (98 F) (09/27 936) Pulse: 70 (09/27 936) Respirations: 17 PER MINUTE (09/27 936) SpO2: 93 % (09/27 936) O2 Delivery: None (Room Air) (09/27 936) SpO2 Pulse: 71 (09/26 1600) Height: 160 cm (62.99") (09/26 1700) BP: (115-148)/(57-75) Temp: [36.4 C (97.5 F)-36.9 C (98.5 F)] Pulse: [56-71] Respirations: [17 PER MINUTE-22 PER MINUTE] SpO2: [93 %-95 %] O2 Delivery: None (Room Air) Vitals: 09/24/18 1011 09/25/18 0601 09/26/18 1700 Weight: 103.6 kg (228 lb 6.3 oz) 103.2 kg (227 lb 8.2 oz) 102.9 kg (226 lb 13.7 oz) Intake/Output Summary: (Last 24 hours) Intake/Output Summary (Last 24 hours) at 09/27/18 1534 Last data filed at 09/27/18 0400 Gross per 24 hour Intake 470 ml Output 360 ml Net 110 ml Stool Occurrence: 0 Physical Exam Neurological: Mental status: Patient is alert, not answering questions of orientation Speech:Receptive aphasia with evidence of frustration suggestive of expressive component, although following commands more consistently today. CN II-XII: Visual domingo intact to confrontation, PERRL (4->2), EOMI, facial sensation intact. Symmetrical facial movement. Hearing grossly intact. Strong cough, elevates palate, uvula midline. Strong shoulder shrug. Tongue midline. Motor: (R/L) b/l UE/LE 5/5. Normal tone and bulk. No abnormal movement, fasciculation or pronator drift. SA EF EE WE WF FF FE FA TA HF WILLIS HE KF KE DF PF R 4 4 4 4 4 4 4 4 4 4 4 4 4 4 4 4 L 5 5 5 5 5 5 5 5 5 5 5 5 5 5 5 5 Sensory: withdraws to painful stimuli Reflexes: (R/L) Bj, Trj, Brj, Knj, Aj. No clonus, gurjit, cross adductor. Babinski negative. Right Left Triceps 2 2 Biceps 2 2 Brachioradialis 2 2 Patella 2 2 Ankle 2 2 Plantar flexor flexor Coordination/ fine movement: coordination grossly intact as she reaches for objects; unable to follow commands d/t receptive aphasia Gait: mild hemiparetic gait; 1 person assist Lab Review Pertinent labs reviewed Point of Care Testing (Last 24 hours) POC Glucose (Download): (!) 170 (09/27/18 1201) Radiology and other Diagnostics Review: Pertinent radiology reviewed. Shaun Best MD Neurology PGY-4 Pager Neurology construction technician pager [phone] Associated attestation - Porfirio Patton DO - 09/28/2018 8:03 AM ELECTRICAL RESEARCH ENGINEER Formatting of this note may be different from the original. ATTESTATION I personally performed the lawson portions of the E/M visit, discussed case with resident and concur with resident documentation of history, physical exam, assessment, and treatment plan unless otherwise noted. Staff name: Porfirio Patton, DO Date: 09/28/2018 * Dari Jones, PT - 09/27/2018 3:23 PM ELECTRICAL RESEARCH ENGINEER PHYSICAL THERAPY PROGRESS NOTE MOBILITY: Mobility Progressive Mobility Level: Walk laps Distance Walked (feet): 500 ft Level of Assistance: Assist X1 Assistive Device: None Time Tolerated: 11-30 minutes Activity Limited By: Fatigue SUBJECTIVE: Subjective Significant hospital events: 63yo female h/o HTN, HLD, DM, admitted with left basal ganglia ischemic stroke s/p tPa with mild hemorrhagic conversion. Mental / Cognitive Status: Alert;Cooperative;Inconsistent with Command Following (due to aphasia) Pain: Patient demonstrates no signs of pain Comments: Pt able to state yes or no today. BED MOBILITY/TRANSFERS: Bed Mobility/Transfers Bed Mobility: Supine to Sit: Standby Assist;Head of Bed Elevated;No Rail Bed Mobility: Sit to Supine: Standby Assist;HOB Elevated;No Rail Transfer Type: Sit to/from Stand Transfer: Assistance Level: To/From;Bed;Standby Assist Transfer: Assistive Device: None Transfers: Type Of Assistance: For Balance;For Safety Considerations End Of Activity Status: In Bed;Nursing Notified;Instructed Patient to Request Assist with Mobility;Instructed Patient to Use Call Light (bed alarm on) BALANCE: Balance 4 Item Dynamic Gait Index: Assessed Gait Level Surface: 3 - Normal: Walks 20', no assistive devices, good speed, no evidence for imbalance, normal gait pattern Change in Gait Speed: 3 - Normal: Able to smoothly change walking speed without loss of balance or gait deviation. Shows a significant difference in walking speeds between normal, fast and slow speeds. Gait with Horizontal Head Turns: 1 - Moderate Impairment: Performs head turns with moderate change in gait velocity, slows down, staggers but recovers, can continue to walk. Gait with Vertical Head Turns: 2 - Mild Impairment: Performs head turns smoothly with slight change in gait velocity, ie., minor disruption to smooth gait path or uses walking aid. 4 Dynamic Gait Index Total : 9 out of 12 4 Dynamic Gait Index Fall Risk: Less than 10 - Increased Risk for Falls GAIT: Gait Gait Distance: 500 feet Gait: Assistance Level: Minimal Assist Gait: Assistive Device: None Gait: Descriptors: Pace: Slow;Normal step length;Pathway deviations Comments: R inattention noted - pt running into thomas on right side x2. Activity Limited By: Complaint of Fatigue EDUCATION: Education Persons Educated: Patient Patient Barriers To Learning: Impaired Communication (aphasia) Interventions: Repetition of Instructions;Demonstration Provided Teaching Methods: Verbal Instruction;Demonstration Patient Response: More Instruction Required Topics: Plan/Goals of PT Interventions;Mobility Progression;Safety Awareness;Up with Assist Only;Importance of Increasing Activity;Recommend Continued Therapy ASSESSMENT/PROGRESS: Assessment/Progress Impaired Mobility Due To: Impaired Balance;Safety Concerns;Decreased Activity Tolerance Assessment/Progress: Should Improve w/ Continued PT AM-PAC 6 Clicks Basic Mobility Inpatient Turning from your back to your side while in a flat bed without using bed rails : None Moving from lying on your back to sitting on the side of a flatbed without using bedrails : A Little Moving to and from a bed to a chair (including a wheelchair): A Little Standing up from a chair using your arms (e.g. wheelchair, or bedside chair): A Little To walk in hospital room: A Little Climbing 3-5 steps with a railing: A Little Raw Score: 19 Standardized (T-scale) Score: 42.48 Basic Mobility CMS 0-100%: 36.99 CMS G Code Modifier for Basic Mobility: CJ GOALS: Goals Goal Formulation: With Patient, Patient Unable to Participate in Goal Setting Time For Goal Achievement: 5 days, To, 7 days Pt Will Go Supine To/From Sit: w/ Minimal Assist Pt Will Transfer Bed/Chair: w/ Minimal Assist Pt Will Transfer Sit to Stand: w/ Minimal Assist Pt Will Ambulate: 51-100 Feet, w/ Minimal Assist PLAN: Plan Treatment Interventions: Mobility Training;Strengthening;Balance Activities; Endurance Training;Neuromuscular Reeducation Plan Frequency: 5 Days per Week PT Plan for Next Visit: Test balance; trial stairs? RECOMMENDATIONS: PT Discharge Recommendations PT Discharge Recommendations: Inpatient Setting;Recommend Physical Medicine and Rehabilitation Consult to address most appropriate level of rehabilitation placement Therapist: Dari Joens, PT Date: 09/27/2018 * Evangelina Bender - 09/27/2018 11:03 AM ELECTRICAL RESEARCH ENGINEER CLINICAL NUTRITION Clinical Nutrition Follow-Up Summary NAME:Vidhi Andrea :1955 AGE: 63 y.o. ADMISSION DATE: 09/22/2018 DAYS ADMITTED: LOS: 5 days Nutrition Assessment of Patient: Malnutrition Assessment: Does not meet criteria Current Oral Intake: Improving Estimated Calorie Needs: 2796-5947 (25-30 kcal/kg desired wt) Estimated Protein Needs: 75-90 (1.2-1.4g/kg desired wt) Oral Diet Order: Mechanical Soft Oral Supplement: Boost Glucose Control, TID 63 yo F with PMH of HLD, HTN, DM, obesity transferred to after receiving tPA for right facial droop and right sided weakness with mild hemorrhagic conversion. See RD note from 09/24 for subjective information/nutritional Hx. Pt received EN via corpak from 09/23-09/26. Corpak was pulled on 09/26 during KERI and NEIGHBORHOOD WORKER performed bedside swallow eval and recommended mechanical soft diet order and today recommended regular diet/thin liquids. Per meal documentation, pt consumed a minimal amount of her meals yesterday, but she did consume oral nutrition supplements (type not documented) per I/Os. Will begin strawberry boost glucose control as RD learned pt likes strawberry boost. Noted that A1c was 7.6%, LDL 175, BMI 40. However, pt is not appropriate for stroke nutrition therapy at this time d/t aphasia and plans to d/c to a facility. Recommendation: Continue diet textures/consistencies per NEIGHBORHOOD WORKER recs. Once advanced to regular textures, recommend carb controlled (60gm/meal) + cardiac diet order. Intervention / Plan: Ordered boost glucose control BID with meals. Monitor PO intakes, weight trends, labs, meds, GI health. Nutrition Diagnosis: Altered GI function Etiology: swallowing deficits s/p stroke Signs & Symptoms: NEIGHBORHOOD WORKER findings, need for mechanical soft diet Goals: EN tolerated and meeting >75% of nutritional needs Time Frame: Within 72 Hours Status: Partially met;no longer appropriate (EN d/c'd on 09/26) Patient to consume >75% of meals/supplements Time Frame: Within [address], LD Pager: [phone] * Kenzie Jordan, KAIN - 09/27/2018 11:00 AM ELECTRICAL RESEARCH ENGINEER Formatting of this note may be different from the original. OCCUPATIONAL THERAPY PROGRESS NOTE Patient Name: Vidhi Andrea Room/Bed: [place] [address] Admitting Diagnosis: Stroke Past Medical History: Diagnosis Date DMII (diabetes mellitus, type 2) (HCC) HLD (hyperlipidemia) HTN (hypertension) Mobility Progressive Mobility Level: Walk in room Distance Walked (feet): 25 ft Level of Assistance: Assist X1 Assistive Device: None Time Tolerated: 11-30 minutes Activity Limited By: Fatigue;Mental Status Variability Subjective Pertinent Dx per Physician: 63yo female h/o HTN, HLD, DM, admitted with left basal ganglia ischemic stroke s/p tPa with mild hemorrhagic conversion Precautions: Standard;Falls Pain / Complaints: Patient demonstrates no signs of pain Objective Psychosocial Status: Willing and Cooperative to Participate Prior Function Other Function Comments: Pt unable to provide subjective information due to aphasia. No family present. Vision Comment: Mild right side inattention however attends with verbal cues and prompts. ADL's Where Assessed: Standing at Sink;In Bathroom Grooming Assist: Minimal Assist Grooming Deficits: Steadying;Verbal Cueing;Supervision/Safety;Teeth Care Bathing Assist: Maximum Assist Bathing Deficits: Verbal Cueing;Supervision/Safety;Perineal Area;Buttocks;L Lower Leg Including Foot;R Lower Leg Including Foot LE Dressing Assist: Maximum Assist LE Dressing Deficits: Don/Doff R Sock;Don/Doff L Sock Toileting Assist: Total Assist Toileting Deficits: Clothing Management Up;Clothing Management Down Functional Transfer Assist: Minimal Assist Functional Transfer Deficits: Steadying;Verbal Cueing;Supervision/Safety Comment: Patient requires verbal cues for initiation and thoroughness during bathing task. Patient with improved receptive aphasia and improved yes/ no answers. Activity Tolerance Endurance: 5/5 Endurance Does Not Limit Participation in Activity Sitting Balance: 2+/5 Supports Self w/ 1 UE Cognition Overall Cognitive Status: Impaired Comprehension: Receptive Aphasia Expression: Expressive Aphasia Problem Solving: Cueing to Sequence Task;Direction Following Assist Cognition Comment: Patient able to say "sock" without verbal physical prompts or mimic. UE AROM Grasp: R Weakened;L Weakened Comment: Generalized weakness UE Strength / Tone Overall Strength / Tone: WFL Able to Perform ADL Tasks Assessment Assessment: Decreased ADL Status;Decreased Self-Care Trans;Decreased High-Level ADLs;Decreased Endurance;Decreased UE Strength;Decreased Cognition Prognosis: Good;w/Cont OT s/p Acute Discharge Goal Formulation: Patient AM-PAC 6 Clicks Daily Activity Inpatient Putting on and taking off regular lower body clothes?: Total Bathing (Including washing, rinsing, drying): A Lot Toileting, which includes using toilet, bedpan, or urinal: A Lot Putting on and taking off regular upper body clothing: A Lot Taking care of personal grooming such as brushing teeth: A Lot Eating meals?: Total Daily Activity Raw Score: 10 Standardized (t-scale) score: 27.31 CMS 0-100% Score: 74.7 CMS G Code Modifier: CL Plan OT Frequency: 5x/week OT Plan for Next Visit: Duel tasking, naming ADL Goals Patient Will Perform Grooming: Standing at Sink;w/ Minimum Assist Patient Will Perform LE Dressing: w/ Minimum Assist Patient Will Perform Toileting: w/ Minimum Assist Functional Transfer Goals Pt Will Perform All Functional Transfers: Minimum Assist OT Discharge Recommendations OT Discharge Recommendations: Inpatient Setting, Recommend PM&R Consult to address most appropriate level of rehabilitation placement ([phone]). Equipment Recommendations: Too early to be determined Therapist: ANIL Slater/Chantale [id number] Date: 09/27/2018 * Monica Lara MS,CCC-NEIGHBORHOOD WORKER - 09/27/2018 10:24 AM ELECTRICAL RESEARCH ENGINEER SPEECH-LANGUAGE PATHOLOGY DAILY TREATMENT NOTE Patient seen 1x this date. Documentation reflects all daily treatment sessions. SUMMARY OF THERAPY SESSION: pt seen for dysphagia and aphasia therapy session. Pt tolerating mechanical soft diet with no overt s/s aspiration. Pt tolerated regular solids with adequate mastication, no pocketing, and no overt s/s aspiration. Pt with improved y/n, command following, and improved repetition this date. RECOMMENDATIONS Regular diet with thin liquids Swallow precautions; 100% supervision, small bites/sips, slow rate, check for pocketing PO meds as tolerated NEIGHBORHOOD WORKER will follow for ongoing dysphagia and aphasia management. Ongoing NEIGHBORHOOD WORKER at next level of care Consistent supervision recommended upon discharge as anticipate patient's impaired safety awareness and/or problem solving (or communication) will impact their ability to call for help. Goal : Pt will participate in ongoing assessment of speech/language given minimal cues to participate. Met Comment: Repetition at word level with 90% accuracy and at simple sentence level with 70% accuracy. Automatic speech intact for counting 1-5 with minimal cues to initiate and for days of the week with minimal cues. She completed open ended phrases with closed set responses incorporating opposites with over 90% accuracy, a marked improvement as compared to previous sessions. She completed open ended phrases with more open set responses with 40% accuracy independently , increasing to 70% accuracy with moderate cues. Pt benefiting from phonemic and semantic cues this date. Continue to address this goal Goal : Pt will answer simple y/n questions with 70% accuracy, given moderate cues. Not met Comment: pt answered simple y/n questions regarding personal information with 70 % accuracy, a marked improve net as compared to previous sessions. Continue to address this goal Goal : Pt will follow simple 1-step commands with 60% accuracy, given moderate cues. Partly met Comment: pt followed 1-step commands independently with 40% accuracy and in the presence of NEIGHBORHOOD WORKER model of target production with 60% accuracy Continue to address this goal Goal : pt will participate in PO trials for purpose of potential diet advancement with adequate mastication and less than 10% overt s/s aspiration. Met Comment: Pt tolerated regular solids with adequate mastication and no overt s/s aspiration. No significant pocketing/residue. Pt with sparse dentition. Pt reportedly does not wear dentures at baseline and tolerates regular solids at baseline Continue to address this goal New goal: pt will tolerate regular with thin liquids with adequate mastication and less than 10% overt s/s aspiration PLAN / RECOMMENDATIONS: Continue treatment 3x/week and Patient would benefit from further speech therapy post acute hospitalization. Speech Discharge Recommendations: The patient could benefit from further intervention in a/an, Inpatient Setting Speech recommend ongoing assistance for: Safety concerns, Swallow strategies, To maximize communication Therapist: Monica Lara MS,[facility]-NEIGHBORHOOD WORKER [id number] Date: 09/27/2018 * Edison Chong, RT - 09/26/2018 6:00 PM ELECTRICAL RESEARCH ENGINEER RT Adult Assessment Note NAME:Vidhi Andrea :1955 AGE: 63 y.o. ADMISSION DATE: 09/22/2018 DAYS ADMITTED: LOS: 4 days RT Treatment Plan: Protocol Plan: Procedures Oxygen/Humidity: Discontinued Monitoring: Discontinued Additional Comments: Impressions of the patient: patient resting comfortable on RA. No soa noted or endorsed. Breath sounds are clear. Recommendations to the care team: criteria not met Vital Signs: Pulse: Pulse: 64 RR: Respirations: 20 PER MINUTE SpO2: SpO2: 95 % O2 Device: Liter Flow: O2%: O2 Percent: 21 % Breath Sounds: All Breath Sounds: Clear (implies normal) Respiratory Effort: Respiratory Effort: Non-Labored * Dorothea Almeida, RN - 09/26/2018 5:16 PM ELECTRICAL RESEARCH ENGINEER Patient arrived to room # [id number] via wheelchair accompanied by RN. Patient transferred to the bed with assistance. Bedside safety checks completed. Initial patient assessment completed, refer to flowsheet for details. Admission skin assessment completed by: Barbara Almeida RN and ROBINSON Leonard Pressure Injury Present on Hospital Admission (within 24 hours): No 1. Occiput: No 2. Ear: No 3. Scapula: No 4. Spinous Process: No 5. Shoulder: No 6. Elbow: No 7. Iliac Crest: No 8. Sacrum/Coccyx: No 9. Ischial Tuberosity: No 10. Trochanter: No 11. Knee: No 12. Malleolus: No 13. Heel: No 14. Toes: No 15. Assessed for device associated injury Yes 16. Nursing Nutrition Assessment Completed Yes See Doc Flowsheet for additional wound details. INTERVENTIONS: * Kenzie Jordan OT - 09/26/2018 2:46 PM ELECTRICAL RESEARCH ENGINEER Formatting of this note may be different from the original. OCCUPATIONAL THERAPY PROGRESS NOTE Patient Name: Vidhi Andrea Room/Bed: PS3021/01 Admitting Diagnosis: Stroke Past Medical History: Diagnosis Date DMII (diabetes mellitus, type 2) (HCC) HLD (hyperlipidemia) HTN (hypertension) Mobility Progressive Mobility Level: Walk in room Distance Walked (feet): 25 ft Level of Assistance: Assist X1 Assistive Device: None Time Tolerated: 11-30 minutes Activity Limited By: Weakness;Mental Status Variability Subjective Pertinent Dx per Physician: 63yo female h/o HTN, HLD, DM, admitted with left basal ganglia ischemic stroke s/p tPa with mild hemorrhagic conversion Precautions: Standard;Falls Pain / Complaints: Patient demonstrates no signs of pain Objective Psychosocial Status: Willing and Cooperative to Participate Prior Function Other Function Comments: Pt unable to provide subjective information due to aphasia. No family present. Vision Visual Screen Results: Right Sided Edgar-Inattention Comment: Mild right side inattention however attends with verbal cues and prompts. ADL's Where Assessed: Standing at Sink;In Bathroom Grooming Assist: Minimal Assist Grooming Deficits: Steadying;Verbal Cueing;Supervision/Safety;Teeth Care LE Dressing Assist: Maximum Assist LE Dressing Deficits: Don/Doff R Sock;Don/Doff L Sock Toileting Assist: Total Assist Toileting Deficits: Clothing Management Up;Clothing Management Down;Perineal Hygiene Functional Transfer Assist: Moderate Assist Functional Transfer Deficits: Steadying;Verbal Cueing;Supervision/Safety Comment: Patient standing at sink to complete grooming requiring verbal cues for completion of task. Patient with improved yes/ no commands this date. Pt continues to require maximum assist for toiletig. Activity Tolerance Endurance: 5/5 Endurance Does Not Limit Participation in Activity Sitting Balance: 2+/5 Supports Self w/ 1 UE Comment: Patient demonstrates good activity tolerance for therapy. Cognition Overall Cognitive Status: Impaired Comprehension: Receptive Aphasia Expression: Expressive Aphasia Problem Solving: Cueing to Sequence Task;Direction Following Assist UE AROM Grasp: R Weakened;L Weakened Comment: Generalized weakness UE Strength / Tone Overall Strength / Tone: WFL Able to Perform ADL Tasks Assessment Assessment: Decreased ADL Status;Decreased Self-Care Trans;Decreased High-Level ADLs;Decreased Endurance;Decreased UE Strength;Decreased Cognition Prognosis: Good;w/Cont OT s/p Acute Discharge Goal Formulation: Patient AM-PAC 6 Clicks Daily Activity Inpatient Putting on and taking off regular lower body clothes?: Total Bathing (Including washing, rinsing, drying): A Lot Toileting, which includes using toilet, bedpan, or urinal: A Lot Putting on and taking off regular upper body clothing: A Lot Taking care of personal grooming such as brushing teeth: A Lot Eating meals?: Total Daily Activity Raw Score: 10 Standardized (t-scale) score: 27.31 CMS 0-100% Score: 74.7 CMS G Code Modifier: CL Plan OT Frequency: 5x/week OT Plan for Next Visit: Consistent command following. ADL Goals Patient Will Perform Grooming: Standing at Sink;w/ Minimum Assist Patient Will Perform LE Dressing: w/ Minimum Assist Patient Will Perform Toileting: w/ Minimum Assist Functional Transfer Goals Pt Will Perform All Functional Transfers: Minimum Assist OT Discharge Recommendations OT Discharge Recommendations: Inpatient Setting, Recommend PM&R Consult to address most appropriate level of rehabilitation placement ([phone]). Equipment Recommendations: Too early to be determined Therapist: ANIL Slater/Chantale [id number] Date: 09/26/2018 * Dari Jones, PT - 09/26/2018 2:23 PM ELECTRICAL RESEARCH ENGINEER PHYSICAL THERAPY PROGRESS NOTE MOBILITY: Mobility Progressive Mobility Level: Walk laps Distance Walked (feet): 300 ft Level of Assistance: Assist X1 Assistive Device: None Time Tolerated: 11-30 minutes Activity Limited By: Mental Status Variability;Fatigue SUBJECTIVE: Subjective Significant hospital events: 63yo female h/o HTN, HLD, DM, admitted with left basal ganglia ischemic stroke s/p tPa with mild hemorrhagic conversion. Mental / Cognitive Status: Alert;Cooperative;Inconsistent with Command Following (due to aphasia) Pain: Patient demonstrates no signs of pain Comments: Pt uses more words today; still sometimes inaccurate due to aphasia. She is able to follow more verbal commands today. BED MOBILITY/TRANSFERS: Bed Mobility/Transfers Transfer Type: Sit to/from Stand Transfer: Assistance Level: To/From;Bed Side Chair;Standby Assist Transfer: Assistive Device: None Transfers: Type Of Assistance: For Balance;For Safety Considerations End Of Activity Status: Up in Chair;Nursing Notified;Instructed Patient to Request Assist with Mobility;Instructed Patient to Use Call Light (pads alarm activated) GAIT: Gait Gait Distance: 300 feet Gait: Assistance Level: Minimal Assist Gait: Assistive Device: None Gait: Descriptors: Pace: Slow;Normal step length;Loss of balance;Pathway deviations Comments: R inattention noted - pt running into thomas on right side. Activity Limited By: Complaint of Fatigue EDUCATION: Education Persons Educated: Patient Patient Barriers To Learning: Cognitive Deficits;Impaired Communication (aphasia ) Interventions: Repetition of Instructions;Demonstration Provided Teaching Methods: Verbal Instruction;Demonstration Patient Response: More Instruction Required Topics: Plan/Goals of PT Interventions;Mobility Progression;Safety Awareness;Up with Assist Only;Importance of Increasing Activity;Recommend Continued Therapy ASSESSMENT/PROGRESS: Assessment/Progress Impaired Mobility Due To: Impaired Balance;Safety Concerns;Decreased Activity Tolerance Assessment/Progress: Should Improve w/ Continued PT AM-PAC 6 Clicks Basic Mobility Inpatient Turning from your back to your side while in a flat bed without using bed rails : None Moving from lying on your back to sitting on the side of a flatbed without using bedrails : A Little Moving to and from a bed to a chair (including a wheelchair): A Little Standing up from a chair using your arms (e.g. wheelchair, or bedside chair): A Little To walk in hospital room: A Little Climbing 3-5 steps with a railing: A Little Raw Score: 19 Standardized (T-scale) Score: 42.48 Basic Mobility CMS 0-100%: 36.99 CMS G Code Modifier for Basic Mobility: CJ GOALS: Goals Goal Formulation: With Patient, Patient Unable to Participate in Goal Setting Time For Goal Achievement: 5 days, To, 7 days Pt Will Go Supine To/From Sit: w/ Minimal Assist Pt Will Transfer Bed/Chair: w/ Minimal Assist Pt Will Transfer Sit to Stand: w/ Minimal Assist Pt Will Ambulate: 51-100 Feet, w/ Minimal Assist PLAN: Plan Treatment Interventions: Mobility Training;Strengthening;Balance Activities; Endurance Training;Neuromuscular Reeducation Plan Frequency: 5 Days per Week PT Plan for Next Visit: Test balance; trial stairs? RECOMMENDATIONS: PT Discharge Recommendations PT Discharge Recommendations: Inpatient Setting;Recommend Physical Medicine and Rehabilitation Consult to address most appropriate level of rehabilitation placement Therapist: Dari Jones, PT Date: 09/26/2018 * Monica Lara MS,CCC-NEIGHBORHOOD WORKER - 09/26/2018 1:32 PM ELECTRICAL RESEARCH ENGINEER SPEECH-LANGUAGE PATHOLOGY DAILY TREATMENT NOTE Patient seen 1x this date. Documentation reflects all daily treatment sessions. SUMMARY OF THERAPY SESSION: pt seen for dysphagia therapy session. Pt tolerating full liquid diet with no overt s/s aspiration. Pt tolerated mechanical soft solids with adequate mastication and no overt s/s aspiration. RECOMMENDATIONS Mechanical soft diet with thin liquids Swallow precautions; 100% supervision, small bites/sips, slow rate, check of pocketing PO meds crushed in purees or via [employer] NEIGHBORHOOD WORKER will follow for ongoing dysphagia and aphasia management. Ongoing NEIGHBORHOOD WORKER at next level of care Consistent supervision recommended upon discharge as anticipate patient's impaired safety awareness and/or problem solving (or communication) will impact their ability to call for help. Goal : Pt will participate in ongoing assessment of speech/language given minimal cues to participate. Not addressed Comment: not directly addressed Continue to address this goal Goal : Pt will answer simple y/n questions with 70% accuracy, given moderate cues. Not met Comment: pt answered simple y/n questions regarding personal information with less than 40% accuracy. Y/n questions regarding wants/needs noted to be improved , though still not considered reliable. She answered u/n questions regarding wants/needs with approximately 60% accuracy; this appeared to be reliable/ accurate in these instances as evidenced by pt expecting presentation of requested item. Continue to address this goal Goal : Pt will follow simple 1-step commands with 60% accuracy, given moderate cues. Partly met Comment: pt followed 1-step commands in the presence of NEIGHBORHOOD WORKER model of target production with 60% accuracy Continue to address this goal Goal : Pt will tolerate full liquid diet with less than 10% overt s/s aspiration and free from respiratory status changes. Met Comment: goal met Discharge this goal as met Goal : pt will participate in PO trials for purpose of potential diet advancement with adequate mastication and less than 10% overt s/s aspiration. Partly met Comment: Pt tolerated mechanical soft solids with adequate mastication and no overt s/s aspiration. No significant pocketing/residue. Pt with sparse dentition , unclear if she wears dentures/partials Continue to address this goal PLAN / RECOMMENDATIONS: Continue treatment 3x/week and Patient would benefit from further speech therapy post acute hospitalization. Speech Discharge Recommendations: The patient could benefit from further intervention in a/an, Inpatient Setting Speech recommend ongoing assistance for: Safety concerns, Swallow strategies, To maximize communication Therapist: Monica Lara MS,CCC-NEIGHBORHOOD WORKER [id number] Date: 09/26/2018 * Isela Vizcaino RN - 09/26/2018 9:49 AM ELECTRICAL RESEARCH ENGINEER Corpak pulled during KERI. Notified rounding team, ok to leave out until speech re-eval today. Patient still off unit at this time but due to return. * Shaun Best MD - 09/26/2018 8:39 AM ELECTRICAL RESEARCH ENGINEER Formatting of this note may be different from the original. Neurology Progress Note Name: Vidhi Andrea Today's Date: 09/26/2018 Admission Date: 09/22/2018 LOS: 4 days Assessment/Plan: Active Problems: Stroke (cerebrum) (HCC) DMII (diabetes mellitus, type 2) (HCC) HLD (hyperlipidemia) HTN (hypertension) Dysphagia Vidhi Andrea is a 63 y.o. female with DMII, HLD, HTN transferred from OSH for right sided weakness, aphasia and found to have a left basal ganglia ischemic stroke. L BG Ischemic stroke S/p tPA CTA with no LVO, no intervention pursued MRI with left Basal ganglia ischemic stroke with evidence of mild hemorrhagic conversion Repeat CT head 09/24 with stable findings and expected evolution of ischemic stroke Stroke workup: a1c 7.6, LDL 175 Echo technically limited, EF 55% normal left ventricle size, but possible inferolateral akinesis. No hx or evidence of afib 09/26 KERI w/ LVOT echodensity that may be a subaortic membrane, less likely to be a vegetation or thrombus. Etiology: cryptogenic Plan: - continue asa 81mg - LDCF while inpatient; will discharge on metformin 500mg BID - continue lisinopril 10mg daily - increase atorvastatin to 80mg - PT/OT/NEIGHBORHOOD WORKER - snf monitor on discharge Stroke risk factor modification - optimize BP, goal SBP<140mmHg - optimize blood sugar, goal HbA1c<7 - optimize lipids, goal LDL<100 (or <70 if HbA1c>7) - Tobacco cessation - ASA compliance HTN Non-adherent with machine captain therapies - continue lisinopril 10mg daily HLD LDL 176 - increase atorvastatin to 80mg Constipation - continue milk of magnesia, senokot, docusate - no BMs, will attempt soap suds enema Morbid Obesity CTM FEN: no IVF; replace electrolytes as needed; full liquid diet PPx: heparin Code: FULL Disposition: discharge to [facility] when suitable. Patient seen and discussed with Dr. Patton. Subjective Vidhi Andrea is a 63 y.o. female. Patient to undergo KERI today. Medications Scheduled Meds: aspirin chewable tablet 81 mg 81 mg Feeding Tube QDAY atorvastatin (LIPITOR) tablet 80 mg 80 mg Per NG tube QDAY docusate (COLACE) oral solution 100 mg 100 mg Per NG tube BID heparin (porcine) PF syringe 5,000 Units 5,000 Units Subcutaneous Q8H insulin aspart U-100 (NOVOLOG FLEXPEN) injection PEN 0-7 Units 0-7 Units Subcutaneous 5 X Day lisinopril (PRINIVIL; ZESTRIL) tablet 10 mg 10 mg Feeding Tube QDAY milk of magnesia (CONC) oral suspension 10 mL 10 mL Per NG tube QDAY senna/docusate (SENOKOT-S) solution 10 mL 10 mL Per NG tube BID Continuous Infusions: PRN and Respiratory Meds:pancrelipase 20,000 Units/ sodium bicarbonate 650 mg(# ) PRN (Clean Rice Grader And Reel Tender from Rx) Objective Vital Signs: Last Filed Vital Signs: 24 Hour Range BP: 152/66 (09/26 815) Temp: 36.9 C (98.5 F) (09/26 400) Pulse: 67 (09/26 815) Respirations: 18 PER MINUTE (09/26 815) SpO2: 93 % (09/26 815) O2 Delivery: None (Room Air) (09/25 2000) SpO2 Pulse: 60 (09/26 400) Height: 160 cm (63") (09/26 815) BP: (140-163)/(66-83) Temp: [36.7 C (98.1 F)-36.9 C (98.5 F)] Pulse: [58-68] Respirations: [12 PER MINUTE-18 PER MINUTE] SpO2: [93 %-96 %] O2 Delivery: None (Room Air) Vitals: 09/23/18 0600 09/24/18 1011 09/25/18 0601 Weight: 103.6 kg (228 lb 6.3 oz) 103.6 kg (228 lb 6.3 oz) 103.2 kg (227 lb 8.2 oz) Intake/Output Summary: (Last 24 hours) Intake/Output Summary (Last 24 hours) at 09/26/18 0840 Last data filed at 09/26/18 0400 Gross per 24 hour Intake 390 ml Output 1390 ml Net -1000 ml Physical Exam Neurological: Mental status: Patient is alert, not answering questions of orientation Speech: Receptive aphasia CN II-XII: Visual domingo intact to confrontation, PERRL (4->2), EOMI, facial sensation intact. Symmetrical facial movement. Hearing grossly intact. Strong cough, elevates palate, uvula midline. Strong shoulder shrug. Tongue midline. Motor: (R/L) b/l UE/LE 5/5. Normal tone and bulk. No abnormal movement, fasciculation or pronator drift. SA EF EE WE WF FF FE FA TA HF WILLIS HE KF KE DF PF R 4 4 4 4 4 4 4 4 4 4 4 4 4 4 4 4 L 5 5 5 5 5 5 5 5 5 5 5 5 5 5 5 5 Sensory: withdraws to painful stimuli Reflexes: (R/L) Bj, Trj, Brj, Knj, Aj. No clonus, gurjit, cross adductor. Babinski negative. Right Left Triceps 2 2 Biceps 2 2 Brachioradialis 2 2 Patella 2 2 Ankle 2 2 Plantar flexor flexor Coordination/ fine movement: coordination grossly intact as she reaches for objects; unable to follow commands d/t receptive aphasia Gait: mild hemiparetic gait; 1 person assist Lab Review Pertinent labs reviewed Point of Care Testing (Last 24 hours) POC Glucose (Download): (!) 157 (09/26/18 08) Radiology and other Diagnostics Review: Pertinent radiology reviewed. Shaun Best MD Neurology PGY-4 Pager Neurology construction technician pager [phone] Associated attestation - Porfirio Patton DO - 09/26/2018 2:59 PM ELECTRICAL RESEARCH ENGINEER Formatting of this note may be different from the original. ATTESTATION I personally performed the lawson portions of the E/M visit, discussed case with resident and concur with resident documentation of history, physical exam, assessment, and treatment plan unless otherwise noted. Staff name: Porfirio Patton DO Date: 09/26/2018 * Monica Lara MS,CCC-NEIGHBORHOOD WORKER - 09/26/2018 7:53 AM ELECTRICAL RESEARCH ENGINEER SPEECH-LANGUAGE PATHOLOGY NO TREATMENT NOTE Chart reviewed and NEIGHBORHOOD WORKER attempted to see. Pt off floor for procedure. NEIGHBORHOOD WORKER will continue to follow. Therapist: Monica Lara MS,CCC-NEIGHBORHOOD WORKER [id number] Date: 09/26/2018 * Ervin Navarro RT - 09/26/2018 12:30 AM ELECTRICAL RESEARCH ENGINEER Patient Name: Vidhi Andrea Date of : 1955 Overnight Oximetry Note Date test was started: 09/24 Time test was started: 2129 Date test was completed: 09/25 Time test was completed: 529 Comments: No oxygen was used and patient remained on room air for the duration of the test * Kenzie Jordan OT - 09/25/2018 2:34 PM ELECTRICAL RESEARCH ENGINEER Formatting of this note may be different from the original. OCCUPATIONAL THERAPY PROGRESS NOTE Patient Name: Vidhi Andrea [id number] Admitting Diagnosis: Stroke Past Medical History: Diagnosis Date DMII (diabetes mellitus, type 2) (HCC) HLD (hyperlipidemia) HTN (hypertension) Mobility Progressive Mobility Level: Walk in hallway Distance Walked (feet): 150 ft Level of Assistance: Assist X1 Assistive Device: None Time Tolerated: 11-30 minutes Activity Limited By: Weakness;Mental Status Variability Subjective Pertinent Dx per Physician: 63yo female h/o HTN, HLD, DM, admitted with left basal ganglia ischemic stroke s/p tPa with mild hemorrhagic conversion Pain / Complaints: Patient demonstrates no signs of pain Comments: Due to aphasia pt is unable to follow verbal commands without motion or mimic. Objective Psychosocial Status: Willing and Cooperative to Participate Prior Function Other Function Comments: Pt unable to provide subjective information due to aphasia. No family present. Vision Visual Screen Results: Right Sided Edgar-Inattention Comment: Tracking WFL. Right side inattention however attends with verbal cues and prompts. Positioned in chair to promote attention to the right. ADL's Where Assessed: Standing at Sink;In Bathroom Grooming Assist: Minimal Assist Grooming Deficits: Steadying;Verbal Cueing;Supervision/Safety LE Dressing Assist: Maximum Assist LE Dressing Deficits: Don/Doff R Sock;Don/Doff L Sock Toileting Assist: Total Assist Toileting Deficits: Perineal Hygiene;Clothing Management Up;Clothing Management Down Functional Transfer Assist: Moderate Assist Functional Transfer Deficits: Steadying;Verbal Cueing;Supervision/Safety Comment: Sit to stand with moderate assist from edge of bed due to increased height. pt transfers on/ off toilet with minimum assist. Requires total assist for toileting. Pt is not apraxia as she appropriately uses grooming tools with cues for initiation. Patient with one loss of balance requiring assistance to correct. Activity Tolerance Endurance: 2/5 Tolerates 10-20 Minutes Exercise w/Multiple Rests Sitting Balance: 2+/5 Supports Self w/ 1 UE Cognition Overall Cognitive Status: Impaired Comprehension: Receptive Aphasia Expression: Expressive Aphasia Problem Solving: Cueing to Sequence Task;Direction Following Assist UE AROM Grasp: R Weakened;L Weakened Comment: Generalized weakness UE Strength / Tone Overall Strength / Tone: WFL Able to Perform ADL Tasks Assessment Assessment: Decreased ADL Status;Decreased Self-Care Trans;Decreased High-Level ADLs;Decreased Endurance;Decreased UE Strength;Decreased Cognition Prognosis: Good;w/Cont OT s/p Acute Discharge Goal Formulation: Patient AM-PAC 6 Clicks Daily Activity Inpatient Putting on and taking off regular lower body clothes?: Total Bathing (Including washing, rinsing, drying): A Lot Toileting, which includes using toilet, bedpan, or urinal: A Lot Putting on and taking off regular upper body clothing: A Lot Taking care of personal grooming such as brushing teeth: A Lot Eating meals?: Total Daily Activity Raw Score: 10 Standardized (t-scale) score: 27.31 CMS 0-100% Score: 74.7 CMS G Code Modifier: CL Plan OT Frequency: 5x/week OT Plan for Next Visit: Grooming at sink, endurance ADL Goals Patient Will Perform Grooming: Standing at Sink;w/ Minimum Assist Patient Will Perform LE Dressing: w/ Minimum Assist Patient Will Perform Toileting: w/ Minimum Assist Functional Transfer Goals Pt Will Perform All Functional Transfers: Minimum Assist OT Discharge Recommendations OT Discharge Recommendations: Inpatient Setting, Recommend PM&R Consult to address most appropriate level of rehabilitation placement ([phone]). Equipment Recommendations: Too early to be determined Therapist: KT Slater [id number] Date: 09/25/2018 * Alejandra Holguin - 09/25/2018 1:27 PM ELECTRICAL RESEARCH ENGINEER . Claudette Tobacco Treatment: NO TREATMENT NOTE Patient was referred for practical counseling based on tobacco use assessment. Our service attempted to meet the patient but she was not able to stay alert for tobacco use treatment consult. The patient denied having cravings to smoke at this time. We will return to complete a full consult when the patient is able to remain alert. If I can be of further assistance, please call Claudette's primary number * Dari Jones, PT - 09/25/2018 10:50 AM ELECTRICAL RESEARCH ENGINEER PHYSICAL THERAPY PROGRESS NOTE MOBILITY: Mobility Progressive Mobility Level: Walk laps Distance Walked (feet): 300 ft Level of Assistance: Assist X1 Assistive Device: None Time Tolerated: 11-30 minutes Activity Limited By: Fatigue SUBJECTIVE: Subjective Significant hospital events: 63yo female h/o HTN, HLD, DM, admitted with left basal ganglia ischemic stroke s/p tPa with mild hemorrhagic conversion. Mental / Cognitive Status: Alert;Cooperative;Inconsistent with Command Following (due to aphasia) Pain: Patient demonstrates no signs of pain Comments: Due to aphasia pt is unable to follow verbal commands (except 1 today- stand up) without motion or mimic. She is able to perform automatic tasks like ambulation once standing, etc. BED MOBILITY/TRANSFERS: Bed Mobility/Transfers Transfer Type: Sit to/from Stand Transfer: Assistance Level: To/From;Bed;Toilet;Standby Assist Transfer: Assistive Device: None Transfers: Type Of Assistance: For Balance;For Safety Considerations End Of Activity Status: Up in Chair;Nursing Notified;Instructed Patient to Request Assist with Mobility;Instructed Patient to Use Call Light (pads alarm activated) GAIT: Gait Gait Distance: 300 feet Gait: Assistance Level: Minimal Assist Gait: Assistive Device: None Gait: Descriptors: Pace: Slow;Normal step length;Loss of balance;Pathway deviations Comments: R inattention noted - pt running into thomas on rigth side. Activity Limited By: Complaint of Fatigue EDUCATION: Education Persons Educated: Patient Patient Barriers To Learning: Cognitive Deficits;Impaired Communication (aphasia ) Interventions: Repetition of Instructions;Demonstration Provided Teaching Methods: Verbal Instruction;Demonstration Patient Response: More Instruction Required Topics: Plan/Goals of PT Interventions;Mobility Progression;Safety Awareness;Up with Assist Only;Importance of Increasing Activity;Recommend Continued Therapy ASSESSMENT/PROGRESS: Assessment/Progress Impaired Mobility Due To: Impaired Balance;Safety Concerns;Decreased Activity Tolerance Assessment/Progress: Should Improve w/ Continued PT AM-PAC 6 Clicks Basic Mobility Inpatient Turning from your back to your side while in a flat bed without using bed rails : None Moving from lying on your back to sitting on the side of a flatbed without using bedrails : A Little Moving to and from a bed to a chair (including a wheelchair): A Little Standing up from a chair using your arms (e.g. wheelchair, or bedside chair): A Little To walk in hospital room: A Little Climbing 3-5 steps with a railing: A Little Raw Score: 19 Standardized (T-scale) Score: 42.48 Basic Mobility CMS 0-100%: 36.99 CMS G Code Modifier for Basic Mobility: CJ GOALS: Goals Goal Formulation: With Patient, Patient Unable to Participate in Goal Setting Time For Goal Achievement: 5 days, To, 7 days Pt Will Go Supine To/From Sit: w/ Minimal Assist Pt Will Transfer Bed/Chair: w/ Minimal Assist Pt Will Transfer Sit to Stand: w/ Minimal Assist Pt Will Ambulate: 51-100 Feet, w/ Minimal Assist PLAN: Plan Treatment Interventions: Mobility Training;Strengthening;Balance Activities; Endurance Training;Neuromuscular Reeducation Plan Frequency: 5 Days per Week PT Plan for Next Visit: Test balance; trial stairs? RECOMMENDATIONS: PT Discharge Recommendations PT Discharge Recommendations: Inpatient Setting;Recommend Physical Medicine and Rehabilitation Consult to address most appropriate level of rehabilitation placement Therapist: Dari Jones, PT Date: 09/25/2018 * Monica Lara MS,CCC-NEIGHBORHOOD WORKER - 09/25/2018 10:26 AM ELECTRICAL RESEARCH ENGINEER SPEECH-LANGUAGE PATHOLOGY VIDEOSWALLOW ASSESSMENT EVALUATION SUMMARY Videoswallow Summary*: A Videoswallow study was completed this date. Results suggest mild to mild/moderate oropharyngeal dysphagia. Pt with mild penetration of thin liquid barium before to during the swallow, with contrast visualized to clear laryngeal vestibule upon completion of swallow. No aspiration observed for this study. No penetration/aspiration appreciated for nectar thick barium or pudding barium. Pt presented regular solid trial coated in pudding barium; however, pt removed bolus from oral cavity prior to chewing. Will need to assess solids at bedside prior to diet advancement. Anticipate altered sensation /weakness s/p L basal ganglia CVA to be primary source of impairment. Please see below. RECOMMENDATIONS Full liquid diet Swallow precautions; 100% supervision, small bites/sips, slow rate, check of pocketing PO meds crushed in purees or via Corpak NEIGHBORHOOD WORKER will follow for ongoing dysphagia and aphasia management. Ongoing NEIGHBORHOOD WORKER at next level of care MBSImp Scale: Lip closure for intraoral bolus containment resulted in bolus escape beyond mid- chin. Tongue control during bolus hold resulted in posterior escape of less than half of bolus. Bolus preparation and mastication could not be assessed. No solid was given do to safety concerns or logistical reasons not related to mastication. Bolus transport/lingual motion demonstrated delayed initiation of tongue motion. Oral residue was a trace, lining oral structures. Initiation of the pharyngeal swallow occured when the bolus head was in the pyriform sinuses. Soft palate elevation resulted in no bolus between the soft palate and the pharyngeal wall. Laryngeal elevation was decreased, with partial superior movement of the thyoid cartilage/partial approximation of the arytenoids to the epigoittic petiole. Anterior hyoid excursion demonstrated partial anterior movement. Epiglottic movement resulted in complete inversion. Laryngeal vestibular closure was incomplete, with narrow column of air/contrast noted within the laryngeal vestibule at the height of the swallow. Pharyngeal stripping wave was present and complete. Pharyngeal contraction could not be assessed due to logistical reasons not related to physiologic impairment. Pharyngoesophageal segment opening was completely distended for complete duration with no obstruction of bolus flow. Tongue base retraction allowed no contrast between the retracted tongue base and the posterior pharyngeal wall. Pharyngeal residue was not present. There was complete pharyngeal clearance. Esophageal clearance in the upright position Swallow Recommendations* PO: Full Liquid, Thin Liquids Swallow Strategies: Supervision During Meals, Small Bites/Sips, Slow Rate of Intake, Check for Pocketing Recommendation Comments: PO meds crushed in purees or Corpak Plan*: Other (Comment), Patient Would Benefit from Further Speech Therapy Post Acute Hospitalization. (3-5x/wk) Prognosis*: Good NOMS Dysphagia Rating*: [id number] Dysphagia -Swallow safe but usually requires mod cues to use compensatory strategies &/or has mod diet restrictions &/or still requires tube feeding &/or oral supplements. Penetration Aspiration Scale*: 2 - Material enters laryngeal vestibule, remains above vocal folds & is ejected Objective* Relevant Med Background: Vidhi Andrea is a 63 y.o. female with a h/o HLD, HTN, DM transferred to after receiving TPA for right facial droop and right sided weakness. Left basal ganglia ischemic stroke s/p tPa with mild hemorrhagic conversion CT head 09/24 impressions 1. Evolving subacute infarct within the left MCA distribution predominantly involving the basal ganglia, external capsule, and small portion of the frontal convexity. 2. Stable small areas of intermediate attenuation hemorrhage within portions of the putamen and caudate concordant with the recent MRI. 3. No new areas of hemorrhage or new foci of low attenuation ischemia Hearing: WFL Psychosocial Status: Willing and Cooperative to Participate Persons Present: None Subjective* Pain: Patient demonstrates no signs of pain Trach Presence: No Feeding Tube Present During Eval: Corpak Nutrition* Nutrition Prior To Hospitalization: Oral, Regular, Thin Liquids Current Form Of Nutrition: NPO Views / Seating* Views / Seating: Lateral View, Sitting at 90 Degrees Upright Barium Consist/Presentation* Presentations: Therapist Fed, Patient Fed Self Thin Liquid: 1 Tsp, Cup, Consecutive Swallows [place] Thick Liquid: Cup, Consecutive Swallows Other Consistencies: Pudding, Regular Solids (pt removed regular bolus from mouth) Swallow Strategies Small Bites and Sips: Effective Slow Rate of Intake: Effective Education* Persons Educated: Patient Barriers To Learning: Impaired Communication Interventions: Family Educated, Staff Educated Teaching Methods: Verbal Topics: Aphasia, Dysphagia Patient Response: Unable to Verbalize Understanding Goal Formulation: Patient Unable to Participate in Goal Setting Videoswallow Goals* Goal : Pt will tolerate full liquid diet with less than 10% overt s/s aspiration and free from respiratory status changes. Goal : pt will participate in PO trials for purpose of potential diet advancement with adequate mastication and less than 10% overt s/s aspiration. Therapist: Monica Lara MS,CCC-NEIGHBORHOOD WORKER [id number] Date: 09/25/2018 * Shaun Best MD - 09/25/2018 7:33 AM ELECTRICAL RESEARCH ENGINEER Formatting of this note may be different from the original. Neurology Progress Note Name: Vidhi Andrea Today's Date: 09/25/2018 Admission Date: 09/22/2018 LOS: 3 days Assessment/Plan: Active Problems: Stroke (cerebrum) (HCC) DMII (diabetes mellitus, type 2) (HCC) HLD (hyperlipidemia) HTN (hypertension) Dysphagia Vidhi Andrea is a 63 y.o. female with DMII, HLD, HTN transferred from OSH for right sided weakness, aphasia and found to have a left basal ganglia ischemic stroke. L BG Ischemic stroke S/p tPA CTA with no LVO, no intervention pursued MRI with left Basal ganglia ischemic stroke with evidence of mild hemorrhagic conversion Repeat CT head 09/24 with stable findings and expected evolution of ischemic stroke Stroke workup: a1c 7.6, LDL 175 Echo technically limited, EF 55% normal left ventricle size, but possible inferolateral akinesis. No hx or evidence of afib Etiology: cryptogenic Plan: - continue asa 81mg - LDCF while inpatient; will discharge on metformin 500mg BID - continue lisinopril 10mg daily - increase atorvastatin to 80mg - Considering the distribution of her stroke and possible akinetic changes on her heart, will proceed with KERI; NPO @ [facility] - PT/OT/NEIGHBORHOOD WORKER - continue with corpak for nutrition; follow up NEIGHBORHOOD WORKER recs today - consult tobacco cessation education Stroke risk factor modification - optimize BP, goal SBP<140mmHg - optimize blood sugar, goal HbA1c<7 - optimize lipids, goal LDL<100 (or <70 if HbA1c>7) - Tobacco cessation - ASA compliance HTN Non-adherent with machine captain therapies - continue lisinopril 10mg daily; may need titration for SBP goal <140mmHg HLD LDL 176 - increase atorvastatin to 80mg Constipation - continue milk of magnesia, senokot, docusate - if no BM today, consider soap suds enema FEN: no IVF; replace electrolytes as needed; corpak for TF PPx: heparin Code: FULL Disposition: continue on neurology stroke team. Patient seen and discussed with Dr. Patton. Subjective Vidhi Andrea is a 63 y.o. female. Patient with no acute overnight events. Medications Scheduled Meds: aspirin chewable tablet 81 mg 81 mg Feeding Tube QDAY atorvastatin (LIPITOR) tablet 40 mg 40 mg Per NG tube QDAY docusate (COLACE) oral solution 100 mg 100 mg Per NG tube BID heparin (porcine) PF syringe 5,000 Units 5,000 Units Subcutaneous Q8H insulin aspart U-100 (NOVOLOG FLEXPEN) injection PEN 0-7 Units 0-7 Units Subcutaneous 5 X Day lisinopril (PRINIVIL; ZESTRIL) tablet 10 mg 10 mg Feeding Tube QDAY milk of magnesia (CONC) oral suspension 10 mL 10 mL Per NG tube QDAY senna/docusate (SENOKOT-S) solution 10 mL 10 mL Per NG tube BID Continuous Infusions: PRN and Respiratory Meds:pancrelipase 20,000 Units/ sodium bicarbonate 650 mg(# ) PRN (Clean Rice Grader And Reel Tender from Rx) Objective Vital Signs: Last Filed Vital Signs: 24 Hour Range BP: 160/59 (09/25 601) Temp: 36.7 C (98.1 F) (09/25 412) Pulse: 62 (09/25 601) Respirations: 16 PER MINUTE (09/25 601) SpO2: 93 % (09/25 601) O2 Delivery: None (Room Air) (09/25 412) SpO2 Pulse: 62 (09/25 601) Height: 160 cm (63") (09/24 1011) BP: (136-176)/(50-79) Temp: [36.5 C (97.7 F)-37 C (98.6 F)] Pulse: [57-69] Respirations: [12 PER MINUTE-23 PER MINUTE] SpO2: [92 %-98 %] O2 Delivery: None (Room Air) Vitals: 09/23/18 0600 09/24/18 1011 09/25/18 0601 Weight: 103.6 kg (228 lb 6.3 oz) 103.6 kg (228 lb 6.3 oz) 103.2 kg (227 lb 8.2 oz) Intake/Output Summary: (Last 24 hours) Intake/Output Summary (Last 24 hours) at 09/25/18 0733 Last data filed at 09/25/18 06 Gross per 24 hour Intake 2057 ml Output 2090 ml Net -33 ml Physical Exam Neurological: Mental status: Patient is alert, not answering questions of orientation Speech: Receptive aphasia CN II-XII: Visual domingo intact to confrontation, PERRL (4->2), EOMI, facial sensation intact. Symmetrical facial movement. Hearing grossly intact. Strong cough, elevates palate, uvula midline. Strong shoulder shrug. Tongue midline. Motor: (R/L) b/l UE/LE 5/5. Normal tone and bulk. No abnormal movement, fasciculation or pronator drift. SA EF EE WE WF FF FE FA TA HF WILLIS HE KF KE DF PF R 4 4 4 4 4 4 4 4 4 4 4 4 4 4 4 4 L 5 5 5 5 5 5 5 5 5 5 5 5 5 5 5 5 Sensory: withdraws to painful stimuli Reflexes: (R/L) Bj, Trj, Brj, Knj, Aj. No clonus, gurjit, cross adductor. Babinski negative. Right Left Triceps 2 2 Biceps 2 2 Brachioradialis 2 2 Patella 2 2 Ankle 2 2 Plantar flexor flexor Coordination/ fine movement: coordination grossly intact as she reaches for objects; unable to follow commands d/t receptive aphasia Gait: mild hemiparetic gait; 1 person assist Lab Review Pertinent labs reviewed Point of Care Testing (Last 24 hours) Glucose: (!) 224 (09/25/18414) POC Glucose (Download): (!) 224 (09/25/18421) Radiology and other Diagnostics Review: Pertinent radiology reviewed. Shaun Best MD Neurology PGY-4 Pager Neurology construction technician pager [phone] Associated attestation - Porfirio Patton DO - 09/25/2018 1:45 PM ELECTRICAL RESEARCH ENGINEER Formatting of this note may be different from the original. ATTESTATION I personally performed the lawson portions of the E/M visit, discussed case with resident and concur with resident documentation of history, physical exam, assessment, and treatment plan unless otherwise noted. Staff name: Porfirio Patton, Date: 09/25/2018 * Monica Lara MS,[facility]-NEIGHBORHOOD WORKER - 09/24/2018 12:50 PM ELECTRICAL RESEARCH ENGINEER SPEECH-LANGUAGE PATHOLOGY SPEECH-LANGUAGE ASSESSMENT EVALUATION SUMMARY Summary: A speech/language evaluation as well as ongoing assessment of swallow completed this date. Results suggest moderate/severe subcortical aphasia with impaired auditory comprehension and verbal expression. Pt with impaired yes/no, command following, repetition, naming. Perseveration prevalent in output. No overt s/s aspiration with ice chips this session; limited ice chips presented yesterday/today due to reduced level of arousal per RN. Pt with limited acceptance of PO trials of thin liquids and purees this date, presenting with subtle throat clear and vocal quality changes with thin liquids and purees. Will benefit from videoswallow prior to initiation of diet. Please see below. RECOMMENDATIONS NPO with Tappits via Corpak Ice chips (7-10/hour), details at HOB. Frequent oral care Videoswallow study to further assess swallow NEIGHBORHOOD WORKER will follow for ongoing dysphagia and aphasia management. Ongoing NEIGHBORHOOD WORKER at next level of care Prognosis: Fair, Good Plan: Other (Comment), Patient Would Benefit from Further Speech Therapy Post Acute Hospitalization. (3-5x/wk) Results Reported to Physician: Yes (via EMR) AUDITORY COMPREHENSION Comments*: Pt did not receptively identify familiar items in field of 2 by name/ function; this has negative implications for use of communication board at this time. She followed simple 1-step commands with less than 10% accuracy, in the presence of cues. She was observed to follow one command and then proceeded to do the same command repetitively for remainder of tasks. She answered all y/n questions "yes," regardless of content. No response could be elicited for repetition tasks. VERBAL EXPRESSION Comments*: Automatic speech for counting 1-5 with 0% accuracy initially, up to 5 /5 with NEIGHBORHOOD WORKER model. Pt then perseveratively counting 1-5 for remainder of session. She was observed to state "I don't know" or "no" when asked to complete open ended phrases. No response could be elicited for conformational naming. Verbal output characterized by a few rote phrases such as "yes," "no" or "I don't know, " as well as automatics of counting. Verbal output largely lacked meaning and did not appear to be intentional. At this time, pt with no functional mode of communicating wants/needs. READING COMPREHENSION Comments*: No response could be elicited for identifying single words/ letters. WRITTEN EXPRESSION Comments*: Pt with no response upon presentation of pen other than stating "I don't know" Objective* Relevant Med Background: Vidhi Andrea is a 63 y.o. female with a h/o HLD, HTN, DM transferred to after receiving TPA for right facial droop and right sided weakness. Left basal ganglia ischemic stroke s/p tPa with mild hemorrhagic conversion CT head 09/24 impressions 1. Evolving subacute infarct within the left MCA distribution predominantly involving the basal ganglia, external capsule, and small portion of the frontal convexity. 2. Stable small areas of intermediate attenuation hemorrhage within portions of the putamen and caudate concordant with the recent MRI. 3. No new areas of hemorrhage or new foci of low attenuation ischemia Hearing: WFL Psychosocial Status: Willing and Cooperative to Participate Persons Present: None Subjective* Pain: Patient demonstrates no signs of pain Trach Presence: No Feeding Tube Present During Eval: Corpak Education* Persons Educated: Patient Barriers To Learning: Impaired Communication, Family Not Present Interventions: Staff Educated Teaching Methods: Verbal Topics: Aphasia, Dysphagia Patient Response: Unable to Verbalize Understanding, More Instruction Required Goal Formulation: Patient Unable to participate in Goal Setting Speech Language Goals* Goal : Pt will participate in ongoing assessment of speech/language given minimal cues to participate. Goal : Pt will answer simple y/n questions with 70% accuracy, given moderate cues. Goal : Pt will follow simple 1-step commands with 60% accuracy, given moderate cues. Clinical Swallow Goals* Goal : Pt will tolerate ice chips with <10% s/s of aspiration and without negative pulmonary status changes. Limited ice chips provided due to pt with decreased level of arousal yesterday and this morning per report. Will continue to address. Goal : Pt will participate in ongoing swallow evaluation provided mod cues. Goal ongoing. Pt presented ice chips via spoon, thins via spoon/cup/straw, purees via spoon. Pt with adequate bolus procurement. intermittent oral holding initially; incidence of this decreased over course of trials. Suspect at risk for premature spillage. No overt s/s aspiration with ice chips. Intermittent subtle throat clear/cough with thins and purees Goal : Pt will participate in Videoswallow study evaluation provided mod cues. Not addressed this date. Goal : Pt will participate in language evaluation provided mod cues. Goal met this date. See above. Therapist: Monica Lara MS,CCC-NEIGHBORHOOD WORKER [id number] Date: 09/24/2018 * Ryan Williamson MD - 09/24/2018 12:06 PM ELECTRICAL RESEARCH ENGINEER Formatting of this note may be different from the original. Neuro Critical Care Progress Note Vidhi Andrea Admission Date: 09/22/2018 LOS: 2 days Full Code ASSESSMENT/PLAN Patient Active Problem List Diagnosis Date Noted Stroke (cerebrum) (HCC) 09/22/2018 Vidhi Andrea is a 63 y.o. female with a h/o HLD, HTN, DM transferred to after receiving TPA for right facial droop and right sided weakness. Hospital and ICU course: 09/22: Transferred from [place], [place] post-tPa 09/22: MRI shows left basal ganglia stroke with mild hemorrhagic convesion 09/24: Repeat CT shows stable hemorrhage Neuro: #Left basal ganglia ischemic stroke s/p tPa with mild hemorrhagic conversion -CTA at OSH: no LVO - MRI: Left basal ganglia ischemic stroke with hemorrhagic conversion - LDL 175, A1c 7.6, UDS neg - CT: stable hemorrhage and evolving stroke -Echo: EF 55%, Normal left ventricle size, right ventricle not well seen Plan: -NEIGHBORHOOD WORKER, PT, OT, Rehab -asa 81mg -Tele -atorvastatin 40mg (was not taking at home) -LDCF - Neuro-ICU monitoring, neurochecks q 1 hrs, parameters for Prevention of secondary brain injury(avoid hypotension, hypoxia, fever, hyperglycemia, significant anemia, diagnose and treatment of seizures, electrolyte abnormalities) Sedation/Pain Management: - Assess for delirium daily Cardiac: #HTN, CAD, HLD - not taking any meds consistently -SBP goal: <160 -start lisinopril 10mg qday -Atorvastatin 40 qday Respiratory: -No hx of respiratory disease but requiring 2L while asleep, may have MARIBETH Plan: -overnight pulse ox ordered - PaO2 goal >100, Spo2 goal >95%, PCO2 goal 35-40 torr, chest physiotherapy, bronchotherapy, PD& V q 6 hrs GI: - Failed bedside swallow study - Feeding: NPO, corpak with tube feeds - neurosurgery bowel regimen, ensure daily BM Heme: -Subq heparin for dvt prophylaxis - assess for coagulopathy, maintain platelets above 100k, INR <1.5 ID: - Tmax 36.8, WBC 14.7 trending down - aim for normothermia, Temp <38.3 celsius, normothermia protocol if febrile Renal: -Some difficulty with bladder scanning, voiding spontaneously - Aim for normovolemia Endocrine: #DMII - not taking meds consistently at home -A1c 7.6 Plan: -LDCF - Blood glucose goal 100-180mg/dl FEN: - IVF: none - Magnesium goal >2.0, i-[place]air goal > 1.0, Potassium goal >4.0 mEq/L Skin/MSK: Red coloration to right arm, has not progressed. Monitor. Prophylaxis Review: A)GI: no B) Lines: No C) Urinary Catheter: No D) Antibiotic Usage: No E) VTE: Mechanical prophylaxis; Sequential compression device,subq heparing F) Isolation: no G)Seizures: no I) Restraints: Patient assessed for need for restraints. Disposition/Family: Stable for the floor Primary service: NCC Consults: Neurology and Rehabilitative Medicine SUBJECTIVE Vidhi Andrea is a 63 y.o. female. Overnight Events: No new events noted. Patient continues to be aphasic. She is moving her right arm and leg much better than yesterday. OBJECTIVE Vital Signs: Last Filed Vital Signs: 24 Hour Range BP: 163/65 (09/24 1100) Temp: 37 C (98.6 F) (09/24 0800) Pulse: 61 (09/24 1100) Respirations: 20 PER MINUTE (09/24 1100) SpO2: 97 % (09/24 1100) O2 Delivery: Nasal Cannula (09/24 1100) Height: 160 cm (63") (09/24 1011) Weight: 103.6 kg (228 lb 6.3 oz) (09/24 101) BP: (115-175)/(53-115) Temp: [36.6 C (97.9 F)-37 C (98.6 F)] Pulse: [57-73] Respirations: [13 PER MINUTE-23 PER MINUTE] SpO2: [94 %-97 %] O2 Delivery: Nasal Cannula Intensity Pain Scale (Self Report): (not recorded) Vitals: 09/22/18 1930 09/23/18 0600 09/24/18 1011 Weight: 103.6 kg (228 lb 6.3 oz) 103.6 kg (228 lb 6.3 oz) 103.6 kg (228 lb 6.3 oz) Artificial airway: None Ventilator/ Respiratory Therapy: No Vent weaning trial: Not applicable Lines: Peripheral Line Drains: None Critical Care Vitals: ICP Monitoring: Hemodynamics/Oxycalcs: Intake/Output Summary: (Last 24 hours) Intake/Output Summary (Last 24 hours) at 09/24/18 1206 Last data filed at 09/24/18 1040 Gross per 24 hour Intake 1554 ml Output 710 ml Net 844 ml Physical Exam: Blood pressure 163/65, pulse 61, temperature 37 C (98.6 F), height 160 cm ( 63"), weight 103.6 kg (228 lb 6.3 oz), SpO2 97 %. Catalina coma score: E: 4 - Opens eyes on own M: 6 - Follows simple motor commands V: 4 - Seems confused, disoriented Neuro: Mental Status: Alert, orientation limited by aphasia, follows some visual commands Speech: Receptive aphasia Cranial Nerves: Cranial nerves 2-12 INTACT unless otherwise listed below. - Pupil exam: Size: 4mm/4mm Reactivity: brisk - EOM: intact - Grimace/facial movement: right facial droop - Cough: present - Tongue midline, palate elevates symmetric Motor: RUE: Strength: 3/5; RLE: Strength: 4/5; LUE: Strength: 5/5; LLE: Strength: 5/5; Sensory: Diminished pain sensation in RUE Coordination: left limited by aphasia, right limited by weakness DTRs: 2s on the left, 1s in the right arm and leg Gait: limited by weakness Lungs: clear to auscultation bilaterally Pulmonary: Respiratory status: Stable Heart: regular rate and rhythm, S1, S2 normal, no murmur, click, rub or gallop Abdomen: soft, non-tender. Bowel sounds normal. No masses, no organomegaly Extremities: Redness of the right arm up to the elbow Skin: redness of the right arm up to the elbow Point of Care Testing: (Last 24 hours) Glucose: (!) 181 (09/24/18 1431) POC Glucose (Download): (!) 174 (09/24/18 9071) Lab Review: 24-hour labs: Results for orders placed or performed during the hospital encounter of (from the past 24 hour(s)) POC GLUCOSE Collection Time: 09/23/18 12:55 PM Result Value Ref Range Glucose, POC 141 (H) 70 - 100 MG/DL POC GLUCOSE Collection Time: 09/23/18 5:26 PM Result Value Ref Range Glucose, POC 135 (H) 70 - 100 MG/DL POC GLUCOSE Collection Time: 09/23/18 8:43 PM Result Value Ref Range Glucose, POC 160 (H) 70 - 100 MG/DL POC GLUCOSE Collection Time: 09/24/18 3:52 AM Result Value Ref Range Glucose, POC 164 (H) 70 - 100 MG/DL BASIC METABOLIC PANEL Collection Time: 09/24/18 3:55 AM Result Value Ref Range Sodium 136 (L) 137 - 147 MMOL/L Potassium 4.1 3.5 - 5.1 MMOL/L Chloride 104 98 - 110 MMOL/L CO2 24 21 - 30 MMOL/L Anion Gap 8 3 - 12 Glucose 181 (H) 70 - 100 MG/DL Blood Urea Nitrogen 14 7 - 25 MG/DL Creatinine 0.59 0.4 - 1.00 MG/DL Calcium 8.9 8.5 - 10.6 MG/DL eGFR Non >60 >60 mL/min eGFR >60 >60 mL/min CBC Collection Time: 09/24/18 3:55 AM Result Value Ref Range White Blood Cells 14.7 (H) 4.5 - 11.0 K/UL RBC 4.87 4.0 - 5.0 M/UL Hemoglobin 14.9 12.0 - 15.0 GM/DL Hematocrit 45.0 36 - 45 % MCV 92.4 80 - 100 FL MCH 30.7 26 - 34 PG MCHC 33.2 32.0 - 36.0 G/DL RDW 13.8 11 - 15 % Platelet Count 264 150 - 400 K/UL MPV 10.1 7 - 11 FL PHOSPHORUS Collection Time: 09/24/18 3:55 AM Result Value Ref Range Phosphorus 4.0 2.0 - 4.5 MG/DL MAGNESIUM Collection Time: 09/24/18 3:55 AM Result Value Ref Range Magnesium 2.0 1.6 - 2.6 mg/dL POC GLUCOSE Collection Time: 09/24/18 7:52 AM Result Value Ref Range Glucose, POC 174 (H) 70 - 100 MG/DL Radiology and Other Diagnostic Procedures Review: Pertinent radiologic and diagnostic procedures reviewed. Ryan Williamson MD Date: 09/24/[phone] Associated attestation - Ene Salamanca MD - 09/24/2018 12:29 PM ELECTRICAL RESEARCH ENGINEER Formatting of this note may be different from the original. ATTESTATION I personally performed the lawson portions of the E/M visit, discussed case with resident and concur with resident documentation of history, physical exam, assessment, and treatment plan unless otherwise noted. Pt admitted for post TPA care after onset of aphasia and right-sided weakness on Monday, 09/22. Mild hemorrhagic conversion is stable on CT today. Start aspirin and subQ heparin. PMR to see, continue feeds via corpak. Echo pending. Start lisinopril. Stable for transfer to stroke service for continued care. Total time: 25 minutes Staff name: Ene Salamanca MD Date: 09/24/2018 * Kenzie Jordan OT - 09/24/2018 11:04 AM ELECTRICAL RESEARCH ENGINEER Formatting of this note may be different from the original. OCCUPATIONAL THERAPY PROGRESS NOTE Patient Name: Vidhi Andrea Room/Bed: [id number]/ Admitting Diagnosis: Stroke Past Medical History: Diagnosis Date DMII (diabetes mellitus, type 2) (HCC) HLD (hyperlipidemia) HTN (hypertension) Mobility Progressive Mobility Level: Walk in hallway Distance Walked (feet): 50 ft (+ 50) Level of Assistance: Assist X2 Assistive Device: Hand Held Time Tolerated: 11-30 minutes Activity Limited By: Weakness Subjective Pertinent Dx per Physician: 63yo female h/o HTN, HLD, DM, admitted with left basal ganglia ischemic stroke s/p tPa with mild hemorrhagic conversion Precautions: Standard;Falls Pain / Complaints: Patient demonstrates no signs of pain Pain Level Current: (unable to rate) Comments: Pt left seated in bedside chair at end of session, all needs within reach and TABS alarm in place. Objective Psychosocial Status: Willing and Cooperative to Participate Persons Present: Occupational Therapist Home Living Prior Function Other Function Comments: Pt unable to provide subjective information due to aphasia. No family present. Vision Visual Screen Results: Right Sided Edgar-Inattention Comment: Tracking WFL. Right side inattention however attends with verbal cues and prompts. Positioned in chair to promote attention to the right. ADL's Where Assessed: Standing at Sink;In Bathroom Grooming Assist: Moderate Assist Grooming Deficits: Supervision/Safety;Steadying;Verbal Cueing;Wash/Dry Hands LE Dressing Assist: Maximum Assist LE Dressing Deficits: Don/Doff R Sock;Don/Doff L Sock Toileting Assist: Total Assist (moderate assist x2) Functional Transfer Assist: Moderate Assist Functional Transfer Deficits: Steadying;Verbal Cueing;Supervision/Safety Comment: Sit to stand with moderate assist progressing toward minimum assist x1 at end of session. Pt completes toileting with assist x2, one person for steadying and secondfor hygiene and brief management. Pt requires maximum assist for hand washing due to aphasia and apraxia. Activity Tolerance Endurance: 2/5 Tolerates 10-20 Minutes Exercise w/Multiple Rests Sitting Balance: 2+/5 Supports Self w/ 1 UE Cognition Overall Cognitive Status: Impaired Comprehension: Receptive Aphasia Expression: Expressive Aphasia Problem Solving: Cueing to Sequence Task;Direction Following Assist UE AROM Grasp: R Weakened;L Weakened UE Strength / Tone Overall Strength / Tone: WFL Able to Perform ADL Tasks Assessment Assessment: Decreased ADL Status;Decreased Self-Care Trans;Decreased High-Level ADLs;Decreased Endurance;Decreased UE Strength;Decreased Cognition Prognosis: Good;w/Cont OT s/p Acute Discharge Goal Formulation: Patient AM-PAC 6 Clicks Daily Activity Inpatient Putting on and taking off regular lower body clothes?: Total Bathing (Including washing, rinsing, drying): A Lot Toileting, which includes using toilet, bedpan, or urinal: A Lot Putting on and taking off regular upper body clothing: A Lot Taking care of personal grooming such as brushing teeth: A Lot Eating meals?: Total Daily Activity Raw Score: 10 Standardized (t-scale) score: 27.31 CMS 0-100% Score: 74.7 CMS G Code Modifier: CL Plan OT Frequency: 5x/week OT Plan for Next Visit: standing grooming at sink ADL Goals Patient Will Perform Grooming: Standing at Sink;w/ Minimum Assist Patient Will Perform LE Dressing: w/ Minimum Assist Patient Will Perform Toileting: w/ Minimum Assist Functional Transfer Goals Pt Will Perform All Functional Transfers: Minimum Assist OT Discharge Recommendations OT Discharge Recommendations: Inpatient Setting, Recommend PM&R Consult to address most appropriate level of rehabilitation placement ([phone]). Equipment Recommendations: Too early to be determined Therapist: Kenzie Jordan OTR/Ch[place]ale [id number] Date: 09/24/2018 * Dari Jones, PT - 09/24/2018 11:04 AM ELECTRICAL RESEARCH ENGINEER PHYSICAL THERAPY PROGRESS NOTE MOBILITY: Mobility Progressive Mobility Level: Walk in hallway Distance Walked (feet): 50 ft (+ 50) Level of Assistance: Assist X2 Assistive Device: Hand Held Time Tolerated: 11-30 minutes Activity Limited By: Weakness SUBJECTIVE: Subjective Significant hospital events: 63yo female h/o HTN, HLD, DM, admitted with left basal ganglia ischemic stroke s/p tPa with mild hemorrhagic conversion. Mental / Cognitive Status: Alert;Cooperative;Inconsistent with Command Following (due to aphasia) Persons Present: Occupational Therapist Pain: Patient demonstrates no signs of pain BED MOBILITY/TRANSFERS: Bed Mobility/Transfers Bed Mobility: Supine to Sit: Moderate Assist;x2 People;Assist with B LE;Assist with Trunk;Head of Bed Elevated;No Rail Transfer Type: Sit to/from Stand Transfer: Assistance Level: To/From;Bed;Bed Side Chair;Toilet;Minimal Assist ( moderate assist on first attempt- improved next trial) Transfer: Assistive Device: Hand Hold Assist;None Transfers: Type Of Assistance: For Balance;For Strength Deficit;For Safety Considerations Other Transfer Type: Stand Pivot Other Transfer: Assistance Level: From;Bed;To;Bed Side Chair;Minimal Assist;x2 People Other Transfer: Assistive Device: Hand Hold Assist Other Transfer: Type Of Assistance: Knees(s) Blocked;For Balance;For Safety Considerations End Of Activity Status: Up in Chair;Nursing Notified;Instructed Patient to Request Assist with Mobility;Instructed Patient to Use Call Light (pads alarm activated; lift sling under pt) BALANCE: Balance Sitting Balance: Static Sitting Balance;No UE Support;1 UE Support;Standby Assist Standing Balance: Static Standing Balance;1 UE support;Minimal Assist ( progressed to standby) GAIT: Gait Gait Distance: 50 feet (x2; then 10', 10' with seated rest between each) Gait: Assistance Level: Minimal Assist Gait: Assistive Device: Hand Hold Assist Gait: Descriptors: Pace: Slow;Normal step length;No balance loss Activity Limited By: Complaint of Fatigue EDUCATION: Education Persons Educated: Patient Patient Barriers To Learning: Cognitive Deficits;Impaired Communication (aphasia ) Interventions: Repetition of Instructions Teaching Methods: Verbal Instruction Patient Response: Verbalized Understanding;More Instruction Required Topics: Plan/Goals of PT Interventions;Mobility Progression;Safety Awareness;Up with Assist Only;Importance of Increasing Activity;Positioning;Recommend Continued Therapy ASSESSMENT/PROGRESS: Assessment/Progress Impaired Mobility Due To: Decreased Strength;Impaired Balance;Cognitive Deficits ;Safety Concerns;Decreased Activity Tolerance;Medical Status Limitation Assessment/Progress: Should Improve w/ Continued PT AM-PAC 6 Clicks Basic Mobility Inpatient Turning from your back to your side while in a flat bed without using bed rails : A Little Moving from lying on your back to sitting on the side of a flatbed without using bedrails : Total Moving to and from a bed to a chair (including a wheelchair): Total Standing up from a chair using your arms (e.g. wheelchair, or bedside chair): A Little To walk in hospital room: A Little Climbing 3-5 steps with a railing: Total Raw Score: 12 Standardized (T-scale) Score: 32.23 Basic Mobility CMS 0-100%: 61.94 CMS G Code Modifier for Basic Mobility: CL GOALS: Goals Goal Formulation: With Patient, Patient Unable to Participate in Goal Setting Time For Goal Achievement: 5 days, To, 7 days Pt Will Go Supine To/From Sit: w/ Minimal Assist Pt Will Transfer Bed/Chair: w/ Minimal Assist Pt Will Transfer Sit to Stand: w/ Minimal Assist Pt Will Ambulate: 51-100 Feet, w/ Minimal Assist PLAN: Plan Treatment Interventions: Mobility Training;Strengthening;Balance Activities; Endurance Training;Neuromuscular Reeducation Plan Frequency: 5 Days per Week PT Plan for Next Visit: Work on transfers; progress gait distance. RECOMMENDATIONS: PT Discharge Recommendations PT Discharge Recommendations: Inpatient Setting;Recommend Physical Medicine and Rehabilitation Consult to address most appropriate level of rehabilitation placement Therapist: Dari Jones, PT Date: 09/24/2018 * Nieves Salazar, PT - 09/23/2018 3:29 PM ELECTRICAL RESEARCH ENGINEER PHYSICAL THERAPY ASSESSMENT MOBILITY: Progressive Mobility Level: Sit on edge of bed Level of Assistance: Assist X2 Assistive Device: None Time Tolerated: 0-10 minutes Activity Limited By: Weakness;Fatigue;Mental Status Variability SUBJECTIVE: Subjective Significant hospital events: 63yo female h/o HTN, HLD, DM, admitted with left basal ganglia ischemic stroke s/p tPa with mild hemorrhagic conversion Mental / Cognitive Status: Alert;Cooperative;Inconsistent with Command Following Persons Present: Occupational Therapist;Nursing Staff Pain: Patient complains of pain;Patient does not rate pain (frequently saying "ouch") Pain Interventions: Patient agrees to participate in therapy;Patient assisted into position of comfort Ambulation Assist: Unable to Provide History Comments: Patient unable to provide subjective history secondary to aphasia. Family not present at bedside. ROM: ROM UE ROM: WFL LE ROM: WFL STRENGTH: Strength Overall Strength: Generalized Weakness POSTURE/NEURO: Posture / Neurological Head Control: Independent Posture: Forward Head;Rounded Shoulders Posture/Neuro Comments: Unable to do formal neurological assessment due to aphasia and limited command following. BED MOBILITY/TRANSFERS: Bed Mobility/Transfers Bed Mobility: Rolling: Moderate Assist;x2 People;Assist with Trunk Bed Mobility: Supine to Sit: Maximum Assist;x2 People;Assist with B LE;Assist with Trunk Bed Mobility: Sit to Supine: Maximum Assist;x2 People;Assist with B LE;Assist with Trunk End Of Activity Status: In Bed;Nursing Notified;Instructed Patient to Request Assist with Mobility;Instructed Patient to Use Call Light (bed in chair mode, alarm set) BALANCE: Balance Sitting Balance: Static Sitting Balance;Dynamic Sitting Balance;Standby Assist; Minimal Assist (initially minimal assist, quickly progressed to standby) ACTIVITY/EXERCISE: Activity / Exercise Sit Edge Of Bed: 8 minutes Sit Edge Of Bed Assist: Stand By Assist;Minimal Assist Comments: Patient tolerated sitting edge of bed for ~8 minutes with variable assist (initially required minimal assist due to R lateral lean, quickly progressed to standby assist). Patient used LUE for support in sitting. EDUCATION: Education Persons Educated: Patient Patient Barriers To Learning: Cognitive Deficits;Impaired Communication (aphasia ) Interventions: Repetition of Instructions Teaching Methods: Verbal Instruction Patient Response: Verbalized Understanding;More Instruction Required Topics: Plan/Goals of PT Interventions;Mobility Progression;Safety Awareness;Up with Assist Only;Importance of Increasing Activity;Positioning;Recommend Continued Therapy ASSESSMENT/PROGRESS: Assessment/Progress Impaired Mobility Due To: Decreased Strength;Impaired Balance;Cognitive Deficits ;Safety Concerns;Decreased Activity Tolerance;Medical Status Limitation Assessment/Progress: Should Improve w/ Continued PT AM-PAC 6 Clicks Basic Mobility Inpatient Turning from your back to your side while in a flat bed without using bed rails : A lot Moving from lying on your back to sitting on the side of a flatbed without using bedrails : Total Moving to and from a bed to a chair (including a wheelchair): Total Standing up from a chair using your arms (e.g. wheelchair, or bedside chair): Total To walk in hospital room: Total Climbing 3-5 steps with a railing: Total Raw Score: 7 Standardized (T-scale) Score: 19.39 Basic Mobility CMS 0-100%: 93.19 CMS G Code Modifier for Basic Mobility: CM GOALS: Goals Goal Formulation: With Patient, Patient Unable to Participate in Goal Setting Time For Goal Achievement: 5 days, To, 7 days Pt Will Go Supine To/From Sit: w/ Minimal Assist Pt Will Transfer Bed/Chair: w/ Minimal Assist Pt Will Transfer Sit to Stand: w/ Minimal Assist Pt Will Ambulate: 51-100 Feet, w/ Minimal Assist PLAN: Plan Treatment Interventions: Mobility Training;Strengthening;Balance Activities; Endurance Training;Neuromuscular Reeducation Plan Frequency: 5 Days per Week PT Plan for Next Visit: Progress level of independence with bed mobility. Work on sit to stand transfer next visit with goal of getting to chair. RECOMMENDATIONS: PT Discharge Recommendations: Inpatient Setting - Recommend Physical Medicine and Rehabilitation Consult to address most appropriate level of rehabilitation placement Equipment Recommendations: Too early to be determined Therapist: Nieves Salazar PT, DPT Date: 09/23/2018 G-Codes: Mobility G8978 Current Status: 80-99% Impairment G8979 Goal Status: 20-39% Impairment Based on above evaluation and clinical judgment. * Shannan Sellers OT - 09/23/2018 3:29 PM ELECTRICAL RESEARCH ENGINEER OCCUPATIONAL THERAPY ASSESSMENT NOTE Patient Name: Vidhi Andrea Room/Bed: [place] [address] Admitting Diagnosis: Stroke No past medical history on file. Mobility Progressive Mobility Level: Sit on edge of bed Level of Assistance: Assist X2 Assistive Device: None Time Tolerated: 0-10 minutes Activity Limited By: Weakness;Fatigue;Mental Status Variability Subjective Pertinent Dx per Physician: 63yo female h/o HTN, HLD, DM, admitted with left basal ganglia ischemic stroke s/p tPa with mild hemorrhagic conversion Precautions: Standard;Falls Pain / Complaints: Patient agrees to participate in therapy Pain Location: (frequently says ouch when touched) Pain Level Current: (unable to rate) Comments: Pt supine in bed at start of therapy. Left in chair mode with needs addressed, call light within reach, bed alarm set, and RN notified of status. Objective Psychosocial Status: Willing and Cooperative to Participate Persons Present: Physical Therapist;Nursing Staff Prior Function Other Function Comments: Pt unable to provide subjective information due to aphasia. No family present. Vision Comment: Tracking WFL, not following commands to conduct formal assessment. ADL's Where Assessed: Edge of Bed;Supine, Bed Eating Assist: Total Assist UE Dressing Assist: Maximum Assist UE Dressing Deficits: Thread RUE;Thread LUE;Pull Around Back;Fasteners LE Dressing Assist: Total Assist LE Dressing Deficits: Don/Doff R Sock;Don/Doff L Sock Toileting Assist: Maximum Assist Toileting Deficits: (brief change in bed) Functional Transfer Assist: Maximum Assist (x2) Functional Transfer Deficits: (to EOB) Comment: Moderate assist x2 for rolling side to side to complete brief change. Max assist x2 for supine<>sit. Initially minimal assist for sitting balance, progressed to standby with 1UE. Tolerated sitting for approx. 8 minutes. Activity Tolerance Endurance: 1/5 Tolerates <10 Minutes Exercises, No Significant Change in Vital Signs Sitting Balance: 2+/5 Supports Self w/ 1 UE Cognition Overall Cognitive Status: Impaired Comprehension: Receptive Aphasia Expression: Expressive Aphasia Problem Solving: Cueing to Sequence Task;Direction Following Assist UE AROM UE AROM Not Assessed: Patient Unable to Follow Commands Grasp: R Weakened;L Weakened UE Strength / Tone Strength/Tone Not Assessed: Due to Cognitive Deficits Overall Strength / Tone: (generalized weakness) Education Persons Educated: Patient Barriers To Learning: Cognitive Deficits Interventions: Repetition of Instructions;Physical Cueing Teaching Methods: Verbal Instruction;Demonstration Patient Response: More Instruction Required Topics: Role of OT, Goals for Therapy Goal Formulation: With Patient;Patient Unable to Participate in Goal Setting Assessment Assessment: Decreased ADL Status;Decreased UE Strength;Decreased Safe/Judg during ADL;Decreased Cognition;Decreased Endurance;Decreased Self-Care Trans; Decreased High-Level ADLs Goal Formulation: Patient AM-PAC 6 Clicks Daily Activity Inpatient Putting on and taking off regular lower body clothes?: Total Bathing (Including washing, rinsing, drying): Total Toileting, which includes using toilet, bedpan, or urinal: Total Putting on and taking off regular upper body clothing: A Lot Taking care of personal grooming such as brushing teeth: A Lot Eating meals?: Total Daily Activity Raw Score: 8 Standardized (t-scale) score: 22.86 CMS 0-100% Score: 85.69 CMS G Code Modifier: CM Plan OT Frequency: 5x/week OT Plan for Next Visit: Seated ADLs, command follow, progress functional transfers/ADLs ADL Goals Patient Will Perform Grooming: Standing at Sink;w/ Minimum Assist Patient Will Perform LE Dressing: w/ Minimum Assist Patient Will Perform Toileting: w/ Minimum Assist Functional Transfer Goals Pt Will Perform All Functional Transfers: Minimum Assist OT Discharge Recommendations OT Discharge Recommendations: Inpatient Setting, Recommend PM&R Consult to address most appropriate level of rehabilitation placement ([phone]). Equipment Recommendations: Too early to be determined Therapist: Shannan Sellers OTR/L [id number] Date: 09/23/2018 * Ryan Williamson MD - 09/23/2018 1:26 PM ELECTRICAL RESEARCH ENGINEER Formatting of this note may be different from the original. Neuro Critical Care Progress Note Vidhi Andrea Admission Date: 09/22/2018 LOS: 1 day Full Code ASSESSMENT/PLAN Patient Active Problem List Diagnosis Date Noted Stroke (cerebrum) (HCC) 09/22/2018 Vidhi Andrea is a 63 y.o. female with a h/o HLD, HTN, DM transferred to after receiving TPA for right facial droop and right sided weakness. Hospital and ICU course: 09/22: Transferred from [place], [place] post-tPa Neuro: #Left basal ganglia ischemic stroke s/p tPa with mild hemorrhagic conversion -CTA at OSH: no LVO - MRI: Left basal ganglia ischemic stroke with hemorrhagic conversion - LDL 175, A1c 7.6, UDS neg Plan: -Echo -NEIGHBORHOOD WORKER, PT, OT, Rehab -asa 81mg start 24 hours after tPa -Tele -atorvastatin 40mg -LDCF -CT in the am to evaluate mild hemorrhagic conversion - Neuro-ICU monitoring, neurochecks q 1 hrs, parameters for Prevention of secondary brain injury(avoid hypotension, hypoxia, fever, hyperglycemia, significant anemia, diagnose and treatment of seizures, electrolyte abnormalities) Sedation/Pain Management: - Assess for delirium daily Cardiac: #HTN, CAD, HLD - not taking any meds consistently -SBP goal: <160 -BP has been 120-150s without intervention -Atorvastatin 40 Respiratory: -No hx of respiratory disease but requiring 2L while asleep, may have MARIBETH - PaO2 goal >100, Spo2 goal >95%, PCO2 goal 35-40 torr, chest physiotherapy, bronchotherapy, PD& V q 6 hrs GI: - Failed bedside swallow study - Feeding: NPO, corpak with tube feeds - neurosurgery bowel regimen, ensure daily BM Heme: -Subq heparin to start 24hrs after tPa - assess for coagulopathy, maintain platelets above 100k, INR <1.5 ID: - Tmax 36.7 - aim for normothermia, Temp <38.3 celsius, normothermia protocol if febrile Renal: -Remove coburn, bladder scan protocol - Aim for normovolemia Endocrine: #DMII - not taking meds consistently -A1c 7.6 Plan: -LDCF - Blood glucose goal 100-180mg/dl FEN: - IVF: NS@50ml/hr until feeding through corpak - Magnesium goal >2.0, i-Adair goal > 1.0, Potassium goal >4.0 mEq/L Skin/MSK: Red coloration to right arm, marked to determine if progression. Would not use right arm IV for continuous fluids. Monitor. Prophylaxis Review: A)GI: no B) Lines: No C) Urinary Catheter: No D) Antibiotic Usage: No E) VTE: Mechanical prophylaxis; Sequential compression device, received tpa F) Isolation: no G)Seizures: no I) Restraints: Patient assessed for need for restraints. Disposition/Family: Unchanged. Primary service: [facility] Consults: Neurology and Rehabilitative Medicine SUBJECTIVE Vidhi Andrea is a 63 y.o. female. Overnight Events: No new events noted. Patient continues to be aphasic. She moves her left side spontaneously but noticeably weaker on the right. Her sister and mother visited bedside today. They report Vidhi has not taken any medications on a regular basis in at least a year. OBJECTIVE Vital Signs: Last Filed Vital Signs: 24 Hour Range BP: 140/53 (09/23 1100) Temp: 36.8 C (98.2 F) (09/23 0800) Pulse: 62 (09/23 1100) Respirations: 18 PER MINUTE (09/23 1100) SpO2: 94 % (09/23 1100) O2 Delivery: Nasal Cannula (09/23 1100) Weight: 103.6 kg (228 lb 6.3 oz) (09/23 600) BP: (114-177)/(52-96) Temp: [36.6 C (97.8 F)-36.8 C (98.2 F)] Pulse: [50-68] Respirations: [14 PER MINUTE-29 PER MINUTE] SpO2: [88 %-100 %] O2 Delivery: Nasal Cannula Intensity Pain Scale (Self Report): (not recorded) Vitals: 09/22/18 1930 09/23/18 0600 Weight: 103.6 kg (228 lb 6.3 oz) 103.6 kg (228 lb 6.3 oz) Artificial airway: None Ventilator/ Respiratory Therapy: No Vent weaning trial: Not applicable Lines: Peripheral Line Drains: None Critical Care Vitals: ICP Monitoring: Hemodynamics/Oxycalcs: Intake/Output Summary: (Last 24 hours) Intake/Output Summary (Last 24 hours) at 09/23/18 1330 Last data filed at 09/23/18 1100 Gross per 24 hour Intake 442.5 ml Output 695 ml Net -252.5 ml Physical Exam: Blood pressure 140/53, pulse 62, temperature 36.8 C (98.2 F), weight 103.6 kg (228 lb 6.3 oz), SpO2 94 %. Catalina coma score: E: 4 - Opens eyes on own M: 6 - Follows simple motor commands V: 4 - Seems confused, disoriented Neuro: Mental Status: Alert, orientation limited by aphasia, follows some visual commands Speech: Receptive aphasia Cranial Nerves: Cranial nerves 2-12 INTACT unless otherwise listed below. - Pupil exam: Size: 4mm/4mm Reactivity: brisk - EOM: intact - Grimace/facial movement: right facial droop - Cough: present - Tongue midline, palate elevates symmetric Motor: RUE: Strength: 1/5; RLE: Strength: 2/5; LUE: Strength: 5/5; LLE: Strength: 5/5; Sensory: Diminished pain sensation in RUE Coordination: left limited by aphasia, right limited by weakness DTRs: 2s on the left, 0s in the right arm, 1s in right leg Gait: limited by weakness Lungs: clear to auscultation bilaterally Pulmonary: Respiratory status: Stable Heart: regular rate and rhythm, S1, S2 normal, no murmur, click, rub or gallop Abdomen: soft, non-tender. Bowel sounds normal. No masses, no organomegaly Extremities: Redness of the right arm up to the elbow Skin: redness of the right arm up to the elbow Point of Care Testing: (Last 24 hours) Glucose: (!) 174 (09/23/18 0307) POC Glucose (Download): (!) 141 (09/23/18 1255) Lab Review: 24-hour labs: Results for orders placed or performed during the hospital encounter of (from the past 24 hour(s)) POC GLUCOSE Collection Time: 09/22/18 7:55 PM Result Value Ref Range Glucose, POC 235 (H) 70 - 100 MG/DL BASIC METABOLIC PANEL Collection Time: 09/22/18 8:07 PM Result Value Ref Range Sodium 134 (L) 137 - 147 MMOL/L Potassium 4.7 3.5 - 5.1 MMOL/L Chloride 101 98 - 110 MMOL/L CO2 22 21 - 30 MMOL/L Anion Gap 11 3 - 12 Glucose 254 (H) 70 - 100 MG/DL Blood Urea Nitrogen 13 7 - 25 MG/DL Creatinine 0.73 0.4 - 1.00 MG/DL Calcium 8.6 8.5 - 10.6 MG/DL eGFR Non >60 >60 mL/min eGFR >60 >60 mL/min LIPID PROFILE Collection Time: 09/22/18 8:07 PM Result Value Ref Range Cholesterol 256 (H) <200 MG/DL Triglycerides 226 (H) <150 MG/DL HDL 34 (L) >40 MG/DL LDL 175 (H) <100 MG/DL VLDL 45 MG/DL Non HDL Cholesterol 222 MG/DL MAGNESIUM Collection Time: 09/22/18 8:07 PM Result Value Ref Range Magnesium 1.8 1.6 - 2.6 mg/dL PHOSPHORUS Collection Time: 09/22/18 8:07 PM Result Value Ref Range Phosphorus 5.2 (H) 2.0 - 4.5 MG/DL CBC Collection Time: 09/22/18 8:50 PM Result Value Ref Range White Blood Cells 20.1 (H) 4.5 - 11.0 K/UL RBC 5.29 (H) 4.0 - 5.0 M/UL Hemoglobin 16.1 (H) 12.0 - 15.0 GM/DL Hematocrit 48.2 (H) 36 - 45 % MCV 91.0 80 - 100 FL MCH 30.5 26 - 34 PG MCHC 33.5 32.0 - 36.0 G/DL RDW 13.8 11 - 15 % Platelet Count 281 150 - 400 K/UL MPV 10.0 7 - 11 FL HEMOGLOBIN A1C Collection Time: 09/22/18 8:50 PM Result Value Ref Range Hemoglobin A1C 7.6 (H) 4.0 - 6.0 % BASIC METABOLIC PANEL Collection Time: 09/23/18 3:07 AM Result Value Ref Range Sodium 137 137 - 147 MMOL/L Potassium 4.1 3.5 - 5.1 MMOL/L Chloride 105 98 - 110 MMOL/L CO2 26 21 - 30 MMOL/L Anion Gap 6 3 - 12 Glucose 174 (H) 70 - 100 MG/DL Blood Urea Nitrogen 14 7 - 25 MG/DL Creatinine 0.67 0.4 - 1.00 MG/DL Calcium 8.7 8.5 - 10.6 MG/DL eGFR Non >60 >60 mL/min eGFR >60 >60 mL/min CBC Collection Time: 09/23/18 3:07 AM Result Value Ref Range White Blood Cells 15.0 (H) 4.5 - 11.0 K/UL RBC 4.79 4.0 - 5.0 M/UL Hemoglobin 14.7 12.0 - 15.0 GM/DL Hematocrit 43.9 36 - 45 % MCV 91.6 80 - 100 FL MCH 30.7 26 - 34 PG MCHC 33.5 32.0 - 36.0 G/DL RDW 13.8 11 - 15 % Platelet Count 293 150 - 400 K/UL MPV 10.4 7 - 11 FL PHOSPHORUS Collection Time: 09/23/18 3:07 AM Result Value Ref Range Phosphorus 4.8 (H) 2.0 - 4.5 MG/DL MAGNESIUM Collection Time: 09/23/18 3:07 AM Result Value Ref Range Magnesium 1.8 1.6 - 2.6 mg/dL POC GLUCOSE Collection Time: 09/23/18 8:46 AM Result Value Ref Range Glucose, POC 138 (H) 70 - 100 MG/DL URINALYSIS DIPSTICK REFLEX TO CULTURE Collection Time: 09/23/18 11:00 AM Result Value Ref Range Color,UA YELLOW Turbidity,UA CLEAR CLEAR-CLEAR Specific Randall-Urine 1.028 1.003 - 1.035 pH,UA 5.0 5.0 - 8.0 Protein,UA NEG NEG-NEG Glucose,UA NEG NEG-NEG Ketones,UA NEG NEG-NEG Bilirubin,UA NEG NEG-NEG Blood,UA 2+ (A) NEG-NEG Urobilinogen,UA NORMAL NORM-NORMAL Nitrite,UA NEG NEG-NEG Leukocytes,UA TRACE (A) NEG-NEG Urine Ascorbic Acid, UA NEG NEG-NEG URINALYSIS MICROSCOPIC REFLEX TO CULTURE Collection Time: 09/23/18 11:00 AM Result Value Ref Range WBCs,UA 2-10 0 - 2 /HPF RBCs,UA 2-10 0 - 3 /HPF Comment,UA Urine submitted for reflex culture if criteria are met:WBC>10, positive nitrite and/or >=1+ leukocyte esterase. If quantity is not sufficient, an addendum will follow. MucousUA TRACE Bacteria,UA FEW (A) NEG-NEG Squamous Epithelial Cells 0-2 0 - 5 AMPHETAMINES-URINE RANDOM Collection Time: 09/23/18 11:00 AM Result Value Ref Range Amphetamines NEG NEG-NEG BARBITURATES-URINE RANDOM Collection Time: 09/23/18 11:00 AM Result Value Ref Range Barbiturates,Urine NEG NEG-NEG BENZODIAZEPINES-URINE RANDOM Collection Time: 09/23/18 11:00 AM Result Value Ref Range Benzodiazepines NEG NEG-NEG CANNABINOIDS-URINE RANDOM Collection Time: 09/23/18 11:00 AM Result Value Ref Range THC NEG NEG-NEG COCAINE-URINE RANDOM Collection Time: 09/23/18 11:00 AM Result Value Ref Range Cocaine-Urine NEG NEG-NEG OPIATES-URINE RANDOM Collection Time: 09/23/18 11:00 AM Result Value Ref Range Opiates-Urine NEG NEG-NEG PHENCYCLIDINES-URINE RANDOM Collection Time: 09/23/18 11:00 AM Result Value Ref Range Phencyclidine (PCP) NEG NEG-NEG POC GLUCOSE Collection Time: 09/23/18 12:55 PM Result Value Ref Range Glucose, POC 141 (H) 70 - 100 MG/DL Radiology and Other Diagnostic Procedures Review: Pertinent radiologic and diagnostic procedures reviewed. Ryan Williamson MD Date: 09/23/[phone] Associated attestation - Kiki Daniel MD - 09/23/2018 2:20 PM ELECTRICAL RESEARCH ENGINEER Formatting of this note may be different from the original. ATTESTATION I have seen, personally fully evaluated, and discussed patient with Dr. Williamson. I agree with the objective findings and agree with the plan of care as documented by the resident with the exceptions noted. The patient is critically ill with ischemic stroke with some hemorrhagic conversion. Continue to monitor closely post-tpa. Stroke work-up continues and involve therapy services for stroke recovery. I spent 40 minutes (excluding time spent performing or supervising any procedures) providing and personally directing critical care services, including reviewing imaging and laboratory results. Staff name: Kiki Daniel MD Date: 09/23/2018 * Farheen Andino - 09/23/2018 11:05 AM ELECTRICAL RESEARCH ENGINEER SPEECH-LANGUAGE PATHOLOGY CLINICAL SWALLOW ASSESSMENT EVALUATION SUMMARY A clinical swallow evaluation was completed. Oropharyngeal swallow moderate- severely impaired s/p CVA. Pt exhibits immediate coughing episodes following thin and nectar thick liquids, after multiple trials . Pt exhibits expressive/ receptive aphasia. Often says "yes" and "ok", appearing as though she understands conversation, although limited ability to follow commands and unreliable yes/no responses upon probing. Pt exhibits signs of oral apraxia in addition. Will formally evaluate aphasia/apraxia in future sessions. Anticipate need for videoswallow study within next week. Please see below for details/ recommendations. RECOMMENDATIONS NPO: Temporary Non-Oral Nutrition Medications via alternate source Ice chips (3-5/hour), details at [facility]. [facility], [place] oral care Ongoing speech therapy -Anticipate need for videoswallow study early this week -Language evaluation warranted Oral Stage Summary*: Oral stage judged to be mildly impaired. Normal withdraw and formation of bolus. Upon transfer, highly suspect premature posterior bolus spillage. Pharyngeal Stage Summary*: Pharyngeal stage judged to be moderate-severly impaired at this time. Swallow initiation timely. Laryngeal elevation difficult to assess d/t body habitus. Pt exhibits no s/s of aspiration across initial single drinks of thin liquids or nectar thick liquids, though as trials progressed, pt exhibits immediate cough reaction after swallowing. Plan: Continue Treatment __x/week (Comment)., Patient Would Benefit from Further Speech Therapy Post Acute Hospitalization. Prognosis: Guarded, Fair NOMS Dysphagia Ratin2-Ttyqwrmrcb-Hedgne Dysphagia -Not able to swallow safely by mouth for nutrition/hydration but may take some consistency w/ consistent max cues in therapy only. Alternative method of feeding required. Results Reported to Physician: Yes Objective* Relevant Med Background: Vidhi Andrea is a 63 y.o. female with a h/o HLD, HTN, DM transferred to after receiving TPA for right facial droop and right sided weakness. MRI Head 09/22/18 IMPRESSION 1. Recent infarct (6 hours to 7 days in age) within the left lentiform nucleus with associated susceptibility signal suggestive of hemorrhage. No mass effect or midline shift. 2. Other scattered small areas of high diffusion signal throughout the left MCA distribution likely additional tiny infarcts. 3. Mild supratentorial white matter FLAIR hyperintensities most likely chronic microvascular ischemic changes. Hearing: WFL Psychosocial Status: Willing and Cooperative to Participate Persons Present: None Subjective* Pain: Patient demonstrates no signs of pain Trach Presence: No Feeding Tube Present During Eval: None Nutrition* Nutrition Prior To Hospitalization: Regular, Thin Liquids Current Form Of Nutrition: NPO Oral Mech Exam Oral Mech WFL*: No Oral Mech Exam Summary*: Pt exhibiting apraxic oral movements when attempting to follow instructions for completion of oral mech examination. Vocal quality WFL. Volitional cough strong. Unable to view dentition. Swallow Strategies Small Bites and Sips: Ineffective Slow Rate of Intake: Ineffective Comments: No additional compensatory strategies trialed d/t limited ability to follow complex instructions. Education* Persons Educated: Patient Barriers To Learning: Impaired Communication Interventions: Staff Educated, Provided Written Education Teaching Methods: Verbal Topics: Dysphagia Patient Response: Unable to Demonstrate Understanding, Unable to Verbalize Understanding Goal Formulation: Patient Unable to participate in Goal Setting Clinical Swallow Goals* Goal : Pt will tolerate ice chips with <10% s/s of aspiration and without negative pulmonary status changes. Goal : Pt will participate in ongoing swallow evaluation provided mod cues. Goal : Pt will participate in videoswallow study evaluation provided mod cues. Goal : Pt will participate in language evaluation provided mod cues. Therapist:Chantale Worthington/CCC-NEIGHBORHOOD WORKER (Pager [phone]; Voalte: [phone]) Date:09/23/2018 * Fernanda Anton, RN - 09/23/2018 9:00 AM ELECTRICAL RESEARCH ENGINEER Pt's right forearm is red and edematous but NOT warm to the touch. IV on right forearm is not infiltrated and does not have any phlebitis present, and flushes well with good blood return. NEICU team at bedside for rounds. Orders per Dr. Stapleton to monitor rash, elevate arm, and to maintain IV for it has good blood return. Will continue to monitor. * Chana Mejias, RT - 09/23/2018 6:41 AM ELECTRICAL RESEARCH ENGINEER RT Adult Assessment Note NAME:Vidhi Andrea :1955 AGE: 63 y.o. ADMISSION DATE: 09/22/2018 DAYS ADMITTED: LOS: 1 day RT Treatment Plan: Protocol Plan: Procedures IPPB: Place a nursing order for "IS Q1h While Awake" for any of Lung Expansion indicators Oxygen/Humidity: O2 to keep SpO2 > 92% Monitoring: Pulse oximetry BID & PRN Additional Comments: Impressions of the patient: Pt not following commands at this time Vital Signs: Pulse: Pulse: 58 RR: Respirations: 17 PER MINUTE SpO2: SpO2: 96 % O2 Device: $$ O2 Device: Cannula Liter Flow: O2 Liter Flow: 2 lpm O2%: Breath Sounds: All Breath Sounds: Clear (implies normal);Decreased Respiratory Effort: Respiratory Effort: Non-Labored * Chana Murillo RN - 09/23/2018 6:41 AM ELECTRICAL RESEARCH ENGINEER Patient arrived to room # (9329) via bed accompanied by transport. Patient transferred to the bed with assistance. Bedside safety checks completed. Initial patient assessment completed, refer to flowsheet for details. Admission skin assessment completed by: Pressure Injury Present on Hospital Admission (within 24 hours): No 1. Occiput: No 2. Ear: No 3. Scapula: No 4. Spinous Process: No 5. Shoulder: No 6. Elbow: No 7. Iliac Crest: No 8. Sacrum/Coccyx: No 9. Ischial Tuberosity: No 10. Trochanter: No 11. Knee: No 12. Malleolus: No 13. Heel: No 14. Toes: No 15. Assessed for device associated injury No 16. Nursing Nutrition Assessment Completed No See Doc Flowsheet for additional wound details. INTERVENTIONS: * Chana Murillo RN - 09/23/2018 4:05 AM ELECTRICAL RESEARCH ENGINEER [employer] * Chana Murillo RN - 09/23/2018 2:19 AM ELECTRICAL RESEARCH ENGINEER [employer] * Ervin Messer MD - 09/22/2018 10:23 PM CDT Formatting of this note may be different from the original. NAME:Vidhi Andrea :1955 AGE: 63 y.o. ADMISSION DATE: 09/22/2018 DAYS ADMITTED: LOS: 1 day Date of Service: 09/23/2018 Allergies: Patient has no allergy information on record. Type of ASRT note: Consult Assessment & Plan Chief Complaint: Stroke, Outside hospital transfer s/p tPA. Assessment: Vidhi Andrea is a 63 y.o. female with h/o hyperlipidemia, hypertension, diabetes presented as transfer from outside hospital after being noted by family at 1600 to have right facial drooping and right-sided weakness patient given TPA which was completed at 1800 and transferred to [facility]. Impression: Acute stroke in the left basal ganglia with some hemorrhagic conversion noted with resultant right-sided weakness status post TPA administered at outside hospital. Suspected localization of Stroke Sx: Left basal ganglia Suspected etiology: Small - Vessel Occlusion Pre-event mRS: 0 - No symptoms at all Plan: - Admit to neuroICU on telemetry - MRI head WO - Stroke risk factor assessment Labs to include FLP, A1c Echocardiogram Vascular Imaging - Pending clouding from OSH Reportedly complete CTA H&N Telemetry to monitor for arrhythmia Evaluation of smoking history and smoking cessation consult if tobaccoism present Antiplt therapy: hold off on ASA for now given some hemorrhagic conversion Permissive SBP <160 - CBC, BMP routine - PT/OT/NEIGHBORHOOD WORKER consult eval and treat - Rehab consult for assessment of post stroke care The patient was discussed with Dr. Ulloa, Stroke Fellow History of Present Ilness History of Present Illness: Per outside records patient with signs and symptoms which began at 1600 and were noted at that time by her family. Family noted onset right facial drooping and right-sided weakness. Per outside report NIH on presentation was 19 scoring 2 for the inability to answer questions correctly, 2 for facial paresis, 3 for right upper extremity, 3 for right lower extremity, 3 for left lower extremity, 1 for ataxia, 0 for sensory, 2 for aphasia, 1 for dysarthria, 2 for extinction and inattention. Upon arrival to [facility] patient noted to have NIH stroke scale of 11 further documented below. Upon examination patient lethargic/obtunded, inconsistently following commands, unable to answer questions. Patient only stating "ow" or "ouch" to stimulation. Patient with no family present to further clarify history. Review of Systems Unable to obtain due to patient's mental status Stroke Activation Summary CT/CTP/CTA: BP: 129/77 (09/23 30) Temp: 36.6 C (97.9 F) (09/23 0000) Pulse: 57 (09/23 30) Respirations: 16 PER MINUTE (09/23 30) SpO2: 97 % (09/23 30) O2 Delivery: Nasal Cannula (09/23 30) SpO2 Pulse: 57 (09/23 30) NIHSS Completed at: 1930 NIH Stroke Scale Item Scoring Definition Score 1a. LOC 0=alert and responsive 1=arousable to minor stimulation 2=arousable only to painful stimulation 3=reflex responses or unrousable 2 1b. LOC questions-as patients age and month. Must be exact. 0=both correct 1=one correct (or dysarthria, intubated, foreign language) 2=neither correct 2 1c. Commands-open/close eyes, cellophane press operator and release non-paretic hand (other 1 step commands or mimic OK) 0=both correct (ok if impaired by weakness) 1=one correct 2=neither correct 1 2. Best Gaze-horizontal EOM by voluntary or Dolls 0=normal 1=partial gaze palsy (abnormal gaze in one or both eyes) 2=forced eye deviation or total paresis which cannot be overcome by Dolls 0 3. Visual Field-use visual threat if necessary. If monocular, score field of good eye 0=no visual loss 1=partial hemianopia, quadrantanopia, extinction 2=complete hemianopia 3=bilateral hemianopia or blindness 0 4. Facial Palsy-if stuporous, check symmetry of grimace to pain 0=normal 1=minor paralysis, flat NLF, asymm smile 2=partial paralysis (lower face=UMN) 3=complete paralysis (upper and lower face) 1 5. Motor Arm-arms outstretched 90 deg (sitting) or 45 deg (supine) for 10 seconds. Encourage best effort. 0=no drift x 10 seconds 1=drift but doesnt hit bed 2=some antigravity effort, but cant sustain 3=no antigravity effort, but even minimal mvt counts 4=no movement at all X=unable to assess due to amputation, fusion, etc L/R 0/1 6. Motor Leg-raise leg to 30 degrees supine x 5 seconds 0=no drift x 5 seconds 1=drift but doesnt hit bed 2=some antigravity effort, but cant sustain 3=no antigravity effort, but even minimal mvt counts 4=no movement at all X=unable to assess due to amputation, fusion, etc L/R 0/1 7. Limb Ataxia-check finger-nose- finger; heel-wilkinson; and score only if out of proportion to paralysis 0=no ataxia (or aphasic, hemiplegic) 1=ataxia in upper or lower extremity 2=ataxia in upper AND lower extremity X=unable to assess due to amputation, fusion, etc 0 8. Sensory-use safety pin. Check grimace or withdrawal if stuporous. Score only stroke- related losses 0=normal 1=mild-mod unilateral loss but patient aware of touch 9or aphasic, confused) 2=total loss, pt unaware of touch. Coma, bilateral loss 0 9. Best Language-describe cookie jar picture, name objects, read sentences. May use repeating, writing, stereognosis 0=normal 1=mild-mod aphasia (diff but partly comprehensible) 2=severe aphasia (almost no info exchanged) 3=mute, global aphasia, coma. No 1 step commands 2 10. Dysarthria-read list of words 0=normal 1=mild-mod; slurred but intelligible 2=severe; unintelligible or mute 1 11. Extinction/Neglect- simultaneously touch patient on both hands, show fingers in both visual domingo, ask about deficit, left hand 0=normal, none detected. (visual loss alone) 1=neglects or extinguishes to double simult stimulation in any modality 2=profound neglect in more than one modality UN Score 11 Was IV tPA given? Yes: Started at outside hospital Advanced imaging was interpreted at OSH The patient was not a thrombectomy candidate due to no large vessel occlusion Dysphagia screen: Did Patient Pass The Swallow Screen Part I?: No If "No" Name of Physician Notified: Ruddy Bell Performed by nursing staff and Failed screen by nursing staff and awaiting ST evaluation Cardiac rhythm on presentation: OSH records, [facility] History Per outside hospital records: Past medical history of high cholesterol, hypertension, diabetes Past surgical history of unknown cardiac surgery, tubal ligation Medications: aspirin rectal suppository 300 mg 300 mg Rectal QDAY docusate (COLACE) capsule 100 mg 100 mg Oral BID milk of magnesia (CONC) oral suspension 10 mL 10 mL Oral QDAY senna/docusate (SENOKOT-S) tablet 1 tablet 1 tablet Oral BID PRN Medications: hydrALAZINE Q6H PRN, labetalol (NORMODYNE; TRANDATE) injection Q15 MIN PRN Physical Exam HEENT: normocephalic, eyes open with no discharge, nares patent CV: regular rate Chest: normal configuration, equal chest rise bilaterally Ab: soft, non-distended Skin: no rashes or lesions Neuro: MS: Lethargic/obtunded, not attentive Cranial Nerves: pupils are round and reactive to light, sharp disc, extraocular movements are intact to doll's eye, slight right facial droop, Muscle/motor: Tone is good throughout, patient moves limbs to tactile stimulation Reflexes: Plantar reflex extensor on the right, downgoing on left Sensation: Patient responds in all 4 extremities to painful/tactile stimulation Coordination: Unable to complete due to mental status Gait: Unable to perform due to mental status Lab/Radiology/Other Diagnostic Tests: 24-hour labs: Results for orders placed or performed during the hospital encounter of (from the past 24 hour(s)) POC GLUCOSE Collection Time: 09/22/18 7:55 PM Result Value Ref Range Glucose, POC 235 (H) 70 - 100 MG/DL BASIC METABOLIC PANEL Collection Time: 09/22/18 8:07 PM Result Value Ref Range Sodium 134 (L) 137 - 147 MMOL/L Potassium 4.7 3.5 - 5.1 MMOL/L Chloride 101 98 - 110 MMOL/L CO2 22 21 - 30 MMOL/L Anion Gap 11 3 - 12 Glucose 254 (H) 70 - 100 MG/DL Blood Urea Nitrogen 13 7 - 25 MG/DL Creatinine 0.73 0.4 - 1.00 MG/DL Calcium 8.6 8.5 - 10.6 MG/DL eGFR Non >60 >60 mL/min eGFR >60 >60 mL/min LIPID PROFILE Collection Time: 09/22/18 8:07 PM Result Value Ref Range Cholesterol 256 (H) <200 MG/DL Triglycerides 226 (H) <150 MG/DL HDL 34 (L) >40 MG/DL LDL 175 (H) <100 MG/DL VLDL 45 MG/DL Non HDL Cholesterol 222 MG/DL MAGNESIUM Collection Time: 09/22/18 8:07 PM Result Value Ref Range Magnesium 1.8 1.6 - 2.6 mg/dL PHOSPHORUS Collection Time: 09/22/18 8:07 PM Result Value Ref Range Phosphorus 5.2 (H) 2.0 - 4.5 MG/DL CBC Collection Time: 09/22/18 8:50 PM Result Value Ref Range White Blood Cells 20.1 (H) 4.5 - 11.0 K/UL RBC 5.29 (H) 4.0 - 5.0 M/UL Hemoglobin 16.1 (H) 12.0 - 15.0 GM/DL Hematocrit 48.2 (H) 36 - 45 % MCV 91.0 80 - 100 FL MCH 30.5 26 - 34 PG MCHC 33.5 32.0 - 36.0 G/DL RDW 13.8 11 - 15 % Platelet Count 281 150 - 400 K/UL MPV 10.0 7 - 11 FL Glucose: (!) 254 (09/22/182006) POC Glucose (Download): (!) 235 (09/22/181954) Pertinent radiology reviewed. Associated attestation - Apple Marie MD - 09/23/2018 12:10 PM ELECTRICAL RESEARCH ENGINEER Neurology Attending Attestation Patient has been seen and evaluated on attending rounds; lawson elements of the history and physical examination were repeated in order to confirm findings. Goals and plan of care was discussed with the patient. I have reviewed the above note and generally agree with the findings, plan and documentation. I spent a total of 40 minutes in patient care today, with 25 minutes spent counseling the patient and coordinating care. Transfer from OSH per request of that facility for post-tPA care. 63 yo with HTN, HLD, DM with questionable compliance to medications who was noted to have acute onset right facial droop, right sided weakness on 2017. She underwent CT head which was normal, and administered tPA at that facility. She further underwent CT angio H/N for evaluation of LVO with no noteable occlusion per that facility, however, given her stroke deficits with included apraxia, right sided hemiparesis and inattention, pt was requested to be transferred for further post-tPA and neurological care. MRI completed at her arrival shows Left lentiform nucleus stroke with some degree of hemorrhagic transformation, and minor areas of DWI changes within left MCA. I do have some suspicion that her stroke burden is not completely demonstrated on this scan. She is currently under the care of the NEICU team following her tPA and will defer further workup to them at this time. -Will likely require formal speech/swallow evaluation, temporary nutritional source -Lipid panel with goal LDL < 70, likely require high dose statin -HgA1c -Unclear regarding tobacco use, would clarify with family members when available regarding this; nicotine patch as needed. D -PT/OT/rehab evaluations moving forward when clinically appropriate. Apple Marie MD Vascular Neurology in this encounter H&P Notes * Ruddy Bell, DO - 09/22/2018 10:05 PM CDT Formatting of this note may be different from the original. Neuro Critical Care History and Physical Note Vidhi Andrea Admission Date: 09/22/2018 LOS: 1 day Full Code ASSESSMENT/PLAN Patient Active Problem List Diagnosis Date Noted Stroke (cerebrum) (HCC) 09/22/2018 Vidhi Andrea is a 63 y.o. female with a h/o HLD, HTN, DM transferred to after receiving TPA for right facial droop and right sided weakness. Hospital and ICU course: 09/22: Transfer post TPA Neuro: #Left basal ganglia stroke - NIH 19 at OSH and 11 at [facility] - S/p TPA at outside facility - MRI: Pending - A1c and Lipid panel - ECHO in the morning - VTE prophylaxis: Mechanical prophylaxis; Sequential compression device - Neuro-ICU monitoring, neurochecks q 1 hrs, parameters for prevention of secondary brain injury (avoid hypotension, hypoxia, fever, hyperglycemia, significant anemia, diagnose and treatment of seizures, electrolyte abnormalities) Sedation/Pain Management: No - Assess for delirium daily Cardiac: #HTN #HLD - Continue SUBSTITUTE CROSSING GUARD Statin - Hold SUBSTITUTE CROSSING GUARD lisinopril, metoprolol, and ASA - PRN labetalol and hydralazine - SBP goal: <160 - MAP goal > 65 Respiratory: - PaO2 goal >100, Spo2 goal >95%, PCO2 goal 35-40 torr, chest physiotherapy, bronchotherapy, PD& V q 6 hrs GI: - Feeding: NPO - neurosurgery bowel regimen, ensure daily BM Heme: - assess for coagulopathy, maintain platelets above 100k, INR <1.5 ID: - aim for normothermia, Temp <38.3 celsius, normothermia protocol if febrile Renal: - Aim for normovolemia Endocrine: #DM - A1c pending - Hold SUB[employer] CROSSING GUARD metformin - Sliding scale insulin - Blood glucose goal 100-180mg/dl FEN: - IVF: NS at 50mL/hr - Magnesium goal >2.0, i-Adair goal > 1.0, Potassium goal >4.0 mEq/L Prophylaxis Review: A)GI: PPI/[id number] B) Lines: No C) Urinary Catheter: No D) Antibiotic Usage: No E) VTE: SCDs F) Isolation: None G)Seizures: None I) Restraints: Patient assessed for need for restraints. Disposition/Family: Unchanged. Primary service: NCC Consults: None SUBJECTIVE Chief Complaint: Stroke History of Present Illness: Vidhi Andrea is a 63 y.o. female with h/o hyperlipidemia, hypertension, diabetes presented as transfer from outside hospital after being noted by family at 1600 to have right facial drooping and right-sided weakness. She given TPA which was completed at 1800 and transferred to [facility]. No past medical history on file. No past surgical history on file. Family history reviewed; non-contributory Social History Social History Narrative No narrative on file Social History Code Status: Full Code Decision Maker: Immunizations (includes history and patient reported): There is no immunization history on file for this patient. Allergies: Patient has no allergy information on record. No prescriptions prior to admission. Review of Systems: Unable to obtain OBJECTIVE Vital Signs: Last Filed Vital Signs: 24 Hour Range BP: 126/61 (09/23 400) Temp: 36.7 C (98.1 F) (09/23 400) Pulse: 54 (09/23 400) Respirations: 16 PER MINUTE (09/23 400) SpO2: 97 % (09/23 400) O2 Delivery: Nasal Cannula (09/23 400) Weight: 103.6 kg (228 lb 6.3 oz) (09/22 1930) BP: (114-177)/(52-96) Temp: [36.6 C (97.8 F)-36.7 C (98.1 F)] Pulse: [50-63] Respirations: [14 PER MINUTE-20 PER MINUTE] SpO2: [94 %-100 %] O2 Delivery: Nasal Cannula Intensity Pain Scale (Self Report): (not recorded) Vitals: 09/22/181929 Weight: 103.6 kg (228 lb 6.3 oz) Artificial airway: None Ventilator/ Respiratory Therapy: No Vent weaning trial: Not applicable Lines: Peripheral Line Drains: None Critical Care Vitals: ICP Monitoring: Hemodynamics/Oxycalcs: Intake/Output Summary: (Last 24 hours) Intake/Output Summary (Last 24 hours) at 09/23/18545 Last data filed at 09/23/18399 Gross per 24 hour Intake 0 ml Output 540 ml Net -540 ml Physical Exam: Blood pressure 126/61, pulse 54, temperature 36.7 C (98.1 F), weight 103.6 kg (228 lb 6.3 oz), SpO2 97 %. [place] coma score: E: 3 - Opens eyes to loud noise or command M: 6 - Follows simple motor commands V: 4 - Seems confused, disoriented Neuro: Mental Status: Alert to person and place Cranial Nerves: Right facial droop, right upper and lower extremity weakness Motor: RUE: Strength: 3/5; RLE: Strength: 2/5; LUE: Strength: 4/5; LLE: Strength: 4/5; Lungs: clear to auscultation bilaterally Pulmonary: Respiratory status: Stable Heart: regular rate and rhythm, S1, S2 normal, no murmur, click, rub or gallop Abdomen: soft, non-tender. Bowel sounds normal. No masses, no organomegaly Extremities: extremities normal, atraumatic, no cyanosis or edema Skin: Skin color, texture, turgor normal. No rashes or lesions Point of Care Testing: (Last 24 hours): Glucose: (!) 174 (09/23/18 030) POC Glucose (Download): (!) 235 (09/22/181954) Lab Review: 24-hour labs: Results for orders placed or performed during the hospital encounter of (from the past 24 hour(s)) POC GLUCOSE Collection Time: 09/22/18 7:55 PM Result Value Ref Range Glucose, POC 235 (H) 70 - 100 MG/DL BASIC METABOLIC PANEL Collection Time: 09/22/18 8:07 PM Result Value Ref Range Sodium 134 (L) 137 - 147 MMOL/L Potassium 4.7 3.5 - 5.1 MMOL/L Chloride 101 98 - 110 MMOL/L CO2 22 21 - 30 MMOL/L Anion Gap 11 3 - 12 Glucose 254 (H) 70 - 100 MG/DL Blood Urea Nitrogen 13 7 - 25 MG/DL Creatinine 0.73 0.4 - 1.00 MG/DL Calcium 8.6 8.5 - 10.6 MG/DL eGFR Non >60 >60 mL/min eGFR >60 >60 mL/min LIPID PROFILE Collection Time: 09/22/18 8:07 PM Result Value Ref Range Cholesterol 256 (H) <200 MG/DL Triglycerides 226 (H) <150 MG/DL HDL 34 (L) >40 MG/DL LDL 175 (H) <100 MG/DL VLDL 45 MG/DL Non HDL Cholesterol 222 MG/DL MAGNESIUM Collection Time: 09/22/18 8:07 PM Result Value Ref Range Magnesium 1.8 1.6 - 2.6 mg/dL PHOSPHORUS Collection Time: 09/22/18 8:07 PM Result Value Ref Range Phosphorus 5.2 (H) 2.0 - 4.5 MG/DL CBC Collection Time: 09/22/18 8:50 PM Result Value Ref Range White Blood Cells 20.1 (H) 4.5 - 11.0 K/UL RBC 5.29 (H) 4.0 - 5.0 M/UL Hemoglobin 16.1 (H) 12.0 - 15.0 GM/DL Hematocrit 48.2 (H) 36 - 45 % MCV 91.0 80 - 100 FL MCH 30.5 26 - 34 PG MCHC 33.5 32.0 - 36.0 G/DL RDW 13.8 11 - 15 % Platelet Count 281 150 - 400 K/UL MPV 10.0 7 - 11 FL BASIC METABOLIC PANEL Collection Time: 09/23/18 3:07 AM Result Value Ref Range Sodium 137 137 - 147 MMOL/L Potassium 4.1 3.5 - 5.1 MMOL/L Chloride 105 98 - 110 MMOL/L CO2 26 21 - 30 MMOL/L Anion Gap 6 3 - 12 Glucose 174 (H) 70 - 100 MG/DL Blood Urea Nitrogen 14 7 - 25 MG/DL Creatinine 0.67 0.4 - 1.00 MG/DL Calcium 8.7 8.5 - 10.6 MG/DL eGFR Non >60 >60 mL/min eGFR >60 >60 mL/min CBC Collection Time: 09/23/18 3:07 AM Result Value Ref Range White Blood Cells 15.0 (H) 4.5 - 11.0 K/UL RBC 4.79 4.0 - 5.0 M/UL Hemoglobin 14.7 12.0 - 15.0 GM/DL Hematocrit 43.9 36 - 45 % MCV 91.6 80 - 100 FL MCH 30.7 26 - 34 PG MCHC 33.5 32.0 - 36.0 G/DL RDW 13.8 11 - 15 % Platelet Count 293 150 - 400 K/UL MPV 10.4 7 - 11 FL PHOSPHORUS Collection Time: 09/23/18 3:07 AM Result Value Ref Range Phosphorus 4.8 (H) 2.0 - 4.5 MG/DL MAGNESIUM Collection Time: 09/23/18 3:07 AM Result Value Ref Range Magnesium 1.8 1.6 - 2.6 mg/dL Radiology and Other Diagnostic Procedures Review: Pertinent radiologic and diagnostic procedures reviewed. Ruddy Bell, Date: 09/23/[phone] Associated attestation - Manny Lake MD - 09/23/2018 8:48 PM ELECTRICAL RESEARCH ENGINEER Formatting of this note may be different from the original. ATTESTATION I have seen, personally fully evaluated, and discussed patient with the NEURO- ENT ICU team. The patient is critically ill stroke with TPA. I spent 40 minutes (excluding time spent performing or supervising any procedures) providing and personally directing critical care services. Staff name: Manny Lake MD Date: 09/23/18 PLAN: Neuro: L basal ganglia stroke - MRI, echo, stroke work up. Cardiac: HTN, HLD - SBP <160, continue statin, PRN antihypertensives Endo: DM - Follow up A1C, LDCF for hyperglycemia, keep glucose 110-180. in this encounter Consult Notes * Skye Park, RD - 09/24/2018 2:36 PM ELECTRICAL RESEARCH ENGINEER Associated Order(s): CONSULT DIETITIAN CLINICAL NUTRITION Clinical Nutrition Assessment Summary NAME:Vidhi Andrea :1955 AGE: 63 y.o. ADMISSION DATE: 09/22/2018 DAYS ADMITTED: LOS: 2 days Nutrition Assessment of Patient: BMI Categories Adult: Obesity Class III: 40 and over Malnutrition Assessment: Does not meet criteria Current Oral Intake: NPO Estimated Calorie Needs: 3060-2795 (25-30 kcal/kg desired wt) Estimated Protein Needs: 75-90 (1.2-1.4g/kg desired wt) Oral Diet Order: NPO Current EN Order: Isosource 1.5 @ 20 ml/hr with goal of 50 ml/hr and 200 ml water bolus q6hr. 1800 kcal, 82 g protein and 1712 ml free water at goal. Comments: 63 y.o. female with a h/o HLD, HTN, DM, obesity transferred to after receiving tPA for right facial droop and right sided weakness with mild hemorrhagic conversion. Pt NPO with nasoenteric tube with tip at gastric outlet per KUB 09/23 and Isosource 1.5 started @ 20 ml/hr 09/23 per feeding tube. Pt with trace peripheral edema to BUE/BLE. Tolerating EN feeds so far per RN at goal of 50 ml/hr and no GR. Per sister pt lives with 2 daughters and grandson. 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 Pt on nasal cannula with no pressure injuries. Consult received for EN recs. Pt with +BM 09/22 on bowel meds. Recommendation: Continue current EN regimen of Isosource 1.5 @ 50 ml/hr to provide 1800 kcal, 82 g protein and 912 ml free water from EN with 800 ml additional fluids as ordered per primary team. Intervention / Plan: assessed nutritional status, provided EN recs monitor wt trends, labs, meds, GI status monitor EN tolerance/provision Nutrition Diagnosis: Altered GI function Etiology: swallowing deficits s/p stroke Signs & Symptoms: NPO with EN feeds Goals: EN tolerated and meeting >75% of nutritional needs Time Frame: Within 72 Hours Skye Park, MS,RD, LD, [facility] *[id number] * Marciano Summers MD - 09/24/2018 9:14 AM ELECTRICAL RESEARCH ENGINEER Associated Order(s): CONSULT REHABILITATION MEDICINE PHYSICIAN Formatting of this note may be different from the original. Rehabilitation Medicine Attending Physician Attestation: Agree with resident, with exceptions as noted in blue font and as appropriate. Vidhi Andrea is a pleasant 63 y.o. female with PMH of HL, HTN, DM, who was admitted upon transfer from [facility] on 09/22/2018 after originally presenting there with right facial droop and right sided weakness. The patient was given IV tPa and then transferred to [facility] NeICU. CTA did not show large vessel occlusion. MRI Head showed evidence of a left basal ganglia ischemic stroke with evidence of mild hemorrhagic conversion. She has experienced an acute left basal ganglia stroke syndrome, with resulting right hemiparesis, aphasia (seemingly mixed transcortical on exam with repetition intact), apraxia, dysarthria, dysphagia, and generalized weakness, as well as significant cognitive and functional deficits (impaired mobility/transfers/ADLs and gait abnormality) as noted. The patient seems to have medical complexity and goals with PT, OT, and NEIGHBORHOOD WORKER for acute inpatient rehabilitation. Recommend continued therapies, while the primary team completes stroke work-up, manages the patient, and addresses dysphagia and adequate nutritional access and nutritional intake. Discussed with patient. Primary barriers would include: needs to clarify ongoing goals for therapies, need for clarification of appropriate disposition/realistic discharge plan, and clinical stability with final plan of nutritional source and ongoing clinical management. Please have primary SWCM discuss with [facility] coordinator of evaluation according to the patient's (and/or their family's) preference for placement. Will continue to follow for medical stability/ appropriateness for discharge. Thank you for this consultation. Please call with questions/concerns. I personally performed lawson portions of the history and exam. I discussed the case with the resident and concur with the resident's documentation of history, physical assessment and treatment plan unless otherwise noted. Marciano Summers MD Physical Medicine & Rehabilitation Consult Note Date of Service: 09/24/2018 Vidhi Andrea is a 63 y.o. female. : 1955 Primary Insurance: Secondary Insurance: Tertiary Insurance: Financial Class: Self-pay Date of Admission: 09/22/2018 Referring Physician: Porfirio Patton DO Reason for Consult: evaluate for Post-Acute Rehab/Placement Precautions: Fall, aspiration Weight bearing Precautions: none Active Problems L basal ganglia ischemic stroke s/p tPA with mild hemorrhagic conversion Dysphagia Aphasia R hemiparesis Impaired mobility and ADLs Impaired balance Cognitive impairment HTN CAD HLD DMII Assessment & Plan Vidhi Andrea is a 63 y.o. female admitted to [facility] on 09/22/2018 with the following issues: L basal ganglia ischemic stroke s/p tPA with mild hemorrhagic conversion Impairments: aphasia, cognitive impairments, communication deficits, dysphagia, loss of coordination, poor activity tolerance, weakness and hemiparesis Activity Limitations: eating, grooming, bathing, dressing - lower, toileting, transfers, ambulation, stairs, comprehension and expression Participation Restrictions: unable to return home safely Post-acute care rehabilitation needs: Too early to tell at this point. Patient with clear goals in at least 2 therapy disciplines (PT/OT/NEIGHBORHOOD WORKER). Barriers to a possible acute inpatient admission are listed below. Prior to the inpatient rehabilitation admission complete the following: *Carryover The patient will need to be following commands (consistently 1 step with progression of 2 step commands) during therapies with signs of carryover prior to consideration for acute inpatient rehabilitation. *NG & Corpaks NG Tubes and Corpaks are not typically allowed on acute inpatient rehabilitation. Please address the patient's nutritional access for more permanent source, as the patient will need to either be meeting nutritional requirements orally or have a more definitive long-term enteral access (which may include consideration for PEG tube). James Martines MD Rehab Consult Pager: [phone] History of Present Illness CC: R facial droop, R side weakness Hospital Course: Vidhi Andera is a 63 yo female with HTN, HLD, DM with questionable compliance to medications who was noted to have acute onset right facial droop, right sided weakness on 09/22/2018. She underwent CT head which was normal, and administered tPA at that facility. She further underwent CT angio H/N for evaluation of LVO with no noteable occlusion per that facility, however, given her stroke deficits with included apraxia, right sided hemiparesis and inattention, pt was requested to be transferred for further post -tPA and neurological care. MRI completed at her arrival shows left lentiform nucleus stroke with some degree of hemorrhagic transformation, and minor areas of DWI changes within left MCA. She was admitted to the NEICU. Pt failed bedside swallow and is being fed currently through a Corpak. Concern is that current imaging is not completely demonstrating her stroke burden. CT head from 09/24/18 is still pending. She has begun working with PT and OT. Past Medical History Past Medical History: Diagnosis Date DMII (diabetes mellitus, type 2) (HCC) HLD (hyperlipidemia) HTN (hypertension) Past Surgical History No past surgical history Family\\Social History Social History Social History Marital status: N/A Spouse name: N/A Number of children: N/A Years of education: N/A Social History Main Topics Smoking status: Current Every Day Smoker Packs/day: 1.00 Years: 46.00 Types: Cigarettes Smokeless tobacco: Never Used Alcohol use No Drug use: No Sexual activity: Not on file Other Topics Concern Not on file Social History Narrative No narrative on file Family History Problem Relation Age of Onset Stroke Brother Medications: aspirin chewable tablet 81 mg 81 mg Feeding Tube QDAY atorvastatin (LIPITOR) tablet 40 mg 40 mg Per NG tube QDAY docusate (COLACE) oral solution 100 mg 100 mg Per NG tube BID heparin (porcine) PF syringe 5,000 Units 5,000 Units Subcutaneous Q8H insulin aspart U-100 (NOVOLOG FLEXPEN) injection PEN 0-7 Units 0-7 Units Subcutaneous 5 X Day lisinopril (PRINIVIL; ZESTRIL) tablet 10 mg 10 mg Feeding Tube QDAY milk of magnesia (CONC) oral suspension 10 mL 10 mL Per NG tube QDAY senna/docusate (SENOKOT-S) solution 10 mL 10 mL Per NG tube BID PRN Medications: hydrALAZINE Q6H PRN, labetalol (NORMODYNE; TRANDATE) injection Q15 MIN PRN, pancrelipase 20,000 Units/ sodium bicarbonate 650 mg(#) PRN (Clean Rice Grader And Reel Tender from Rx) Allergies: Allergies Allergen Reactions Sulfa (Sulfonamide Antibiotics) UNKNOWN Prior Level of Function Self-Care/ADLs: unknown - pt can't say, no family present. Presumed independent Mobility: unknown - pt can't say, no family present. Presumed independent Home Environment: No Data Recorded No Data Recorded No Data Recorded No Data Recorded No Data Recorded Comments: Patient unable to provide subjective history secondary to aphasia. Family not present at bedside. (09/23/2018 3:50 PM) No Data Recorded Current Level of Function PT Gait:Gait Distance: 50 feet (x2; then 10', 10' with seated rest between each ) Gait: Assistance Level: Minimal Assist Gait: Assistive Device: Hand Hold Assist Bed Mobility/Transfers Bed Mobility: Rolling: Moderate Assist, x2 People, Assist with Trunk Bed Mobility: Supine to Sit: Moderate Assist, x2 People, Assist with B LE, Assist with Trunk, Head of Bed Elevated, No Rail Bed Mobility: Sit to Supine: Maximum Assist, x2 People, Assist with B LE, Assist with Trunk Transfer Type: Sit to/from Stand Transfer: Assistance Level: To/From, Bed, Bed Side Chair, Toilet, Minimal Assist (moderate assist on first attempt- improved next trial) Transfer: Assistive Device: Hand Hold Assist, None Transfers: Type Of Assistance: For Balance, For Strength Deficit, For Safety Considerations Other Transfer Type: Stand Pivot Other Transfer: Assistance Level: From, Bed, To, Bed Side Chair, Minimal Assist , x2 People Other Transfer: Assistive Device: Hand Hold Assist Other Transfer: Type Of Assistance: Knees(s) Blocked, For Balance, For Safety Considerations End Of Activity Status: Up in Chair, Nursing Notified, Instructed Patient to Request Assist with Mobility, Instructed Patient to Use Call Light (pads alarm activated; lift sling under pt) OT ADL's Where Assessed: Standing at Sink, In Bathroom Eating Assist: Total Assist Grooming Assist: Moderate Assist Grooming Deficits: Supervision/Safety, Steadying, Verbal Cueing, Wash/Dry Hands UE Dressing Assist: Maximum Assist UE Dressing Deficits: Thread RUE, Thread LUE, Pull Around Back, Fasteners LE Dressing Assist: Maximum Assist LE Dressing Deficits: Don/Doff R Sock, Don/Doff L Sock Toileting Assist: Total Assist (moderate assist x2) Toileting Deficits: (brief change in bed) Functional Transfer Assist: Moderate Assist Functional Transfer Deficits: Steadying, Verbal Cueing, Supervision/Safety Comment: Sit to stand with moderate assist progressing toward minimum assist x1 at end of session. Pt completes toileting with assist x2, one person for steadying and secondfor hygiene and brief management. Pt requires maximum assist for hand washing due to aphasia and apraxia. NEIGHBORHOOD WORKER SWALLOW EVALUATION SUMMARY Summary: A clinical swallow evaluation was completed. Oropharyngeal swallow moderate-severely impaired s/p CVA. Pt exhibits immediate coughing episodes following thin and nectar thick liquids, after multiple trials . Pt exhibits expressive/receptive aphasia with unreliable yes/no. Often says "yes" and "ok", appearing as though she understands conversation, although limited ability to follow commands and unreliable yes/no responses. Pt exhibits signs of oral apraxia in addition. Will formally evaluated aphasia/apraxia in future sessions. Anticipate need for videoswallow study within next week. Please see below for details/recommendations. Oral Stage Summary*: Oral stage judged to be mildly impaired. Normal withdraw and formation of bolus. Upon transfer, highly suspect premature posterior bolus spillage. Pharyngeal Stage Summary*: Pharyngeal stage judged to be moderate-severly impaired at this time. Swallow initiation timely. Laryngeal elevation difficult to assess d/t body habitus. Pt exhibits no s/s of aspiration across initial single drinks of thin liquids or nectar thick liquids, though as trials progressed, pt exhibits immediate cough reaction after swallowing. Swallow Recommendations* NPO: Temporary Non-Oral Nutrition Plan: Continue Treatment __x/week (Comment)., Patient Would Benefit from Further Speech Therapy Post Acute Hospitalization. Prognosis: Guarded, Fair Review of Systems Review of systems not obtained from patient due to patient factors. Physical Exam BP: 157/50 (09/24 1400) Temp: 36.5 C (97.7 F) (09/24 1200) Pulse: 59 (09/24 1404) Respirations: 18 PER MINUTE (09/24 1404) SpO2: 92 % (09/24 1404) O2 Delivery: Nasal Cannula (09/24 1307) SpO2 Pulse: 61 (09/24 1400) Height: 160 cm (63") (09/24 1011) Body mass index is 40.46 kg/m. GEN: awake, no acute distress HEAD: normocephalic, atraumatic EYES: sclera anicteric, conjunctiva not injected CV: limbs warm and well perfused RESP: respirations easy and regular ABD: non-distended EXT: no edema or erythema in bilateral lower limbs SKIN: no obvious rashes or lesions on exposed surfaces NEURO: Orientation: not oriented at all Cognition/speech: automatic responses. Very intermittently able to follow verbal commands. Able to mimick with LUE. Possibly some apraxia. Aphasia present. Able to repeat "the zeus is blue" Cranial Nerves: PERRL, EOMI Tone/ Reflexes: no increased tone appreciated, Tellez's negative, clonus negative Coordination: unable to test due to patient cognitive status MS: unable to test reliably due to patient cognitive status. However, pt moved all 4 extremities against gravity during exam with apparent weakness on the R compared to L Intake/Output Summary: Intake/Output Summary (Last 24 hours) at 09/24/18 1515 Last data filed at 09/24/18 1400 Gross per 24 hour Intake 1776 ml Output 710 ml Net 1066 ml No Data Recorded Last Bowel Movement Date: 09/22/18 (09/24/2018 8:00 AM) Bladder Scan (mL): 90 milliliters (09/23/2018 6:00 PM) Straight Cath (mL): 50 ( 09/24/2018 8:00 AM) No Data Recorded No Data Recorded Oral Diet Order: NPO (09/24/2018 2:00 PM) Basic Metabolic Profile Lab Results Component Value Date/Time NA 136 (L) 09/24/2018 03:55 AM K 4.1 09/24/2018 03:55 AM CA 8.9 09/24/2018 03:55 AM CL 104 09/24/2018 03:55 AM CO2 24 09/24/2018 03:55 AM Lab Results Component Value Date/Time BUN 14 09/24/2018 03:55 AM CR 0.59 09/24/2018 03:55 AM GLU 181 (H) 09/24/2018 03:55 AM CBC w/Diff Lab Results Component Value Date/Time WBC 14.7 (H) 09/24/2018 03:55 AM RBC 4.87 09/24/2018 03:55 AM HGB 14.9 09/24/2018 03:55 AM HCT 45.0 09/24/2018 03:55 AM MCV 92.4 09/24/2018 03:55 AM MCH 30.7 09/24/2018 03:55 AM RDW 13.8 09/24/2018 03:55 AM PLTCT 264 09/24/2018 03:55 AM MPV 10.1 09/24/2018 03:55 AM No results found for: NEUT, ANC, LYMA, ALC, MARIOLA, AMC, EOSA, AEC, BASA, ABC Radiology: MRI head 09/22/18 1. Recent infarct (6 hours to 7 days in age) within the left lentiform nucleus with associated susceptibility signal suggestive of hemorrhage. No mass effect or midline shift. 2. Other scattered small areas of high diffusion signal throughout the left MCA distribution likely additional tiny infarcts. 3. Mild supratentorial white matter FLAIR hyperintensities most likely chronic microvascular changes. CT head 09/24/18 1. Evolving subacute infarct within the left MCA distribution predominantly involving the basal ganglia, external capsule, and small portion of the frontal convexity. 2. Stable small areas of intermediate attenuation hemorrhage within portions of the putamen and caudate concordant with the recent MRI. 3. No new areas of hemorrhage or new foci of low attenuation ischemia in this encounter Miscellaneous Notes * Case Mgmt DC Plan - Hannah Frederick - 10/07/2018 9:39 AM ELECTRICAL RESEARCH ENGINEER Formatting of this note may be different from the original. Case Management Progress Note NAME:Vidhi Andrea :1954 AGE: 63 y.o. ADMISSION DATE: 09/22/2018 DAYS ADMITTED: LOS: 15 days Todays Date: 10/07/2018 Plan D/C today to [facility] by family transport around 10:30. Interventions ? Support Support: Pt/Family Updates re:POC or DC Plan ? Info or Referral ? Discharge Planning Discharge Planning: Inpatient Rehabilitation ? Medication Needs ? Financial Financial: [place] Referral/Follow-up, Financial Counseling Referral/Follow-up ? Legal ? Other Other/None: No needs identified Disposition ? Expected Discharge Date Expected Discharge Date: 10/07/18 ? Transportation Does the patient need discharge transport arranged?: Yes Transportation Name, Phone and Availability #1: facility ? Next Level of Care (Acute Psych discharges only) ? Discharge Disposition W/E SW reviewed EMR and discussed POC with team, per team pt stable for d/c. AYDIN spoke with RN at [facility] who verified facility is expecting pt today. AYDIN spoke with pt's dtr Mady who verified family is aware pt is stable for d/c. Carrier reports her sister and nephew will arrive to [facility] by 11am to transport pt. AYDIN made RN and team aware of final d/c plan. AYDIN faxed d/c orders to [phone] , fax confirmation received. RN please call report to [phone]. Durable Medical Equipment No service has been selected for the patient. Destination No service has been selected for the patient. Home Care No service has been selected for the patient. Dialysis/Infusion No service has been selected for the patient. [place] Frederick [facility] [id number] * Care Plan - DeborahmaricelGrady - 10/07/2018 9:04 AM ELECTRICAL RESEARCH ENGINEER Problem: Neurological Status, Impaired/Altered Goal: Progress toward maximizing functional outcomes Outcome: Goal Achieved Date Met: 10/07/18 Pt discharged to [facility] Goal: Cognitive status restored to baseline Outcome: Goal Achieved Date Met: 10/07/18 Pt discharged to [facility] Problem: Aspiration, Risk of Goal: Absence of aspiration Outcome: Goal Achieved Date Met: 10/07/18 Pt discharged to [facility], tolerating diet Problem: Self-Care Deficit Goal: Maximize ADL functioning Outcome: Goal Achieved Date Met: 10/07/18 Pt discharged to [facility] Problem: Nutrition Deficit Goal: Adequate nutritional intake Outcome: Goal Achieved Date Met: 10/07/18 Pt discharged to [facility] Problem: Communication, Impaired Goal: Maximize functional communication Outcome: Goal Achieved Date Met: 10/07/18 Pt discharged to [facility] Problem: Falls, High Risk of Goal: Absence of falls-Adult Patient Outcome: Goal Achieved Date Met: 10/07/[address], no falls this admission, Pt discharged to [facility] Problem: Discharge Planning Goal: Participation in plan of care Outcome: Goal Achieved Date Met: 10/07/18 Pt discharged to [facility] Goal: Knowledge regarding plan of care Outcome: Goal Achieved Date Met: 10/07/18 Pt discharged to [facility] Goal: Prepared for discharge Outcome: Goal Achieved Date Met: 10/07/18 Pt discharged to [facility] Problem: Skin Integrity Goal: Skin integrity intact Outcome: Goal Achieved Date Met: 10/07/18 Pt discharged to [facility] Problem: Tobacco Use Goal: Knowledge of tobacco-use cessation methods Outcome: Goal Achieved Date Met: 10/07/18 Pt discharged to [facility] * Case Mgmt DC Plan - Sharon Pruitt - 10/05/2018 2:49 PM ELECTRICAL RESEARCH ENGINEER ELECTRIC WELL LOGGING OPERATOR Note: This leader writer printed and placed transfer packet in pt's chart drawer, per request from [facility] Masha Rollins. Sharon Pruitt Attic Blower For additional assistance, please contact [facility] Masha Rollins [phone] * Case Mgmt DC Plan - Joanie Rollinsleen - 10/05/2018 9:00 AM ELECTRICAL RESEARCH ENGINEER Formatting of this note may be different from the original. Weekend Needs of Ged Instructor Instructions for CM W/E Staff: Please fax [phone]) d/c orders to [facility]. D/c on Monday at 9am. Thanks! Case Management Progress Note NAME:Vidhi Andrea :1954 AGE: 63 y.o. ADMISSION DATE: 09/22/2018 DAYS ADMITTED: LOS: 13 days Todays Date: 10/05/2018 Plan D/c to [facility] on Monday between 9am and 12pm via family transportation. Interventions AYDIN reviewed EMR and met with Neuro team for huddle. ? Support Support: Pt/Family Updates re:POC or DC Plan AYDIN spoke with pt's dtr Mady to update. Update 1:00pm: AYDIN spoke with Mady to update. Mady educated that family will be unable to provide transportation today, however she will visit with family regarding timeline for Monday and follow up. Update 1:54pm: AYDIN received message from Mady and family will be present on Monday between 9-12pm. Update 3:00pm: AYDIN spoke with Mady and they remain available for transportation on Monday between 9am and noon. ? Info or Referral ? Discharge Planning Discharge Planning: Inpatient Rehabilitation AYDIN left message for February ([phone]) at [facility] to discuss referral. Update 12:10pm: AYDIN left message February ([phone]) at [facility]. Update 1:00pm: AYDIN spoke with Maribell at [facility], [place], operated by [facility] and they have accepted for admission. February agreeable to admission later today vs Monday. AYDIN educated that she will review with dtr and follow up regarding timeline. Update 1:54pm: AYDIN spoke with Maribell at [facility], [place], operated by [facility] to update. February agreeable to admission on Monday. SW tasked [facility] to deliver transfer packet. SW spoke with Neuro Team to update. RN Report: [phone] Dr Glez: [phone] ? Medication Needs ? Financial Financial: [place] Referral/Follow-up, Financial Counseling Referral/Follow-up ? Legal ? Other Other/None: No needs identified Disposition ? Expected Discharge Date Expected Discharge Date: 10/05/18 ? Transportation Does the patient need discharge transport arranged?: Yes Transportation Name, Phone and Availability #1: facility ? Next Level of Care (Acute Psych discharges only) ? Discharge Disposition Durable Medical Equipment No service has been selected for the patient. [facility] Destination No service has been selected for the patient. Home Care No service has been selected for the patient. Dialysis/Infusion No service has been selected for the patient. Masha Rollins LMSW Phone: [phone] Pager: *[phone] * Case Mgmt DC Plan - Masha Rollins - 10/04/2018 3:54 PM ELECTRICAL RESEARCH ENGINEER Formatting of this note may be different from the original. Case Management Progress Note NAME:Vidhi Andrea :1954 AGE: 63 y.o. ADMISSION DATE: 09/22/2018 DAYS ADMITTED: LOS: 12 days Todays Date: 10/04/2018 Plan Anticipate d/c to [facility] tomorrow pending pt stability. Interventions SW reviewed EMR and met with Neuro team for huddle. ? Support Support: Pt/Family Updates re:POC or DC Plan SW spoke with pt's dtr Mady and pt would like to pursue IPR admission at [facility]. Mady aware of referral process and confirmed that they would be able to provide transportation to [facility] once approved. ? Info or Referral ? Discharge Planning Discharge Planning: Inpatient Rehabilitation SW sent referral to [facility]. ? Medication Needs ? Financial Financial: [place] Referral/Follow-up, Financial Counseling Referral/Follow-up SW [facility] and they likely have Medicaid alfred submitted by this afternoon. ? Legal ? Other Other/None: No needs identified Disposition ? Expected Discharge Date Expected Discharge Date: 10/05/18 ? Transportation Does the patient need discharge transport arranged?: Yes Transportation Name, Phone and Availability #1: facility ? Next Level of Care (Acute Psych discharges only) ? Discharge Disposition Durable Medical Equipment No service has been selected for the patient. Destination No service has been selected for the patient. Home Care No service has been selected for the patient. Dialysis/Infusion No service has been selected for the patient. Masha Rollins LMSW Phone: [phone] Pager: [phone] * Patient Education - Sandra Schroeder RN - 10/04/2018 11:40 AM ELECTRICAL RESEARCH ENGINEER Medication Education Vidhi Andrea accepted counseling and was receptive. she needs reinforcement. The following medications were discussed: Aspirin lipitor Colace prozac Lisinopril Senna Where indicated, the patient was provided with additional medication and/or disease-state information. All patient questions were answered and patient acknowledged understanding of the medications, side effects and other pertinent medication information. Follow up should occur daily. Continue to address: certain medications Sandra Schroeder RN * Care Plan - Sandra Schroeder RN - 10/04/2018 11:39 AM ELECTRICAL RESEARCH ENGINEER Problem: Neurological Status, Impaired/Altered Goal: Cognitive status restored to baseline Outcome: Goal Ongoing Pt still expressing difficulty expressing self Problem: Falls, High Risk of Goal: Absence of falls-Adult Patient Outcome: Goal Ongoing hfr precautions in place Problem: Discharge Planning Goal: Prepared for discharge Outcome: Goal Ongoing Waiting for acceptance to facility * Case Mgmt DC Plan - Masha Rollins - 10/03/2018 9:01 AM ELECTRICAL RESEARCH ENGINEER Formatting of this note may be different from the original. Case Management Progress Note NAME:Vidhi Andrea :1954 AGE: 63 y.o. ADMISSION DATE: 09/22/2018 DAYS ADMITTED: LOS: 11 days Todays Date: 10/03/2018 Plan Anticipate d/c to IPR pending completion of [place] Medicaid application. Interventions AYDIN reviewed EMR and met with Neuro team for huddle. ? Support Support: Pt/Family Updates re:POC or DC Plan AYDIN recevied message from pt's dtr Mady stating that she is at bedside and [facility] AYDIN spoke with Regina in [facility] and she notified Maria to request visit. Update 2:00pm: AYDIN spoke with bedside RN and [employer] has yet to arrive to bedside and family expressing desire to leave. AYDIN spoke with Regina in [employer] to update. Regina educated that someone will be by shortly. ? Info or Referral ? Discharge Planning Discharge Planning: Inpatient Rehabilitation AYDIN spoke with Celia at [facility] to update. Celia educated that she ? Medication Needs ? Financial Financial: [place] Referral/Follow-up, Financial Counseling Referral/Follow-up Late entry 10/02: AYDIN emailed completed [phone] from to Regina in [employer] for assistance with SSDI alfred. ? Legal ? Other Other/None: No needs identified Disposition ? Expected Discharge Date Expected Discharge Date: 10/05/18 ? Transportation Does the patient need discharge transport arranged?: Yes Transportation Name, Phone and Availability #1: facility ? Next Level of Care (Acute Psych discharges only) ? Discharge Disposition Durable Medical Equipment No service has been selected for the patient. Destination No service has been selected for the patient. Home Care No service has been selected for the patient. Dialysis/Infusion No service has been selected for the patient. Masha Rollins LMSW Phone: [phone] Pager: [phone] * Case Mgmt DC Plan - Masha Rollins - 10/01/2018 10:42 AM ELECTRICAL RESEARCH ENGINEER Formatting of this note may be different from the original. Case Management Progress Note NAME:Vidhi Andrea :1954 AGE: 63 y.o. ADMISSION DATE: 09/22/2018 DAYS ADMITTED: LOS: 9 days Todays Date: 10/01/2018 Plan Anticipate d/c to [facility] pending completion of [place] Medicaid application. Interventions AYDIN reviewed EMR and met with Neuro team for huddle. ? Support Support: Pt/Family Updates re:POC or DC Plan SW attempted to speak with pt's dtr Mady ([phone]) to update, however no answer and mailbox not currently set up. Update 10:50am: AYDIN spoke with pt's dtr Mady to update. Mady educated that she is still working on obtaining supporting documents for Medicaid alfred, however she is hopeful to bring all of them on Monday when family visits. Mady also aware that we plan to attempt signatures on the application again today. However, AYDIN reviewed potential benefit of guardianship for both pt and her 14 yo grandson Denys. SW reviewed that at this time pt likely cannot continue to act as legal guardian for Denys nor is it clear when she might be able to return to capacity for such. Mady reviewed that pt and she has had numerous discussions regarding this situation and pt has stated that she would want Mady to become guardian for Denys, however no legal paperwork has ever been drafted. Mady expressed interest in visiting with MLP to further discuss potential guardianship. Mady remains in agreement with hopeful admission to [facility]. SW left message for MLP for assistance. Update 3:40pm: SW received message from rehab team stating that pt's family is now expressing interest in IPR admission in [facility]. SW attempted to speak with pt's dtr Mady to discuss DCP, however no answer and mailbox not currently setup. Update 3:50pm: AYDIN spoke with pt's dtr Mady to discuss DCP. Mady educated that she is uncertain of IPR location at this time. Mady educated that pt is endorsing interest in seeking IPR admission in [place], as this is closer to home. However, Mady expressed that she is concerned regarding the level of therapy there vs IPR. Mady educated that she would like to visit with pt more to further determine IPR preference. Mady educated that she will follow up tomorrow to confirm preference and aware of the need for referral to [facility] if needed. ? Info or Referral ? Discharge Planning Discharge Planning: Inpatient Rehabilitation AYDIN spoke with Celia at [facility] to update. Rehab continues to endorse that pt has goals to warrant IPR admission, however [place] Medicaid alfred must be completed prior to acceptance. ? Medication Needs ? Financial Financial: [place] Referral/Follow-up, Financial Counseling Referral/Follow-up AYDIN spoke with Regina in [employer] to discuss ability to have pt sign her Medicaid application. Regina educated that they will attempt signatures again today and follow up. ? Legal ? Other Other/None: No needs identified Disposition ? Expected Discharge Date Expected Discharge Date: 10/01/18 ? Transportation Does the patient need discharge transport arranged?: Yes Transportation Name, Phone and Availability #1: facility ? Next Level of Care (Acute Psych discharges only) ? Discharge Disposition Durable Medical Equipment No service has been selected for the patient. Destination No service has been selected for the patient. Home Care No service has been selected for the patient. Dialysis/Infusion No service has been selected for the patient. Masha Rollins LMSW Phone: [phone] Pager: [phone] * Case Mgmt DC Plan - Isaura Crooks RN - 10/01/2018 9:38 AM ELECTRICAL RESEARCH ENGINEER Per chart review, patient continues to have goals to warrant rehab admission. Patient's Medicaid alfred;ication/supporting documents have not been obtained in full. [facility] will continue to follow patient's progress with therapy. Donna, Inpatient Admissions Nurse/Rehab. (office# [phone] or voalte# [phone]). * Care Plan - Minnie Morgan RN - 10/01/2018 4:05 AM ELECTRICAL RESEARCH ENGINEER Problem: Falls, High Risk of Goal: Absence of falls-Adult Patient Outcome: Goal Ongoing Pt high fall risk at this time time. Fall precautions implemented with yellow socks, yellow bracelet and call light at bedside. Problem: Skin Integrity Goal: Skin integrity intact Outcome: Goal Ongoing Skin clean/dry/intact at this time; skin assessed q4 throughout shift. * Care Plan - Yon Acosta RN - 09/30/2018 12:38 PM ELECTRICAL RESEARCH ENGINEER Problem: Neurological Status, Impaired/Altered Goal: Cognitive status restored to baseline Outcome: Goal Ongoing Re-oriented to situation and time Problem: Aspiration, Risk of Goal: Absence of aspiration Outcome: Goal Ongoing On mech soft diet Problem: Self-Care Deficit Goal: Maximize ADL functioning Outcome: Goal Ongoing Assisted with ADL's as needed Problem: Communication, Impaired Goal: Maximize functional communication Outcome: Goal Ongoing Working to imporove communication with patient Problem: Falls, High Risk of Goal: Absence of falls-Adult Patient Outcome: Goal Ongoing Bed and chair alarm on at all times, call light within reach Problem: Discharge Planning Goal: Participation in plan of care Outcome: Goal Ongoing SW to plan a safe dc plan Problem: Skin Integrity Goal: Skin integrity intact Outcome: Goal Ongoing Skin C/D/I * Care Plan - Minnie Morgan RN - 09/30/2018 3:29 AM ELECTRICAL RESEARCH ENGINEER Problem: Falls, High Risk of Goal: Absence of falls-Adult Patient Outcome: Goal Ongoing Pt high fall risk at this time time. Fall precautions implemented with yellow socks, yellow bracelet and call light at bedside. Problem: Skin Integrity Goal: Skin integrity intact Outcome: Goal Ongoing Skin clean/dry/intact at this time; skin assessed q4 throughout shift. * Care Plan - Minnie Morgan RN - 09/29/2018 3:47 AM ELECTRICAL RESEARCH ENGINEER Problem: Falls, High Risk of Goal: Absence of falls-Adult Patient Outcome: Goal Ongoing Pt high fall risk at this time time. Fall precautions implemented with yellow socks, yellow bracelet and call light at bedside. Problem: Skin Integrity Goal: Skin integrity intact Outcome: Goal Ongoing Skin clean/dry/intact at this time; skin assessed q4 throughout shift. * Case Mgmt DC Plan - Masha Rollins - 09/28/2018 8:28 AM ELECTRICAL RESEARCH ENGINEER Formatting of this note may be different from the original. Case Management Progress Note NAME:Vidhi Andrea :1954 AGE: 63 y.o. ADMISSION DATE: 09/22/2018 DAYS ADMITTED: LOS: 6 days Todays Date: 09/28/2018 Plan Anticipate d/c to [facility] early next week pending completion of [place] Medicaid application. Interventions SW reviewed EMR and met with Neuro team for huddle. ? Support Support: Pt/Family Updates re:POC or DC Plan SW attempted to visit pt at bedside to update, however pt currently visiting with NEIGHBORHOOD WORKER and no family present. Update 2:11pm: SW received and returned call to pt's dtr Mady. Mady educated that [employer] had told her that pt was unable to sign paperwork at this time secondary to lack of consent. [employer] agreeable to follow up on Monday to retry signatures. Mady also inquired into appropriateness for DPOA completion. AYDIN educated that at this time pt is not appropriate for DPOA completion, however SW agreeable to continuing to follow for potential assistance. AYDIN reviewed potential need for guardianship should pt remain unable to sign Medicaid alfred and/or DPOA. Mady verbalized understanding. AYDIN also reviewed that pt has continued to make gains with therapy services and might progress to d/c home depending on continue progress. AYDIN reviewed that IPR level of care requires goals with 2 of 3 disciplines and reiterated benefit of timely Medicaid completion. Mady plans to be present on Monday as necessary. ? Info or Referral ? Discharge Planning Discharge Planning: Inpatient Rehabilitation AYDIN spoke with Miriam at [facility] to update. Rehab will continue to follow, however pt's Medicaid alfred must be completed prior to consideration for admission. ? Medication Needs ? Financial Financial: [place] Referral/Follow-up, Financial Counseling Referral/Follow-up Per [facility] account, case has been referred to [employer] for assistance with Medicaid apilication. SW emailed [employer] representatives to request expedited assistance. ? Legal ? Other Other/None: No needs identified Disposition ? Expected Discharge Date Expected Discharge Date: 10/01/18 ? Transportation Does the patient need discharge transport arranged?: Yes Transportation Name, Phone and Availability #1: facility ? Next Level of Care (Acute Psych discharges only) ? Discharge Disposition Durable Medical Equipment No service has been selected for the patient. Destination No service has been selected for the patient. Home Care No service has been selected for the patient. Dialysis/Infusion No service has been selected for the patient. Masha Rollins LMSW Phone: [phone] Pager: *[phone] * Care Plan - Berta Munoz RN - 09/27/2018 9:11 PM ELECTRICAL RESEARCH ENGINEER Problem: Aspiration, Risk of Goal: Absence of aspiration Outcome: Goal Ongoing Aspiration absent at this time. Will continue to monitor. Problem: Falls, High Risk of Goal: Absence of falls-Adult Patient Outcome: Goal Ongoing High fall bundle in place. Will continue to monitor. Problem: Discharge Planning Goal: Participation in plan of care Outcome: Goal Ongoing Pt updated on plan of care. Will continue to monitor. Problem: Skin Integrity Goal: Skin integrity intact Outcome: Goal Ongoing Head-to-toe skin assessment completed at this time. Skin integrity intact at this time. Pt moves self from side to side in bed. Will continue to monitor. Goal: Healing of skin (Wound & Incision) Outcome: Goal Achieved Date Met: 09/27/18 No wound or incision present. Goal: Healing of skin (Pressure Ulcer) Outcome: Goal Achieved Date Met: 09/27/18 No pressure ulcer present. * Care Plan - Grady Up - 09/27/2018 6:19 PM ELECTRICAL RESEARCH ENGINEER Problem: Neurological Status, Impaired/Altered Goal: Progress toward maximizing functional outcomes Outcome: Goal Ongoing Pt to be discharged to [facility] pending insurance auth and medical stability, will continue to monitor Goal: Cognitive status restored to baseline Outcome: Goal Ongoing Pt still experiencing expressive aphasia, will continue to monitor Problem: Falls, High Risk of Goal: Absence of falls-Adult Patient Outcome: Goal Ongoing Fall bundle in place, no falls this shift, will continue to monitor * Care Plan - Christian Cooper - 09/27/2018 2:41 PM ELECTRICAL RESEARCH ENGINEER Problem: Tobacco Use Goal: Knowledge of tobacco-use cessation methods Outcome: Goal Ongoing [employer] CONSULTATION Partial session completed due to speech barrier. If speech improves, please submit additional order or request. ASSESSMENT/RECOMMENDATIONS Patient was referred for [facility] consultation Tobacco Use Treatment Practical Counseling was provided, including recognizing danger situations, developing coping skills and providing basic information about quitting. MEDICATION RECOMMENDATIONS TO QUIT TOBACCO: In-patient quit-tobacco medication: Patient declined using smoking cessation medication at this time Discharge medication options: Patient declined using smoking cessation medication at this time [employer] Educational Material: Accepted History of Present Illness Reports using 20 cigarettes per day. Reports using tobacco within 6-30 minutes minutes of waking. Years used: 51 Withdrawal: Significant nicotine withdrawal based upon the patients rating on the Nicotine Withdrawal Behavior Rating Scale. Patient does not live with other smokers or vapers Set a quit date: No Contact Information If I can be of further assistance, please call [employer] [phone] * Case Mgmt DC Plan - Isaura Crooks RN - 09/27/2018 1:52 PM ELECTRICAL RESEARCH ENGINEER Notified Masha (AYDIN) that patient is an appropriate inpatient rehab candidate and is medically clear for an admission. Prior to patient being admitted the [place] Medicaid application and supporting documents will need to be completed. Rehab will continue to follow for potential rehab admission. Donna, Inpatient Admissions Nurse/Rehab. (office# [phone] or voalte# [phone]). * Case Mgmt DC Plan - Masha Rollins - 09/27/2018 12:58 PM ELECTRICAL RESEARCH ENGINEER Formatting of this note may be different from the original. Case Management Progress Note NAME:Vidhi Andrea :1954 AGE: 63 y.o. ADMISSION DATE: 09/22/2018 DAYS ADMITTED: LOS: 5 days Todays Date: 09/27/2018 Plan Anticipate d/c to [facility] pending completion of [place] Medicaid application. Interventions AYDIN reviewed EMR and met with Neuro team for huddle. ? Support Support: Pt/Family Updates re:POC or DC Plan ? Info or Referral ? Discharge Planning Discharge Planning: Inpatient Rehabilitation AYDIN spoke with Celia at [facility] and they are agreeable to admission AYDIN spoke with Leonardo ([phone]) in Hospital and he plans to meet with pt's family to explore potential of Medicaid and work on completing documentation. Leonardo educated that plans to visit with family today at 2:00pm. ? Medication Needs ? Financial Financial: [place] Referral/Follow-up, Financial Counseling Referral/Follow-up ? Legal ? Other Other/None: No needs identified Disposition ? Expected Discharge Date Expected Discharge Date: 09/28/18 ? Transportation Does the patient need discharge transport arranged?: Yes Transportation Name, Phone and Availability #1: facility ? Next Level of Care (Acute Psych discharges only) ? Discharge Disposition Durable Medical Equipment No service has been selected for the patient. [facility] Destination No service has been selected for the patient. Home Care No service has been selected for the patient. Dialysis/Infusion No service has been selected for the patient. Masha Rollins LMSW Phone: [phone] Pager: [phone] * Care Plan - Berta Munoz RN - 09/26/2018 10:04 PM ELECTRICAL RESEARCH ENGINEER Problem: Aspiration, Risk of Goal: Absence of aspiration Outcome: Goal Ongoing Aspiration absent at this time. Will continue to monitor. Problem: Falls, High Risk of Goal: Absence of falls-Adult Patient Outcome: Goal Ongoing High fall bundle in place. Will continue to monitor. Problem: Discharge Planning Goal: Participation in plan of care Outcome: Goal Ongoing Pt updated on plan of care. Will continue to monitor. * Case Mgmt DC Plan - Leti Rivera - 09/26/2018 2:48 PM ELECTRICAL RESEARCH ENGINEER Formatting of this note may be different from the original. Case Management Progress Note NAME:Vidhi Andrea :1954 AGE: 63 y.o. ADMISSION DATE: 09/22/2018 DAYS ADMITTED: LOS: 4 days Todays Date: 09/26/2018 Plan Anticipate dc to [facility] IPR pending Medicaid application submission. Interventions ? Support ? Info or Referral ? Discharge Planning Pt is medically stable for next level of care. AYDIN stated rehab is unable to accept until Medicaid application has been submitted. Team verbalized understanding. [facility] IPR continues to follow pt. Stated pt has goals that would warrant IPR stay. Stated pt would be great rehab candidate. AYDIN called sister; Brenda [phone] who was able to verify pt's brother and mother will be coming tomorrow between 11AM and 4PM from [place], [place]. SW inquired if they have access to information regarding bank statements. Requested these be brought for screen. Brenda uncertain if family has access to this but will relay to pt's mother, stated she will ask them to bring it if able. AYDIN called Financial counselor; Leonardo Grover [phone]; provided updated on above information. Stated he will make sure to go by pt's room tomorrow to complete this. Stated he will notify SW when completed. AYDIN and Celia at [facility] to follow up tomorrow. ? Medication Needs ? Financial ? Legal ? Other Disposition ? Expected Discharge Date Expected Discharge Date: 09/28/18 ? Transportation Does the patient need discharge transport arranged?: No Transportation Name, Phone and Availability #1: family ? Next Level of Care (Acute Psych discharges only) ? Discharge Disposition Durable Medical Equipment No service has been selected for the patient. Destination No service has been selected for the patient. Home Care No service has been selected for the patient. Dialysis/Infusion No service has been selected for the patient. Leti Rivera LMSW Pager:[phone] * Care Plan - Miriam Friedman RN - 09/25/2018 5:42 PM ELECTRICAL RESEARCH ENGINEER Problem: Self-Care Deficit Goal: Maximize ADL functioning Outcome: Goal Ongoing Patient up and walking the unit and walking to the bathroom Problem: Injury-Risk of, Non-Violent Physical Restraints Goal: Absence of Injury while physically restrained (Non-Violent) Outcome: Goal Achieved Date Met: 09/25/18 Patient is not restrained. Problem: Nutrition Deficit Goal: Adequate nutritional intake Outcome: Goal Ongoing Patient has been fed enterally but we are currently holding tube feeding so that patient can drink on her liquid diet. Problem: Communication, Impaired Goal: Maximize functional communication Outcome: Goal Ongoing Patient communicating yes and no more. * Case Mgmt DC Plan - Leti Rivera - 09/25/2018 3:55 PM ELECTRICAL RESEARCH ENGINEER Formatting of this note may be different from the original. Case Management Progress Note NAME:Vidhi Andrea :1954 AGE: 63 y.o. ADMISSION DATE: 09/22/2018 DAYS ADMITTED: LOS: 3 days Todays Date: 09/25/2018 Plan Anticipate dc to [facility] pending medical stability and Medicaid application submission. Interventions ? Support ? Info or Referral ? Discharge Planning AYDIN attempted to meet with pt at bedside to discuss discharge planning. Pt was sleeping. AYDIN called pt's sister; Brenda [phone]. AYDIN inquired about support systems. Stated pt was living at home with daughter's; Thao and Mady. Brenda stated both daughter's live in the home and do not work. Stated they would be able to provide 24/7 care and support following IPR stay. Brenda stated pt has not been able to afford her medications stated since she was not able to afford medications; stroke occurred. Brenda stated if pt is not able to ambulate up/down stairs she would be able to stay with her. AYDIN called and spoke with admissions at [facility]. Stated pt does have goals that warrant IPR stay. Stated pt would need to have Medicaid application submitted prior to admission. Per DAMIAN notes financial screen was attempted by not completed due to pt sleeping. AYDIN called and left for Raul Grover stated pt needs placement and Medicaid application need to be submitted prior to admission. AYDIN inquired if this could be made priority. AYDIN will follow up with team tomorrow. Pt will get KERI tomorrow morning. UPDATE SW received call back from Raul Grover. Stated pt would have to be able to sign Medicaid application or would have to complete screen with family at bedside. Stated family would have to physically be in room. Has concerns about aphasia. AYDIN stated she would inquire it team thinks pt would be capable of signed Medicaid application. ? Medication Needs ? Financial ? Legal ? Other Disposition ? Expected Discharge Date Expected Discharge Date: 09/27/18 ? Transportation Does the patient need discharge transport arranged?: No Transportation Name, Phone and Availability #1: family ? Next Level of Care (Acute Psych discharges only) ? Discharge Disposition Durable Medical Equipment No service has been selected for the patient. Destination No service has been selected for the patient. Home Care No service has been selected for the patient. Dialysis/Infusion No service has been selected for the patient. Leti Rivera LMSW Pager:[phone] * Case Mgmt DC Plan - Lary Goyal RN - 09/24/2018 2:10 PM ELECTRICAL RESEARCH ENGINEER Case Management Admission Assessment NAME:Vidhi Andrea :1954 AGE: 63 y.o. ADMISSION DATE: 09/22/2018 DAYS ADMITTED: LOS: 2 days Todays Date: 09/24/2018 Source of Information: Patient's sister, Brenda (p: [phone]). Pt w/ aphasia- okay with assessment completed by sister. 09/22- Transfer from OSH s/p tPA administration for right facial droop and right sided weakness. Plan Plan: CM Assessment, Assist PRN with SW/NCM Services, Discharge Planning for Home Anticipated, Discharge Planning for Facility Anticipated pending PT/OT recs. Introduced self and CM role. Per sister, patient is only guardian for patient's 14y/o grandson. Per sister, grandson is currently staying with patient's daughters, Mady and Thao; discussed w/SW. Pt without health insurance coverage. Notification sent to Hospital [facility] via e- mail. Patient Address/Phone [address] [place] [id number] There are no phone numbers on file. Emergency Contact Extended Emergency Contact Information Primary Emergency Contact: Mady Garcia [facility] Mobile Relation: Daughter Secondary Emergency Contact: Thao Sanches [facility] Mobile Relation: Daughter Healthcare Directive None. Transportation Does the patient need discharge transport arranged?: No Transportation Name, Phone and Availability #1: family Expected Discharge Date Expected Discharge Date: 09/26/18 Living Situation Prior to Admission ? Living Arrangements Type of Residence: Home, independent Living Arrangements: Children (daughters (Mady and Thao)) How many levels in the residence?: 2 Can patient live on one level if needed?: Yes Does residence have entry and/or side stairs?: Yes Assistance needed prior to admit or anticipated on discharge: No ? Level of Function Prior level of function: Independent ? Cognitive Abilities Cognitive Abilities: Appears to have language limitations (specify) (per RN, pt aphasic) Financial Resources ? Coverage Primary Insurance: No insurance Secondary Insurance: No insurance Additional Coverage: None Per pt's sister, pt was not taking medications as prescribed. ? Source of Income Source Of Income: Unemployed ? Financial Assistance Needed? Yes; pt without health insurance. NCM notified Hospital FCs via e-mail. Psychosocial Needs ? Mental Health Mental Health History: No (per sister) ? Substance Use History Substance Use History Screen: No (per sister) ? Other Unable to assess home safety. Current/Previous Services ? PCP [facility], , ? Pharmacy No Pharmacies Listed ? Durable Medical Equipment Durable Medical Equipment at home: None ? Home Health Receiving home health: No ? Hemodialysis or Peritoneal Dialysis Undergoing hemodialysis or peritoneal dialysis: No ? Tube/Enteral Feeds Receive tube/enteral feeds: No ? Infusion Receive infusions: No ? Private Duty Private duty help used: No ? Home and Community Based Services Home and community based services: No ? Luigi White Luigi White: N/A ? Hospice Hospice: No ? Outpatient Therapy PT: No OT: No NEIGHBORHOOD WORKER: No ? Long Term Facility/[facility] SNF: No NH: No ? Inpatient Rehab IPR: No ? Long-Term Acute Care Hospital LTACH: No ? Acute Hospital Stay Acute Hospital Stay: No HENRY SelfN, RN, CCRN, SCRN, CNRN Integrated Nurse Spear Fisher Pager: [phone] * Case Mgmt DC Plan - Dejan Grant - 09/23/2018 10:36 AM ELECTRICAL RESEARCH ENGINEER Case Management Progress Note NAME:Vidhi Andrea :1954 AGE: 63 y.o. ADMISSION DATE: 09/22/2018 DAYS ADMITTED: LOS: 1 day Todays Date: 09/23/2018 Plan Discharge planning ongoing Continue ICU Care PT/OT/ST Interventions ? Support ? Info or Referral ? Discharge Planning SW reviewed progress notes and discussed patient with RN. Patient is aphasic and cannot complete assessment. PT/OT/ST. RN states patient's sister and mother are coming to visit. No family at bedside. SW reviewed medical records. Patient transferred [facility]. She lives with two of her four daughters (Mady and Thao). Sent records reflect patient is unemployed and without insurance. No previous [facility] admissions. SW updated demographics and emergency contacts. SW/RNCM will need to meet with patient/family to confirm demographic information. ? Medication Needs ? Financial ? Legal ? Other Disposition ? Expected Discharge Date ? Transportation ? Next Level of Care (Acute Psych discharges only) ? 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 CBC Routine 10/07/2018 Results for this 4:55 AM ELECTRICAL RESEARCH ENGINEER procedure are in the results section. BASIC METABOLIC PANEL Routine 10/07/2018 Results for this 4:55 AM ELECTRICAL RESEARCH ENGINEER procedure are in the results section. POC GLUCOSE 10/07/2018 Results for this 3:18 AM ELECTRICAL RESEARCH ENGINEER procedure are in the results section. POC GLUCOSE 10/06/2018 Results for this 9:12 PM ELECTRICAL RESEARCH ENGINEER procedure are in the results section. POC GLUCOSE 10/06/2018 Results for this 5:26 PM ELECTRICAL RESEARCH ENGINEER procedure are in the results section. POC GLUCOSE 10/06/2018 Results for this 12:17 PM ELECTRICAL RESEARCH ENGINEER procedure are in the results section. POC GLUCOSE 10/06/2018 Results for this 8:10 AM ELECTRICAL RESEARCH ENGINEER procedure are in the results section. POC GLUCOSE 10/06/2018 Results for this 3:34 AM ELECTRICAL RESEARCH ENGINEER procedure are in the results section. POC GLUCOSE 10/05/2018 Results for this 8:34 PM ELECTRICAL RESEARCH ENGINEER procedure are in the results section. POC GLUCOSE 10/05/2018 Results for this 5:02 PM ELECTRICAL RESEARCH ENGINEER procedure are in the results section. POC GLUCOSE 10/05/2018 Results for this 1:12 PM ELECTRICAL RESEARCH ENGINEER procedure are in the results section. POC GLUCOSE 10/05/2018 Results for this 7:57 AM ELECTRICAL RESEARCH ENGINEER procedure are in the results section. CBC Routine 10/05/2018 Results for this 5:06 AM ELECTRICAL RESEARCH ENGINEER procedure are in the results section. BASIC METABOLIC PANEL Routine 10/05/2018 Results for this 5:06 AM ELECTRICAL RESEARCH ENGINEER procedure are in the results section. POC GLUCOSE 10/05/2018 Results for this 3:23 AM ELECTRICAL RESEARCH ENGINEER procedure are in the results section. POC GLUCOSE 10/04/2018 Results for this 9:51 PM ELECTRICAL RESEARCH ENGINEER procedure are in the results section. POC GLUCOSE 10/04/2018 Results for this 5:45 PM ELECTRICAL RESEARCH ENGINEER procedure are in the results section. POC GLUCOSE 10/04/2018 Results for this 11:56 AM ELECTRICAL RESEARCH ENGINEER procedure are in the results section. POC GLUCOSE 10/04/2018 Results for this 9:04 AM ELECTRICAL RESEARCH ENGINEER procedure are in the results section. POC GLUCOSE 10/04/2018 Results for this 7:41 AM ELECTRICAL RESEARCH ENGINEER procedure are in the results section. POC GLUCOSE 10/04/2018 Results for this 2:57 AM ELECTRICAL RESEARCH ENGINEER procedure are in the results section. POC GLUCOSE 10/03/2018 Results for this 8:46 PM ELECTRICAL RESEARCH ENGINEER procedure are in the results section. POC GLUCOSE 10/03/2018 Results for this 8:37 PM ELECTRICAL RESEARCH ENGINEER procedure are in the results section. POC GLUCOSE 10/03/2018 Results for this 5:35 PM ELECTRICAL RESEARCH ENGINEER procedure are in the results section. POC GLUCOSE 10/03/2018 Results for this 12:29 PM ELECTRICAL RESEARCH ENGINEER procedure are in the results section. POC GLUCOSE 10/03/2018 Results for this 8:06 AM ELECTRICAL RESEARCH ENGINEER procedure are in the results section. CBC Routine 10/03/2018 Results for this 6:12 AM ELECTRICAL RESEARCH ENGINEER procedure are in the results section. BASIC METABOLIC PANEL Routine 10/03/2018 Results for this 6:12 AM ELECTRICAL RESEARCH ENGINEER procedure are in the results section. POC GLUCOSE 10/02/2018 Results for this 8:55 PM ELECTRICAL RESEARCH ENGINEER procedure are in the results section. POC GLUCOSE 10/02/2018 Results for this 5:22 PM ELECTRICAL RESEARCH ENGINEER procedure are in the results section. POC GLUCOSE 10/02/2018 Results for this 12:24 PM ELECTRICAL RESEARCH ENGINEER procedure are in the results section. POC GLUCOSE 10/02/2018 Results for this 8:28 AM ELECTRICAL RESEARCH ENGINEER procedure are in the results section. POC GLUCOSE 10/02/2018 Results for this 1:57 AM ELECTRICAL RESEARCH ENGINEER procedure are in the results section. POC GLUCOSE 10/01/2018 Results for this 9:26 PM ELECTRICAL RESEARCH ENGINEER procedure are in the results section. POC GLUCOSE 10/01/2018 Results for this 6:19 PM ELECTRICAL RESEARCH ENGINEER procedure are in the results section. POC GLUCOSE 10/01/2018 Results for this 12:38 PM ELECTRICAL RESEARCH ENGINEER procedure are in the results section. POC GLUCOSE 10/01/2018 Results for this 9:05 AM ELECTRICAL RESEARCH ENGINEER procedure are in the results section. CBC Routine 10/01/2018 Results for this 5:35 AM ELECTRICAL RESEARCH ENGINEER procedure are in the results section. BASIC METABOLIC PANEL Routine 10/01/2018 Results for this 5:35 AM ELECTRICAL RESEARCH ENGINEER procedure are in the results section. POC GLUCOSE 10/01/2018 Results for this 3:10 AM ELECTRICAL RESEARCH ENGINEER procedure are in the results section. POC GLUCOSE 09/30/2018 Results for this 9:14 PM ELECTRICAL RESEARCH ENGINEER procedure are in the results section. POC GLUCOSE 09/30/2018 Results for this 12:50 PM ELECTRICAL RESEARCH ENGINEER procedure are in the results section. POC GLUCOSE 09/30/2018 Results for this 9:53 AM ELECTRICAL RESEARCH ENGINEER procedure are in the results section. POC GLUCOSE 09/30/2018 Results for this 8:53 AM ELECTRICAL RESEARCH ENGINEER procedure are in the results section. POC GLUCOSE 09/30/2018 Results for this 3:08 AM ELECTRICAL RESEARCH ENGINEER procedure are in the results section. POC GLUCOSE 09/29/2018 Results for this 9:22 PM ELECTRICAL RESEARCH ENGINEER procedure are in the results section. POC GLUCOSE 09/29/2018 Results for this 5:10 PM ELECTRICAL RESEARCH ENGINEER procedure are in the results section. POC GLUCOSE 09/29/2018 Results for this 11:43 AM ELECTRICAL RESEARCH ENGINEER procedure are in the results section. ANTI-NUCLEAR Routine 09/29/2018 Results for this AB(ANITHA)-QUANT 9:28 AM ELECTRICAL RESEARCH ENGINEER procedure are in the results section. ANTI-NUCLEAR Routine 09/29/2018 Results for this ANTIBODY(ANITHA) 9:28 AM ELECTRICAL RESEARCH ENGINEER procedure are in the results section. POC GLUCOSE 09/29/2018 Results for this 8:11 AM ELECTRICAL RESEARCH ENGINEER procedure are in the results section. POC GLUCOSE 09/29/2018 Results for this 2:36 AM ELECTRICAL RESEARCH ENGINEER procedure are in the results section. POC GLUCOSE 09/28/2018 Results for this 8:47 PM ELECTRICAL RESEARCH ENGINEER procedure are in the results section. POC GLUCOSE 09/28/2018 Results for this 5:52 PM ELECTRICAL RESEARCH ENGINEER procedure are in the results section. CBC Routine 09/28/2018 Results for this 1:38 PM ELECTRICAL RESEARCH ENGINEER procedure are in the results section. BASIC METABOLIC PANEL Routine 09/28/2018 Results for this 1:38 PM ELECTRICAL RESEARCH ENGINEER procedure are in the results section. POC GLUCOSE 09/28/2018 Results for this 11:24 AM ELECTRICAL RESEARCH ENGINEER procedure are in the results section. POC GLUCOSE 09/28/2018 Results for this 7:42 AM ELECTRICAL RESEARCH ENGINEER procedure are in the results section. POC GLUCOSE 09/27/2018 Results for this 8:58 PM ELECTRICAL RESEARCH ENGINEER procedure are in the results section. POC GLUCOSE 09/27/2018 Results for this 5:23 PM ELECTRICAL RESEARCH ENGINEER procedure are in the results section. ABDOMEN AP ONLY Routine 09/27/2018 Results for this 4:56 PM ELECTRICAL RESEARCH ENGINEER procedure are in the results section. POC GLUCOSE 09/27/2018 Results for this 12:01 PM ELECTRICAL RESEARCH ENGINEER procedure are in the results section. POC GLUCOSE 09/27/2018 Results for this 7:34 AM ELECTRICAL RESEARCH ENGINEER procedure are in the results section. POC GLUCOSE 09/26/2018 Results for this 8:39 PM ELECTRICAL RESEARCH ENGINEER procedure are in the results section. POC GLUCOSE 09/26/2018 Results for this 4:37 PM ELECTRICAL RESEARCH ENGINEER procedure are in the results section. CBC Routine 09/26/2018 Results for this 11:31 AM ELECTRICAL RESEARCH ENGINEER procedure are in the results section. BASIC METABOLIC PANEL Routine 09/26/2018 Results for this 11:29 AM ELECTRICAL RESEARCH ENGINEER procedure are in the results section. POC GLUCOSE 09/26/2018 Results for this 11:17 AM ELECTRICAL RESEARCH ENGINEER procedure are in the results section. KERI W/O CONTRAST & W/ 3D Routine 09/26/2018 Results for this ON CART 9:05 AM ELECTRICAL RESEARCH ENGINEER procedure are in the results section. POC GLUCOSE 09/26/2018 Results for this 8:13 AM ELECTRICAL RESEARCH ENGINEER procedure are in the results section. POC GLUCOSE 09/26/2018 Results for this 3:50 AM ELECTRICAL RESEARCH ENGINEER procedure are in the results section. POC GLUCOSE 09/25/2018 Results for this 8:21 PM ELECTRICAL RESEARCH ENGINEER procedure are in the results section. POC GLUCOSE 09/25/2018 Results for this 5:26 PM ELECTRICAL RESEARCH ENGINEER procedure are in the results section. UA REFLEX CULTURE LABEL Routine 09/25/2018 Results for this 12:45 PM ELECTRICAL RESEARCH ENGINEER procedure are in the results section. URINALYSIS MICROSCOPIC Routine 09/25/2018 Results for this REFLEX TO CULTURE 12:45 PM ELECTRICAL RESEARCH ENGINEER procedure are in the results section. URINALYSIS DIPSTICK Routine 09/25/2018 Results for this REFLEX TO CULTURE 12:45 PM ELECTRICAL RESEARCH ENGINEER procedure are in the results section. CULTURE-URINE 09/25/2018 Results for this W/SENSITIVITY 12:45 PM ELECTRICAL RESEARCH ENGINEER procedure are in the results section. POC GLUCOSE 09/25/2018 Results for this 12:44 PM ELECTRICAL RESEARCH ENGINEER procedure are in the results section. SWALLOW MOTION SERIES Routine 09/25/2018 Results for this 9:55 AM ELECTRICAL RESEARCH ENGINEER procedure are in the results section. POC GLUCOSE 09/25/2018 Results for this 8:10 AM ELECTRICAL RESEARCH ENGINEER procedure are in the results section. POC GLUCOSE 09/25/2018 Results for this 4:22 AM ELECTRICAL RESEARCH ENGINEER procedure are in the results section. CBC STAT 09/25/2018 Results for this 4:15 AM ELECTRICAL RESEARCH ENGINEER procedure are in the results section. PHOSPHORUS Routine 09/25/2018 Results for this 4:15 AM ELECTRICAL RESEARCH ENGINEER procedure are in the results section. MAGNESIUM Routine 09/25/2018 Results for this 4:15 AM ELECTRICAL RESEARCH ENGINEER procedure are in the results section. BASIC METABOLIC PANEL STAT 09/25/2018 Results for this 4:15 AM ELECTRICAL RESEARCH ENGINEER procedure are in the results section. POC GLUCOSE 09/24/2018 Results for this 9:19 PM ELECTRICAL RESEARCH ENGINEER procedure are in the results section. POC GLUCOSE 09/24/2018 Results for this 5:27 PM ELECTRICAL RESEARCH ENGINEER procedure are in the results section. POC GLUCOSE 09/24/2018 Results for this 12:31 PM ELECTRICAL RESEARCH ENGINEER procedure are in the results section. 2-D + DOPPLER Routine 09/24/2018 Results for this ECHOCARDIOGRAM 10:11 AM ELECTRICAL RESEARCH ENGINEER procedure are in the results section. CT HEAD WO CONTRAST Routine 09/24/2018 Results for this 8:35 AM ELECTRICAL RESEARCH ENGINEER procedure are in the results section. POC GLUCOSE 09/24/2018 Results for this 7:52 AM ELECTRICAL RESEARCH ENGINEER procedure are in the results section. CBC STAT 09/24/2018 Results for this 3:55 AM ELECTRICAL RESEARCH ENGINEER procedure are in the results section. PHOSPHORUS Routine 09/24/2018 Results for this 3:55 AM ELECTRICAL RESEARCH ENGINEER procedure are in the results section. MAGNESIUM Routine 09/24/2018 Results for this 3:55 AM ELECTRICAL RESEARCH ENGINEER procedure are in the results section. BASIC METABOLIC PANEL STAT 09/24/2018 Results for this 3:55 AM ELECTRICAL RESEARCH ENGINEER procedure are in the results section. POC GLUCOSE 09/24/2018 Results for this 3:52 AM ELECTRICAL RESEARCH ENGINEER procedure are in the results section. POC GLUCOSE 09/23/2018 Results for this 8:43 PM ELECTRICAL RESEARCH ENGINEER procedure are in the results section. POC GLUCOSE 09/23/2018 Results for this 5:26 PM ELECTRICAL RESEARCH ENGINEER procedure are in the results section. ABDOMEN AP ONLY Routine 09/23/2018 Results for this 2:40 PM ELECTRICAL RESEARCH ENGINEER procedure are in the results section. ABDOMEN AP ONLY Routine 09/23/2018 Results for this 2:11 PM ELECTRICAL RESEARCH ENGINEER procedure are in the results section. POC GLUCOSE 09/23/2018 Results for this 12:55 PM ELECTRICAL RESEARCH ENGINEER procedure are in the results section. UA REFLEX CULTURE LABEL Routine 09/23/2018 Results for this 11:00 AM ELECTRICAL RESEARCH ENGINEER procedure are in the results section. URINALYSIS MICROSCOPIC Routine 09/23/2018 Results for this REFLEX TO CULTURE 11:00 AM ELECTRICAL RESEARCH ENGINEER procedure are in the results section. URINALYSIS DIPSTICK Routine 09/23/2018 Results for this REFLEX TO CULTURE 11:00 AM ELECTRICAL RESEARCH ENGINEER procedure are in the results section. PHENCYCLIDINES-URINE Routine 09/23/2018 Results for this RANDOM 11:00 AM ELECTRICAL RESEARCH ENGINEER procedure are in the results section. OPIATES-URINE RANDOM Routine 09/23/2018 Results for this 11:00 AM ELECTRICAL RESEARCH ENGINEER procedure are in the results section. COCAINE-URINE RANDOM Routine 09/23/2018 Results for this 11:00 AM ELECTRICAL RESEARCH ENGINEER procedure are in the results section. CANNABINOIDS-URINE RANDOM Routine 09/23/2018 Results for this 11:00 AM ELECTRICAL RESEARCH ENGINEER procedure are in the results section. BENZODIAZEPINES-URINE Routine 09/23/2018 Results for this RANDOM 11:00 AM ELECTRICAL RESEARCH ENGINEER procedure are in the results section. BARBITURATES-URINE RANDOM Routine 09/23/2018 Results for this 11:00 AM ELECTRICAL RESEARCH ENGINEER procedure are in the results section. AMPHETAMINES-URINE RANDOM Routine 09/23/2018 Results for this 11:00 AM ELECTRICAL RESEARCH ENGINEER procedure are in the results section. POC GLUCOSE 09/23/2018 Results for this 8:46 AM ELECTRICAL RESEARCH ENGINEER procedure are in the results section. CBC STAT 09/23/2018 Results for this 3:07 AM ELECTRICAL RESEARCH ENGINEER procedure are in the results section. PHOSPHORUS Routine 09/23/2018 Results for this 3:07 AM ELECTRICAL RESEARCH ENGINEER procedure are in the results section. MAGNESIUM Routine 09/23/2018 Results for this 3:07 AM ELECTRICAL RESEARCH ENGINEER procedure are in the results section. BASIC METABOLIC PANEL STAT 09/23/2018 Results for this 3:07 AM ELECTRICAL RESEARCH ENGINEER procedure are in the results section. MRI [...] CDT procedure are in the results section. in this encounter Results * POC GLUCOSE (10/07/2018 9:06 AM) Glucose, POC 137 (H) 70 - 100 MG/DL [facility]IN [facility] Performing Organization Address [facility] Phone Number [facility] [address] [place] [address] * CBC (10/07/2018 4:55 AM) White Blood Cells 14.1 (H) 4.5 - [...] LAB MPV 9.5 7 - 11 [place] MAIN LAB Specimen Blood Performing Organization Address [facility] Phone Number MAIN LAB [address] [place] [address] * BASIC METABOLIC PANEL (10/07/2018 4:55 AM) Sodium 134 (L) 137 - 147 MMOL/L [...] for questions. Specimen Blood Performing Organization Address City/[facility] Phone Number [facility] [address] [place] [address] * POC GLUCOSE (10/07/2018 3:18 AM) Glucose, POC 119 (H) 70 - 100 MG/DL [facility] Performing Organization Address City/[facility]/Zipcode Phone Number MAIN LAB [address] [place] [address] * POC GLUCOSE (10/06/2018 9:12 PM) Glucose, POC 108 (H) 70 - 100 MG/DL [facility]IN [facility] Performing Organization Address City/[facility] Phone Number [facility] [address] [place] [address] * POC GLUCOSE (10/06/2018 5:26 PM) Glucose, POC 117 (H) 70 - 100 MG/DL [facility] Performing Organization Address City/[facility] Phone Number [facility] LAB [address] [place] [address] * POC GLUCOSE (10/06/2018 12:17 PM) Glucose, POC 138 (H) 70 - 100 MG/DL [facility] Performing Organization Address City/[facility] Phone Number MA[facility] LAB [address] [place] [address] * POC GLUCOSE (10/06/2018 8:10 AM) Glucose, POC 140 (H) 70 - 100 MG/DL [facility] Performing Organization Address City/[facility] Phone Number [facility] LAB [address] [place] [address] * POC GLUCOSE (10/06/2018 3:34 AM) Glucose, POC 136 (H) 70 - 100 MG/DL [facility] Performing Organization Address City/[facility]/Zipcode Phone Number MAIN LAB [address] [place] [address] * POC GLUCOSE (10/05/2018 8:34 PM) Glucose, POC 124 (H) 70 - 100 MG/DL [facility] Performing Organization Address City/[facility]/Zipcode Phone Number MAIN LAB [address] [place] [address] * POC GLUCOSE (10/05/2018 5:02 PM) Glucose, POC 128 (H) 70 - 100 MG/DL [facility] Performing Organization Address City/State/[facility] Phone Number [facility] [address] [place] [address] * POC GLUCOSE (10/05/2018 1:12 PM) Glucose, POC 128 (H) 70 - 100 MG/DL [facility] Performing Organization Address [facility] Phone Number [facility] [address] [place] [address] * POC GLUCOSE (10/05/2018 7:57 AM) Glucose, POC 149 (H) 70 - 100 MG/DL [facility] Performing Organization Address [facility] Phone Number [facility] [address] [place] [address] * CBC (10/05/2018 5:06 AM) White Blood Cells 13.1 (H) 4.5 - 11.0 K/UL [facility] RBC 4.99 4.0 - 5.0 M/UL [facility] Hemoglobin 15.7 (H) 12.0 - 15.0 GM/DL [facility] Hematocrit 45.7 (H) 36 - 45 % [facility] MCV 91.7 80 - 100 FL [facility] MCH 31.4 26 - 34 PG [facility] MCHC 34.3 32.0 - 36.0 G/DL [facility] RDW 13.9 11 - 15 % [facility] Platelet Count 244 150 - 400 K/UL [facility] MPV 10.5 7 - 11 FL [facility] Specimen Blood Performing Organization Address [facility] Phone Number [facility] [address] [place] [address] * BASIC METABOLIC PANEL (10/05/2018 5:06 AM) Sodium 133 (L) 137 - 147 MMOL/L [facility] Potassium 4.3 3.5 - 5.1 MMOL/L [facility] Chloride 102 98 - 110 MMOL/L [facility] CO2 23 21 - 30 MMOL/L [facility] Anion Gap 8 3 - 12 [facility] Glucose 140 (H) 70 - 100 MG/DL [facility] Blood Urea Nitrogen 25 7 - 25 MG/DL [facility] Creatinine 0.72 0.4 - 1.00 MG/DL [facility] Calcium 9.2 8.5 - 10.6 MG/DL [facility] [...] for questions. Specimen Blood Performing Organization Address City/[facility]/Zipcode Phone Number MAIN LAB [address] [place] [address] * POC GLUCOSE (10/05/2018 3:23 AM) Glucose, POC 122 (H) 70 - 100 MG/DL [facility] Performing Organization Address City/[facility] Phone Number MAIN LAB [address] [place] [address] * POC GLUCOSE (10/04/2018 9:51 PM) Glucose, POC 132 (H) 70 - 100 MG/DL [facility] Performing Organization Address City/[facility] Phone Number [place] [facility] [address] [place] [address] * POC GLUCOSE (10/04/2018 5:45 PM) Glucose, POC 111 (H) 70 - 100 MG/DL [place] [facility] Performing Organization Address [facility] [place] [facility] Phone Number [place] [facility]IN [facility] [address] [place] [address] * POC GLUCOSE (10/04/2018 11:56 AM) Glucose, POC 129 (H) 70 - 100 MG/DL [facility] Performing Organization Address City/[facility] Phone Number [facility] [address] [place] [address] * POC GLUCOSE (10/04/2018 9:04 AM) Glucose, POC 146 (H) 70 - 100 MG/DL [facility] Performing Organization Address City/[facility] Phone Number [place] [facility] [address] [place] [address] * POC GLUCOSE (10/04/2018 7:41 AM) Glucose, POC 141 (H) 70 - 100 MG/DL [facility] Performing Organization Address City/[facility] Phone Number [facility] [address] [place] [address] * POC GLUCOSE (10/04/2018 2:57 AM) Glucose, POC 157 (H) 70 - 100 MG/DL [facility] Performing Organization Address City/[facility]/Zipcode Phone Number [facility] [address] [place] [address] * POC GLUCOSE (10/03/2018 8:46 PM) Glucose, POC 154 (H) 70 - 100 MG/DL [facility] Performing Organization Address City/[facility]/Zipcode Phone Number [facility] [address] [place] [address] * POC GLUCOSE (10/03/2018 8:37 PM) Glucose, POC 133 (H) 70 - 100 MG/DL [facility] Performing Organization Address City/[facility]/Zipcode Phone Number MAIN LAB [address] [place] [address] * POC GLUCOSE (10/03/2018 5:35 PM) Glucose, POC 119 (H) 70 - 100 MG/DL [facility] Performing Organization Address City/[facility]/Zipcode Phone Number MAIN LAB [address] [place] [address] * POC GLUCOSE (10/03/2018 12:29 PM) Glucose, POC 116 (H) 70 - 100 MG/DL [facility] Performing Organization Address City/[facility] Phone Number MAIN LAB [address] [place] [address] * POC GLUCOSE (10/03/2018 8:06 AM) Glucose, POC 136 (H) 70 - 100 MG/DL [facility] Performing Organization Address City/[facility]/Zipcode Phone Number MAIN LAB [address] [place] [address] * BASIC METABOLIC PANEL (10/03/2018 6:12 AM) Sodium 135 (L) 137 - 147 MMOL/L [facility] Potassium 4.3 3.5 - 5.1 MMOL/L [facility] Chloride 100 98 - 110 MMOL/L [facility] CO2 27 21 - 30 MMOL/L [facility] Anion Gap 8 3 - 12 [facility] Glucose 137 (H) 70 - 100 MG/DL [facility] Blood Urea Nitrogen 24 7 - 25 MG/DL [facility] Creatinine 0.88 0.4 - 1.00 MG/DL [facility] Calcium 9.6 8.5 - 10.6 MG/DL MAIN LAB eGFR Non >60 >60 mL/min [...] for questions. Specimen Blood Performing Organization Address [facility] Phone Number MAIN LAB [address] [place] [address] * CBC (10/03/2018 6:12 AM) White Blood Cells 12.7 (H) 4.5 - 11.0 K/UL MAIN LAB RBC 5.06 (H) 4.0 - 5.0 M/UL MAIN LAB Hemoglobin 15.8 (H) 12.0 - 15.0 GM/DL MAIN LAB Hematocrit 45.9 (H) 36 - 45 % MAIN LAB MCV 90.8 80 - 100 FL MAIN LAB MCH 31.2 26 - 34 PG MAIN LAB MCHC 34.3 32.0 - 36.0 G/DL MAIN LAB RDW 13.9 11 - 15 % MAIN LAB Platelet Count 278 150 - 400 K/UL MAIN LAB MPV 10.4 7 - 11 FL MAIN LAB Specimen Blood Performing Organization Address [facility] Phone Number MAIN LAB [address] [place] [address] * POC GLUCOSE (10/02/2018 8:55 PM) Glucose, POC 135 (H) 70 - 100 MG/DL [facility] Performing Organization Address [facility] Phone Number MAIN LAB [address] [place] [address] * POC GLUCOSE (10/02/2018 5:22 PM) Glucose, POC 138 (H) 70 - 100 MG/DL [facility] Performing Organization Address [facility] Phone Number MAIN LAB [address] [place] [address] * POC GLUCOSE (10/02/2018 12:24 PM) Glucose, POC 127 (H) 70 - 100 MG/DL [facility] Performing Organization Address City/State/Zipcode Phone Number MAIN LAB [address] [place] [address] * POC GLUCOSE (10/02/2018 8:28 AM) Glucose, POC 135 (H) 70 - 100 MG/DL [facility] Performing Organization Address City/State/Zipcode Phone Number MAIN LAB [address] [place] [address] * POC GLUCOSE (10/02/2018 1:57 AM) Glucose, POC 127 (H) 70 - 100 MG/DL MAIN LAB Performing Organization Address City/State/Zipcode Phone Number MAIN LAB [address] [place] [address] * POC GLUCOSE (10/01/2018 9:26 PM) Glucose, POC 136 (H) 70 - 100 MG/DL MAIN LAB Performing Organization Address City/State/Zipcode Phone Number MAIN LAB [address] [place] [address] * POC GLUCOSE (10/01/2018 6:19 PM) Glucose, POC 128 (H) 70 - 100 MG/DL [facility] Performing Organization Address City/State/Zipcode Phone Number MAIN LAB [address] [place] [address] * POC GLUCOSE (10/01/2018 12:38 PM) Glucose, POC 123 (H) 70 - 100 MG/DL MAIN LAB Performing Organization Address City/State/Zipcode Phone Number MAIN LAB [address] [place] [address] * POC GLUCOSE (10/01/2018 9:05 AM) Glucose, POC 190 (H) 70 - 100 MG/DL [facility] Performing Organization Address City/State/Zipcode Phone Number MAIN LAB [address] [place] [address] * BASIC METABOLIC PANEL (10/01/2018 5:35 AM) Sodium 135 (L) 137 - 147 MMOL/L MAIN LAB Potassium 4.1 3.5 - 5.1 MMOL/L MAIN LAB Chloride 102 98 - 110 MMOL/L [facility] CO2 24 21 - 30 MMOL/L [facility] Anion Gap 9 3 - 12 MAIN LAB Glucose 136 (H) 70 - 100 MG/DL MAIN LAB Blood Urea Nitrogen 24 7 - 25 MG/DL MAIN LAB Creatinine 0.65 0.4 - 1.00 MG/DL MAIN LAB Calcium 9.4 8.5 - 10.6 MG/DL MAIN LAB eGFR Non >60 >60 mL/min [...] for questions. Specimen Blood Performing Organization Address [facility] Phone Number [facility] [address] [place] [address] * CBC (10/01/2018 5:35 AM) White Blood Cells 11.9 (H) 4.5 - 11.0 K/UL MAIN LAB RBC 5.04 (H) 4.0 - 5.0 M/UL [facility] Hemoglobin 15.7 (H) 12.0 - 15.0 GM/DL MAIN LAB Hematocrit 45.5 (H) 36 - 45 % MAIN LAB MCV 90.3 80 - 100 FL MAIN LAB MCH 31.2 26 - 34 PG MAIN LAB MCHC 34.6 32.0 - 36.0 G/DL [facility] RDW 13.4 11 - 15 % MAIN LAB Platelet Count 255 150 - 400 K/UL MAIN LAB MPV 10.3 7 - 11 FL MAIN LAB Specimen Blood Performing Organization Address City/[facility] Phone Number [facility] [address] [place] [address] * POC GLUCOSE (10/01/2018 3:10 AM) Glucose, POC 123 (H) 70 - 100 MG/DL MAIN LAB Performing Organization Address City/State/Zipcode Phone Number MAIN LAB [address] [place] [address] * POC GLUCOSE (09/30/2018 9:14 PM) Glucose, POC 116 (H) 70 - 100 MG/DL [facility] Performing Organization Address City/State/Zipcode Phone Number MAIN LAB [address] [place] [address] * POC GLUCOSE (09/30/2018 12:50 PM) Glucose, POC 125 (H) 70 - 100 MG/DL [facility] Performing Organization Address City/State/Zipcode Phone Number MAIN LAB [address] [place] [address] * POC GLUCOSE (09/30/2018 9:53 AM) Glucose, POC 180 (H) 70 - 100 MG/DL MAIN LAB Performing Organization Address City/State/Zipcode Phone Number MAIN LAB [address] [place] [address] * POC GLUCOSE (09/30/2018 8:53 AM) Glucose, POC 126 (H) 70 - 100 MG/DL MAIN LAB Performing Organization Address City/State/Zipcode Phone Number MAIN LAB [address] [place] [address] * POC GLUCOSE (09/30/2018 3:08 AM) Glucose, POC 129 (H) 70 - 100 MG/DL [facility] Performing Organization Address City/State/Zipcode Phone Number MAIN LAB [address] [place] [address] * POC GLUCOSE (09/29/2018 9:22 PM) Glucose, POC 120 (H) 70 - 100 MG/DL [facility] Performing Organization Address City/State/Zipcode Phone Number MAIN LAB [address] [place] [address] * POC GLUCOSE (09/29/2018 5:10 PM) Glucose, POC 199 (H) 70 - 100 MG/DL [facility] Performing Organization Address City/State/Zipcode Phone Number MAIN LAB [address] [place] [address] * POC GLUCOSE (09/29/2018 11:43 AM) Glucose, POC 171 (H) 70 - 100 MG/DL [facility] Performing Organization Address City/[facility]/Zipcode Phone Number MAIN LAB [address] [place] [address] * ANTI-NUCLEAR AB(ANITHA)-QUANT (09/29/2018 9:28 AM) ANITHA Titer/Pattern 80 (H)Comment: NUCLEOLAR <80 [facility] Performing Organization Address City/[facility] Phone Number MAIN LAB [address] [place] [address] * ANTI-NUCLEAR ANTIBODY(ANITHA) (09/29/2018 9:28 AM) ANITHA Screen SEE TITER <80 TITER [facility] Specimen Blood Performing Organization Address City/[facility] Phone Number MAIN LAB [address] [place] [address] * POC GLUCOSE (09/29/2018 8:11 AM) Glucose, POC 158 (H) 70 - 100 MG/DL [facility] Performing Organization Address City/[facility] Phone Number MAIN LAB [address] [place] [address] * POC GLUCOSE (09/29/2018 2:36 AM) Glucose, POC 114 (H) 70 - 100 MG/DL [facility] Performing Organization Address City/[facility] Phone Number MAIN LAB [address] [place] [address] * POC GLUCOSE (09/28/2018 8:47 PM) Glucose, POC 125 (H) 70 - 100 MG/DL [facility] Performing Organization Address City/[facility] Phone Number MAIN LAB [address] [place] [address] * POC GLUCOSE (09/28/2018 5:52 PM) Glucose, POC 135 (H) 70 - 100 MG/DL [facility] Performing Organization Address City/[facility] Phone Number MAIN LAB [address] [place] [address] * BASIC METABOLIC PANEL (09/28/2018 1:38 PM) Sodium 136 (L) 137 - 147 MMOL/L [facility] Potassium 3.9 3.5 - 5.1 MMOL/L [facility] Chloride 100 98 - 110 MMOL/L [facility] CO2 27 21 - 30 MMOL/L [facility] Anion Gap 9 3 - 12 MAIN LAB Glucose 115 (H) 70 - 100 MG/DL MAIN LAB Blood Urea Nitrogen 21 7 - 25 MG/DL [facility] Creatinine 0.78 0.4 - 1.00 MG/DL [facility] Calcium 9.7 8.5 - 10.6 MG/DL MAIN LAB eGFR Non >60 >60 mL/min [...] for questions. Specimen Blood Performing Organization Address City/[facility]/Zipcode Phone Number MAIN LAB [address] [place] [address] * CBC (09/28/2018 1:38 PM) White Blood Cells 13.4 (H) 4.5 - 11.0 K/UL MAIN LAB RBC 5.20 (H) 4.0 - 5.0 M/UL MAIN LAB Hemoglobin 16.1 (H) 12.0 - 15.0 GM/DL MAIN LAB Hematocrit 47.3 (H) 36 - 45 % MAIN LAB MCV 90.9 80 - 100 FL MAIN LAB MCH 30.9 26 - 34 PG MAIN LAB MCHC 34.0 32.0 - 36.0 G/DL MAIN LAB RDW 13.1 11 - 15 % MAIN LAB Platelet Count 324 150 - 400 K/UL MAIN LAB MPV 10.0 7 - 11 FL MAIN LAB Specimen Blood Performing Organization Address City/[facility]/Zipcode Phone Number MAIN LAB [address] [place] [address] * POC GLUCOSE (09/28/2018 11:24 AM) Glucose, POC 147 (H) 70 - 100 MG/DL MAIN LAB Performing Organization Address City/[facility]/Zipcode Phone Number MAIN LAB [address] [place] [address] * POC GLUCOSE (09/28/2018 7:42 AM) Glucose, POC 145 (H) 70 - 100 MG/DL [facility] Performing Organization Address City/[facility] Phone Number [facility] [address] [place] [address] * POC GLUCOSE (09/27/2018 8:58 PM) Glucose, POC 142 (H) 70 - 100 MG/DL [facility] Performing Organization Address City/[facility] Phone Number [facility] [address] [place] [address] * POC GLUCOSE (09/27/2018 5:23 PM) Glucose, POC 135 (H) 70 - 100 MG/DL [facility] Performing Organization Address [facility] Phone Number [place] [facility] [address] [place] [address] * ABDOMEN AP ONLY (09/27/2018 4:56 PM) Impressions Performed At Retained barium distributed throughout [...] Interface, Radiant Results - 09/28/2018 7:52 AM 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 Technique: 2 portable AP supine views [...] on 09/28/2018 7:47 AM. Performing Organization Address City/[facility] Phone Number RAD RESULTS * POC GLUCOSE (09/27/2018 12:01 PM) Glucose, POC 170 (H) 70 - 100 MG/DL [facility] Performing Organization Address City/[facility] Phone Number MAIN LAB [address] [place] [address] * POC GLUCOSE (09/27/2018 7:34 AM) Glucose, POC 138 (H) 70 - 100 MG/DL [facility] Performing Organization Address [facility] Phone Number MAIN LAB [address] [place] [address] * POC GLUCOSE (09/26/2018 8:39 PM) Glucose, POC 156 (H) 70 - 100 MG/DL [facility] Performing Organization Address [facility] Phone Number MAIN LAB [address] [place] [address] * POC GLUCOSE (09/26/2018 4:37 PM) Glucose, POC 152 (H) 70 - 100 MG/DL [facility] Performing Organization Address [facility] Phone Number MAIN LAB [address] [place] [address] * CBC (09/26/2018 11:31 AM) White Blood Cells 12.2 (H) 4.5 - 11.0 K/UL MAIN LAB RBC 5.23 (H) 4.0 - 5.0 M/UL MAIN LAB Hemoglobin 16.0 (H) 12.0 - 15.0 GM/DL MAIN LAB Hematocrit 47.4 (H) 36 - 45 % [facility]IN [facility] MCV 90.7 80 - 100 FL MAIN LAB MCH 30.6 26 - 34 PG MAIN LAB MCHC 33.7 32.0 - 36.0 G/DL MAIN LAB RDW 13.6 11 - 15 % MAIN LAB Platelet Count 266 150 - 400 K/UL MAIN LAB MPV 10.0 7 - 11 FL MAIN LAB Specimen Blood Performing Organization Address [facility] Phone Number [facility] [address] [place] [address] * BASIC METABOLIC PANEL (09/26/2018 11:29 AM) Sodium 137 137 - 147 MMOL/L [facility] Potassium 4.2 3.5 - 5.1 MMOL/L [facility] Chloride 103 98 - 110 MMOL/L [facility] CO2 25 21 - 30 MMOL/L [facility] Anion Gap 9 3 - 12 [facility] Glucose 152 (H) 70 - 100 MG/DL [facility] Blood Urea Nitrogen 16 7 - 25 MG/DL [facility] Creatinine 0.66 0.4 - 1.00 MG/DL [facility] Calcium 9.3 8.5 - 10.6 MG/DL [facility]IN [facility] [...] for questions. Specimen Blood Performing Organization Address City/State/Zipcode Phone Number [facility] [address] [place] [address] * POC GLUCOSE (09/26/2018 11:17 AM) Glucose, POC 144 (H) 70 - 100 MG/DL [facility] Performing Organization Address City/[facility]/Zipcode Phone Number [facility] [address] [place] [address] * TRANSESOPHAGEAL ECHOCARDIOGRAM (09/26/2018 9:05 AM) BSA 2.14 m2 OTHER OUTSIDE LAB CV ECHO PV SUPERCHARGER REPAIR SUPERVISOR Renetta RN, Natalia RN OTHER OUTSIDE LAB Cardiology Ultrasound Siemens [id number] OTHER OUTSIDE LAB Machine ECHO EF 55 [...] basal inferior inferolateral thomas. Performing Organization Address City/State/Grocode Phone Number OTHER OUTSIDE LAB * POC GLUCOSE (09/26/2018 8:13 AM) Glucose, POC 157 (H) 70 - 100 MG/DL [facility] Performing Organization Address City/[facility]/[employer] Phone Number [facility] [address] [place] [address] * POC GLUCOSE (09/26/2018 3:50 AM) Glucose, POC 135 (H) 70 - 100 MG/DL [facility] Performing Organization Address City/[facility]/Gro[employer] Phone Number [facility] [address] [place] [address] * POC GLUCOSE (09/25/2018 8:21 PM) Glucose, POC 131 (H) 70 - 100 MG/DL [facility] Performing Organization Address City/[facility] Phone Number [facility] [address] [place] [address] * POC GLUCOSE (09/25/2018 5:26 PM) Glucose, POC 163 (H) 70 - 100 MG/DL [facility] Performing Organization Address [facility] Phone Number MAIN LAB [address] [place] [address] * CULTURE-URINE W/SENSITIVITY (09/25/2018 12:45 PM) Battery Name URINE CULTURE MAIN LAB Specimen Description URINE MAIN LAB Special Requests NONE [facility] MA[facility] Culture >100,000 organisms/ml MAIN LAB [...] escherichia coli INTERPRETATION INTERPRETATION Performing Organization Address [facility] Phone Number MAIN LAB [address] [place] [address] * UA REFLEX CULTURE LABEL (09/25/2018 12:45 PM) UA Reflex Culture LAB LABEL [facility]IN [facility] Specimen Urine Performing Organization Address [facility] Phone Number MAIN LAB [address] [place] [address] * URINALYSIS MICROSCOPIC REFLEX TO CULTURE (09/25/2018 12:45 PM) WBCs,UA 20-50 0 - 2 /HPF KU [...] MAIN LAB Specimen Urine Performing Organization Address [facility] Phone Number MAIN LAB [address] [place] [address] * URINALYSIS DIPSTICK REFLEX TO CULTURE (09/25/2018 12:45 PM) Color,UA YELLOW [facility] MAIN [facility] Turbidity,UA 1+ (A) CLEAR-CLEAR [facility] Specific Randall-Urine 1.011 1.003 - 1.035 [facility] MAIN [facility] pH,UA 8.0 5.0 - 8.0 [facility] MAIN [facility] Protein,UA NEG NEG-NEG [facility]IN [facility] Glucose,UA NEG NEG-NEG [facility] Ketones,UA NEG NEG-NEG [facility] Bilirubin,UA NEG NEG-NEG [facility] MAIN [facility] Blood,UA 1+ (A) NEG-NEG [facility] MAIN [facility] Urobilinogen,UA NORMAL NORM-NORMAL [facility] MAIN [facility] Nitrite,UA POS (A) NEG-NEG [facility] MAIN [facility] Leukocytes,UA 1+ (A) NEG-NEG [facility] MAIN [facility] Urine Ascorbic Acid, UA NEG NEG-NEG [facility] MAIN [facility] Specimen Urine Performing Organization Address [facility] Phone Number MAIN LAB [address] [place] [address] * POC GLUCOSE (09/25/2018 12:44 PM) Glucose, POC 166 (H) 70 - 100 MG/DL [facility] Performing Organization Address [facility] Phone Number MAIN LAB [address] [place] [address] * SWALLOW MOTION SERIES (09/25/2018 9:55 AM) [...] Interface, Radiant Results - 09/25/2018 10:54 AM 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 Performing Organization Address [facility] Phone Number RAD RESULTS * POC GLUCOSE (09/25/2018 8:10 AM) Glucose, POC 200 (H) 70 - 100 MG/DL MAIN LAB Performing Organization Address [facility] Phone Number MAIN LAB [address] [place] [address] * POC GLUCOSE (09/25/2018 4:22 AM) Glucose, POC 224 (H) 70 - 100 MG/DL [facility]IN [facility] Performing Organization Address [facility] Phone Number MAIN LAB [address] [place] [address] * MAGNESIUM (09/25/2018 4:15 AM) Magnesium 1.9 1.6 - 2.6 mg/dL MAIN LAB Specimen Blood Performing Organization Address [facility] Phone Number MAIN LAB [address] [place] [address] * PHOSPHORUS (09/25/2018 4:15 AM) Phosphorus 3.3Comment: NOTE NEW REFERENCE 2.0 - 4.5 MG/DL [facility] MAIN LAB RANGES Specimen Blood Performing Organization Address [facility] Phone Number MAIN LAB [address] [place] [address] * CBC (09/25/2018 4:15 AM) White Blood Cells 15.1 (H) 4.5 - 11.0 K/UL MAIN LAB RBC 4.70 4.0 - 5.0 M/UL MAIN LAB Hemoglobin 14.5 12.0 - 15.0 GM/DL MAIN LAB Hematocrit 43.0 36 - 45 % MAIN LAB MCV 91.3 80 - 100 FL MAIN LAB MCH 30.7 26 - 34 PG MAIN LAB MCHC 33.7 32.0 - 36.0 G/DL MAIN LAB RDW 13.9 11 - 15 % MAIN LAB Platelet Count 249 150 - 400 K/UL MAIN LAB MPV 10.4 7 - 11 FL [facility] Specimen Blood Performing Organization Address City/[facility] Phone Number [facility] [address] [place] [address] * BASIC METABOLIC PANEL (09/25/2018 4:15 AM) Sodium 137 137 - 147 MMOL/L MAIN LAB Potassium 4.0 3.5 - 5.1 MMOL/L MAIN LAB Chloride 102 98 - 110 MMOL/L MAIN LAB CO2 25 21 - 30 MMOL/L MAIN LAB Anion Gap 10 3 - 12 MAIN LAB Glucose 224 (H) 70 - 100 MG/DL MAIN LAB Blood Urea Nitrogen 13 7 - 25 MG/DL MAIN LAB Creatinine 0.56 0.4 - 1.00 MG/DL [facility] Calcium 9.2 8.5 - 10.6 MG/DL MAIN LAB eGFR Non >60 >60 mL/min [facility] MAIN [facility] Comment: The eGFR is not validated for use in drug dosing adjustments.Continue to use estimated creatinine clearance per dosing reference text.Please contact the Clinical Pharmacist for questions. eGFR >60 >60 mL/min [facility] Comment: The eGFR is not validated for use in drug dosing adjustments.Continue to use estimated creatinine clearance per dosing reference text.Please contact the Clinical Pharmacist for questions. Specimen Blood Performing Organization Address City/[facility]/Zipcode Phone Number [facility] [address] [place] [address] * POC GLUCOSE (09/24/2018 9:19 PM) Glucose, POC 188 (H) 70 - 100 MG/DL MAIN LAB Performing Organization Address City/[facility]/Zipcode Phone Number [facility] [address] [place] [address] * POC GLUCOSE (09/24/2018 5:27 PM) Glucose, POC 185 (H) 70 - 100 MG/DL [facility] MAIN LAB Performing Organization Address City/[facility] Phone Number MAIN LAB [address] [place] [address] * POC GLUCOSE (09/24/2018 12:31 PM) Glucose, POC 185 (H) 70 - 100 MG/DL MAIN LAB Performing Organization Address City/[facility] Phone Number MAIN LAB [address] [place] [address] * 2-D + DOPPLER ECHOCARDIOGRAM (09/24/2018 10:11 [...] <=0.42 OTHER OUTSIDE LAB Cardiology Ultrasound Siemens [id number] OTHER OUTSIDE LAB Machine Left Ventricle Mass [...] Interface, Radiant Results - 09/24/2018 11:53 AM ELECTRICAL RESEARCH ENGINEER CT head Stroke, suspected. TPA administration with [...] Address City/State/Zipcode Phone Number RAD RESULTS * POC GLUCOSE (09/24/2018 7:52 AM) Glucose, POC 174 (H) 70 - 100 MG/DL MAIN LAB Performing Organization Address City/State/Zipcode Phone Number MAIN LAB [address] [place] [address] * MAGNESIUM (09/24/2018 3:55 AM) Magnesium 2.0 1.6 - 2.6 mg/dL [facility] MAIN LAB Specimen Blood Performing Organization Address City/[facility] Phone Number [facility] [address] [place] [address] * PHOSPHORUS (09/24/2018 3:55 AM) Phosphorus 4.0Comment: NOTE NEW REFERENCE 2.0 - 4.5 MG/DL [facility] MAIN LAB RANGES Specimen Blood Performing Organization Address City/[facility] Phone Number [facility] MAIN [facility] [address] [place] [address] * CBC (09/24/2018 3:55 AM) White Blood Cells 14.7 (H) 4.5 - 11.0 K/UL [facility] MAIN LAB RBC 4.87 4.0 - 5.0 M/UL [facility] MAIN LAB Hemoglobin 14.9 12.0 - 15.0 GM/DL [facility] MAIN LAB Hematocrit 45.0 36 - 45 % [facility] MAIN LAB MCV 92.4 80 - 100 FL [facility] MAIN LAB MCH 30.7 26 - 34 PG [facility] MAIN LAB MCHC 33.2 32.0 - 36.0 G/DL [facility] MAIN LAB RDW 13.8 11 - 15 % [facility] MAIN LAB Platelet Count 264 150 - 400 K/UL [facility] MAIN LAB MPV 10.1 7 - 11 FL [facility] MAIN LAB Specimen Blood Performing Organization Address [facility] Phone Number [facility] MAIN LAB [address] [place] [address] * BASIC METABOLIC PANEL (09/24/2018 3:55 AM) Sodium 136 (L) 137 - 147 MMOL/L [facility] MAIN LAB Potassium 4.1 3.5 - 5.1 MMOL/L [facility] MAIN LAB Chloride 104 98 - 110 MMOL/L [facility] MAIN LAB CO2 24 21 - 30 MMOL/L [facility] MAIN LAB Anion Gap 8 3 - 12 [facility] MAIN LAB Glucose 181 (H) 70 - 100 MG/DL [facility] MAIN LAB Blood Urea Nitrogen 14 7 - 25 MG/DL [facility] MAIN LAB Creatinine 0.59 0.4 - 1.00 MG/DL [facility] MAIN LAB Calcium 8.9 8.5 - 10.6 MG/DL [facility] MAIN LAB [...] for questions. Specimen Blood Performing Organization Address City/[facility]/Zipcode Phone Number MAIN LAB [address] [place] [address] * POC GLUCOSE (09/24/2018 3:52 AM) Glucose, POC 164 (H) 70 - 100 MG/DL [facility] MAIN LAB Performing Organization Address City/[facility] Phone Number [facility] MAIN [facility] [address] [place] [address] * POC GLUCOSE (09/23/2018 8:43 PM) Glucose, POC 160 (H) 70 - 100 MG/DL [facility] MAIN LAB Performing Organization Address [facility] [place] [facility] Phone Number MAIN LAB [address] [place] [address] * POC GLUCOSE (09/23/2018 5:26 PM) Glucose, POC 135 (H) 70 - 100 MG/DL [facility] MAIN LAB Performing Organization Address [facility] [place] [facility] Phone Number [facility] MAIN LAB [address] [place] [address] * ABDOMEN AP ONLY (09/23/2018 2:40 PM) Impressions Performed At Indwelling nasoenteric catheter. [facility] RAD RESULTS Finalized by Chance Friedman D.O. on 09/24/2018 8:35 AM. Dictated by Chance Friedman D.O. on 09/24/2018 8:34 AM. Narrative Performed At Portable semiupright abdomen [facility] RAD RESULTS CLINICAL HISTORY: Nasogastric tube placement COMPARISON: Earlier the same day 1340 hours FINDINGS: Nasoenteric catheter remains in similar position with its tip overlying the region of the gastric outlet. The visualized bowel loops are nondistended. Procedure Note Interface, Radiant Results - 09/24/2018 8:38 AM ELECTRICAL RESEARCH ENGINEER Portable semiupright abdomen CLINICAL HISTORY: Nasogastric tube placement COMPARISON: Earlier the same day 1340 hours FINDINGS: Nasoenteric catheter remains in similar position with its tip overlying the region of the gastric outlet. The visualized bowel loops are nondistended. IMPRESSION Indwelling nasoenteric catheter. Finalized by Chance Friedman D.O. on 09/24/2018 8:35 AM. Dictated by Chance Friedman D.O. on 09/24/2018 8:34 AM. Performing Organization Address [facility] [place] [facility] Phone Number [facility] RAD RESULTS * ABDOMEN AP ONLY (09/23/2018 2:11 PM) Impressions Performed At 1. Indwelling enteric catheter. [facility] RAD RESULTS 2. Right nephrolithiasis. Finalized by Chance Friedman D.O. on 09/24/2018 9:02 AM. Dictated by Chance Friedman D.O. on 09/24/2018 9:01 AM. Narrative Performed At Portable supine abdomen [facility] RAD RESULTS CLINICAL HISTORY: Post feeding tube placement COMPARISON: No previous FINDINGS: Indwelling nasoenteric catheter with its tip overlying the region of the gastric outlet. Right nephrolithiasis. The visualized bowel loops are nondistended. Procedure Note Interface, Radiant Results - 09/24/2018 9:05 AM ELECTRICAL RESEARCH ENGINEER Portable supine abdomen CLINICAL HISTORY: Post feeding tube placement COMPARISON: No previous FINDINGS: Indwelling nasoenteric catheter with its tip overlying the region of the gastric outlet. Right nephrolithiasis. The visualized bowel loops are nondistended. IMPRESSION 1. Indwelling enteric catheter. 2. Right nephrolithiasis. Finalized by Chance Friedman D.O. on 09/24/2018 9:02 AM. Dictated by Chance Friedman D.O. on 09/24/2018 9:01 AM. Performing Organization Address [facility] [place] [facility] Phone Number [facility] RAD RESULTS * POC GLUCOSE (09/23/2018 12:55 PM) Glucose, POC 141 (H) 70 - 100 MG/DL [facility] MAIN LAB Performing Organization Address [facility] [place] [facility] Phone Number MAIN LAB [address] [place] [address] * PHENCYCLIDINES-URINE RANDOM (09/23/2018 11:00 AM) Phencyclidine (PCP) NEG NEG-NEG [facility] MAIN LAB Comment: RESULTS WERE OBTAINED BY IMMUNOASSAY AND ARE PRESUMPTIVE ONLY. POSITIVE INDICATES THE PRESENCE OF SUBSTANCE WITH CHARACTERISTICS SIMILAR TO DRUG-DRUG CLASS OR METABOLITE IN CONC. EQUAL TO OR EXCEEDING VALUES LISTED. PHENCYCLIDINE (PCP)25 NG/ML Specimen Urine - Urine Performing Organization Address [facility] Phone Number MAIN LAB [address] [place] [address] * OPIATES-URINE RANDOM (09/23/2018 11:00 AM) Opiates-Urine NEG NEG-NEG [facility] Comment: RESULTS WERE OBTAINED BY IMMUNOASSAY AND ARE PRESUMPTIVE ONLY. POSITIVE INDICATES THE PRESENCE OF SUBSTANCE WITH CHARACTERISTICS SIMILAR TO DRUG-DRUG CLASS OR METABOLITE IN CONC. EQUAL TO OR EXCEEDING VALUES LISTED. OPIATES 2000 NG/ML Specimen Urine - Urine Performing Organization Address [facility] Phone Number MAIN LAB [address] [place] [address] * COCAINE-URINE RANDOM (09/23/2018 11:00 AM) Cocaine-Urine NEG NEG-NEG [facility] Comment: RESULTS WERE OBTAINED BY IMMUNOASSAY AND ARE PRESUMPTIVE ONLY. POSITIVE INDICATES THE PRESENCE OF SUBSTANCE WITH CHARACTERISTICS SIMILAR TO DRUG-DRUG CLASS OR METABOLITE IN CONC. EQUAL TO OR EXCEEDING VALUES LISTED. COCAINE 300 NG/ML Specimen Urine - Urine Performing Organization Address [facility] Phone Number MAIN LAB [address] [place] [address] * CANNABINOIDS-URINE RANDOM (09/23/2018 11:00 AM) THC NEG NEG-NEG MAIN LAB Comment: RESULTS WERE OBTAINED BY IMMUNOASSAY AND ARE PRESUMPTIVE ONLY. POSITIVE INDICATES THE PRESENCE OF SUBSTANCE WITH CHARACTERISTICS SIMILAR TO DRUG-DRUG CLASS OR METABOLITE IN CONC. EQUAL TO OR EXCEEDING VALUES LISTED. CANNABINOIDS 50 NG/ML Specimen Urine - Urine Performing Organization Address [facility] Phone Number MAIN LAB [address] [place] [address] * BENZODIAZEPINES-URINE RANDOM (09/23/2018 11:00 AM) Benzodiazepines NEG NEG-NEG MAIN LAB Comment: RESULTS WERE OBTAINED BY IMMUNOASSAY AND ARE PRESUMPTIVE ONLY. POSITIVE INDICATES THE PRESENCE OF SUBSTANCE WITH CHARACTERISTICS SIMILAR TO DRUG-DRUG CLASS OR METABOLITE IN CONC. EQUAL TO OR EXCEEDING VALUES LISTED. BENZODIAZEPINES 200 NG/ML Specimen Urine - Urine Performing Organization Address [facility] Phone Number MAIN LAB [address] [place] [address] * BARBITURATES-URINE RANDOM (09/23/2018 11:00 AM) Barbiturates,Urine NEG NEG-NEG [facility] Comment: RESULTS WERE OBTAINED BY IMMUNOASSAY AND ARE PRESUMPTIVE ONLY. POSITIVE INDICATES THE PRESENCE OF SUBSTANCE WITH CHARACTERISTICS SIMILAR TO DRUG-DRUG CLASS OR METABOLITE IN CONC. EQUAL TO OR EXCEEDING VALUES LISTED. BARBITURATES 200 NG/ML Specimen Urine - Urine Performing Organization Address [facility] Phone Number [facility] MAIN LAB [address] [place] [address] * AMPHETAMINES-URINE RANDOM (09/23/2018 11:00 AM) Amphetamines NEG NEG-NEG [facility] MAIN LAB Comment: RESULTS WERE OBTAINED BY IMMUNOASSAY AND ARE PRESUMPTIVE ONLY. POSITIVE INDICATES THE PRESENCE OF SUBSTANCE WITH CHARACTERISTICS SIMILAR TO DRUG-DRUG CLASS OR METABOLITE IN CONC. EQUAL TO OR EXCEEDING VALUES LISTED. AMPHETAMINES 1000 NG/ML Specimen Urine - Urine Performing Organization Address [facility] Phone Number [facility] MAIN LAB [address] [place] [address] * UA REFLEX CULTURE LABEL (09/23/2018 11:00 AM) UA Reflex Culture LAB LABEL [facility] MAIN LAB Specimen Urine Performing Organization Address [facility] Phone Number [facility] MAIN LAB [address] [place] [address] * URINALYSIS MICROSCOPIC REFLEX TO CULTURE (09/23/2018 11:00 AM) WBCs,UA 2-10 0 - 2 /HPF [facility] MAIN LAB [...] MAIN LAB Specimen Urine Performing Organization Address [facility] Phone Number [facility] MAIN LAB [address] [place] [address] * URINALYSIS DIPSTICK REFLEX TO CULTURE (09/23/2018 11:00 AM) Color,UA YELLOW [facility] MAIN LAB Turbidity,UA CLEAR CLEAR-CLEAR [facility] MAIN [facility] Specific Randall-Urine 1.028 1.003 - 1.035 [facility] MAIN LAB pH,UA 5.0 5.0 - 8.0 [facility] MAIN LAB Protein,UA NEG NEG-NEG [facility] MAIN [facility] Glucose,UA NEG NEG-NEG [facility] MA[facility] Ketones,UA NEG NEG-NEG [facility] MAIN [facility] Bilirubin,UA NEG NEG-NEG [facility] MAIN [facility] Blood,UA 2+ (A) NEG-NEG [facility] MAIN LAB Urobilinogen,UA NORMAL NORM-NORMAL [facility] MAIN LAB Nitrite,UA NEG NEG-NEG [facility] MAIN LAB Leukocytes,UA TRACE (A) NEG-NEG [facility] MAIN LAB Urine Ascorbic Acid, UA NEG NEG-NEG MAIN LAB Specimen Urine Performing Organization Address [facility] Phone Number MAIN LAB [address] [place] [address] * POC GLUCOSE (09/23/2018 8:46 AM) Glucose, POC 138 (H) 70 - 100 MG/DL MAIN LAB Performing Organization Address [facility] Phone Number MAIN LAB [address] [place] [address] * MAGNESIUM (09/23/2018 3:07 AM) Magnesium 1.8 1.6 - 2.6 mg/dL MAIN LAB Specimen Blood Performing Organization Address [facility] Phone Number MAIN LAB [address] [place] [address] * PHOSPHORUS (09/23/2018 3:07 AM) Phosphorus 4.8 (H)Comment: NOTE NEW 2.0 - 4.5 MG/DL MAIN LAB REFERENCE RANGES Specimen Blood Performing Organization Address [facility] Phone Number MAIN LAB [address] [place] [address] * CBC (09/23/2018 3:07 AM) White Blood Cells 15.0 (H) 4.5 - 11.0 K/UL MAIN LAB RBC 4.79 4.0 - 5.0 M/UL MAIN LAB Hemoglobin 14.7 12.0 - 15.0 GM/DL MAIN LAB Hematocrit 43.9 36 - 45 % MAIN LAB MCV 91.6 80 - 100 FL MAIN LAB MCH 30.7 26 - 34 PG MAIN LAB MCHC 33.5 32.0 - 36.0 G/DL MAIN LAB RDW 13.8 11 - 15 % MAIN LAB Platelet Count 293 150 - 400 K/UL [facility] MAIN LAB MPV 10.4 7 - 11 FL MAIN LAB Specimen Blood Performing Organization Address [facility] Phone Number [facility] [address] [place] [address] * BASIC METABOLIC PANEL (09/23/2018 3:07 AM) Sodium 137 137 - 147 MMOL/L [facility] MAIN LAB Potassium 4.1 3.5 - 5.1 MMOL/L [facility] MAIN LAB Chloride 105 98 - 110 MMOL/L [facility] MAIN LAB CO2 26 21 - 30 MMOL/L [facility] MAIN LAB Anion Gap 6 3 - 12 [facility] MAIN LAB Glucose 174 (H) 70 - 100 MG/DL [facility] MAIN LAB Blood Urea Nitrogen 14 7 - 25 MG/DL [facility] MAIN LAB Creatinine 0.67 0.4 - 1.00 MG/DL [facility] MAIN LAB Calcium 8.7 8.5 - 10.6 MG/DL [facility] MAIN LAB [...] for questions. Specimen Blood Performing Organization Address City/State/Zipcode Phone Number [facility] [address] [place] [address] * MRI HEAD WO CONTRAST (09/22/2018 11:03 [...] Interface, Radiant Results - 09/23/2018 7:36 AM ELECTRICAL RESEARCH ENGINEER MRI BRAIN WITHOUT CONTRAST HISTORY: 63 years [...] City/State/Zipcode Phone Number [facility] RAD RESULTS * HEMOGLOBIN A1C (09/22/2018 8:50 PM) Hemoglobin A1C 7.6 (H) 4.0 - 6.0 % [facility] MAIN LAB Comment: The ADA recommends that most patients with type 1 and type 2 diabetes maintain an A1c level <7%. Specimen Blood Performing Organization Address City/[facility]/Zipcode Phone Number MAIN LAB [address] [place] [address] * CBC (09/22/2018 8:50 PM) White Blood Cells 20.1 (H) 4.5 - 11.0 K/UL [facility] MAIN LAB RBC 5.29 (H) 4.0 - 5.0 M/UL [facility] MAIN LAB Hemoglobin 16.1 (H) 12.0 - 15.0 GM/DL [facility] MAIN LAB Hematocrit 48.2 (H) 36 - 45 % [facility] MAIN LAB MCV 91.0 80 - 100 FL [facility] MAIN LAB MCH 30.5 26 - 34 PG [facility] MAIN LAB MCHC 33.5 32.0 - 36.0 G/DL MAIN LAB RDW 13.8 11 - 15 % [facility] MAIN LAB Platelet Count 281 150 - 400 K/UL [facility] MPV 10.0 7 - 11 FL [facility] Specimen Blood Performing Organization Address City/[facility]/[employer] Phone Number MAIN LAB [address] [place] [address] * PHOSPHORUS (09/22/2018 8:07 PM) Phosphorus 5.2 (H)Comment: NOTE NEW 2.0 - 4.5 MG/DL [facility] REFERENCE RANGES Performing Organization Address City/[facility] Phone Number [facility] [address] [place] [address] * MAGNESIUM (09/22/2018 8:07 PM) Magnesium 1.8Comment: MODERATE HEMOLYSIS 1.6 - 2.6 mg/dL MAIN LAB Performing Organization Address [facility] Phone Number MAIN LAB [address] [place] [address] * LIPID PROFILE (09/22/2018 8:07 PM) Cholesterol 256 (H) <200 MG/DL MAIN LAB Triglycerides 226 (H) <150 MG/DL MAIN LAB HDL 34 (L) >40 MG/DL MAIN LAB LDL 175 (H) <100 MG/DL [facility] MAIN LAB VLDL 45 MG/DL [facility] MAIN LAB Non HDL Cholesterol 222 MG/DL MAIN LAB Comment: Calculated non-HDL Cholesterol (non-HDL-C) indirectly measures LDL-C, Lp(a), IDL-C, and VLDL-C.It is a surrogate marker for Apoprotein B.Goal should be less than 130 mg/dL. Performing Organization Address City/[facility]/[employer] Phone Number MAIN LAB [address] [place] [address] * BASIC METABOLIC PANEL (09/22/2018 8:07 PM) Sodium 134 (L) 137 - 147 MMOL/L [facility] MAIN LAB Potassium 4.7Comment: MODERATE HEMOLYSIS 3.5 - 5.1 MMOL/L [facility] MAIN LAB Chloride 101 98 - 110 MMOL/L [facility] MAIN LAB CO2 22 21 - 30 MMOL/L [facility] MAIN LAB Anion Gap 11 3 - 12 [facility] MAIN LAB Glucose 254 (H) 70 - 100 MG/DL [facility] MAIN LAB Blood Urea Nitrogen 13 7 - 25 MG/DL [facility] MAIN LAB Creatinine 0.73 0.4 - 1.00 MG/DL [facility] MAIN LAB Calcium 8.6 8.5 - 10.6 MG/DL [facility] MAIN LAB [...] text.Please contact the Clinical Pharmacist for questions. Performing Organization Address City/State/Zipcode Phone Number MAIN LAB [address] [place] [address] * POC GLUCOSE (09/22/2018 7:55 PM) Glucose, POC 235 (H) 70 - 100 MG/DL [facility] MAIN LAB Performing Organization Address City/[facility]/Zipcode Phone Number MAIN LAB [address] [place] [address] in this encounter Visit Diagnoses Diagnosis Stroke (cerebrum) (HCC) - Primary Unspecified cerebral artery occlusion with cerebral infarction Cerebrovascular accident (CVA) due to occlusion of left middle cerebral artery (HCC) DMII (diabetes mellitus, type 2) (HCC) Type II or unspecified type diabetes mellitus without mention of complication , not stated as uncontrolled HLD (hyperlipidemia) Other and unspecified hyperlipidemia HTN (hypertension) Unspecified essential hypertension Dysphagia Dysphagia, unspecified Morbid obesity (HCC) Morbid obesity Admitting Diagnoses Diagnosis Stroke Stroke (cerebrum) (HCC) Unspecified cerebral artery occlusion with cerebral infarction Administered Medications Medication Order MAR Action Action Date Dose Rate Site aspirin chewable tablet 81 mg Given 09/24/2018 81 mg 81 mg, Feeding Tube, DAILY, First dose 10:08 ELECTRICAL RESEARCH ENGINEER on 09/24/18 at 1000, Until Discontinued Given 09/25/2018 81 mg 08:08 ELECTRICAL RESEARCH ENGINEER Given 09/26/2018 81 mg 11:19 ELECTRICAL RESEARCH ENGINEER aspirin chewable tablet 81 mg Given 10/05/2018 81 mg 81 mg, Oral, DAILY, First dose on Romelia 09:06 ELECTRICAL RESEARCH ENGINEER 09/27/18 at 0900, Until Discontinued Given 10/06/2018 81 mg 08:20 ELECTRICAL RESEARCH ENGINEER Given 10/07/2018 81 mg 08:51 ELECTRICAL RESEARCH ENGINEER atorvastatin (LIPITOR) tablet 40 mg Given 09/24/2018 40 mg 40 mg, Per NG tube, DAILY, First dose on 10:09 ELECTRICAL RESEARCH ENGINEER 09/23/18 at 0900, Until Discontinued Given 09/25/2018 40 mg 08:08 ELECTRICAL RESEARCH ENGINEER atorvastatin (LIPITOR) tablet 40 mg Given 09/25/2018 40 mg 40 mg, Per NG tube, ONCE, 1 dose, Tue 12:45 ELECTRICAL RESEARCH ENGINEER 09/25/18 at 1200 atorvastatin (LIPITOR) tablet 80 mg Given 09/26/2018 80 mg 80 mg, Per NG tube, DAILY, First dose on 11:21 ELECTRICAL RESEARCH ENGINEER 09/26/18 at 0900, Until Discontinued atorvastatin (LIPITOR) tablet 80 mg Given 10/05/2018 80 mg 80 mg, Oral, DAILY, First dose on Romelia 09:06 ELECTRICAL RESEARCH ENGINEER 09/27/18 at 0900, Until Discontinued Given 10/06/2018 80 mg 08:20 ELECTRICAL RESEARCH ENGINEER Given 10/07/2018 80 mg 08:51 ELECTRICAL RESEARCH ENGINEER barium sulfate 40 % (VARIBAR HONEY) oral Given 09/25/2018 10 mL suspension 10 mL 09:40 ELECTRICAL RESEARCH ENGINEER 10 mL, Oral, ONCE, 1 dose, 09/25/18 at 1000, GI Procedure Area Only barium sulfate 40 % (VARIBAR NECTAR) Given 09/25/2018 10 mL oral suspension 10 mL 09:40 ELECTRICAL RESEARCH ENGINEER 10 mL, Oral, ONCE, 1 dose, 09/25/18 at 1000, GI Procedure Area Only barium sulfate 40 % (VARIBAR PUDDING) Given 09/25/2018 10 mL oral paste 10 mL 09:40 ELECTRICAL RESEARCH ENGINEER 10 mL, Oral, ONCE, 1 dose, 09/25/18 at 1000, GI Procedure Area Only barium sulfate 40 % (VARIBAR THIN Given 09/25/2018 10 mL LIQUID) oral powder for suspension 10 mL 09:40 ELECTRICAL RESEARCH ENGINEER 10 mL, Oral, ONCE, 1 dose, 09/25/18 at 1000, Mixing Instructions: 1. Gently shake the barium sulfate to loosen the powder. 2. Remove Cap. Add water to the 40% (w/v) line and replace the cap. 3. Invert bottle and tap with fingers to mix the powder into the water. 4. Shake vigorously for 30 seconds. Let stand for 5 minutes. 5. Suspension has hydrated and settled. Re-fill with water to the 40% line and replace cap. 6. Re-shake thoroughly. Product is now ready for use. cefpodoxime (VANTIN) tablet 100 mg Given 09/29/2018 100 mg 100 mg, Oral, TWICE DAILY, 10 doses, 20:10 ELECTRICAL RESEARCH ENGINEER First dose on Mon09/26/18 at 0945, Last dose on Mon09/30/18 at 2100 Given 09/30/2018 100 mg 08:50 ELECTRICAL RESEARCH ENGINEER Given 09/30/2018 100 mg 20:10 ELECTRICAL RESEARCH ENGINEER docusate (COLACE) capsule 100 mg Given 10/05/2018 100 mg 100 mg, Oral, TWICE DAILY, First dose on 20:25 ELECTRICAL RESEARCH ENGINEER Mon09/26/18 at 2100, Until Discontinued, Hold for loose stools Given 10/06/2018 100 mg 08:20 ELECTRICAL RESEARCH ENGINEER Given 10/07/2018 100 mg 08:51 ELECTRICAL RESEARCH ENGINEER docusate (COLACE) oral solution 100 mg Given 09/25/2018 100 mg 100 mg, Per NG tube, TWICE DAILY, First 08:08 ELECTRICAL RESEARCH ENGINEER dose on Mon09/23/18 at 2200, Until Discontinued, Hold for loose stools Given 09/25/2018 100 mg 20:21 ELECTRICAL RESEARCH ENGINEER Given 09/26/2018 100 mg 11:22 ELECTRICAL RESEARCH ENGINEER fluoxetine (PROZAC) capsule 20 mg Given 10/05/2018 20 mg 20 mg, Oral, DAILY, First dose on Mon 09:06 ELECTRICAL RESEARCH ENGINEER 09/30/18 at 1600, Until Discontinued Given 10/06/2018 20 mg 08:20 ELECTRICAL RESEARCH ENGINEER Given 10/07/2018 20 mg 08:51 ELECTRICAL RESEARCH ENGINEER heparin (porcine) PF syringe 5,000 Units Given 10/06/2018 5,000 Units Abdominal 5,000 Units, Subcutaneous, EVERY 8 06:30 ELECTRICAL RESEARCH ENGINEER Tissue HOURS, First dose on Mon09/24/18 at 1400, Until Discontinued, NOTE: This is a HIGH ALERT Medication. Given 10/06/2018 5,000 Units Abdominal 21:18 ELECTRICAL RESEARCH ENGINEER Tissue Given 10/07/2018 5,000 Units Abdominal 06:37 ELECTRICAL RESEARCH ENGINEER Tissue hydrALAZINE (APRESOLINE) injection 10 mg Given 09/23/2018 10 mg 10 mg, Intravenous, EVERY 6 HOURS PRN, 21:16 ELECTRICAL RESEARCH ENGINEER Starting 09/22/18 at 2044, Until 09/25/18 at 0725, Systolic Blood Pressure..., >160 mmHg or MAP >110 mmHg Given 09/25/2018 10 mg 00:42 ELECTRICAL RESEARCH ENGINEER Given 09/25/2018 10 mg 05:12 ELECTRICAL RESEARCH ENGINEER insulin aspart U-100 (NOVOLOG FLEXPEN) Given 10/04/2018 1 Units Abdominal injection PEN 0-7 Units 09:05 ELECTRICAL RESEARCH ENGINEER Tissue 0-7 Units, Subcutaneous, FIVE TIMES DAILY, First dose on 09/23/18 at 0800, Until Discontinued, -POC glucose 140-180mg/dL at , , administer 1 unit insulin, at 21, 03* administer 0 units. -POC glucose 181-220mg/dL at , administer 2 units insulin, at , 03* administer 1 unit. -POC glucose 221-260mg/dL at , administer 3 units insulin, at , 03* administer 2 units. -POC glucose 261-300mg/dL at administer 4 units insulin, at , 03* administer 3 units. -POC glucose 301-350mg/dL at , administer 5 units insulin, at , 03* administer 4 units. -POC glucose 351-400mg/dL at administer 6 units insulin, at , 03* administer 5 units. -POC glucose >400mg/dL at administer 7 units insulin, at , 03* administer 6 units. *only if ordered 5x's daily For POCT glucose >350mg/dL give correction bolus and recheck POCT glucose in 2 hours. If POCT glucose at 2 hours >300mg/dL call physician for further orders. For patients who are not eating meals, continue to administer the appropriate correction factor. NOTE: This is a HIGH ALERT Medication. Given 10/05/2018 1 Units Arm, Left 09:06 ELECTRICAL RESEARCH ENGINEER Given 10/06/2018 1 Units Arm, Right 08:20 ELECTRICAL RESEARCH ENGINEER lisinopril (PRINIVIL; ZESTRIL) tablet 10 Given 09/24/2018 10 mg mg 12:37 ELECTRICAL RESEARCH ENGINEER 10 mg, Feeding Tube, DAILY, First dose on 09/24/18 at 1130, Until Discontinued Given 09/25/2018 10 mg 08:08 ELECTRICAL RESEARCH ENGINEER Given 09/26/2018 10 mg 11:19 ELECTRICAL RESEARCH ENGINEER lisinopril (PRINIVIL; ZESTRIL) tablet 10 Given 10/05/2018 10 mg mg 09:06 ELECTRICAL RESEARCH ENGINEER 10 mg, Oral, DAILY, First dose on Romelia 09/27/18 at 0900, Until Discontinued Given 10/06/2018 10 mg 08:20 ELECTRICAL RESEARCH ENGINEER Given 10/07/2018 10 mg 08:51 ELECTRICAL RESEARCH ENGINEER magnesium sulfate 1 g/D5W 100 mL IVPB Given - New 09/23/2018 1 g 100 mL/hr 1 g, Intravenous, 100 mL, Administer Bag 08:48 ELECTRICAL RESEARCH ENGINEER over 1 Hours, EVERY 1 HOUR FOR 2 DOSES, 2 doses, First dose on 09/23/18 at 0800, Last dose on 09/23/18 at 0900, Each 1gm delivers 8.1 mEq Magnesium. Given - New Bag 09/23/2018 1 g 100 mL/hr 10:39 ELECTRICAL RESEARCH ENGINEER milk of magnesia (CONC) oral suspension Given 09/24/2018 10 mL 10 mL 10:09 ELECTRICAL RESEARCH ENGINEER 10 mL, Per NG tube, DAILY, First dose on 09/24/18 at 0900, Until Discontinued, May hold if BM within 24 hours of dose. 10 mL CONC=30 mL MOM Given 09/25/2018 10 mL 08:08 ELECTRICAL RESEARCH ENGINEER Given 09/26/2018 10 mL 11:22 ELECTRICAL RESEARCH ENGINEER milk of magnesia (CONC) oral suspension Given 10/03/2018 10 mL 10 mL 08:13 ELECTRICAL RESEARCH ENGINEER 10 mL, Oral, DAILY, First dose on Romelia 09/27/18 at 0900, Until Discontinued, May hold if BM within 24 hours of dose. 10 mL CONC=30 mL MOM Given 10/06/2018 10 mL 08:20 ELECTRICAL RESEARCH ENGINEER Given 10/07/2018 10 mL 08:51 ELECTRICAL RESEARCH ENGINEER milk/molasses(#) 1:1 rectal enema 200 mL Given 09/27/2018 200 mL 200 mL (1 each), Rectal, ONCE, 1 dose, 16:16 ELECTRICAL RESEARCH ENGINEER Romelia 09/27/18 at 1545 pancrelipase 20,000 Units/ sodium bicarbonate 650 mg(#) (KU CLOG DESTROYER) for occluded feeding tube cap 1 capsule 1 capsule, Feeding Tube, NEEDED (APPRENTICESHIP REPRESENTATIVE FROM RX), Starting 09/23/18 at 1327, Until Mon10/07/18 at 1334, Other..., Occluded Feeding Tube, 1. Open one KU CLOG DESTROYER CAPSULE (pancrelipase 20,000 units/ sodium bicarbonate 650 mg) and pour contents into mortar cup. 2. Dissolve in 5 - 10 ml sterile water. This will take ~ 1-2 minutes, with stirring required. Some sediment will be present (likely from capsule ingredients). 3. Once dissolved, let solution sit for 1-2 minutes, allowing sediment to fall to bottom of mortar cup. 4. Draw enzyme/bicarbonate solution into oral syringe (avoid sediment as best possible). 5. Instill enzyme solution under light pressure, and use a light "back and forth" motion with plunger to help dislodge the clog. 6. Clamp the tube for 5-15 minutes, and then try to aspirate or flush with warm sterile water. May repeat x 1. Notify physician if tube remains occluded following administration. perflutren lipid microspheres (DEFINITY) Given 09/24/2018 2 Diluted mL injection 1-20 Diluted mL 10:12 ELECTRICAL RESEARCH ENGINEER 1-20 Diluted mL, Intravenous, ONCE, 1 dose, 09/24/18 at 1000, NOTE: This is a HIGH ALERT Medication. senna/docusate (SENOKOT-S) solution 10 Given 09/25/2018 10 mL mL 08:08 ELECTRICAL RESEARCH ENGINEER 10 mL, Per NG tube, TWICE DAILY, First dose on 09/23/18 at 2100, Until Discontinued, Hold for loose stools. Note: 10 mL is equivalent to 1 senna/docusate tablet Given 09/25/2018 10 mL 20:21 ELECTRICAL RESEARCH ENGINEER Given 09/26/2018 10 mL 11:22 ELECTRICAL RESEARCH ENGINEER senna/docusate (SENOKOT-S) tablet 1 Given 10/05/2018 1 tablet tablet 20:25 ELECTRICAL RESEARCH ENGINEER 1 tablet, Oral, TWICE DAILY, First dose on Mon09/26/18 at 2100, Until Discontinued, Hold for loose stools Given 10/06/2018 1 tablet 08:20 ELECTRICAL RESEARCH ENGINEER Given 10/07/2018 1 tablet 08:51 ELECTRICAL RESEARCH ENGINEER sodium chloride 0.9 % infusion Given - New 09/23/2018 50 mL/hr 1,000 mL, Intravenous, at 50 mL/hr, Bag 03:09 ELECTRICAL RESEARCH ENGINEER CONTINUOUS, Starting 09/23/18 at 0315, Until 09/23/18 at 2332 SODIUM CHLORIDE 0.9 % IV SOLP (Cabinet Override) NOW, 1 dose, 09/23/18 at 0315, Created by cabinet override in this encounter
--- OUTSIDE RECORDS SUMMARY | 2018-10-07 14:38 | XMS REPORT | Encounter Summary ---
Author Author [facility] Organization [facility] Address Unknown Phone Unavailable Care Team Providers Care Car Jockey Name Role Phone Bc Car MD PCP Reason for Visit * Auth/Cert Status Reason Specialty Diagnoses / Referred By Referred To Procedures Contact Contact Diagnoses Stroke (cerebrum) (HCC) Stroke Encounter Details Date Type Department Care Team Description 09/26/2018 [facility] Cardiovascular Medicine Porfirio Patton DO Encounter [facility] [place] [address] [place] [address] [phone] Social History Tobacco Use Types Packs/Day Years Used Date Current Every Day Smoker Cigarettes 1 46 Smokeless Tobacco: Never Used Alcohol Use Drinks/Week oz/Week Comments No Sex Assigned at Date Recorded Not on file as of this encounter Last Filed Vital Signs Vital Sign Reading Time Taken Blood Pressure 116/74 09/26/2018 9:25 AM HISTORICAL SITE GUIDE Pulse 65 09/26/2018 9:25 AM HISTORICAL SITE GUIDE Temperature - - Respiratory Rate - - Oxygen Saturation 96% 09/26/2018 9:25 AM HISTORICAL SITE GUIDE Inhaled Oxygen - - Concentration Weight 103 kg (227 lb) 09/26/2018 9:05 AM HISTORICAL SITE GUIDE Height 160 cm (5' 3") 09/26/2018 9:05 AM HISTORICAL SITE GUIDE Body Mass Index 40.21 09/26/2018 9:05 AM HISTORICAL SITE GUIDE in this encounter Functional Status Functional Status [...] as of this encounter Progress Notes * Renetta Youssef BSN - 09/26/2018 8:48 AM HISTORICAL SITE GUIDE Formatting of this note may be different from the original. Care Plan Care Category & Patient Outcome Goal Met Treatment/ Interventions Plan of the Day RN Name Cardiovascular Hemodynamic stability and adequate peripheral perfusion. Yes Refer to patient's chart. Monitor VS per sedation standard. Monitor ECG continuously. Assess/maintain IV patency. POP Rios Respiratory Patent airway, ease of respiration, and adequate oxygenation. Yes Refer to patient's chart. Maintain open airway. Assess respirations. Monitor O2 saturations. Titrate O2 to keep sat>=95% or baseline. POP Rios Psychological/Emotional/Spiritual [place] with procedure with support in place. Spiritual needs are addressed. Yes Refer to patient's chart. Provide adequate and thorough instructions. Provide a caring and supportive environment. Communicate patients concerns with other members of the health team. POP Rios Pain Patients pain goal met. Yes Refer to patient's chart. Prepare patient for potentially uncomfortable procedure. Observe for verbal/nonverbal complaints of pain. Assess pain. Provide comfort measures. POP Rios Safety/Fall Risk Free from injury, security maintained. Yes High Risk Refer to patient's chart. Follow nursing standard of practice for high risks fall patients. POP Rios Knowledge Base Verbalize understanding of procedure/information provided. Yes Refer to patient's chart. Describe the procedure along with what symptoms to expect. Evaluate patients understanding of procedure. Encourage patient to ask questions. Provide additional information as needed. POP Rios * Renetta Youssef BSN - 09/26/2018 8:29 AM HISTORICAL SITE GUIDE Formatting of this note may be different from the original. Pre-Operative Assessment for KERI or Cardioversion Date of Service: 09/26/2018 Vidhi Andrea is a 63 y.o. y.o. female. : 1955 MRN# : [id number] Procedure to be performed: KERI Expected Procedure Date: 09-26-2018 Indication: Stroke Patient appears alert and oriented: Yes NPO: for greater than 8 hours Inpatient IV status: [facility] flushes easily Isolation status: None Last KERI date: None Last Cardioversion date: None Anticoagulation Results Anticoagulant: heparin Missed dose: No Last MAC INR Flow Sheet Entry: Last recorded Lab results: No results found for: INR No results found for: PTT Allergies Allergies Allergen Reactions Sulfa (Sulfonamide Antibiotics) UNKNOWN Vitals Estimated body mass index is 40.3 kg/m as calculated from the following: Height as of this encounter: 1.6 m (5' 3"). Weight as of this encounter: 103.2 kg (227 lb 8.2 oz). Diagnostic Tests White Blood Cells Date Value Ref Range Status 09/25/2018 15.1 (H) 4.5 - 11.0 K/UL Final Hemoglobin Date Value Ref Range Status 09/25/2018 14.5 12.0 - 15.0 GM/DL Final Hematocrit Date Value Ref Range Status 09/25/2018 43.0 36 - 45 % Final Platelet Count Date Value Ref Range Status 09/25/2018 249 150 - 400 K/UL Final Sodium Date Value Ref Range Status 09/25/2018 137 137 - 147 MMOL/L Final Potassium Date Value Ref Range Status 09/25/2018 4.0 3.5 - 5.1 MMOL/L Final Magnesium Date Value Ref Range Status 09/25/2018 1.9 1.6 - 2.6 mg/dL Final Blood Urea Nitrogen Date Value Ref Range Status 09/25/2018 13 7 - 25 MG/DL Final Creatinine Date Value Ref Range Status 09/25/2018 0.56 0.4 - 1.00 MG/DL Final Glucose Date Value Ref Range Status 09/25/2018 224 (H) 70 - 100 MG/DL Final Blood Cultures Resulted Micro Last 72 Hrs No results found Echo procedures within the past 30 days: No results found. Device Information on File No results found for: GENERATOR, EPDEVTYP Current Medications Current Facility-Administered Medications on File Prior to Encounter Medication Dose Route Frequency Provider Last Rate Last Dose aspirin chewable tablet 81 mg 81 mg Feeding Tube QDAY Ryan Williamson MD 81 mg at 09/25/18 0808 atorvastatin (LIPITOR) tablet 80 mg 80 mg Per NG tube QDAY Ryan Best- MD Felice docusate (COLACE) oral solution 100 mg 100 mg Per NG tube BID Ruddy Bell DO 100 mg at 09/25/182020 heparin (porcine) PF syringe 5,000 Units 5,000 Units Subcutaneous Q8H Ryan Williamson MD 5,000 Units at 09/26/18 0601 insulin aspart U-100 (NOVOLOG FLEXPEN) injection PEN 0-7 Units 0-7 Units Subcutaneous 5 X Day Ruddy Bell DO 1 Units at 09/25/18 1731 lisinopril (PRINIVIL; ZESTRIL) tablet 10 mg 10 mg Feeding Tube QDAY Ryan Williamson MD 10 mg at 09/25/18 0808 milk of magnesia (CONC) oral suspension 10 mL 10 mL Per NG tube QDAY Ruddy Bell DO 10 mL at 09/25/18 0808 pancrelipase 20,000 Units/ sodium bicarbonate 650 mg(#) (KU CLOG DESTROYER) for occluded feeding tube cap 1 capsule 1 capsule Feeding Tube PRN (Furnace Packer from Rx) Ryan Williamson MD senna/docusate (SENOKOT-S) solution 10 mL 10 mL Per NG tube BID Ruddy Bell DO 10 mL at 09/25/182020 No current outpatient prescriptions on file prior to encounter. Past Medical History Past Medical History: Diagnosis Date DMII (diabetes mellitus, type 2) (HCC) HLD (hyperlipidemia) HTN (hypertension) Past Surgical History No past surgical history on file. Social History Social History Substance Use Topics Smoking status: Current Every Day Smoker Packs/day: 1.00 Years: 46.00 Types: Cigarettes Smokeless tobacco: Never Used Alcohol use No Additional Comments: None Probe Assessment (only for KERI procedures): Positive for: Loose/False teeth Sedation Assessment: Positive for: Smoker in this encounter Plan of Treatment Not on fileas of this encounter Procedures Procedure Name Priority Date/Time Associated Diagnosis Comments KERI W/O CONTRAST & W/ 3D Routine 09/26/2018 Results for this ON CART 9:05 AM HISTORICAL SITE GUIDE procedure are in the results section. in this encounter Visit Diagnoses Not on filein this encounter
--- OUTSIDE RECORDS SUMMARY | 2018-10-07 14:40 | XMS REPORT | Continuity of Care Document ---
Author Author [facility] Address Unknown Phone Unavailable Allergies Active Description Code Type Severity Reaction Onset Reported/Identified Relationship to Patient Clinical Status Yes No Known Drug Allergies [id number] Drug Allergy Unknown N/A 08/14/2007 Yes sulfa drug Drug Allergy 06/18/2010 Yes SULFA SULFA Unknown NAUSEA 06/14/2015 Yes Sulfa (Sulfonamide Antibiotics) [id number] Drug Allergy Unknown NAUSEA 01/2018 Medications There is no data. Problems Date Dx Coded Attending Type Code Diagnosis Diagnosed By 06/12/2010 Ot 250.00 DIAB ESSIE WO COMPL, TYPE II OR UNSPEC TY 06/12/2010 Ot 272.4 HYPERLIPIDEMIA NEC/NOS 06/12/2010 Ot 278.00 OBESITY, NOS 06/12/2010 Ot 305.1 TOBACCO USE DISORDER 06/12/2010 Ot 345.90 EPILEPSY UNSPEC W/O MENTION INTRACTABLE 06/12/2010 Ot 414.01 CORONARY ATHEROSCLEROSIS OF [place] CORON 06/12/2010 Ot 790.6 ABN BLOOD CHEMISTRY NEC 06/12/2010 Ot V17.3 FAM HX- ISCHEM HEART DIS 06/12/2010 Ot V85.4 BODY MASS INDEX 40 AND OVER, ADULT 06/18/2010 KATE PALOMO MD 272.4 HYPERLIPIDEMIA UNSPECIFIED 06/18/2010 KATE PALOMO MD 311 Depressive Disorder Nos 06/18/2010 KATE PALOMO MD 401.1 HYPERTENSION, BENIGN ESSENTIAL 06/18/2010 KATE PALOMO MD 414.00 Coronary Atherosclerosis Of Unspecified Type Of Vessel [place] 06/18/2010 KATE PALOMO MD 716.90 Arthritis/ Arthropathy, Unspecified 06/18/2010 272.4 HYPERLIPIDEMIA UNSPECIFIED 06/18/2010 311 Depressive Disorder Nos 06/18/2010 401.1 HYPERTENSION, BENIGN ESSENTIAL 06/18/2010 414.00 Coronary Atherosclerosis Of Unspecified Type Of Vessel [place] G[place] 06/18/2010 716.90 Arthritis/ Arthropathy, Unspecified 06/18/2010 272.4 HYPERLIPIDEMIA UNSPECIFIED 06/18/2010 311 Depressive Disorder Nos 06/18/2010 401.1 HYPERTENSION, BENIGN ESSENTIAL 06/18/2010 414.00 Coronary Atherosclerosis Of Unspecified Type Of Vessel [place] 06/18/2010 716.90 Arthritis/ Arthropathy, Unspecified 06/18/2010 KEN PHD, WILBERTO A 272.4 HYPERLIPIDEMIA UNSPECIFIED 06/18/2010 [facility] A 311 Depressive Disorder Nos 06/18/2010 [facility] A 401.1 HYPERTENSION, BENIGN ESSENTIAL 06/18/2010 [facility], WIL[facility] A 414.00 Coronary Atherosclerosis Of Unspecified Type Of Vessel [place] 06/18/2010 KEN PHD, WILBERTO A 716.90 Arthritis/ Arthropathy, Unspecified 06/18/2010 KATE PALOMO MD 272.4 HYPERLIPIDEMIA UNSPECIFIED 06/18/2010 STACIA GOVEA, KATE 311 Depressive Disorder Nos 06/18/2010 STACIA GOVEA, KATE 401.1 HYPERTENSION, BENIGN ESSENTIAL 06/18/2010 STACIA GOVEA, KATE 414.00 Coronary Atherosclerosis Of Unspecified Type Of Vessel [place] 06/18/2010 KATE PALOMO MD 716.90 Arthritis/ Arthropathy, Unspecified 06/18/2010 STACIA GOVEA, KATE 272.4 HYPERLIPIDEMIA UNSPECIFIED 06/18/2010 STACIA GOVEA, KATE 311 Depressive Disorder Nos 06/18/2010 STACIA GOVEA, KATE 401.1 HYPERTENSION, BENIGN ESSENTIAL 06/18/2010 STACIA GOVEA, KATE 414.00 Coronary Atherosclerosis Of Unspecified Type Of Vessel [place] 06/18/2010 KATE PALOMO MD 716.90 Arthritis/ Arthropathy, Unspecified 06/18/2010 KATE PALOMO MD 272.4 HYPERLIPIDEMIA UNSPECIFIED 06/18/2010 KATE PALOMO MD 311 Depressive Disorder Nos 06/18/2010 STACIA GOVEA, KATE 401.1 HYPERTENSION, BENIGN ESSENTIAL 06/18/2010 STACIA GOVEA, KATE 414.00 Coronary Atherosclerosis Of Unspecified Type Of Vessel [place] 06/18/2010 KATE PALOMO MD 716.90 Arthritis/ Arthropathy, Unspecified 06/18/2010 STACIA GOVEA, KATE 272.4 HYPERLIPIDEMIA UNSPECIFIED 06/18/2010 STACIA GOVEA, KATE 311 Depressive Disorder Nos 06/18/2010 KATE PALOMO MD 401.1 HYPERTENSION, BENIGN ESSENTIAL 06/18/2010 STACIA GOVEA, KATE 414.00 Coronary Atherosclerosis Of Unspecified Type Of Vessel [place] 06/18/2010 STACIA GOVEA, KATE 716.90 Arthritis/ Arthropathy, Unspecified 06/18/2010 STACIA GOVEA, KATE 272.4 HYPERLIPIDEMIA UNSPECIFIED 06/18/2010 STACIA GOVEA, KATE 311 Depressive Disorder Nos 06/18/2010 STACIA GOVEA, KATE 401.1 HYPERTENSION, BENIGN ESSENTIAL 06/18/2010 STACIA GOVEA, KATE 414.00 Coronary Atherosclerosis Of Unspecified Type Of Vessel [place] 06/18/2010 STACIA GOVEA, KATE 716.90 Arthritis/ Arthropathy, Unspecified 06/18/2010 STACIA GOVEA, KATE 272.4 HYPERLIPIDEMIA UNSPECIFIED 06/18/2010 STACIA GOVEA, KATE 311 Depressive Disorder Nos 06/18/2010 STACIA GOVEA, KATE 401.1 HYPERTENSION, BENIGN ESSENTIAL 06/18/2010 STACIA GOVEA, KATE 414.00 Coronary Atherosclerosis Of Unspecified Type Of Vessel [place] 06/18/2010 STACIA GOVEA, KATE 716.90 Arthritis/ Arthropathy, Unspecified 06/23/2010 STACIA GOVEA, KATE 414.01 CAD 06/23/2010 414.01 CAD 06/23/2010 414.01 CAD 06/23/2010 KEN PHDWILBERTO 414.01 CAD 06/23/2010 STACIA GOVEA, KATE 414.01 [...] Tract Infection Site Not Specified 03/14/2011 KEN PORTILLO, WILBERTO Fabian 272.0 HYPERCHOLESTEROLEMIA PURE 03/14/2011 KEN PHD, WILBERTO Fabian 599.0 Urinary Tract Infection Site Not Specified [...] 03/31/2011 790.29 Hyperglycemia 03/31/2011 790.29 Hyperglycemia 03/31/2011 KEN PORTILLO, WILBERTO Fabian 790.29 Hyperglycemia 03/31/2011 STACIA GOVEA, KATE 790.29 [...] OR UNSPECIFIED TYPE NOT STATED UNCONTROLLED 10/25/2011 KEN PORTILLO, WILBERTO Fabian 250.00 DIABETES MELLITUS WITHOUT MENTION OF COMPLICATION [...] 12/02/2011 726.32 LATERAL EPICONDYLITIS (TENNIS ELBOW) 12/02/2011 KEN PHD, WILBERTO Fabian 726.32 LATERAL EPICONDYLITIS (TENNIS ELBOW) 12/02/2011 STACIA GOVEA, KATE 726.32 LATERAL EPICONDYLITIS (TENNIS ELBOW) 12/02/2011 STACIA GOVEA, KATE 726.32 LATERAL EPICONDYLITIS (TENNIS ELBOW) 12/02/2011 STACIA GOVEA, KATE Gibbs6.32 LATERAL EPICONDYLITIS (TENNIS ELBOW) 12/02/2011 KATE PALOMO MD6.32 LATERAL EPICONDYLITIS (TENNIS ELBOW) 12/02/2011 KATE PALOMO MD6.32 LATERAL EPICONDYLITIS (TENNIS ELBOW) 12/02/2011 KATE PALOMO MD6.32 LATERAL EPICONDYLITIS (TENNIS ELBOW) 10/30/2012 311 DEPRESSIVE DISORDER NOS 10/30/2012 311 DEPRESSIVE DISORDER NOS 10/30/2012 KEN PHD, WILBERTO Fabian 311 DEPRESSIVE DISORDER NOS 10/30/2012 KATE PALOMO MD 311 DEPRESSIVE DISORDER NOS 10/30/2012 KATE PALOMO MD 311 DEPRESSIVE DISORDER NOS 10/30/2012 KATE PALOMO MD 311 DEPRESSIVE DISORDER NOS 10/30/2012 KATE PALOMO MD 311 DEPRESSIVE DISORDER NOS 10/30/2012 KATE PALOMO [...] GENITAL SYMPTOMS NEC 08/01/2015 DONNIE GOVEA, STEPHAN A Ot 682.2 CELLULITIS OF TRUNK 10/28/2015 MABLE BATISTA Ot B37.3 CANDIDIASIS OF [place]ULVA AND VAGINA 10/28/2015 MABLE BATISTA Ot F17.210 NICOTINE DEPENDENCE, CIGARETTES, UNCOMPL 02/01/2016 EDOUARD ULLOA DOA K Ot F17.210 NICOTINE DEPENDENCE, CIGARETTES, UNCOMPL 02/01/2016 ARGENTINA ULLOA DO Ot M79.642 PAIN IN LEFT HAND 02/03/2016 EDOUARD ULLOA DOA K Ot F17.210 02/03/2016 ARGENTINA ULLOA DO Ot M79.642 01/30/2017 KATE PALOMO MD Ot E11.65 TYPE 2 DIABETES MELLITUS WITH HYPERGLYCE 01/30/2017 KATE PALOMO MD, Ot F17.210 NICOTINE DEPENDENCE, CIGARETTES, UNCOMPL 01/30/2017 KATE PALOMO MD Ot I10 ESSENTIAL (PRIMARY) HYPERTENSION 01/30/2017 KATE PALOMO MD Ot R07.9 CHEST PAIN, UNSPECIFIED 01/30/2017 KATE PALOMO MD Ot Z79.84 DAUB COLOR MIXER (CURRENT) USE OF ORAL HYPOGLYC 01/30/2017 KATE PALOMO MD Ot Z79.899 OTHER SKILLED NURSING (CURRENT) DRUG THERAPY 01/30/2017 KATE PALOMO MD, Ot Z91.14 PATIENT'S OTHER NONCOMPLIANCE WITH MEDIC 01/31/2017 DONNIE GOVEA, STEPHAN Fabian Ot 616.10 VAGINITIS NOS 01/31/2017 DONNIE GOVEA, STEPHAN Fabian Ot 625.8 FEM GENITAL SYMPTOMS NEC 01/31/2017 ARTEMIO DO, ARGENTINA K Ot F17.210 NICOTINE DEPENDENCE, CIGARETTES, UNCOMPL 01/31/2017 ARTEMIO DO, ARGENTINA K Ot M79.642 PAIN IN LEFT HAND 02/08/2017 ARTEMIO DO, ARGENTINA K Ot F17.210 NICOTINE DEPENDENCE, CIGARETTES, UNCOMPL 02/08/2017 ARTEMIO DO, ARGENTINA K Ot M79.642 PAIN IN LEFT HAND 06/05/2018 CODY MENDES Ot E11.9 TYPE 2 DIABETES MELLITUS WITHOUT COMPLIC 06/05/2018 BERNOT, CODY Ot E78.00 PURE HYPERCHOLESTEROLEMIA, UNSPECIFIED 06/05/2018 BERNOT, CODY Ot I10 ESSENTIAL (PRIMARY) HYPERTENSION 06/05/2018 BERNOT, CODY Ot L02.31 CUTANEOUS ABSCESS OF BUTTOCK 06/05/2018 BERNOT CODY Ot R22.2 LOCALIZED SWELLING, MASS AND LUMP, TRUNK 06/05/2018 BERNOT, CODY Ot Z77.22 CNTCT W AND EXPSR TO ENVIRON TOBACCO SMO 06/05/2018 CINTHYA CODY Ot Z79.82 DAUB COLOR MIXER (CURRENT) USE OF ASPIRIN 06/05/2018 BERNKAIN CODY Ot Z79.84 DAUB COLOR MIXER (CURRENT) USE OF ORAL HYPOGLYC 06/05/2018 JT MENDESIS Ot Z98.51 TUBAL LIGATION STATUS 06/07/2018 JT MENDESIS Ot E11.9 TYPE 2 DIABETES MELLITUS WITHOUT COMPLIC 06/07/2018 BERNOT, CODY Ot E78.00 PURE HYPERCHOLESTEROLEMIA, UNSPECIFIED 06/07/2018 BERNOT, CODY Ot I10 ESSENTIAL (PRIMARY) HYPERTENSION 06/07/2018 BERNOT, CODY Ot L02.31 CUTANEOUS ABSCESS OF BUTTOCK 06/07/2018 BERNOT, CODY Ot R22.2 LOCALIZED SWELLING, MASS AND LUMP, TRUNK 06/07/2018 BERNOT, CODY Ot Z77.22 CNTCT W AND EXPSR TO ENVIRON TOBACCO SMO 06/07/2018 BERNOT CODY Ot Z79.82 DAUB COLOR MIXER (CURRENT) USE OF ASPIRIN 06/07/2018 BERNOT, CODY Ot Z79.84 DAUB COLOR MIXER (CURRENT) USE OF ORAL HYPOGLYC 06/07/2018 CDOY MENDES Ot Z98.51 TUBAL LIGATION STATUS 09/25/2018 BANDAR BAR MD, Ot E11.9 TYPE 2 DIABETES MELLITUS WITHOUT COMPLIC 09/25/2018 BANDAR BAR MD, Ot E78.00 PURE HYPERCHOLESTEROLEMIA, UNSPECIFIED 09/25/2018 BANDAR BAR MD Ot F17.210 NICOTINE DEPENDENCE, CIGARETTES, UNCOMPL 09/25/2018 BANDAR BAR MD Ot I10 ESSENTIAL (PRIMARY) HYPERTENSION 09/25/2018 BANDAR BAR MD, Ot I25.10 ATHSCL HEART DISEASE OF [place] CORONARY 09/25/2018 BANDAR BAR MD, Ot I63.9 CEREBRAL INFARCTION, UNSPECIFIED 09/25/2018 BANDAR BAR MD, Ot R47.01 APHASIA 09/25/2018 BANDAR BAR MD, Ot R48.2 APRAXIA 09/25/2018 BANDAR BAR MD, Ot R53.1 WEAKNESS 09/25/2018 BANDAR BAR MD, Ot Z79.82 DAUB COLOR MIXER (CURRENT) USE OF ASPIRIN 09/25/2018 BANDAR BAR MD, Ot Z79.84 DAUB COLOR MIXER (CURRENT) USE OF ORAL HYPOGLYC 09/25/2018 BANDAR BAR MD, Ot Z88.2 ALLERGY STATUS TO SULFONAMIDES STATUS 09/25/2018 BANDAR BAR MD, Ot Z95.5 PRESENCE OF CORONARY ANGIOPLASTY IMPLANT 09/25/2018 BANDAR BAR MD, Ot Z98.51 TUBAL LIGATION STATUS Procedures Code Description Performed By Performed On 00.40 PROCEDURE ON SINGLE VESSEL 06/11/2010 00.66 PERC TRANSLUMINAL CORON ANGIOPLASTY PTCA 06/11/2010 88.56 CORONAR ARTERIOGR-2 CATH 06/11/2010 07383 A1C (IN-HOUSE) 10/25/2012 94676 ROUTINE VENIPUNCTURE 10/26/2012 98035 CMP 10/26/2012 15236 LIPID PANEL 10/26/2012 4318974 GFR CALC (RESULT ONLY) 10/26/2012 62226 PSYCH DIAG INTER EXAM 10/30/2012 72153 PSYCHO TESTING 1 HR W COMP 12/26/2012 38116 PSYTX PT&/FAMILY 45 MINUTES 12/31/2012 65244 ROUTINE VENIPUNCTURE 02/04/2013 32969 MICRO ALBUMIN-IN HOUSE 02/04/2013 16327 A1C (IN-HOUSE) 02/04/2013 20860 CMP 02/04/2013 09650 LIPID PANEL 02/04/2013 3454006 GFR CALC (RESULT ONLY) 02/04/2013 94131 ROUTINE VENIPUNCTURE 10/22/2013 57509 A1C (IN-HOUSE) 10/22/2013 15237 LIPID PANEL 10/22/2013 79916 CMP 10/22/2013 7718440 GFR CALC (RESULT ONLY) 10/22/2013 63062 URINE DRUG SCREEN (IN-HOUSE ) 01/09/2014 38303 URINE OPIATES GC/MS 01/10/2014 44693 A1C (IN-HOUSE) 06/19/2014 05352 MICRO ALBUMIN-IN HOUSE 06/19/2014 60832 MICROALBUMIN 06/19/2014 Results Test Result Range Complete [...] culture - 01/28/17 14:15 Bacterial urine culture [id number] NRG COLONY COUNT >100,000/ML NRG FTX;REPORTABLE SENSITIVITY REPORTED AT 1642, 3-11-05 NR FREE TEXT ENTRY 3 MIXED GRAM [...] 12:30 Bacteria identification in wound by culture [id number] NRG FREE TEXT EXTERNAL SEE COMMENT NRG QUANTITY OF GROWTH Moderate Growth [facility] Bacterial susceptibility panel - 06/05/18 12:30 Gentamicin [...] NRG Manual blood basophils/100 leukocytes 0 % NRG Blood erythrocyte morphology finding identification NORMAL NRG Comprehensive metabolic panel - 06/05/18 13:03 Serum [...] - 06/05/18 14:20 Bacterial blood culture NG [facility] Complete blood count (CBC) with automated white blood cell (WBC) differential - 09/22/18 16:45 Blood leukocytes automated count (number/volume) 15.0 10*3/uL 4.3-11.0 Blood erythrocytes automated count (number/volume) 5.13 10*6/uL 4.35-5.85 Venous blood hemoglobin measurement (mass/volume) 15.6 g/dL 11.5-16.0 Blood hematocrit (volume fraction) 46 % 35-52 Automated erythrocyte mean corpuscular volume 90 [foz_us] 80-99 Automated erythrocyte mean corpuscular hemoglobin (mass per erythrocyte) 30 pg 25-34 Automated erythrocyte mean corpuscular hemoglobin concentration measurement ( mass/volume) 34 g/dL 32-36 Automated erythrocyte distribution width ratio 13.8 % 10.0-14.5 Automated blood platelet count (count/volume) 307 10*3/uL 130-400 Automated blood platelet mean volume measurement 11.5 [foz_us] 7.4-10.4 Automated blood neutrophils/100 leukocytes 70 % 42-75 Automated blood lymphocytes/100 leukocytes 24 % 12-44 Blood monocytes/100 leukocytes 5 % 0-12 Automated blood eosinophils/100 leukocytes 2 % 0-10 Automated blood basophils/100 leukocytes 1 % 0-10 Blood neutrophils automated count (number/volume) 10.5 10*3 1.8-7.8 Blood lymphocytes automated count (number/volume) 3.5 10*3 1.0-4.0 Blood monocytes automated count (number/volume) 0.7 10*3 0.0-1.0 Automated eosinophil count 0.2 10*3/uL 0.0-0.3 Automated blood basophil count (count/volume) 0.1 10*3/uL 0.0-0.1 Comprehensive metabolic panel - 09/22/18 16:45 Serum or plasma sodium measurement (moles/volume) 138 mmol/L 135-145 Serum or plasma potassium measurement (moles/volume) 4.1 mmol/L 3.6-5.0 Serum or plasma chloride measurement (moles/volume) 102 mmol/L 98-107 Carbon dioxide 22 mmol/L 21-32 Serum or plasma anion gap determination (moles/volume) 14 mmol/L 5-14 Serum or plasma urea nitrogen measurement (mass/volume) 11 mg/dL 7-18 Serum or plasma creatinine measurement (mass/volume) 0.81 mg/dL 0.60-1.30 Serum or plasma urea nitrogen/creatinine mass ratio 14 NRG Serum or plasma creatinine measurement with calculation of estimated glomerular filtration rate > NRG Serum or plasma glucose measurement (mass/volume) 235 mg/dL 70-105 Serum or plasma calcium measurement (mass/volume) 9.5 mg/dL 8.5-10.1 Serum or plasma total bilirubin measurement (mass/volume) 0.3 mg/dL 0.1-1.0 Serum or plasma alkaline phosphatase measurement (enzymatic activity/volume) 81 U/L 40-136 Serum or plasma aspartate aminotransferase measurement (enzymatic activity/ volume) 21 U/L 5-34 Serum or plasma alanine aminotransferase measurement (enzymatic activity/volume ) 17 U/L 0-55 Serum or plasma protein measurement (mass/volume) 7.5 g/dL 6.4-8.2 Serum or plasma albumin measurement (mass/volume) 3.6 g/dL 3.2-4.5 CALCIUM CORRECTED 9.8 mg/dL 8.5-10.1 PT panel in platelet poor plasma by coagulation assay - 09/22/18 16:45 Prothrombin time (PT) in platelet poor plasma by coagulation assay 13.2 s 12.2-14.7 INR in platelet poor plasma or blood by coagulation assay 1.0 0.8-1.4 Activated partial thromboplastin time (aPTT) in platelet poor plasma bycoagulation assay - 09/22/18 16:45 Activated partial thromboplastin time (aPTT) in platelet poor plasma bycoagulation assay 25 s 24-35 Fibrin D-dimer FEU measurement in platelet poor plasma (mass/volume) - 16:45 Fibrin D-dimer FEU measurement in platelet poor plasma (mass/volume) 1.54 ug/mL 0.00-0.49 Serum or plasma troponin i.cardiac measurement (mass/volume) - 09/22/18 16:45 Serum or plasma troponin i.cardiac measurement (mass/volume) < ng/ mL <0.30 Blood manual differential performed detection - 09/22/18 16:45 Blood monocytes/100 leukocytes 2 % NRG Manual blood segmented neutrophils/100 leukocytes 65 % NRG Blood band neutrophils/100 leukocytes 1 % NRG Manual blood lymphocytes/100 leukocytes 26 % NRG Manual eosinophils/100 leukocytes in nose 2 % NRG Manual blood basophils/100 leukocytes 1 % NRG Blood lymphocytes variant/100 leukocytes 3 % NRG Blood toxic granules detection by light microscopy 3+ NRG Blood poikilocytosis detection by light microscopy SLIGHT NRG Blood rouleaux detection by light microscopy MOD NRG Blood stomatocytes detection by light microscopy SLIGHT NRG Complete urinalysis with reflex to culture - 09/22/18 17:01 Urine color determination YELLOW NRG Urine clarity determination CLEAR NRG Urine pH measurement by test strip 5 5-9 Specific gravity of urine by test strip 1.025 1.016- 1.022 Urine protein assay by test strip, semi-quantitative 2+ NEGATIVE Urine glucose detection by automated test strip NEGATIVE NEGATIVE Erythrocytes detection in urine sediment by light microscopy 4+ NEGATIVE Urine ketones detection by automated test strip NEGATIVE NEGATIVE Urine nitrite detection by test strip NEGATIVE NEGATIVE Urine total bilirubin detection by test strip NEGATIVE NEGATIVE Urine urobilinogen measurement by automated test strip (mass/volume) NORMAL NORMAL Urine leukocyte esterase detection by dipstick NEGATIVE NEGATIVE Automated urine sediment erythrocyte count by microscopy (number/high power field) [HPF] NRG Automated urine sediment leukocyte count by microscopy (number/high power field ) NONE NRG Bacteria detection in urine sediment by light microscopy NEGATIVE NRG Squamous epithelial cells detection in urine sediment by light microscopy 0-2 NRG Crystals detection in urine sediment by light microscopy PRESENT NRG Casts detection in urine sediment by light microscopy NONE NRG Mucus detection in urine sediment by light microscopy NEGATIVE NRG Complete urinalysis with reflex to culture NO NRG Amorphous sediment detection in urine sediment by light microscopy MOD SHERRELL URATES NRG Encounters ACCT No. Visit Date/Time Discharge Status Pt. Type Provider Facility Loc./Unit Complaint [id number] 06/19/2014 08:58:00 06/19/2014 23:59:59 CLS Outpatient KATE PALOMO MD [id number] 01/09/2014 15:54:00 01/09/2014 23:59:59 CLS Outpatient KATE PALOMO MD [id number] 10/22/2013 08:47:00 10/22/2013 23:59:59 CLS Outpatient KATE PALOMO MD [id number] 05/27/2013 15:22:00 05/27/2013 23:59:59 CLS Outpatient KATE PALOMO MD [id number] 02/04/2013 09:04:00 02/04/2013 23:59:59 CLS Outpatient KATE PALOMO MD [id number] 12/28/2012 08:51:00 12/28/2012 23:59:59 CLS Outpatient WILBERTO ROGERS PHD [id number] 12/25/2012 12:01:00 12/25/2012 23:59:59 CLS Outpatient [id number] 10/30/2012 08:00:00 10/30/2012 23:59:59 CLS Outpatient [id number] 10/26/2012 08:03:00 10/26/2012 23:59:59 [place] [id number] 12/02/2011 08:12:00 12/02/2011 23:59:59 [place] [id number] 06/06/2018 13:20:00 06/06/2018 23:59:59 C[facility] [id number] 09/22/2018 16:33:00 09/22/2018 18:32:00 DIS Outpatient BANDAR BAR MD [facility] ER STROKE [id number] 06/05/2018 12:05:00 06/05/2018 16:00:00 DIS Emergency CODY MENDES [facility] ER LARGE BUMP DRAINING ON REAR-END [id number] 01/28/2017 12:44:00 01/30/2017 18:10:00 DIS Inpatient KATE PALOMO MD [facility] ICU CHEST PAIN, DM UNCONTROLLED, HTN [id number] 02/01/2016 09:22:00 02/01/2016 10:47:00 DIS Emergency ARGENTINA ULLOA DO [facility] ER LEFT THUMB/HAND PAIN [id number] 10/28/2015 14:23:00 10/28/2015 16:38:00 DIS Emergency MABLE BATISTA [facility] ER POSS YEAST INFECTION [id number] 08/01/2015 18:44:00 08/01/2015 19:53:00 DIS Emergency DONNIE GOVEA, STEPHAN Fabian [facility] ER BITE/ALLERGIC REACTION [id number] 06/14/2015 09:44:00 06/14/2015 10:16:00 DIS Emergency STEPHAN FIELDS MD [facility] ER VAGINAL PAIN [id number] 10/05/2018 14:40:00 PEN Preadmit YANY GOVEA, CESIA Seth CVA [id number] 02/15/2017 15:16:00 Document Registration [id number] 02/15/2017 15:16:00 Document Registration [id number] 02/15/2017 15:16:00 Document Registration [id number] 02/15/2017 15:16:00 Document Registration [id number] 02/15/2017 15:16:00 Document Registration [id number] 06/14/2015 09:44:00 Document Registration [id number] 06/14/2015 09:44:00 Document Registration
[2018-10-07] MEDS ORDERED: FLU QUADRIvalent (5+ YOA) 2018-2019 (AFLURIA) 0.5 ML IM ONE (15:30)
[2018-10-07] MEDS: metFORMIN 500 MG (GLUCOPHAGE) TAB PO SCH (16:42)
[2018-10-07 17:41] VITALS: BP 135/68
--- NOTE | 2018-10-07 21:48 | HISTORY AND PHYSICAL ---
DATE OF SERVICE: 10/07/2018 CHIEF COMPLAINT: Difficulty with speech. HISTORY OF PRESENT ILLNESS: The patient is a 63-year-old female with past medical history significant for hyperlipidemia, hypertension, diabetes, who was transferred to [facility] after she was found to have right facial droop and right-sided weakness due to a left CVA. She was given TPA prior to transfer. She is now left with residual of some right-sided weakness and aphasia. She was referred to inpatient rehabilitation at [facility]. She lives in [place], [place]. She is a , unemployed. [facility]. Car is listed as PCP. She had been independent prior to this. She lives with her daughter.She is setup for eating and Min assist for oral hygiene She is min assist for lower body dressing and Setup for upper body dressing.She is min assist for toilet transfers.She is min assist for transfers in general and for gait with SBA without a gait aide. PAST MEDICAL HISTORY: Diabetes mellitus, hyperlipidemia. PAST SURGICAL HISTORY: Noncontributory. ALLERGIES: No known medication allergies. FAMILY HISTORY: Noncontributory. SOCIAL HISTORY: As per above. REVIEW OF SYSTEMS: A 10-point review of systems significant for right-sided weakness, difficulty with speech and balance. MEDICATIONS: ASA 81 mg p.o. daily, Lipitor 80 mg p.o. daily, Colace 100 mg p.o. b.i.d., Prozac 20 mg p.o. daily, lisinopril 20 mg p.o. daily, metformin 500 mg p.o. b.i.d. PHYSICAL EXAMINATION: GENERAL: Significant for a female appearing her stated age, lying in bed, in no acute distress. VITAL SIGNS: Within normal limits. She is afebrile. HEENT: Vision and hearing appear grossly intact. Speech, she has some expressive aphasia. No oral lesion is noted. NECK: Supple without mass. HEART: Regular rhythm. CHEST: Clear. ABDOMEN: Soft, nontender, bowel sounds present. EXTREMITIES: No lower leg edema, no calf tenderness. MUSCULOSKELETAL: She has functional passive range of motion in all 4 extremities. NEUROLOGIC: She has a mild right-sided weakness and expressive aphasia. ASSESSMENT: 1. 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 2. Diabetes mellitus type 2, on metformin. 3. Hypertension, controlled with medication. 4. Hyperlipidemia, on statin. 5. Obesity. 6. DVT prophylaxis SCDS PLAN: The patient will have a comprehensive program of inpatient rehabilitation with goal of maximizing level of functional independence prior to discharge home with her daughter. The patient will have PT, OT 90 minutes per day each discipline, 5 days a week for 2 weeks when not being seen by speech therapy with the above goals in mind. Please see post-admission physician evaluation, which is a separate document for details of plan of care. Speech therapy to do cognitive speech, swallow assessment and treat as indicated 3 to 5 times a week for 2 weeks, 30 to 45 minutes per session. Rehabilitation nursing assist with bowel, bladder, skin care, medication administration, pain management. sales representative facility services to assist with discharge planning, community reentry. Follow [facility] as per their schedule. Monitor Accu-Cheks and adjust medications as necessary. ESTIMATED LENGTH OF STAY: Two weeks. PROGNOSIS: Rehab prognosis appears good for goal of discharging home with her daughter modified independent to supervision for ADLs and mobility skills. DIET: Carb consistent. CODE STATUS: Full code. Job ID: [id number] DocumentID: [id number] Dictated Date: 10/07/2018 19:57:40 Osteopathic Physician Date: 10/07/2018 21:47:28 Dictated By: CESIA SLADE MD [facility]
[2018-10-07] MEDS: DOCUSATE SODIUM 100 MG (COLACE) CAP PO SCH (21:58)
[2018-10-08 05:41] VITALS: BP 108/70
[2018-10-08] MEDS: metFORMIN 500 MG (GLUCOPHAGE) TAB PO SCH ×2 (06:09→17:15)
[2018-10-08] MEDS: FLUoxetine HCL 20 MG (PROzac) CAP PO SCH (08:58)
[2018-10-08] MEDS: ATORVASTATIN 80 MG (LIPITOR) TABLET PO SCH (08:58)
[2018-10-08] MEDS: ASPIRIN 81 MG CHEW (CHILDREN'S ASA) PO SCH (08:58)
[2018-10-08] MEDS: DOCUSATE SODIUM 100 MG (COLACE) CAP PO SCH ×2 (08:58→20:29)
[2018-10-08] MEDS: lisINopril 10 MG (PRINIVIL) TABLET PO SCH (08:58)
[2018-10-08] MEDS ORDERED: ATORVASTATIN 40 MG (LIPITOR) TABLET PO SCH (09:00)
--- NOTE | 2018-10-08 09:43 | PM&R Post Admission Assessment ---
Post Admission Physician Asses Date seen by provider: Oct 08, 2018 Time seen by provider: 08:00 The preadmission screen agrees with the post admission assessment that the patient is a good candidate for inpatient rehabilitation. The patient will have a comprehensive program of inpatient rehabilitation with a goal of maximizing level of functional independence prior to discharge home with her daughter. The patient will have PT/OT ninety minutes per day, each discipline, five days a week for 7 to 10 days for gait, strengthening, conditioning, balance, ADLs, any patient/family/caregiver training as necessary. Speech therapy to do cognitive as well as speech assessment and treat as indicated.for 7 to 10 days for 30-45 min per day. Rehabilitation nursing to assist with bowel, bladder, skin, medication administration, pain management. Irrigation Service Technician to assist with discharge planning, community reentry. SCD's for DVT prophylaxis. She appears to be well motivated to participate in three hours of therapy a day. She should be able to tolerate three hours of therapy a day from a medical standpoint. She should benefit from the three hours of therapy a day. She has a reasonable discharge plan, reasonable discharge rehabilitation goals and a supportive family. She has various comorbidities that need to be closely monitored with medications and treatments adjusted on a daily basis as needed. These include: DM HTN HLP Barriers to discharge for this patient who had been independent prior to this are for her to be modified independent to supervision for ADLs and mobility skills prior to discharge home with her daughter, so as to lessen the burden of the caregivers. Risks for this patient include: 1. Fall 2. Fracture 3. DVT 4. Pulmonary embolism 5. Poorly controlled DM 6. Skin breakdown 7. Contractures 8. Poorly controlled pain 9. Urinary retention 10. UTI 11. Respiratory infection 12. Aspiration 13. Poorly controlled HTN Estimated Length of Stay: 7-10 days Prognosis: Rehab prognosis appears good for goal of discharge home with her daughter modified independent to supervision for ADLs and mobility skills. General: Alert, Oriented X3, Cooperative, No Acute Distress HEENT: Atraumatic, PERRLA, EOMI, Mucous Memb Moist/[place], Other (Mild expressive aphasia) Neck: Supple, No JVD Lungs: Clear to Auscultation Heart: Regular Rate Abdomen: Normal Bowel Sounds, Soft, No Tenderness Extremities: No Edema Skin: No Rashes, No Breakdown Neuro: Other (Mild rt sided weakness and expressive aphasia) CESIA SLADE MD 19, 2018 09:43
--- NOTE | 2018-10-08 09:55 | Physical Therapy Evaluation ---
PT Evaluation-General Medical Diagnosis Admission Date Oct 07, 2018 at 14:25 Medical Diagnosis: CVA Onset Date: Sep 22, 2018 Therapy Diagnosis Therapy Diagnosis: impaired mobility, endurance, strength Height/Weight Height (Feet): 4 Height (Inches): 10.00 Weight (Pounds): 220 Weight (Ounces): 0.0 Precautions Precautions/Isolations: Fall Prevention, Standard Precautions Referral Physician: Newton Reason for Referral: Evaluation/Treatment Medical History Pertinent Medical History: DM Additional Medical History hyperlipidemia Social History Home: Single Level Current Living Status: Children Entry Into Home: Stairs Without Railing PT Steps Into Home: 1 Patient has trouble speaking but seemed to indicate that she has one of her children living with her who can help at home. Prior/Core FIM Prior Level of Function Functional [place] Measure 0=Not Assessed/NA 4=Minimal Assistance 1=Total Assistance 5=Supervision or Setup 2=Maximal Assistance 6=Modified [place] 3=Moderate Assistance 7=Complete IndependenceIRFPAI Quality Coding Scale 6 Independent with activity with or without an assistive device 5 Patient requires set up or clean up by helper. Patient completes activity by themselves 4 Supervision or touching assist (CGA). [place] provide cues , steadying assist 3 The helper provides less than half the effort to complete the activity 2 The helper provides more than half the effort to complete the activity 1 Dependent. The helper does all the effort to complete an activity 7 Patient refused to complete or attempt activity 9 The patient did not perform the activity before the current illness or injury 88 Not attempted due to Medical conditions or safety concerns Bed Mobility: 7 Transfers (B,C,W/C) (FIM): 7 Gait: 7 PT Evaluation-Current Subjective Patient in bed pre tx, has no complaints of pain, agrees to PT. Pt/Family Goals Patient sitting EOB post tx, has nurse call, phone, tray, all needs met. Making patient independent in her room based on tinetti score, discussed with nurse and she agrees. Objective Patient Orientation: Person, Place, Non-Verbal/Aphasic, Situation ROM/Strength ROM Lower Extremities WNL Strenght Lower Extremities right lower extremity 4/5 gross, left lower extremity 4+/5 gross Neuromuscular (Tone, Coordination, Reflexes) NT Sensory Hearing: Functional Sensation Right Lower Extremit: Intact Sensation Left Lower Extremity: Intact Sensation Lower Extremities Patient has intact light touch sensation in both legs, no complaints of numbness or tingling. Transfers Functional [place] Measure 0=Not Assessed/NA 4=Minimal Assistance 1=Total Assistance 5=Supervision or Setup 2=Maximal Assistance 6=Modified [place] 3=Moderate Assistance 7=Complete IndependenceIRFPAI Quality Coding Scale 6 Independent with activity with or without an assistive device 5 Patient requires set up or clean up by helper. Patient completes activity by themselves 4 Supervision or touching assist (CGA). [place] provide cues , steadying assist 3 The helper provides less than half the effort to complete the activity 2 The helper provides more than half the effort to complete the activity 1 Dependent. The helper does all the effort to complete an activity 7 Patient refused to complete or attempt activity 9 The patient did not perform the activity before the current illness or injury 88 Not attempted due to Medical conditions or safety concerns Transfers (B, C, W/C) (FIM): 5 Scootin Rollin Roll Left to Right (QC): 6 Supine to/from Sit: 6 Sit to/from Stand: 5 Sit to Lying (QC): 6 Lying to Sitting/Side of Bed(Q: 6 Sit to Stand (QC): 4 Chair/Zkk-uc-Mjeez Xfer(QC): 4 Car Transfer (QC): 4 Patient performs bed mobility with mod I, supine <-> sit with mod I, sit <-> stand with SBA, transfers with SBA, car transfer with SBA. Patient had safe transfers and appropriate use of hand placement. Gait Does the Patient Walk?: Yes Mode of Locomotion: Walk Anticipated Mode of Locomotion: Walk Gait (FIM): 5 Walk 10 feet (QC): 4 Walk 50 ft with 2 Turns(QC): 4 Walk 150 ft (QC): 4 Walking 10ft/uneven surface-QC: 4 Distance: 300'x2, 200' Gait Level of Assist: 5 Gait Persons Needed: 1 Gait Assistive Device: None Comments/Gait Description Patient ambulated 300' without an assistive device with SBA (including 50' with at least 2 turns of 90 degrees and 10' over an uneven surface). Patient had no moments of unsteadiness. She does turn quickly but never lost balance. Wheelchair Training Does the Pt Use a Wheelchair?: No Stairs Stairs (FIM): 5 #of Steps: 12 Level of Assist: 5 1 Step (curb) (QC): 4 4 Steps (QC): 4 12 Steps (QC): 4 Patient can go up an down 12 steps using 2 handrails with SBA. Cues for foot placement and safety. Balance Sitting Static: Normal Sitting Dynamic: Normal Standing Static: Good Standing Dynamic: Good Picking up an Object (QC): 4 Treatment Patient performed NuStep at level 5 for 15 min. Patient also performed the Tinetti Assessment Tool and scored 26/28. Assessment/Needs Patient has impaired mobility, strength, endurance post CVA. She scored a 26/ 28 on the tinetti and is not independent in her room based on that. Rehab Potential: Fair PT Short Term Goals Short Term Goals Time Frame: Oct 15, 2018 Transfers (B,C,W/C) (FIM): 6 Gait (FIM): 5 Gait Distance Comment: 500' Gait Level of Assist: 5 Gait Assistive Device: None PT Mcc Goals Lead Cytogenetic Technologist Goals PT Lead Cytogenetic Technologist Goals Time Frame: Oct 29, 2018 Transfers (B,C,W/C) (FIM): 7 Sit to Lying (QC): 6 Lying-Sitting on Side/Bed(QC): 6 Sit to Stand (QC): 6 Rollin Roll Left to Right (QC): 6 Chair/Zel-et-Wwmva Xfer(QC): 6 Car Transfer (QC): 6 Gait (FIM): 7 Distance: 500' Walk 10 feet (QC): 6 Walk 10ft-Uneven Surface(QC): 6 Walk 50ft with 2 Turns (QC): 6 Walk 150 ft (QC): 6 Gait Level of Assist: 7 Gait Assistive Device: None Stairs (FIM): 6 # of Steps: 12 1 Step (curb) (QC): 6 4 Steps (QC): 6 12 Steps (QC): 6 Stairs Level Of Assist: 6 Picking up an Object (QC): 6 PT Plan Problem List Problem List: Activity Tolerance, Functional Strength, Safety, Balance, Gait, Transfer, Bed Mobility Treatment/Plan Treatment Plan: Continue Plan of Care Treatment Plan: Bed Mobility, Education, Functional Activity Deidra, Functional Strength, Group Therapy, Gait, Safety, Therapeutic Exercise, Transfers Treatment Duration: Oct 29, 2018 Frequency: At least 5 of 7 days/Wk (IRF) Estimated Hrs Per Day: 1.5 hours per day Patient and/or Family Agrees t: Yes Safety Risks/Education Patient Education: Gait Training, Transfer Techniques, Steps, Correct Positioning, Safety Issues Teaching Recipient: Patient Teaching Methods: Demonstration, Discussion Response to Teaching: Reinforcement Needed Discharge Recommendations Plan Patient will perform bed mobility and transfer training, balance and endurance training, functional strengthening, stair training, gait training, and education , to improve functional mobility and independence at home. Therapy D/C Recommendations: Home w/ Family Support Time/GCodes Time In: 0845 Time Out: 0945 Total Billed Treatment Time: 60 Total Billed Treatment 1 visit EVM 30' EX 15' GT 15' LYRIC KIRBY PT Oct 08, 2018 09:55
--- NOTE | 2018-10-08 11:58 | Occupational Therapy Eval ---
OT Evaluation-General/PLF Medical Diagnosis Admission Date Oct 07, 2018 at 14:25 Medical Diagnosis: CVA, R sided weakness Onset Date: Sep 22, 2018 Therapy Diagnosis Therapy Diagnosis: decr self care, weakness, aphasia, decr act ever, decr safety awareness Height/Weight Height (Feet): 4 Height (Inches): 10.00 Weight (Pounds): 220 Weight (Ounces): 0.0 Precautions Precautions/Isolations: Fall Prevention, Standard Precautions Safety Interventions: Bed Exit Alarm Referral Physician: Newton Referral Reason: Evaluation/Treatment Medical History Pertinent Medical History: CAD, DM, HTN Additional Medical History Irritable bowel. Lupus. Current History Admitted through Ed with CVA. Had TPa and transferred to . Had almost flaccid R UE, aphasia Reviewed History: Yes Social History Home: Multilevel Current Living Status: Children Entry Into Home: Stairs Without Railing Steps Into Home: 4 ADL-Prior Level of Function Functional [place] Measure 0=Not Assessed/NA 4=Minimal Assistance 1=Total Assistance 5=Supervision or Setup 2=Maximal Assistance 6=Modified [place] 3=Moderate Assistance 7=Complete [place] ADL PLOF Comments Pt's daughter confirmed that pt was able to manage all of her basic ADLs prior to stroke. She paid her bills and managed her medications, although she sometimes did not take them because she didn't like taking pills. She also did much of the cooking, laundry, cleaning and was raising grandchildren and nephews , as well as helping to care for a daughter with Alzheimers. She no longer drove because she has cataracts. 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 DME/Equipment: Shower Hose Buckle Wire Inserter, Tall Toilet DME/Equipment Comments Claw foot bathtub OT Current Status Subjective Pt seen in room, up in bed, agreeable to OT. Pt reported pain 0/10. Appearance Alert, cooperative. Appears to understand but unable to state name, , location, date due to aphasia Mental Status/Objective Patient Orientation: Person Current Glasses/Contacts: No Hearing Aids: No Dentures/Partials: No (missing many teeth) Hand Dominance: Right Upper Extremity ROM Grossly WFL bilat. R lags slightly behind L Upper Extremity Coordination Impaired Upper Extremity Sensation Intact per pt report Upper Extremity Strength Grossly 4/5 L UE and slightly less R UE ADL-Treatment ADL-Current Pt sat to EOB without help. Walked to bathroom with SBA. On/off toilet SBA. Managed clothes and hygiene SBA. Walked to shower SBA and got in/out of stall and on/off shower bench with SBA. Bathed with setup, supervision. Cues to wash hair. Washed and dried all parts, SBA. Walked to bed to dress, setup, SBA. Some difficulty with dressing R foot but she struggled through it. Walked to bathroom to brush teeth, comb hair SBA at sink. Cues for how to put on deodorant. Returned to bed for eating. Able to feed herself with setup. Decreased safety awareness for such things as water on the floor. Pt left up at EOB with daughter present. Functional [place] Measure 0=Not Assessed/NA 4=Minimal Assistance 1=Total Assistance 5=Supervision or Setup 2=Maximal Assistance 6=Modified [place] 3=Moderate Assistance 7=Complete IndependenceIRFPAI Quality Coding Scale 6 Independent with activity with or without an assistive device 5 Patient requires set up or clean up by helper. Patient completes activity by themselves 4 Supervision or touching assist (CGA). [place] provide cues , steadying assist 3 The helper provides less than half the effort to complete the activity 2 The helper provides more than half the effort to complete the activity 1 Dependent. The helper does all the effort to complete an activity 7 Patient refused to complete or attempt activity 9 The patient did not perform the activity before the current illness or injury 88 Not attempted due to Medical conditions or safety concerns Eating (FIM): 5 (setup to open packages, prepare food. Able to feed herself and get a drink) Eating (QC): 5 Grooming (FIM): 5 (SBA standing at sink to brush teeth, comb hair. Cues to put on deodorant. Washed face and hands in shower.) Oral Hygiene (QC): 4 Bathing (FIM): 5 (SBA, supervision, setup. Washed and dried all parts. Shower bench, grab bars, hand held shower) Shower/Bathe Self (QC): 4 Upper Body Dressing (FIM): 5 (setup. Doffed and donned clothing. sBA) Upper Body Dressing (QC): 4 Lower Body Dressing (FIM): 5 (Doffed and donned clothing. SBA, setup) Lower Body Dressing (QC): 4 On/Off Footwear (QC): 4 (supervision) Toileting (FIM): 5 (SBA, tall toilet, grab bar. Managed clothing and hygiene) Toileting Hygiene (QC): 4 Toilet/Commode Transfer (FIM): 5 (SBA, tall toilet, grab bar) Toilet Transfer (QC): 4 Shower Transfer (FIM): 5 (SBA getting in and out of shower, grab bar) Education OT Patient Education: Modified ADL techniques, Purpose of tx/functional activities, Rehab process, Safety issues, Transfer techniques Teaching Recipient: Patient, Family Teaching Methods: Demonstration, Discussion Response to Teaching: Verbalize Understanding, Return Demonstration, Reinforcement Needed OT Short Term Goals Short Term Goals Time Frame: Oct 15, 2018 Eating(FIM): 6 Toileting(FIM): 6 Toilet/Commode Transfer(FIM): 6 Additional Short Term Goals: 1-Demonstrate ADL Tasks, 2-Verbalize Understanding , 3-ImproveStrength/[place]ra 1=Demonstrate adherence to instructed precautions during ADL tasks. 2=Patient will verbalize/demonstrate understanding of assistive devices/ modifications for ADL. 3=Patient will improve strength/tolerance for activity to enable patient to perform ADL's. OT Penitentiary Goals Penitentiary Goals Time Frame: Oct 26, 2018 Eating (FIM): 7 (no dentures) Eating (QC): 6 Groomin Oral Hygiene (QC): 6 Bathing(FIM): 6 Shower/Bathe Self (QC): 6 Upper Body Dressing(FIM): 6 Upper Body Dressing (QC): 6 Lower Body Dressing(FIM): 6 Lower Body Dressing (QC): 6 On/Off Footwear (QC): 6 Toileting(FIM): 6 Toileting Hygiene (QC): 6 Toilet/Commode Transfer(FIM): 6 Toilet/Commode Transfer (QC): 6 Shower Transfer(FIM): 6 Additional Goals: 1-Demonstrate ADL Tasks, 2-Verbalize Understanding, 3- ImproveStrength/Deidra 1=Demonstrate adherence to instructed precautions during ADL tasks. 2=Patient will verbalize/demonstrate understanding of assistive devices/ modifications for ADL. 3=Patient will improve strength/tolerance for activity to enable patient to perform ADL's. OT Education/Plan Problem List/Assessment Assessment: Decreased Activ Tolerance, Decreased Safety Aware, Decreased UE Strength, Impaired Cognition (Expressive aphasia), Impaired Self-Care Skills Pt would benefit from skilled OT to increase her independence in basic ADLs to allow her to safely return home to live with family Discharge Recommendations Plan/Recommendations: Continue POC Treatment Plan/Plan of Care Treatment,Training & Education: Yes Patient would benefit from OT for education, treatment and training to promote independence in ADL's, mobility, safety and/or upper extremity function for ADL' s. Plan of Care: ADL Retraining, Functional Mobility, Group Exercise/Act as Ind ( education, exercise, communication, socialization, functional activities), UE Funct Exercise/Act, UE Neuromus Re-Ed/Coord Treatment Duration: Oct 26, 2018 Frequency: At least 5 of 7 days/Wk (IRF) Estimated Hrs Per Day: 1.5 hours per day (1.25 to 1.5) Agreement: Yes Rehab Potential: Fair Time/GCodes Start Time: 10:40 Stop Time: 11:45 Total Time Billed (hr/min): 65 Billed Treatment Time visit, evaluation moderate intensity 15 minutes, ADL 50 minutes ZOLTAN JESSICA OT Oct 08, 2018 11:58
--- NOTE | 2018-10-08 14:30 | Therapy Group Daily Note ---
Therapy Daily Group Note Patient Education Topic Home Safety Exercises LE Seated Exercise, UE Exercise Other/Notes Pt ambulated to OT/PT group in therapy gym. Group consisted of introductions( name, place living, what brought you to rehab), socialization, pt led UE/LE seated exercises, ARU description and home safety activities. Pt was able to introduce name and place living with verbal cues, unable to answer question due to dysphagia. Pt actively listened to peers introduce themselves. Unable to join into conversations due to medical issues though did respond through gestures and facial expressions. Completed seat UE/LE exercises, did not lead an exercise. After therapy, pt lying in bed with call light/phone in reach. All needs met in room. Start Time: 13:00 Stop Time: 14:00 Total Billed Treatment Time: 60 Total Billed Treatment 1-GRP HERI COURTNEY Oct 08, 2018 14:30
--- NOTE | 2018-10-08 15:18 | PM & R (SOAP) Progress Note ---
Subjective This was a face to face visit with the patient. Date Seen by Provider: Oct 08, 2018 Time Seen by Provider: 08:00 Subjective/Events-last exam Patient was seen in her room this AM Adjusting well to unit Patient CGA for Gait without gait aide.Accucheks noted Review of Systems Neurological: Weakness Objective Physician Exam Last Set of Vital Signs Vital Signs Date Time Temp Pulse Resp B/P (MAP) Pulse Ox O2 Delivery O2 Flow Rate FiO2 10/08/18 09:00 Room Air 10/08/18 05:41 97.8 62 18 108/70 (83) 96 Capillary Refill : I&O Intake and Output 10/08/18 00:00 Daily Weight Change No General: Alert, Oriented X3, Cooperative, No Acute Distress HEENT: Atraumatic, PERRLA, EOMI, Mucous Memb Moist/[place], Other (Mild expressive aphasia) Neck: Supple, No JVD Lungs: Clear to Auscultation Heart: Regular Rate Abdomen: Normal Bowel Sounds, Soft, No Tenderness Extremities: No Edema Skin: No Rashes, No Breakdown Neuro: Other (Mild rt sided weakness and expressive aphasia) Results Lab Data Laboratory Tests 10/07/18 16:40: Glucometer 127H 10/08/18 05:18: Glucometer 120H Assessment/Plan Assessment and Plan Left MCA distribution stroke with RT HP improving s/p TPA DM 2 controlled HTN controlled HLP on statin Obesity DVT prophylaxis on SCDS Plan Continue Pt/OT ST to assess Teram Conference 10-10-18 Goal Discharge to home Modified Independent to supervision for adls and mobility skills Co-Morbidities that are continuing to impact the rehab process: (include details ) CESIA SLADE MD Oct 08, 2018 15:18
--- NOTE | 2018-10-08 15:18 | ST Cognitive Linguistic Eval ---
Speech Evaluation-General Medical Diagnosis CVA, R sided weakness Onset Date: Sep 22, 2018 Therapy Diagnosis Therapy Diagnosis: Expressive Aphasia Precautions Precautions: Fall Precautions/Isolations: Fall Prevention, Standard Precautions Medical History Pertinent Medical History: CAD, DM, HTN Reviewed History: Yes Social History Current Living Status: Children Speech PLF-Current Status Prior Level of Function Patient lived at home and was independent. Subjective Patient was pleasant and cooperative, however she does get frustrated when she can't find the words she wants to say. Language Eval: Auditory Comprehends Simple Yes/No Ques: Mild Follows 1-Step Commands: Moderate Language Eval: Verbal Language Completes Spontaneous Greeting: Functional Imitates Simple Words/Phrases: Mild Word Finding: Severe Requests Basic Needs: Moderate States Basic Personal Info: Moderate Expresses Complex Ideas: Severe Patient exhibits moderate to severe expressive aphasia. Language Evaluation: Reading Comprehends Single Nouns: Mild Follows Simple Written Direct: Mild Cognitive Patient Orientation Patient oriented to person and place. Objective Cognitive Domain Attention: Mild Memory: Mild Problem Solving: Mild Executive Functions: Mild Objective Formal/Standardized Tests WYNRT Results Yes/No reliability: Auditory Processing:Level I: Mild-Moderate /10, Level II Moderate /8, Level III: Moderate-severe 10/06 Impression Patient is a CVA patient who exhibits moderate to severe expressive aphasia. She becomes frustrated when she can't find the words to express her wants/needs or answer simple questions. Patient was able to express the correct response when a phonemic cue was provided. She is able to read simple words and/or phrases and would benefit from a picture board of basic needs. She is recommended for skilled ST services to help her with her expressive aphasia. Communication/Social Cognition Comprehension: 5 Expression: 1 Social Interaction: 3 Problem Solvin Memory: 3 Speech Patient Assess Expression of Ideas/Wants: Rarely/Never (1) Understanding Verbal Content: Sometimes Understands(2) Brief Interview-Mental Status: Yes Repetition of Three Words: Two (2) Temporal Orientation: Year: No answer (0) Temporal Orientation: Month: No answer (0) Temporal Orientation: Day: Incorrect or No Answer(0) Recall : Wear to say "Sock": No, could not recall (0) Recall : Color: No, could not recall (0) Recall : Bed: No, could not recall (0) Memory/Recall Ability: That he or she is in a hsp/hsp unit Speech Short Term Goals Short Term Goals Short Term Goals Patient will be able to name objects with phonemic cues at 80% accuracy. Patient will be able to follow 1 step directions with 80% accuracy. Time Frame-ST week Speech Longterm Goals Longterm Goals Patient will be able to effectively express her wants/needs with 90% accuracy, Speech-Plan Patient/Family Goals Patient/Family Goals: Patient plans on returning home. Treatment Plan Speech Therapy Treatment Plan: Continue Plan of Care Patient will benefit from skilled ST for expressive aphasia. Treatment Duration: Oct 15, 2018 Frequency: 5 times per week Estimated Hrs Per Day: .5 hour per day Rehab Potential: Fair Safety Risks/Education Teaching Recipient: Patient Teaching Methods: Discussion Response to Teaching: Verbalize Understanding Time Speech Therapy Time In: 14:00 Speech Therapy Time Out: 14:45 Total Billed Time: 45 Billed Treatment Time 1, OZIEL Henry Oct 08, 2018 15:18
[2018-10-08 15:47] VITALS: BP 102/59
[2018-10-09] MEDS: metFORMIN 500 MG (GLUCOPHAGE) TAB PO SCH ×2 (06:11→16:53)
[2018-10-09 06:54] VITALS: BP 134/73
[2018-10-09] MEDS: ATORVASTATIN 80 MG (LIPITOR) TABLET PO SCH (08:01)
[2018-10-09] MEDS: ASPIRIN 81 MG CHEW (CHILDREN'S ASA) PO SCH (08:01)
[2018-10-09] MEDS: DOCUSATE SODIUM 100 MG (COLACE) CAP PO SCH ×2 (08:01→20:27)
[2018-10-09] MEDS: FLUoxetine HCL 20 MG (PROzac) CAP PO SCH (08:01)
[2018-10-09] MEDS: lisINopril 10 MG (PRINIVIL) TABLET PO SCH (08:01)
--- NOTE | 2018-10-09 09:38 | Physical Therapy Daily Note ---
PT Daily Note-Current Subjective Pt laying Supine in bed upon arrival. Pt had barely touched her breakfast but stated she was full. Pt agrees to PT. Pain Location: No Pain Reported Mental Status Patient Orientation: Person, Place, Non-Verbal/Aphasic, Situation Transfers Functional [place] Measure 0=Not Assessed/NA 4=Minimal Assistance 1=Total Assistance 5=Supervision or Setup 2=Maximal Assistance 6=Modified [place] 3=Moderate Assistance 7=Complete IndependenceIRFPAI Quality Coding Scale 6 Independent with activity with or without an assistive device 5 Patient requires set up or clean up by helper. Patient completes activity by themselves 4 Supervision or touching assist (CGA). [place] provide cues , steadying assist 3 The helper provides less than half the effort to complete the activity 2 The helper provides more than half the effort to complete the activity 1 Dependent. The helper does all the effort to complete an activity 7 Patient refused to complete or attempt activity 9 The patient did not perform the activity before the current illness or injury 88 Not attempted due to Medical conditions or safety concerns Scootin Rollin Supine to/from Sit: 6 Sit to/from Stand: 5 Sit to Lying (QC): 5 Sit to Stand (QC): 5 Car Transfer (QC): 4 Weight Bearing Right Lower Extremity: Right Full Weight Bearing Left Lower Extremity: Left Full Weight Bearing Gait Training Does the Patient Walk?: Yes Distance (FIM): 3=150 ft Distance: 300' Walk 10 feet (QC): 5 Walk 50 ft with 2 Turns(QC): 5 Walk 150 ft (QC): 5 Gait Level of Assist: 5 Gait Persons Needed: 1 Gait Assistive Device: None Wheelchair Training Does the Pt Use a Wheelchair?: No Exercises Seated Therapy Exercises: Ankle pumps, Long arc quads, Hip flexion, Kicking activity, Hip abd/add Seated Reps: 15 NuStep Minutes: 15 NuStep Workload: 5 Treatments Pt transfers out of bed w/o AD at SBA. Pt uses restroom then rests at EOB. Pt completes Seated Ex at EOB then transfers to Standing and ambulates w/o AD at SBA. Pt uses NuStep for 15m at WL 5 followed by short rest break. Pt returns to room to rest in recliner at end of tx, awaiting OT. Pt has all needs met. Assessment Pt is improving with safety and independence of transfers and ambulation. Pt continuing to struggle with communication due to stroke. PT Short Term Goals Short Term Goals Time Frame: Oct 15, 2018 Gait (FIM): 5 Gait Distance Comment: 500' Gait Level of Assist: 5 Gait Assistive Device: None PT Mold Hoister Goals Correction Goals PT Mold Hoister Goals Time Frame: Oct 29, 2018 Transfers (B,C,W/C) (FIM): 7 Sit to Lying (QC): 6 Lying-Sitting on Side/Bed(QC): 6 Sit to Stand (QC): 6 Rollin Roll Left to Right (QC): 6 Chair/Igg-cd-Bpoto Xfer(QC): 6 Car Transfer (QC): 6 Gait (FIM): 7 Distance: 500' Walk 10 feet (QC): 6 Walk 10ft-Uneven Surface(QC): 6 Walk 50ft with 2 Turns (QC): 6 Walk 150 ft (QC): 6 Gait Level of Assist: 7 Gait Assistive Device: None Stairs (FIM): 6 # of Steps: 12 1 Step (curb) (QC): 6 4 Steps (QC): 6 12 Steps (QC): 6 Stairs Level Of Assist: 6 Picking up an Object (QC): 6 PT Plan Problem List Problem List: Activity Tolerance, Safety Treatment/Plan Treatment Plan: Continue Plan of Care Treatment Plan: Bed Mobility, Education, Functional Activity Deidra, Functional Strength, Group Therapy, Gait, Safety, Therapeutic Exercise, Transfers Treatment Duration: Oct 29, 2018 Frequency: At least 5 of 7 days/Wk (IRF) Estimated Hrs Per Day: 1.5 hours per day Patient and/or Family Agrees t: Yes Safety Risks/Education Patient Education: Transfer Techniques, Correct Positioning, Safety Issues Teaching Recipient: Patient Teaching Methods: Discussion Response to Teaching: Reinforcement Needed Time/GCodes Time In: 815 Time Out: 915 Total Billed Treatment Time: 60 Total Billed Treatment 1, FA (15m), GT (15m) & EX x2 (30m) G Codes Necessary: PARI Campbell DYNAMICS AX SOLUTION ARCHITECT Oct 09, 2018 09:38
--- NOTE | 2018-10-09 11:09 | Speech Therapy Daily Note ---
Speech Daily Progress Note Subjective Date Seen by Provider: Oct 09, 2018 Time Seen by Provider: 00:30 Patient was pleasant and cooperative. Objective Patient completed phrase completion exercises for word finding withm 70% accuracy given verbal and/or phonemic cues at 30%. Treatment Plan Continue Plan of Care Communication Comprehension: 5 Expression: 1 Social Cognition Social Interaction: 3 Problem Solvin Memory: 3 Speech Short Term Goals Short Term Goals Short Term Goals Patient will be able to name objects with phonemic cues at 80% accuracy. Patient will be able to follow 1 step directions with 80% accuracy. Time Frame-ST week Speech Pharmacy Technology Instructor Goals Pharmacy Technology Instructor Goals Patient will be able to effectively express her wants/needs with 90% accuracy, Speech-Plan Patient/Family Goals Patient/Family Goals: Patient plans to return home with her family as soon as possible. Treatment Plan Speech Therapy Treatment Plan: Continue Plan of Care Patient exhibited good improvement today. Treatment Duration: Oct 15, 2018 Frequency: 5 times per week Estimated Hrs Per Day: .5 hour per day Rehab Potential: Fair Barriers to Learning: Patient has difficulty with word finding/expression. Pt/Family Agrees to Plan: Yes Safety Risks/Education Teaching Recipient: Patient Teaching Methods: Discussion Response to Teaching: Verbalize Understanding Education Topics Provided: Patient was provided a communication board with basic everyday needs to help her get needs met. Time Speech Therapy Time In: 10:15 Speech Therapy Time Out: 10:45 Total Billed Time: 30 Billed Treatment Time 1 OZIEL IVY Oct 09, 2018 11:09
--- NOTE | 2018-10-09 12:54 | Occupational Ther Daily Note ---
OT Current Status-Daily Note Subjective Pt seen in room, up in recliner, agreeable to OT. No pain mentioned. Appearance Alert, cooperative Mental Status/Objective Functional [place] Measure 0=Not Assessed/NA 4=Minimal Assistance 1=Total Assistance 5=Supervision or Setup 2=Maximal Assistance 6=Modified [place] 3=Moderate Assistance 7=Complete [place] ADL-Treatment Pt got up from recliner without help, walked to closet to retrieve a clean shirt , walked to bathroom to toilet, changed shirts, stood at sink to brush teeth, all without assistance and with no LOB. She has been released to be up ad denis in her room. Mild safety concern that she is observant for hazards such as cords in her room. Functional [place] Measure 0=Not Assessed/NA 4=Minimal Assistance 1=Total Assistance 5=Supervision or Setup 2=Maximal Assistance 6=Modified [place] 3=Moderate Assistance 7=Complete IndependenceIRFPAI Quality Coding Scale 6 Independent with activity with or without an assistive device 5 Patient requires set up or clean up by helper. Patient completes activity by themselves 4 Supervision or touching assist (CGA). [place] provide cues , steadying assist 3 The helper provides less than half the effort to complete the activity 2 The helper provides more than half the effort to complete the activity 1 Dependent. The helper does all the effort to complete an activity 7 Patient refused to complete or attempt activity 9 The patient did not perform the activity before the current illness or injury 88 Not attempted due to Medical conditions or safety concerns Grooming (FIM): 6 (Brushed teeth at sink. No AD) Upper Body (FIM): 6 (Retrieved clothes from closet and changed without help) Toileting (FIM): 6 (Managed clothing and hygiene. Grab bar, tall toilet) Toilet/Commode Transfer (FIM): 6 (On/off tall toilet, with grab bar) Other Treatment Pt walked to gym, no LOB. Standardized testing completed for UE. R hand dominant Products Mechanical Design Engineer: R 37, 36, 32 lb Average 35# L 42, 45, 48 lb Average 45# Pinch in pounds R L Lateral 11 11 3 jaw 10 9 Tip 6 5 Box and Blocks Gross Motor R 34 blocks L 45 blocks 9 Hole Peg test R 29.96 seconds L 28.35 seconds Grooved Pegboard Unable to complete due to decreased vision but more difficulty with trial with R hand. Assessment: Decrease in R UE hand strength, coordination Pt walked back to room and got into bed at end of tx, all needs met. Education OT Patient Education: Purpose of tx/functional activities, Rehab process, Safety issues Teaching Recipient: Patient Teaching Methods: Demonstration, Discussion Response to Teaching: Verbalize Understanding, Return Demonstration, Reinforcement Needed OT Short Term Goals Short Term Goals Time Frame: Oct 15, 2018 Eating(FIM): 6 Toileting(FIM): 6 Toilet/Commode Transfer(FIM): 6 Additional Short Term Goals: 1-Demonstrate ADL Tasks, 2-Verbalize Understanding , 3-ImproveStrength/Deidra 1=Demonstrate adherence to instructed precautions during ADL tasks. 2=Patient will verbalize/demonstrate understanding of assistive devices/ modifications for ADL. 3=Patient will improve strength/tolerance for activity to enable patient to perform ADL's. OT Weight Loss Counselor Goals Weight Loss Counselor Goals Time Frame: Oct 26, 2018 Eating (FIM): 7 (no dentures) Eating (QC): 6 Groomin Oral Hygiene (QC): 6 Bathing(FIM): 6 Shower/Bathe Self (QC): 6 Upper Body Dressing(FIM): 6 Upper Body Dressing (QC): 6 Lower Body Dressing(FIM): 6 Lower Body Dressing (QC): 6 On/Off Footwear (QC): 6 Toileting(FIM): 6 Toileting Hygiene (QC): 6 Toilet/Commode Transfer(FIM): 6 Toilet/Commode Transfer (QC): 6 Shower Transfer(FIM): 6 Additional Goals: 1-Demonstrate ADL Tasks, 2-Verbalize Understanding, 3- ImproveStrength/Deidra 1=Demonstrate adherence to instructed precautions during ADL tasks. 2=Patient will verbalize/demonstrate understanding of assistive devices/ modifications for ADL. 3=Patient will improve strength/tolerance for activity to enable patient to perform ADL's. OT Education/Plan Problem List/Assessment Pt would benefit from skilled OT to increase her independence in basic ADLs to allow her to safely return home to live with family Discharge Recommendations Plan/Recommendations: Continue POC Treatment Plan/Plan of Care Patient would benefit from OT for education, treatment and training to promote independence in ADL's, mobility, safety and/or upper extremity function for ADL' s. Plan of Care: ADL Retraining, Functional Mobility, Group Exercise/Act as Ind ( education, exercise, communication, socialization, functional activities), UE Funct Exercise/Act, UE Neuromus Re-Ed/Coord Treatment Duration: Oct 26, 2018 Frequency: At least 5 of 7 days/Wk (IRF) Estimated Hrs Per Day: 1.5 hours per day (1.25 to 1.5) Agreement: Yes Rehab Potential: Fair Time/GCodes Start Time: 09:30 Stop Time: 10:15 Total Time Billed (hr/min): 45 Billed Treatment Time visit, 20 minutes ADL. 25 minutes neuromotor ZOLTAN JESSICA OT Oct 09, 2018 12:54
--- NOTE | 2018-10-09 14:00 | Occupational Ther Daily Note ---
OT Current Status-Daily Note Subjective Pt seen in gym after PT, no pain mentioned. Appearance Alert, cooperative Mental Status/Objective Functional [place] Measure 0=Not Assessed/NA 4=Minimal Assistance 1=Total Assistance 5=Supervision or Setup 2=Maximal Assistance 6=Modified [place] 3=Moderate Assistance 7=Complete [place] ADL-Treatment Functional [place] Measure 0=Not Assessed/NA 4=Minimal Assistance 1=Total Assistance 5=Supervision or Setup 2=Maximal Assistance 6=Modified [place] 3=Moderate Assistance 7=Complete IndependenceIRFPAI Quality Coding Scale 6 Independent with activity with or without an assistive device 5 Patient requires set up or clean up by helper. Patient completes activity by themselves 4 Supervision or touching assist (CGA). [place] provide cues , steadying assist 3 The helper provides less than half the effort to complete the activity 2 The helper provides more than half the effort to complete the activity 1 Dependent. The helper does all the effort to complete an activity 7 Patient refused to complete or attempt activity 9 The patient did not perform the activity before the current illness or injury 88 Not attempted due to Medical conditions or safety concerns Other Treatment Pt completed arc activity x 2 sets on short extension, 1 set medium extension. Also completed nuts and bolts activity with 1# weight on each arm. She had difficulty reassembling the nuts, bolts and washers but completed 08/05 herself, although with trial and error. Activities to work on strength, coordination, problem solving. Pt walked back to room without help and got into bed, all needs met. Education OT Patient Education: Progress toward Goal/Update tx plan, Purpose of tx/ functional activities Teaching Recipient: Patient Teaching Methods: Discussion Response to Teaching: Verbalize Understanding OT Short Term Goals Short Term Goals Time Frame: Oct 15, 2018 Eating(FIM): 6 Toileting(FIM): 6 Toilet/Commode Transfer(FIM): 6 Additional Short Term Goals: 1-Demonstrate ADL Tasks, 2-Verbalize Understanding , 3-ImproveStrength/Deidra 1=Demonstrate adherence to instructed precautions during ADL tasks. 2=Patient will verbalize/demonstrate understanding of assistive devices/ modifications for ADL. 3=Patient will improve strength/tolerance for activity to enable patient to perform ADL's. OT Senior Care Goals Commercial Glazier Goals Time Frame: Oct 26, 2018 Eating (FIM): 7 (no dentures) Eating (QC): 6 Groomin Oral Hygiene (QC): 6 Bathing(FIM): 6 Shower/Bathe Self (QC): 6 Upper Body Dressing(FIM): 6 Upper Body Dressing (QC): 6 Lower Body Dressing(FIM): 6 Lower Body Dressing (QC): 6 On/Off Footwear (QC): 6 Toileting(FIM): 6 Toileting Hygiene (QC): 6 Toilet/Commode Transfer(FIM): 6 Toilet/Commode Transfer (QC): 6 Shower Transfer(FIM): 6 Additional Goals: 1-Demonstrate ADL Tasks, 2-Verbalize Understanding, 3- ImproveStrength/Deidra 1=Demonstrate adherence to instructed precautions during ADL tasks. 2=Patient will verbalize/demonstrate understanding of assistive devices/ modifications for ADL. 3=Patient will improve strength/tolerance for activity to enable patient to perform ADL's. OT Education/Plan Problem List/Assessment Pt would benefit from skilled OT to increase her independence in basic ADLs to allow her to safely return home to live with family Discharge Recommendations Plan/Recommendations: Continue POC Treatment Plan/Plan of Care Patient would benefit from OT for education, treatment and training to promote independence in ADL's, mobility, safety and/or upper extremity function for ADL' s. Plan of Care: ADL Retraining, Functional Mobility, Group Exercise/Act as Ind ( education, exercise, communication, socialization, functional activities), UE Funct Exercise/Act, UE Neuromus Re-Ed/Coord Treatment Duration: Oct 26, 2018 Frequency: At least 5 of 7 days/Wk (IRF) Estimated Hrs Per Day: 1.5 hours per day (1.25 to 1.5) Agreement: Yes Rehab Potential: Fair Time/GCodes Start Time: 13:15 Stop Time: 13:45 Total Time Billed (hr/min): 30 Billed Treatment Time visit, 30 minutes exercise ZOLTAN JESSICA OT Oct 09, 2018 14:00
--- NOTE | 2018-10-09 15:01 | Physical Therapy Daily Note ---
PT Daily Note-Current Subjective Pt laying Left sidelying upon arrival. Pt agrees to PT. Pain Location: No Pain Reported Mental Status Patient Orientation: Person, Place, Non-Verbal/Aphasic, Situation Transfers Functional [place] Measure 0=Not Assessed/NA 4=Minimal Assistance 1=Total Assistance 5=Supervision or Setup 2=Maximal Assistance 6=Modified [place] 3=Moderate Assistance 7=Complete IndependenceIRFPAI Quality Coding Scale 6 Independent with activity with or without an assistive device 5 Patient requires set up or clean up by helper. Patient completes activity by themselves 4 Supervision or touching assist (CGA). [place] provide cues , steadying assist 3 The helper provides less than half the effort to complete the activity 2 The helper provides more than half the effort to complete the activity 1 Dependent. The helper does all the effort to complete an activity 7 Patient refused to complete or attempt activity 9 The patient did not perform the activity before the current illness or injury 88 Not attempted due to Medical conditions or safety concerns Scootin Supine to/from Sit: 6 Sit to/from Stand: 5 Sit to Lying (QC): 5 Sit to Stand (QC): 5 Weight Bearing Right Lower Extremity: Right Full Weight Bearing Left Lower Extremity: Left Full Weight Bearing Gait Training Does the Patient Walk?: Yes Distance (FIM): 3=150 ft Distance: 150' Walk 10 feet (QC): 5 Walk 50 ft with 2 Turns(QC): 5 Walk 150 ft (QC): 5 Gait Level of Assist: 5 Gait Persons Needed: 1 Gait Assistive Device: None Wheelchair Training Does the Pt Use a Wheelchair?: No Exercises Seated Therapy Exercises: Ankle pumps, Long arc quads, Hip flexion, Kicking activity, Hip abd/add Seated Reps: 15 Treatments Pt transfers from bed to standing w/o AD at [facility]. Pt uses restroom then ambulates to Therapy Gym to complete Seated EX in chair. Pt rests after this to await OT tx. Pt has all needs met. Assessment Current Status: Good Progress Pt at times needs both VC & Phys. Cues to complete Ex. PT Short Term Goals Short Term Goals Time Frame: Oct 15, 2018 Gait (FIM): 5 Gait Distance Comment: 500' Gait Level of Assist: 5 Gait Assistive Device: None PT Usp Goals Usp Goals PT Commercial Relationship Manager Goals Time Frame: Oct 29, 2018 Transfers (B,C,W/C) (FIM): 7 Sit to Lying (QC): 6 Lying-Sitting on Side/Bed(QC): 6 Sit to Stand (QC): 6 Rollin Roll Left to Right (QC): 6 Chair/Lel-ym-Xdqau Xfer(QC): 6 Car Transfer (QC): 6 Gait (FIM): 7 Distance: 500' Walk 10 feet (QC): 6 Walk 10ft-Uneven Surface(QC): 6 Walk 50ft with 2 Turns (QC): 6 Walk 150 ft (QC): 6 Gait Level of Assist: 7 Gait Assistive Device: None Stairs (FIM): 6 # of Steps: 12 1 Step (curb) (QC): 6 4 Steps (QC): 6 12 Steps (QC): 6 Stairs Level Of Assist: 6 Picking up an Object (QC): 6 PT Plan Problem List Problem List: Activity Tolerance Treatment/Plan Treatment Plan: Continue Plan of Care Treatment Plan: Bed Mobility, Education, Functional Activity Deidra, Functional Strength, Group Therapy, Gait, Safety, Therapeutic Exercise, Transfers Treatment Duration: Oct 29, 2018 Frequency: At least 5 of 7 days/Wk (IRF) Estimated Hrs Per Day: 1.5 hours per day Patient and/or Family Agrees t: Yes Safety Risks/Education Patient Education: Correct Positioning, Safety Issues Teaching Recipient: Patient Teaching Methods: Discussion Response to Teaching: Verbalize Understanding Time/GCodes Time In: 1300 Time Out: 1315 Total Billed Treatment Time: 15 Total Billed Treatment 1, FA (15m) G Codes Necessary: PARI Campbell TECHNICAL SUPERVISOR Oct 09, 2018 15:01
[2018-10-09 15:42] VITALS: BP 103/53
--- NOTE | 2018-10-09 17:08 | Individualized Plan of Care ---
Individualized Plan of Care Rehab Nursing IPOC Order Admission Date Oct 07, 2018 at 14:25 Current Orders Orders Admission Arrival Bed Request (10/07/18 14:25) Admission Order(Inpt,Obs,Sdc) (10/07/18 14:27) Code/Resuscitation (10/07/18 14:27) Initiate Admission Nursing Pro .admission (10/07/18 14:27) Isolation Central Supply Req (10/07/18 14:27) Edu Tobacco/Smoking Cessation .prn (10/07/18 14:39) Ambulate 08,12,20 (10/07/18 14:41) Sequential Compression Device 08,20 (10/07/18 14:41) Dvt/Vte Risk - Notifiy Physici 08 (10/07/18 14:41) Speech Therapy Orders (10/07/18 14:47) Aspirin Chewable Tablet (Baby Aspirin Ch (10/08/18 09:00) Atorvastatin Tablet (Lipitor) (10/08/18 09:00) Docusate Sodium Capsule (Colace Capsule) (10/07/18 21:00) Fluoxetine Capsule (Prozac Capsule) (10/08/18 09:00) Lisinopril Tablet (Zestril Tablet) (10/08/18 09:00) Metformin Tablet (Glucophage Tablet) (10/07/18 17:00) Follow-Up Appointment (10/07/18 14:47) Accucheck Bid DBID (10/07/18 14:56) Consult Physician (10/07/18 14:58) Atorvastatin Tablet (Lipitor Tablet) (10/08/18 09:00) Influenza Quad (5+[place]) 2017- (Afluria (10/07/18 15:30) Cho 60g/M 0snack (16-2000 [place]) (10/07/18 Lunch) Request Ot Evaluate & Treat (10/08/18 06:53) Pt Evaluate/Treat Request (10/08/18 06:53) Cho 60g/M 0snack (16-2000 [place]) (10/08/18 Lunch) Patient Visit (10/08/18 ) Pt Eval Moderate Complexity (10/08/18 ) Gait Training, Ea 15 Min (10/08/18 ) Exercise Therap, Ea 15 Min (10/08/18 ) Patient Visit (10/08/18 ) Patient Visit (10/08/18 ) Speech Sound Lang Comp (10/08/18 ) Patient Visit (10/09/18 ) Treat. Speech/Lang/Voice (10/09/18 ) Patient Visit (10/09/18 ) Functional Activities, Ea 15 (10/09/18 ) Gait Training, Ea 15 Min (10/09/18 ) Exercise Therap, Ea 15 Min (10/09/18 ) Rehab Nursing Orders: Ongoing Assess. of Cognitive Status, Ongoing Assess. of Function Status, Disease Management & Educaiton, DVT Prophylaxis, Fall Prevention, Fluid/Electrolyte/Nutrition Mgmt, Infection Prevention, Medication Management & Education, Management of Risks & Complications, Management of Skin Intergrity, Nutrition Management, Pain Management, Patient/Family Support, Safety Management PT IPOC Problem List: Activity Tolerance Treatment Plan: Continue Plan of Care Bed Mobility, Education, Functional Activity Deidra, Functional Strength, Group Therapy, Gait, Safety, Therapeutic Exercise, Transfers Treatment Duration: Oct 29, 2018 Frequency: At least 5 of 7 days/Wk (IRF) Estimated Hrs Per Day: 1.5 hours per day OT IPOC Problems: Decreased Activ Tolerance, Decreased Safety Aware, Decreased UE Strength, Impaired Cognition (Expressive aphasia), Impaired Self-Care Skills OT Treatment, Training and Edu: Yes OT Problems Pt would benefit from skilled OT to increase her independence in basic ADLs to allow her to safely return home to live with family Plan of Care: ADL Retraining, Functional Mobility, Group Exercise/Act as Ind ( education, exercise, communication, socialization, functional activities), UE Funct Exercise/Act, UE Neuromus Re-Ed/Coord Treatment Duration: Oct 26, 2018 Frequency: At least 5 of 7 days/Wk (IRF) Estimated Hrs Per Day: 1.5 hours per day (1.25 to 1.5) ST IPOC Speech Therapy Treatment Plan: Continue Plan of Care Treatment Duration: Oct 15, 2018 Frequency: 5 times per week Estimated Hrs Per Day: .5 hour per day Soft Mud Molder/Case Mgmt Soft Mud Molder/Case Managemen: Discharge Planning, Patient/Family Counseling Dietitian/Shoe Salesman Dietitian/Shoe Salesman to monitor nutritional status and make changes and/or recommendations as needed and work with speech pathology on dietary upgrades as the occur. 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 Medical Issues: DVT Prophylaxis, Falls Precautions, Fluid/Electrolyte/ Nutrition Balance, Infection Protection, Other (List) (as per above) Brief Synthesis of Preadmission Screen, Post-Admission Evaluation, and Therapy Evaluations: 63 yo female with sustained a left sided stroke with resulting RT HP and a decline in Functional [place].She lives with her daughter and [facility] is health care provider.PMH DM2 HTN HLP Medical Prognosis: good Anticipated Length of Stay: 10-26-18 Modified Independent for adls and mobility skills Anticipated d/c Destination: Home with daughter CESIA SLADE MD Oct 09, 2018 17:08
[2018-10-10 05:26] VITALS: BP 132/66
[2018-10-10] MEDS: metFORMIN 500 MG (GLUCOPHAGE) TAB PO SCH ×2 (06:13→17:56)
[2018-10-10] MEDS: ATORVASTATIN 80 MG (LIPITOR) TABLET PO SCH (07:57)
[2018-10-10] MEDS: ASPIRIN 81 MG CHEW (CHILDREN'S ASA) PO SCH (07:57)
[2018-10-10] MEDS: DOCUSATE SODIUM 100 MG (COLACE) CAP PO SCH ×2 (07:58→20:35)
[2018-10-10] MEDS: FLUoxetine HCL 20 MG (PROzac) CAP PO SCH (07:58)
[2018-10-10] MEDS: lisINopril 10 MG (PRINIVIL) TABLET PO SCH (07:58)
--- NOTE | 2018-10-10 08:28 | Occupational Ther Daily Note ---
OT Current Status-Daily Note Subjective Pt alert, lying in bed. Pt agrees to therapy. No c/o pain at this time. Mental Status/Objective Patient Orientation: Person, Place, Non-Verbal/Aphasic, Time, Situation Functional [place] Measure 0=Not Assessed/NA 4=Minimal Assistance 1=Total Assistance 5=Supervision or Setup 2=Maximal Assistance 6=Modified [place] 3=Moderate Assistance 7=Complete [place] ADL-Treatment Declines shower. Standing at sink, pt washed and completed grooming. Pt had clothes hung out in bathroom and donned by self. Pt sat on bed to don socks. Functional [place] Measure 0=Not Assessed/NA 4=Minimal Assistance 1=Total Assistance 5=Supervision or Setup 2=Maximal Assistance 6=Modified [place] 3=Moderate Assistance 7=Complete IndependenceIRFPAI Quality Coding Scale 6 Independent with activity with or without an assistive device 5 Patient requires set up or clean up by helper. Patient completes activity by themselves 4 Supervision or touching assist (CGA). [place] provide cues , steadying assist 3 The helper provides less than half the effort to complete the activity 2 The helper provides more than half the effort to complete the activity 1 Dependent. The helper does all the effort to complete an activity 7 Patient refused to complete or attempt activity 9 The patient did not perform the activity before the current illness or injury 88 Not attempted due to Medical conditions or safety concerns Eating (FIM): 7 (Opens packages/containers then uses regular utensils to feed self.) Eating (QC): 6 Grooming (FIM): 7 Oral Hygiene (QC): 6 Upper Body (FIM): 7 Upper Body Dressing (QC): 6 Lower Body Dressing (FIM): 7 Lower Body Dressing (QC): 6 On/Off Footwear (QC): 6 Toileting (FIM): 7 (Completes toileting by self.) Toileting Hygiene (QC): 6 Transfers (B, C, W/C) (FIM): 7 Toilet/Commode Transfer (FIM): 7 Toilet Transfer (QC): 6 Other Treatment Pt ambulated to and from therapy gym by self. Arm bike completed for 15 min at 20 alcantar resistance to increase strength, activity tolerance and motor coordination. Visual perceptual tasks completed to work on dexterity, motor planning and problems solving. Pt able to complete drawing complex shapes from model with no verbal/physical cues. Color coded clothespin activity to work on multiple step tasks. Pt required cues and affirmation that tasks was complete correctly. After therapy, pt lying in bed with call light/phone in reach. All needs met in room. OT Short Term Goals Short Term Goals Time Frame: Oct 15, 2018 Eating(FIM): 6 Toileting(FIM): 6 Toilet/Commode Transfer(FIM): 6 Additional Short Term Goals: 1-Demonstrate ADL Tasks, 2-Verbalize Understanding , 3-ImproveStrength/Deidra 1=Demonstrate adherence to instructed precautions during ADL tasks. 2=Patient will verbalize/demonstrate understanding of assistive devices/ modifications for ADL. 3=Patient will improve strength/tolerance for activity to enable patient to perform ADL's. OT Residential Goals Meat Molder Goals Time Frame: Oct 26, 2018 Eating (FIM): 7 (no dentures) Eating (QC): 6 Groomin Oral Hygiene (QC): 6 Bathing(FIM): 6 Shower/Bathe Self (QC): 6 Upper Body Dressing(FIM): 6 Upper Body Dressing (QC): 6 Lower Body Dressing(FIM): 6 Lower Body Dressing (QC): 6 On/Off Footwear (QC): 6 Toileting(FIM): 6 Toileting Hygiene (QC): 6 Toilet/Commode Transfer(FIM): 6 Toilet/Commode Transfer (QC): 6 Shower Transfer(FIM): 6 Additional Goals: 1-Demonstrate ADL Tasks, 2-Verbalize Understanding, 3- ImproveStrength/Deidra 1=Demonstrate adherence to instructed precautions during ADL tasks. 2=Patient will verbalize/demonstrate understanding of assistive devices/ modifications for ADL. 3=Patient will improve strength/tolerance for activity to enable patient to perform ADL's. OT Education/Plan Problem List/Assessment Pt would benefit from skilled OT to increase her independence in basic ADLs to allow her to safely return home to live with family Discharge Recommendations Plan/Recommendations: Continue POC Treatment Plan/Plan of Care Patient would benefit from OT for education, treatment and training to promote independence in ADL's, mobility, safety and/or upper extremity function for ADL' s. Plan of Care: ADL Retraining, Functional Mobility, Group Exercise/Act as Ind ( education, exercise, communication, socialization, functional activities), UE Funct Exercise/Act, UE Neuromus Re-Ed/Coord Treatment Duration: Oct 26, 2018 Frequency: At least 5 of 7 days/Wk (IRF) Estimated Hrs Per Day: 1.5 hours per day (1.25 to 1.5) Agreement: Yes Rehab Potential: Fair Time/GCodes Start Time: 07:00 Stop Time: 08:15 Total Time Billed (hr/min): 75 Billed Treatment Time 1 visit-ADL 1 (20 min) NM 4 (55 min) HERI COURTNEY Oct 10, 2018 08:28
--- NOTE | 2018-10-10 08:34 | PM & R (SOAP) Progress Note ---
Subjective This was a face to face visit with the patient. Date Seen by Provider: Oct 10, 2018 Time Seen by Provider: 08:25 Subjective/Events-last exam Patient was seen in her room this AM Patient SBA for transfers remains with expressive aphasia Review of Systems HEENT: Other (aphasia) Objective Physician Exam Last Set of Vital Signs Vital Signs Date Time Temp Pulse Resp B/P (MAP) Pulse Ox O2 Delivery O2 Flow Rate FiO2 10/10/18 05:26 97.2 59 18 132/66 (88) 96 Room Air Capillary Refill : I&O Intake and Output 10/10/18 00:00 Intake Total 1440 ml Output Total 1 ml Balance 1439 ml Intake Oral 1440 ml Output Stool Total 1 ml # Voids 7 General: Alert, Oriented X3, Cooperative, No Acute Distress HEENT: Atraumatic, PERRLA, EOMI, Mucous Memb Moist/[place], Other (Mild expressive aphasia) Neck: Supple, No JVD Lungs: Clear to Auscultation Heart: Regular Rate Abdomen: Normal Bowel Sounds, Soft, No Tenderness Extremities: No Edema Skin: No Rashes, No Breakdown Neuro: Other (Mild rt sided weakness and expressive aphasia) Results Lab Data Laboratory Tests 10/07/18 16:40: Glucometer 127H 10/08/18 05:18: Glucometer 120H 10/08/18 15:45: Glucometer 145H 10/09/18 05:24: Glucometer 128H 10/09/18 15:40: Glucometer 121H 10/10/18 04:26: Glucometer 116H Assessment/Plan Assessment and Plan 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
--- NOTE | 2018-10-10 10:06 | Speech Therapy Daily Note ---
Speech Daily Progress Note Subjective Date Seen by Provider: Oct 10, 2018 Time Seen by Provider: 00:30 Patient was in her bed watching television when I arrived in her room. Objective Patient completed word finding tasks with 60% accuracy given moderate verbal and /or phonemic cues. Assessment Assessment Current Status: Fair Progress Treatment Plan Continue Plan of Care Communication Comprehension: 5 Expression: 1 Social Cognition Social Interaction: 3 Problem Solvin Memory: 3 Speech Short Term Goals Short Term Goals Short Term Goals Patient will be able to name objects with phonemic cues at 80% accuracy. Patient will be able to follow 1 step directions with 80% accuracy. Time Frame-ST week Speech Cruller Maker Machine Goals Cruller Maker Machine Goals Patient will be able to effectively express her wants/needs with 90% accuracy, Speech-Plan Patient/Family Goals Patient/Family Goals: Patient plans to return to her home with family. Treatment Plan Speech Therapy Treatment Plan: Continue Plan of Care Patient has made slight progress with word finding given moderate verbal and/or phonemic cues. Treatment Duration: Oct 15, 2018 Frequency: 5 times per week Estimated Hrs Per Day: .5 hour per day Rehab Potential: Fair Pt/Family Agrees to Plan: Yes Safety Risks/Education Teaching Recipient: Patient Teaching Methods: Discussion Response to Teaching: Verbalize Understanding Education Topics Provided: Educated in utiliztion of her communication board. Time Speech Therapy Time In: 09:30 Speech Therapy Time Out: 10:00 Total Billed Time: 30 Billed Treatment Time 1[address] Oct 10, 2018 10:06
--- NOTE | 2018-10-10 11:52 | Physical Therapy Daily Note ---
PT Daily Note-Current Subjective Pt Left sidelying upon arrival. Pt agrees to PT. Pt is Ad denis in room and declines using restroom before tx. Pain Location: No Pain Reported Mental Status Patient Orientation: Person, Place, Non-Verbal/Aphasic Transfers Functional [place] Measure 0=Not Assessed/NA 4=Minimal Assistance 1=Total Assistance 5=Supervision or Setup 2=Maximal Assistance 6=Modified [place] 3=Moderate Assistance 7=Complete IndependenceIRFPAI Quality Coding Scale 6 Independent with activity with or without an assistive device 5 Patient requires set up or clean up by helper. Patient completes activity by themselves 4 Supervision or touching assist (CGA). [place] provide cues , steadying assist 3 The helper provides less than half the effort to complete the activity 2 The helper provides more than half the effort to complete the activity 1 Dependent. The helper does all the effort to complete an activity 7 Patient refused to complete or attempt activity 9 The patient did not perform the activity before the current illness or injury 88 Not attempted due to Medical conditions or safety concerns Scootin Rollin Supine to/from Sit: 6 Sit to/from Stand: 6 Sit to Lying (QC): 6 Sit to Stand (QC): 6 Weight Bearing Right Lower Extremity: Right Full Weight Bearing Left Lower Extremity: Left Full Weight Bearing Gait Training Does the Patient Walk?: Yes Distance (FIM): 3=150 ft Distance: 1000' Walk 10 feet (QC): 6 Walk 50 ft with 2 Turns(QC): 6 Walk 150 ft (QC): 6 Gait Level of Assist: 6 Gait Persons Needed: 1 Gait Assistive Device: None Pt needs VC for direction at times. Wheelchair Training Does the Pt Use a Wheelchair?: No Stair Training Stair Training: Handrails/: 2 handrails #of Steps: 12 1 Step (curb) (QC): 6 4 Steps (QC): 6 12 Steps (QC): 6 Stairs: Pattern: Reciprocal Level of Assist: 6 Exercises Seated Therapy Exercises: Ankle pumps, Long arc quads, Hip flexion, Kicking activity, Hip abd/add (10 reps) Seated Reps: 20 Treatments Pt transfers from bed to standing w/o AD at [facility]. Pt ambulates in Therapy Commons as well as throughout main floor of hospital w/o AD at [facility]. Pt works on problem solving, following directions, balance and walking during activity. Pt needs occasional rest breaks during ambulation. Pt returns to ARU and completes 12 steps before short rest then Seated Ex. Pt returns to room at end of tx with all needs met. Assessment Current Status: Good Progress Pt continues to struggle with verbal skills & problem solving during tx. PT Short Term Goals Short Term Goals Time Frame: Oct 15, 2018 Gait (FIM): 5 Gait Distance Comment: 500' Gait Level of Assist: 5 Gait Assistive Device: None PT Shelter Goals Airbrush Painter Goals PT Shelter Goals Time Frame: Oct 29, 2018 Transfers (B,C,W/C) (FIM): 7 Sit to Lying (QC): 6 Lying-Sitting on Side/Bed(QC): 6 Sit to Stand (QC): 6 Rollin Roll Left to Right (QC): 6 Chair/[id number] Xfer(QC): 6 Car Transfer (QC): 6 Gait (FIM): 7 Distance: 500' Walk 10 feet (QC): 6 Walk 10ft-Uneven Surface(QC): 6 Walk 50ft with 2 Turns (QC): 6 Walk 150 ft (QC): 6 Gait Level of Assist: 7 Gait Assistive Device: None Stairs (FIM): 6 # of Steps: 12 1 Step (curb) (QC): 6 4 Steps (QC): 6 12 Steps (QC): 6 Stairs Level Of Assist: 6 Picking up an Object (QC): 6 PT Plan Problem List Problem List: Activity Tolerance, Safety Treatment/Plan Treatment Plan: Continue Plan of Care Treatment Plan: Bed Mobility, Education, Functional Activity Deidra, Functional Strength, Group Therapy, Gait, Safety, Therapeutic Exercise, Transfers Treatment Duration: Oct 29, 2018 Frequency: At least 5 of 7 days/Wk (IRF) Estimated Hrs Per Day: 1.5 hours per day Patient and/or Family Agrees t: Yes Safety Risks/Education Patient Education: Gait Training, Correct Positioning, Safety Issues Teaching Recipient: Patient Teaching Methods: Discussion Response to Teaching: Reinforcement Needed Time/GCodes Time In: 1000 Time Out: 1115 Total Billed Treatment Time: 75 Total Billed Treatment 1, GT x2 (30m), FA x2 (30m) & EX (15m) G Codes Necessary: PARI Campbell SALVAGE INSPECTOR Oct 10, 2018 11:52
[2018-10-10 18:00] VITALS: BP 127/56
--- NOTE | 2018-10-10 19:10 | Consultation (CHS) ---
HPI History of Present Illness: 63 yo female that was transferred to for L CVA s/p TPA administration now transferred back to for Rehab. Patient has a history of NIDDM, HTN, HLD and depression. Source: patient, family, RN/MD, old records Exam Limitations: no limitations Date seen by provider: Oct 10, 2018 Time Seen by Provider: 10:50 Attending Physician Festus Glez MD PCP Bc Car MD Consult Date of Admission Oct 07, 2018 at 14:25 Home Medications Home Medications Reviewed patient Home Medication Reconciliation performed by pharmacy medication reconciliations respiratory therapy technician and/or nursing. Patients Allergies have been reviewed. Allergies Coded Allergies: Sulfa (Sulfonamide Antibiotics) (Verified Adverse Reaction, Unknown, NAUSEA, 09/22/18) [id number]-Lvvyyj Hx Patient Social History Marrital Status: Living Status: Lives at home, previously independent Smoking Status: Current Everyday Smoker Type Used: Cigarettes 2nd Hand Smoke Exposure: Yes Recent Foreign Travel: No Contact w/other who traveled: No Recent Hopitalizations: No Recent Infectious Disease Expo: No Immunizations Up To Date Tetanus Booster (TDap): Unknown Past Medical History NIDDM HTN HLD L CVA Depression Family Medical History Significant Family History: Heart Disease, Hypertension Review of Systems ([facility]) Constitutional: no symptoms reported EENTM: no symptoms reported Respiratory: no symptoms reported Cardiovascular: no symptoms reported Gastrointestinal: no symptoms reported Genitourinary: no symptoms reported : No Musculoskeletal: muscle pain Skin: no symptoms reported Psychiatric/Neurological: Depressed Physical Exam-([facility]) Physical Exam Vital Signs VS - Last 72 Hours, by Label 10/10/18 10/10/18 10/10/18 10/10/18 05:26 09:00 18:00 21:00 Temp 97.2 97.0 Pulse 59 59 Resp 18 18 B/P (MAP) 132/66 (88) 127/56 (79) Pulse Ox 96 96 O2 Delivery Room Air Room Air Room Air Room Air 10/11/18 10/11/18 10/11/18 10/11/18 06:40 07:34 14:00 21:25 Temp 97.8 97.0 Pulse 67 65 Resp 18 22 B/P (MAP) 132/76 (94) 134/77 (96) Pulse Ox 97 96 O2 Delivery Room Air Room Air Room Air Room Air 10/11/18 10/12/18 10/12/18 10/12/18 21:32 05:05 09:00 18:00 Temp 97.4 97.8 97.4 Pulse 66 65 57 Resp 16 16 24 B/P (MAP) 90/51 (64) 108/71 (83) 112/73 (86) Pulse Ox 99 97 98 O2 Delivery Room Air Room Air Room Air Room Air 10/12/18 20:44 O2 Delivery Room Air Capillary Refill : General Appearance: WD/WN, no apparent distress HEENT: PERRL/EOMI Neck: non-tender, full range of motion, supple, normal inspection Respiratory: chest non-tender, lungs clear, normal breath sounds, no respiratory distress, no accessory muscle use Cardiovascular: normal peripheral pulses, regular rate, rhythm, no edema, no murmur Gastrointestinal: normal bowel sounds, non tender, soft, no organomegaly Back: no CVA tenderness, no vertebral tenderness Extremities: normal range of motion, non-tender, normal inspection, no pedal edema, no calf tenderness, normal capillary refill Neurologic/Psychiatric: combination building inspector II-XII nml as tested, alert, normal mood/affect, oriented x 3 Skin: normal color, warm/dry Lymphatic: no adenopathy Assessment/Plan Assessment/Plan (1) Left-sided cerebrovascular accident (CVA) Status: Acute Assessment & Plan: - Acute Rehab (2) Non-insulin dependent type 2 diabetes mellitus Status: Chronic Assessment & Plan: - Controlled with Metformin, continue home meds (3) HTN (hypertension) Status: Chronic Assessment & Plan: - Controlled, continue home meds Qualifiers: Qualified Codes: I10 - Essential (primary) hypertension (4) HLD (hyperlipidemia) Status: Acute Assessment & Plan: - Continue statin Qualifiers: Qualified Codes: E78.2 - Mixed hyperlipidemia (5) Depression Status: Chronic Assessment & Plan: - Controlled, continue home meds Qualifiers: Qualified Codes: F33.1 - Major depressive disorder, recurrent, moderate Clinical Quality Measures DVT/VTE Risk/Contraindication: Risk Factor Score Per Nursin RFS Level Per Nursing on Admit: 4+=Very High VINEET IRAHETA MD Oct 10, 2018 19:10
[2018-10-11] MEDS: metFORMIN 500 MG (GLUCOPHAGE) TAB PO SCH ×2 (06:05→21:28)
[2018-10-11 06:40] VITALS: BP 132/76
[2018-10-11] MEDS: DOCUSATE SODIUM 100 MG (COLACE) CAP PO SCH ×2 (07:31→21:29)
[2018-10-11] MEDS: FLUoxetine HCL 20 MG (PROzac) CAP PO SCH (07:31)
[2018-10-11] MEDS: ASPIRIN 81 MG CHEW (CHILDREN'S ASA) PO SCH (07:31)
[2018-10-11] MEDS: ATORVASTATIN 80 MG (LIPITOR) TABLET PO SCH (07:31)
[2018-10-11] MEDS: lisINopril 10 MG (PRINIVIL) TABLET PO SCH (07:31)
--- NOTE | 2018-10-11 07:36 | Occupational Ther Daily Note ---
OT Current Status-Daily Note Subjective Pt seen in room, up in bed, agreeable to OT. No pain mentioned. Appearance Alert, cooperative Mental Status/Objective Functional [place] Measure 0=Not Assessed/NA 4=Minimal Assistance 1=Total Assistance 5=Supervision or Setup 2=Maximal Assistance 6=Modified [place] 3=Moderate Assistance 7=Complete [place] ADL-Treatment Pt seemed frustrated at timed with not being able to find the right word but seems to know when she has the wrong one. Looking forward to therapeutic pass this afternoon. Pt got out of bed without help, retrieved clean clothing from closet, walked to bathroom, toileted mod I. She stood at the sink to do a sponge bath, with setup assistance and cues for thoroughness. She sat on the toilet to dress and needed cue with donning Depends. She completed rest of dressing without help. She walked to the sink to brush her teeth and needed a few cues for toothbrushing and putting on deodorant. Functional [place] Measure 0=Not Assessed/NA 4=Minimal Assistance 1=Total Assistance 5=Supervision or Setup 2=Maximal Assistance 6=Modified [place] 3=Moderate Assistance 7=Complete IndependenceIRFPAI Quality Coding Scale 6 Independent with activity with or without an assistive device 5 Patient requires set up or clean up by helper. Patient completes activity by themselves 4 Supervision or touching assist (CGA). [place] provide cues , steadying assist 3 The helper provides less than half the effort to complete the activity 2 The helper provides more than half the effort to complete the activity 1 Dependent. The helper does all the effort to complete an activity 7 Patient refused to complete or attempt activity 9 The patient did not perform the activity before the current illness or injury 88 Not attempted due to Medical conditions or safety concerns Grooming (FIM): 5 (cues, at sink) Bathing (FIM): 5 (sponge bath, cues. Washed and dried all needed areas) Upper Body (FIM): 7 (Retrieved clean clothes and dressed without help) Lower Body Dressing (FIM): 5 (Retrieved clean clothes and dressed without help except cue for Depends) Toileting (FIM): 6 (Tall toilet, grab bar) Toilet/Commode Transfer (FIM): 6 (Tall toilet, grab bar) Other Treatment She walked toward the gym and stopped to sit in a chair along the way, feeling ill with large belches, but no vomiting. She was able to continue to the gym and completed 5 minutes bilat UE strengthening on arm bike set at 15W resistance. She had to stop to go to the bathroom and had diarrhea. She was able to manage hygiene and clothing. Pt returned to her room and was left up in bed, all needs met. Nursing notified. Education OT Patient Education: Modified ADL techniques, Progress toward Goal/Update tx plan, Purpose of tx/functional activities Teaching Recipient: Patient Teaching Methods: Demonstration, Discussion Response to Teaching: Verbalize Understanding, Return Demonstration, Reinforcement Needed OT Short Term Goals Short Term Goals Time Frame: Oct 15, 2018 Eating(FIM): 6 Toileting(FIM): 6 Toilet/Commode Transfer(FIM): 6 Additional Short Term Goals: 1-Demonstrate ADL Tasks, 2-Verbalize Understanding , 3-ImproveStrength/Deidra 1=Demonstrate adherence to instructed precautions during ADL tasks. 2=Patient will verbalize/demonstrate understanding of assistive devices/ modifications for ADL. 3=Patient will improve strength/tolerance for activity to enable patient to perform ADL's. OT Senior Mechanical Designer Goals Senior Mechanical Designer Goals Time Frame: Oct 26, 2018 Eating (FIM): 7 (no dentures) Eating (QC): 6 Groomin Oral Hygiene (QC): 6 Bathing(FIM): 6 Shower/Bathe Self (QC): 6 Upper Body Dressing(FIM): 6 Upper Body Dressing (QC): 6 Lower Body Dressing(FIM): 6 Lower Body Dressing (QC): 6 On/Off Footwear (QC): 6 Toileting(FIM): 6 Toileting Hygiene (QC): 6 Toilet/Commode Transfer(FIM): 6 Toilet/Commode Transfer (QC): 6 Shower Transfer(FIM): 6 Additional Goals: 1-Demonstrate ADL Tasks, 2-Verbalize Understanding, 3- ImproveStrength/Deidra 1=Demonstrate adherence to instructed precautions during ADL tasks. 2=Patient will verbalize/demonstrate understanding of assistive devices/ modifications for ADL. 3=Patient will improve strength/tolerance for activity to enable patient to perform ADL's. OT Education/Plan Problem List/Assessment Pt would benefit from skilled OT to increase her independence in basic ADLs to allow her to safely return home to live with family Discharge Recommendations Plan/Recommendations: Continue POC Treatment Plan/Plan of Care Patient would benefit from OT for education, treatment and training to promote independence in ADL's, mobility, safety and/or upper extremity function for ADL' s. Plan of Care: ADL Retraining, Functional Mobility, Group Exercise/Act as Ind ( education, exercise, communication, socialization, functional activities), UE Funct Exercise/Act, UE Neuromus Re-Ed/Coord Treatment Duration: Oct 26, 2018 Frequency: At least 5 of 7 days/Wk (IRF) Estimated Hrs Per Day: 1.5 hours per day (1.25 to 1.5) Agreement: Yes Rehab Potential: Fair Time/GCodes Start Time: 08:00 Stop Time: 08:47 Total Time Billed (hr/min): 47 Billed Treatment Time visit, 30 minutes ADL, 17 minutes ex ZOLTAN JESSICA OT Oct 11, 2018 07:36
--- NOTE | 2018-10-11 10:05 | Physical Therapy Daily Note ---
PT Daily Note-Current Subjective Pt R sidelying in bed upon arrival. Pt agrees to PT despite feeling a little nauseated this morning. Pain Location: No Pain Reported Mental Status Patient Orientation: Person, Place, Non-Verbal/Aphasic, Situation Transfers Functional Wise Measure 0=Not Assessed/NA 4=Minimal Assistance 1=Total Assistance 5=Supervision or Setup 2=Maximal Assistance 6=Modified Wise 3=Moderate Assistance 7=Complete IndependenceIRFPAI Quality Coding Scale 6 Independent with activity with or without an assistive device 5 Patient requires set up or clean up by helper. Patient completes activity by themselves 4 Supervision or touching assist (CGA). [place] provide cues , steadying assist 3 The helper provides less than half the effort to complete the activity 2 The helper provides more than half the effort to complete the activity 1 Dependent. The helper does all the effort to complete an activity 7 Patient refused to complete or attempt activity 9 The patient did not perform the activity before the current illness or injury 88 Not attempted due to Medical conditions or safety concerns Scootin Rollin Supine to/from Sit: 7 Sit to/from Stand: 6 Sit to Lying (QC): 6 Sit to Stand (QC): 6 Weight Bearing Right Lower Extremity: Right Full Weight Bearing Left Lower Extremity: Left Full Weight Bearing Gait Training Does the Patient Walk?: Yes Distance (FIM): 3=150 ft Distance: 175' Walk 10 feet (QC): 6 Walk 50 ft with 2 Turns(QC): 6 Walk 150 ft (QC): 6 Gait Level of Assist: 6 Gait Persons Needed: 1 Gait Assistive Device: None Wheelchair Training Does the Pt Use a Wheelchair?: No Exercises Seated Therapy Exercises: Ankle pumps, Long arc quads, Hip flexion, Kicking activity Seated Reps: 20 NuStep Minutes: 15 NuStep Workload: 6 Treatments Pt transfers from bed to standing w/o AD at Mod I. Pt uses restroom then ambulates in hallway w/o AD at Mod I. Pt uses NuStep for 15m at 6 followed by short rest then completed Seated Ex in chair. Pt ambulates 12 steps then takes short rest before returning to bed at end of tx with all needs met. Assessment Current Status: Good Progress Pt still struggles at times with VC or directions given especially if more than one step to complete. PT Short Term Goals Short Term Goals Time Frame: Oct 15, 2018 Gait (FIM): 5 Gait Distance Comment: 500' Gait Level of Assist: 5 Gait Assistive Device: None PT Correction Goals Correction Goals PT Art Historian Goals Time Frame: Oct 29, 2018 Transfers (B,C,W/C) (FIM): 7 Sit to Lying (QC): 6 Lying-Sitting on Side/Bed(QC): 6 Sit to Stand (QC): 6 Rollin Roll Left to Right (QC): 6 Chair/Ncv-iq-Lvabq Xfer(QC): 6 Car Transfer (QC): 6 Gait (FIM): 7 Distance: 500' Walk 10 feet (QC): 6 Walk 10ft-Uneven Surface(QC): 6 Walk 50ft with 2 Turns (QC): 6 Walk 150 ft (QC): 6 Gait Level of Assist: 7 Gait Assistive Device: None Stairs (FIM): 6 # of Steps: 12 1 Step (curb) (QC): 6 4 Steps (QC): 6 12 Steps (QC): 6 Stairs Level Of Assist: 6 Picking up an Object (QC): 6 PT Plan Problem List Problem List: Activity Tolerance Treatment/Plan Treatment Plan: Continue Plan of Care Treatment Plan: Bed Mobility, Education, Functional Activity Deidra, Functional Strength, Group Therapy, Gait, Safety, Therapeutic Exercise, Transfers Treatment Duration: Oct 29, 2018 Frequency: At least 5 of 7 days/Wk (IRF) Estimated Hrs Per Day: 1.5 hours per day Patient and/or Family Agrees t: Yes Safety Risks/Education Patient Education: Gait Training, Steps, Correct Positioning, Safety Issues Teaching Recipient: Patient Teaching Methods: Discussion Response to Teaching: Verbalize Understanding Time/GCodes Time In: 900 Time Out: 945 Total Billed Treatment Time: 45 Total Billed Treatment 1, FA (15m) & EX x2 (30m) G Codes Necessary: PARI Campbell DIGITAL MARKETER Oct 11, 2018 10:04
--- NOTE | 2018-10-11 10:34 | Speech Therapy Daily Note ---
Speech Daily Progress Note Subjective Date Seen by Provider: Oct 11, 2018 Time Seen by Provider: 00:30 Patient pleasant and cooperative. Objective Patient completed sentences verbally presented at 80% with min to mod verbal cuing. Assessment Assessment Current Status: Good Progress Treatment Plan Continue Plan of Care Communication Comprehension: 5 Expression: 1 Social Cognition Social Interaction: 3 Problem Solvin Memory: 3 Speech Short Term Goals Short Term Goals Short Term Goals Patient will be able to name objects with phonemic cues at 80% accuracy. Patient will be able to follow 1 step directions with 80% accuracy. Time Frame-ST week Speech Alf Goals Bulb Inspector Goals Patient will be able to effectively express her wants/needs with 90% accuracy, Speech-Plan Patient/Family Goals Patient/Family Goals: Patient plans to return home with family as soon as possible. Treatment Plan Speech Therapy Treatment Plan: Continue Plan of Care Patient is progressing with word retrieval. Treatment Duration: Oct 15, 2018 Frequency: 5 times per week Estimated Hrs Per Day: .5 hour per day Rehab Potential: Fair Barriers to Learning: Difficulty with word retrieval. Pt/Family Agrees to Plan: Yes Safety Risks/Education Teaching Recipient: Patient Teaching Methods: Discussion Response to Teaching: Verbalize Understanding Education Topics Provided: Safety within her immediate living environment. Time Speech Therapy Time In: 10:00 Speech Therapy Time Out: 10:30 Total Billed Time: 30 Billed Treatment Time 1LELO [address] Oct 11, 2018 10:33
--- NOTE | 2018-10-11 12:12 | Therapy Group Daily Note ---
Therapy Daily Group Note Patient Education Topic Home Safety Other/Notes Pt was an active participant in OT/PT lunch group. She introduced herself with verbal cues for socialization. She attended to discussion on Thanksgiving trivia and also discussion/education on home safety, in preparation for discharge, but had difficulty verbalizing answers due to aphasia . She walked back to her room without assistance, and was left up in bed, all needs met. Start Time: 11:00 Stop Time: 12:00 Total Billed Treatment Time: 60 Total Billed Treatment visit, 60 minutes group ZOLTAN JESSICA OT Oct 11, 2018 12:12
[2018-10-11 14:00] VITALS: BP 134/77
[2018-10-11 21:32] VITALS: BP 90/51
[2018-10-12 05:05] VITALS: BP 108/71
[2018-10-12] MEDS: metFORMIN 500 MG (GLUCOPHAGE) TAB PO SCH ×2 (06:01→17:06)
--- NOTE | 2018-10-12 09:22 | Physical Therapy Daily Note ---
PT Daily Note-Current Subjective Pt denies any pain today, just worn out and tired. Continues to struggle with word finding and verbal skills. Shows frustration at times and does fatigue. Encouragement required to continue with PT session at times due to c/o fatigue. Pain Numeric Pain Scale: 0-No Pain Appearance Upon arival, pt finishing up with OT treatment and was right sidelying in bed. At end of session pt fatigued and R sidelying talking with Speech Therapist. Mental Status Pt able to say 1st name but not last name, able to recite birthdate. able to tell time of day and month with choices given Transfers Functional [place] Measure 0=Not Assessed/NA 4=Minimal Assistance 1=Total Assistance 5=Supervision or Setup 2=Maximal Assistance 6=Modified [place] 3=Moderate Assistance 7=Complete IndependenceIRFPAI Quality Coding Scale 6 Independent with activity with or without an assistive device 5 Patient requires set up or clean up by helper. Patient completes activity by themselves 4 Supervision or touching assist (CGA). [place] provide cues , steadying assist 3 The helper provides less than half the effort to complete the activity 2 The helper provides more than half the effort to complete the activity 1 Dependent. The helper does all the effort to complete an activity 7 Patient refused to complete or attempt activity 9 The patient did not perform the activity before the current illness or injury 88 Not attempted due to Medical conditions or safety concerns Transfers (B, C, W/C) (FIM): 6 Scootin Rollin Roll Left to Right (QC): 6 Supine to/from Sit: 7 Sit to/from Stand: 6 Sit to Lying (QC): 6 Sit to Stand (QC): 6 Chair/Jpz-bi-Uxovz Xfer(QC): 6 Bed to/from Chair: 7 Car Transfer (QC): 5 Pt requiring mod verb inst with car transfer training but all other transfers is able to perform supervised to Independent Weight Bearing Right Lower Extremity: Right Full Weight Bearing Left Lower Extremity: Left Full Weight Bearing Gait Training Does the Patient Walk?: Yes Distance (FIM): 3=150 ft Distance: 600x2 Walk 10 feet (QC): 6 Walk 50 ft with 2 Turns(QC): 6 Walk 150 ft (QC): 6 Walking 10ft/uneven surface-QC: 5 Gait Level of Assist: 7 Gait Persons Needed: 1 Gait Assistive Device: None decreased step length and height but steady and without LOB, without AD. Requires sitting rest breaks after about 600'. Walked on uneven surface ~10'x4, step up and off 6" x4 without UE support without LOB, stepping over 4-6" objects x4 reps without UE support and without LOB Stair Training Stair Training: Handrails/: 1 handrail, 2 handrails Stairs (FIM): 6 #of Steps: 12 (12 then 8) 1 Step (curb) (QC): 5 4 Steps (QC): 5 12 Steps (QC): 5 Stairs: Pattern: Reciprocal Level of Assist: 6 Pt able to walk up and down stairs with reciprocating pattern but must be re instructed to do so, does fatigue after 12 stairs. Able to perform with one handrail until becoming fatigued Balance Picking up an Object (QC): 5 Special Test Comments Pt able to orange picker machine operator several objects from floor and able to follow 2-3 step commands most times. No LOB or unsteadiness with picking up objects from floor but did have some difficulty finding where to put them when instructed. Exercises Supine Ex: Bridging, Ankle pumps, Rolling, Heel Slides, Knee to chest, Scooting , Straight leg raise Supine Reps: 10 Treatments Gait, transfer, balance, stair training, ther ex Assessment Current Status: Good Progress PT Short Term Goals Short Term Goals Time Frame: Oct 15, 2018 Gait (FIM): 5 Gait Distance Comment: 500' Gait Level of Assist: 5 Gait Assistive Device: None PT Mcc Goals 3Rd Grade Reading Teacher Goals PT Mcc Goals Time Frame: Oct 29, 2018 Transfers (B,C,W/C) (FIM): 7 Sit to Lying (QC): 6 Lying-Sitting on Side/Bed(QC): 6 Sit to Stand (QC): 6 Rollin Roll Left to Right (QC): 6 Chair/Kiv-zp-Lpzbh Xfer(QC): 6 Car Transfer (QC): 6 Gait (FIM): 7 Distance: 500' Walk 10 feet (QC): 6 Walk 10ft-Uneven Surface(QC): 6 Walk 50ft with 2 Turns (QC): 6 Walk 150 ft (QC): 6 Gait Level of Assist: 7 Gait Assistive Device: None Stairs (FIM): 6 # of Steps: 12 1 Step (curb) (QC): 6 4 Steps (QC): 6 12 Steps (QC): 6 Stairs Level Of Assist: 6 Picking up an Object (QC): 6 PT Plan Problem List Problem List: Activity Tolerance, Safety, Balance, Gait Treatment/Plan Treatment Plan: Continue Plan of Care Treatment Plan: Bed Mobility, Education, Functional Activity Deidra, Functional Strength, Group Therapy, Gait, Safety, Therapeutic Exercise, Transfers Treatment Duration: Oct 29, 2018 Frequency: At least 5 of 7 days/Wk (IRF) Estimated Hrs Per Day: 1.5 hours per day Patient and/or Family Agrees t: Yes Safety Risks/Education Patient Education: Gait Training, Transfer Techniques, Steps, Safety Issues Teaching Recipient: Patient Teaching Methods: Demonstration, Discussion Response to Teaching: Verbalize Understanding, Return Demonstration, Reinforcement Needed Time/GCodes Time In: 900 Time Out: 1000 Total Billed Treatment Time: 60 Total Billed Treatment 1 Visit FA x2 GT x2 GATO BAPTISTE SECURITY DISPATCHER Oct 12, 2018 09:22
[2018-10-12] MEDS: ATORVASTATIN 80 MG (LIPITOR) TABLET PO SCH (09:45)
[2018-10-12] MEDS: DOCUSATE SODIUM 100 MG (COLACE) CAP PO SCH ×2 (09:46→20:45)
[2018-10-12] MEDS: FLUoxetine HCL 20 MG (PROzac) CAP PO SCH (09:46)
[2018-10-12] MEDS: ASPIRIN 81 MG CHEW (CHILDREN'S ASA) PO SCH (09:46)
[2018-10-12] MEDS: lisINopril 10 MG (PRINIVIL) TABLET PO SCH (09:46)
--- NOTE | 2018-10-12 11:08 | Occupational Ther Daily Note ---
OT Current Status-Daily Note Subjective Pt seen in room, in bed, agreeable to OT. No pain reported. Pt stated that she had a good home visit yesterday but didn't eat much due to nausea. Appearance Alert, cooperative Mental Status/Objective Functional [place] Measure 0=Not Assessed/NA 4=Minimal Assistance 1=Total Assistance 5=Supervision or Setup 2=Maximal Assistance 6=Modified [place] 3=Moderate Assistance 7=Complete [place] ADL-Treatment Mild safety concerns with all ADLs, due to occasional problem-solving issues or motor planning due to aphasia. Once she does something, she seems to recall it, as shown by ability to put deodorant on today without help. Pt reported occasional nausea but did not vomit. Got out of bed, toileted, showered, dressed and groomed with mod I, mild safety concerns. Functional [place] Measure 0=Not Assessed/NA 4=Minimal Assistance 1=Total Assistance 5=Supervision or Setup 2=Maximal Assistance 6=Modified [place] 3=Moderate Assistance 7=Complete IndependenceIRFPAI Quality Coding Scale 6 Independent with activity with or without an assistive device 5 Patient requires set up or clean up by helper. Patient completes activity by themselves 4 Supervision or touching assist (CGA). [place] provide cues , steadying assist 3 The helper provides less than half the effort to complete the activity 2 The helper provides more than half the effort to complete the activity 1 Dependent. The helper does all the effort to complete an activity 7 Patient refused to complete or attempt activity 9 The patient did not perform the activity before the current illness or injury 88 Not attempted due to Medical conditions or safety concerns Eating (FIM): 7 (Able to open packages, cut up food, feed herself, get a drink. No dentures) Eating (QC): 6 Grooming (FIM): 6 (Stood at sink to brush teeth and comb hair. Washed face and hands in shower. Put on deodorant without cues) Oral Hygiene (QC): 6 Bathing (FIM): 5 (Setup to turn water on and off. Washed and dried all parts, including washed hair. Shower bench, grab bars, hand held shower) Shower/Bathe Self (QC): 5 (setup) Upper Body (FIM): 6 (Retrieved clean clothes and put dirty ones away. Doffed and donned clothing, no LOB) Upper Body Dressing (QC): 6 Lower Body Dressing (FIM): 6 (Retrieved clean clothes and put dirty ones away. Doffed and donned clothing, no LOB. Sat to put slipper socks on and struggled a little with R foot but able to complete task) Lower Body Dressing (QC): 6 On/Off Footwear (QC): 6 Toileting (FIM): 6 (Managed clothing and hygiene. Tall toilet, grab bar) Toileting Hygiene (QC): 6 Toilet/Commode Transfer (FIM): 6 (On/off tall toilet, grab bar. No LOB) Toilet Transfer (QC): 6 Shower Transfer(FIM): 5 (In and out of shower, on and off shower bench SBA) Other Treatment Pt walked to room with bathtub and OT demonstrated transfer tub bench use, since pt has claw food tub at home and is concerned about being able to step in/ out of tub. Pt return demo, using grab bar as well. Pt walked to gym, stopped once to sit because she was nauseated. In/out of chairs without help. In gym, etl analyst developer strength retested. R hand 40, 43, 45 lb with average 42.7 lb. Increased from average of 35 earlier this week. 9 hole peg test completed R UE, taking 26.48 seconds, an improvement from previous score of 29.96 seconds. Pt pleased with progress. Pt returned to room and left up in bed, all needs met. Education OT Patient Education: Progress toward Goal/Update tx plan, Purpose of tx/ functional activities, Safety issues Teaching Recipient: Patient Teaching Methods: Discussion Response to Teaching: Verbalize Understanding, Return Demonstration OT Short Term Goals Short Term Goals Time Frame: Oct 15, 2018 Eating(FIM): 6 Toileting(FIM): 6 Toilet/Commode Transfer(FIM): 6 Additional Short Term Goals: 1-Demonstrate ADL Tasks, 2-Verbalize Understanding , 3-ImproveStrength/Deidra 1=Demonstrate adherence to instructed precautions during ADL tasks. 2=Patient will verbalize/demonstrate understanding of assistive devices/ modifications for ADL. 3=Patient will improve strength/tolerance for activity to enable patient to perform ADL's. OT Section Hand Helper Goals Section Hand Helper Goals Time Frame: Oct 26, 2018 Eating (FIM): 7 (no dentures) Eating (QC): 6 Groomin Oral Hygiene (QC): 6 Bathing(FIM): 6 Shower/Bathe Self (QC): 6 Upper Body Dressing(FIM): 6 Upper Body Dressing (QC): 6 Lower Body Dressing(FIM): 6 Lower Body Dressing (QC): 6 On/Off Footwear (QC): 6 Toileting(FIM): 6 Toileting Hygiene (QC): 6 Toilet/Commode Transfer(FIM): 6 Toilet/Commode Transfer (QC): 6 Shower Transfer(FIM): 6 Additional Goals: 1-Demonstrate ADL Tasks, 2-Verbalize Understanding, 3- ImproveStrength/Deidra 1=Demonstrate adherence to instructed precautions during ADL tasks. 2=Patient will verbalize/demonstrate understanding of assistive devices/ modifications for ADL. 3=Patient will improve strength/tolerance for activity to enable patient to perform ADL's. OT Education/Plan Problem List/Assessment Pt would benefit from skilled OT to increase her independence in basic ADLs to allow her to safely return home to live with family Discharge Recommendations Plan/Recommendations: Continue POC (anticipate DC radu) Treatment Plan/Plan of Care Patient would benefit from OT for education, treatment and training to promote independence in ADL's, mobility, safety and/or upper extremity function for ADL' s. Plan of Care: ADL Retraining, Functional Mobility, Group Exercise/Act as Ind ( education, exercise, communication, socialization, functional activities), UE Funct Exercise/Act, UE Neuromus Re-Ed/Coord Treatment Duration: Oct 26, 2018 Frequency: At least 5 of 7 days/Wk (IRF) Estimated Hrs Per Day: 1.5 hours per day (1.25 to 1.5) Agreement: Yes Rehab Potential: Fair Time/GCodes Start Time: 08:15 Stop Time: 09:00 Total Time Billed (hr/min): 45 Billed Treatment Time visit, 30 minutes ADL, 15 minutes neuromotor ZOLTAN JESSICA OT Oct 12, 2018 11:08
--- NOTE | 2018-10-12 14:15 | Speech Therapy Daily Note ---
Speech Daily Progress Note Subjective Date Seen by Provider: Oct 12, 2018 Time Seen by Provider: 00:30 Patient was awake and alert to participate with speech tasks. Objective Patient completed speech activities of confrontational naming at 75% accuracy given moderate verbal cues and/or repetition. Treatment Plan Continue Plan of Care Communication Comprehension: 6 Expression: 13 Social Cognition Social Interaction: 5 Problem Solvin Memory: 5 Speech Short Term Goals Short Term Goals Short Term Goals Patient will be able to name objects with phonemic cues at 80% accuracy. Patient will be able to follow 1 step directions with 80% accuracy. Time Frame-ST week Speech Intermediate Goals Frontload Driver Goals Patient will be able to effectively express her wants/needs with 90% accuracy, Speech-Plan Patient/Family Goals Patient/Family Goals: Patient is returning to her home tomorrow with family. Treatment Plan Speech Therapy Treatment Plan: Continue Plan of Care Patient has made good progress. Treatment Duration: Oct 15, 2018 Frequency: 5 times per week Estimated Hrs Per Day: .5 hour per day Rehab Potential: Good Pt/Family Agrees to Plan: Yes Safety Risks/Education Teaching Recipient: Patient Teaching Methods: Discussion Response to Teaching: Verbalize Understanding Education Topics Provided: Speech strageties to utilize when she returns home. Time Speech Therapy Time In: 10:00 Speech Therapy Time Out: 10:30 Total Billed Time: 30 Billed Treatment Time LELO Colvin B[facility]AN[address] [facility] Oct 12, 2018 14:15
--- NOTE | 2018-10-12 14:42 | Therapy Group Daily Note ---
Therapy Daily Group Note Patient Education Topic Exercises Exercises LE Seated Exercise, Balance, Walking, UE Exercise Other/Notes Pt ambulated to therapy gym for OT/PT group. Group consisted of introductions( name, place born, youthful memory), socialization, pt lead UE/LE seated exercises, benefits of exercise, walking/transfers and cognitive task naming Yvonne stoner. Pt introduced self appropriately with verbal cues due to speech difficulty unable to verbalize youthful memory and actively listened to peers. Pt was able to participate in exercises and lead one exercise. Pt demonstrated ability to transfer and ambulate to designated areas with supervision. Pt required modifications to chose correct name of song. Pt contributed to conversations and was able to verbalize understanding of educational topics. After therapy, pt lying in bed with call light/phone in reach. All needs met in room. Start Time: 13:00 Stop Time: 14:10 Total Billed Treatment Time: 70 Total Billed Treatment 1-GRP HERI COURTNEY Oct 12, 2018 14:42
[2018-10-12 18:00] VITALS: BP 112/73
--- NOTE | 2018-10-12 19:39 | PM & R (SOAP) Progress Note ---
Subjective This was a face to face visit with the patient. Date Seen by Provider: Oct 12, 2018 Time Seen by Provider: 19:25 Subjective/Events-last exam Patient was seen in her room this evening Patient set for discharge to home with her daughter tomorrow Patient Modified Independent for transfers Appreciate DR Cote note,Current meds reviewed Date Identified: Oct 12, 2018 Time Identified: 19:30 Medication Intervention: Discharge meds reviewed Review of Systems HEENT: Other (trouble with speech) Objective Physician Exam Last Set of Vital Signs Vital Signs Date Time Temp Pulse Resp B/P (MAP) Pulse Ox O2 Delivery O2 Flow Rate FiO2 10/12/18 18:00 97.4 57 24 112/73 (86) 98 Room Air Capillary Refill : I&O Intake and Output 10/12/18 00:00 Intake Total 400 ml Balance 400 ml Intake Oral 400 ml # Voids 3 General: Alert, Oriented X3, Cooperative, No Acute Distress HEENT: Atraumatic, PERRLA, EOMI, Mucous Memb Moist/[place], Other (Mild expressive aphasia) Neck: Supple, No JVD Lungs: Clear to Auscultation Heart: Regular Rate Abdomen: Normal Bowel Sounds, Soft, No Tenderness Extremities: No Edema Skin: No Rashes, No Breakdown Neuro: Other (Mild rt sided weakness and expressive aphasia) Results Lab Data Laboratory Tests 10/10/18 04:26: Glucometer 116H 10/10/18 16:18: Glucometer 149H 10/11/18 05:34: Glucometer 125H 10/12/18 04:36: Glucometer 131H 10/12/18 15:57: Glucometer 109 Assessment/Plan Assessment and Plan 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
[2018-10-12] MEDS ORDERED: FLUO20CA25 PO (19:43)
[2018-10-12] MEDS ORDERED: LISI10TA2 PO (19:43)
[2018-10-12] MEDS ORDERED: ASPI-999 PO (19:43)
[2018-10-12] MEDS ORDERED: ATOR80TA76 PO (19:43)
[2018-10-12] MEDS ORDERED: METF-397 PO (19:43)
[2018-10-13 05:20] VITALS: BP 100/63
[2018-10-13] MEDS: metFORMIN 500 MG (GLUCOPHAGE) TAB PO SCH (06:16)
[2018-10-13] MEDS: FLUoxetine HCL 20 MG (PROzac) CAP PO SCH (08:13)
[2018-10-13] MEDS: ATORVASTATIN 80 MG (LIPITOR) TABLET PO SCH (08:13)
[2018-10-13] MEDS: DOCUSATE SODIUM 100 MG (COLACE) CAP PO SCH (08:13)
[2018-10-13] MEDS: lisINopril 10 MG (PRINIVIL) TABLET PO SCH (08:13)
[2018-10-13] MEDS: ASPIRIN 81 MG CHEW (CHILDREN'S ASA) PO SCH (08:14)
--- NOTE | 2018-10-15 10:25 | Therapy Team Discharge Summary ---
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 On admission she needed SBA or supervision for basic ADLs , due to difficulties with problem solving and decreased safety. By discharge she had improved R UE strength and coordination but continued with some difficulties with problem solving, especially with new tasks. Independent eating , mod I grooming, dressing, toileting and SBA shower transfer/setup bathing, using tall toilet, grab bar, shower bench, hand held shower, all with mild safety concerns. No continued OT recommended. See tx plan for goals met. DC OT. Decreased Activ Tolerance, Decreased Safety Aware, Decreased UE Strength, Impaired Cognition (Expressive aphasia), Impaired Self-Care Skills PT Custodial Goals Custodial Goals PT Windows Desktop Support Goals Time Frame: Oct 29, 2018 Transfers (B,C,W/C) (FIM): 7 Roll Left to Right (QC): 6 Sit to Lying (QC): 6 Lying-Sitting on Side/Bed(QC): 6 Sit to Stand (QC): 6 Chair/Xax-kz-Trkyt Xfer(QC): 6 Car Transfer (QC): 6 Gait (FIM): 7 Distance: 500' Walk 10 feet (QC): 6 Walk 10ft-Uneven Surface(QC): 6 Walk 50ft with 2 Turns (QC): 6 Walk 150 ft (QC): 6 Gait Level of Assist: 7 Gait Assistive Device: None Stairs (FIM): 6 # of Steps: 12 1 Step (curb) (QC): 6 4 Steps (QC): 6 12 Steps (QC): 6 Stairs Level Of Assist: 6 Picking up an Object (QC): 6 OT Windows Desktop Support Goals Windows Desktop Support Goals Time Frame: Oct 26, 2018 Eating (FIM): 7 (no dentures. Met) Eating (QC): 6 (Met) Oral Hygiene (QC): 6 (Met) Grooming(FIM): 6 (Met) Bathing(FIM): 6 (Not met) Shower/Bathe Self (QC): 6 (Not met) Upper Body Dressing(FIM): 6 (Met) Upper Body Dressing (QC): 6 (Met) Lower Body Dressing(FIM): 6 (Met) Lower Body Dressing (QC): 6 (Met) On/Off Footwear (QC): 6 (Met) Toileting(FIM): 6 (Met) Toileting Hygiene (QC): 6 (Met) Toilet/Commode Transfer(FIM): 6 (Met) Toilet/Commode Transfer (QC): 6 (Met) Shower Transfer(FIM): 6 (Not met) Additional Goals: 1-Demonstrate ADL Tasks, 2-Verbalize Understanding, 3- ImproveStrength/Deidra 1=Demonstrate adherence to instructed precautions during ADL tasks. 2=Patient will verbalize/demonstrate understanding of assistive devices/ modifications for ADL. 3=Patient will improve strength/tolerance for activity to enable patient to perform ADL's. Speech Windows Desktop Support Goals Windows Desktop Support Goals Patient will be able to effectively express her wants/needs with 90% accuracy, ZOLTAN JESSICA OT Oct 15, 2018 10:25
--- NOTE | 2018-10-15 12:32 | Therapy Team Discharge Summary ---
Therapy Discharge Summary Discharge Recommendations Date of Discharge Oct 13, 2018 at 12:00 Therapy D/C Recommendations: Home w/ Family Support Occupational Therapy Decreased Activ Tolerance, Decreased Safety Aware, Decreased UE Strength, Impaired Cognition (Expressive aphasia), Impaired Self-Care Skills Speech-Language Pathology Patient was initially seen for decreased speech production and memory secondary to a CVA. Patient initially was not able to produce any words without max cuing. Patient continued to progress given written cues and or within context presented verbally. Patient was able to make her needs/wants known with the utilization of a picture communication board with specific needs pictured. Patient was easily frustrated with her expressive aphasia and difficulty with word finding without cuing available. She was able to read any content which she utilized frequently to communicate wants/needs. PT Security Architect Goals Security Architect Goals PT Security Architect Goals Time Frame: Oct 29, 2018 Transfers (B,C,W/C) (FIM): 7 Roll Left to Right (QC): 6 Sit to Lying (QC): 6 Lying-Sitting on Side/Bed(QC): 6 Sit to Stand (QC): 6 Chair/Ioj-wq-Swxth Xfer(QC): 6 Car Transfer (QC): 6 Gait (FIM): 7 Distance: 500' Walk 10 feet (QC): 6 Walk 10ft-Uneven Surface(QC): 6 Walk 50ft with 2 Turns (QC): 6 Walk 150 ft (QC): 6 Gait Level of Assist: 7 Gait Assistive Device: None Stairs (FIM): 6 # of Steps: 12 1 Step (curb) (QC): 6 4 Steps (QC): 6 12 Steps (QC): 6 Stairs Level Of Assist: 6 Picking up an Object (QC): 6 OT Alf Goals Alf Goals Time Frame: Oct 26, 2018 Eating (FIM): 7 (no dentures. Met) Eating (QC): 6 (Met) Oral Hygiene (QC): 6 (Met) Grooming(FIM): 6 (Met) Bathing(FIM): 6 (Not met) Shower/Bathe Self (QC): 6 (Not met) Upper Body Dressing(FIM): 6 (Met) Upper Body Dressing (QC): 6 (Met) Lower Body Dressing(FIM): 6 (Met) Lower Body Dressing (QC): 6 (Met) On/Off Footwear (QC): 6 (Met) Toileting(FIM): 6 (Met) Toileting Hygiene (QC): 6 (Met) Toilet/Commode Transfer(FIM): 6 (Met) Toilet/Commode Transfer (QC): 6 (Met) Shower Transfer(FIM): 6 (Not met) Additional Goals: 1-Demonstrate ADL Tasks, 2-Verbalize Understanding, 3- ImproveStrength/Deidra 1=Demonstrate adherence to instructed precautions during ADL tasks. 2=Patient will verbalize/demonstrate understanding of assistive devices/ modifications for ADL. 3=Patient will improve strength/tolerance for activity to enable patient to perform ADL's. Speech Security Architect Goals Alf Goals Patient will be able to effectively express her wants/needs with 90% accuracy, Met at 75% with written or verbal cues. OZIEL MUNOZ Oct 15, 2018 12:32
--- NOTE | 2018-10-16 09:38 | Therapy Team Discharge Summary ---
Therapy Discharge Summary Discharge Recommendations Date of Discharge Oct 13, 2018 at 12:00 Therapy D/C Recommendations: Home w/ Family Support Physical Therapy Patient came to rehab following a CVA. Upon evaluation patient performed bed mobility with mod I, supine <-> sit with mod I, sit <-> stand with SBA, transfers with SBA, car transfer with SBA, ambulated 300' without an assistive device with SBA (including 50' with at least 2 turns of 90 degrees and 10' over an uneven surface), and went up an down 12 steps using 2 handrails with SBA. Patient has been performing bed mobility and transfer training, balance and endurance training, functional strengthening, stair training, gait training, and education. 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 Now, patient performs bed mobility and transfers with independence, car transfer with independence, ambulates 600' with independence, and can go up and down 12 steps using 2 handrails with mod I. Patient has been discharged from this facility and will be discharged from PT at this time. Occupational Therapy Decreased Activ Tolerance, Decreased Safety Aware, Decreased UE Strength, Impaired Cognition (Expressive aphasia), Impaired Self-Care Skills PT Tool Technician Goals Tool Technician Goals PT Snf Goals Time Frame: Oct 29, 2018 Transfers (B,C,W/C) (FIM): 7 Roll Left to Right (QC): 6 Sit to Lying (QC): 6 Lying-Sitting on Side/Bed(QC): 6 Sit to Stand (QC): 6 Chair/Jcr-xl-Jujsa Xfer(QC): 6 Car Transfer (QC): 6 Gait (FIM): 7 Distance: 500' Walk 10 feet (QC): 6 Walk 10ft-Uneven Surface(QC): 6 Walk 50ft with 2 Turns (QC): 6 Walk 150 ft (QC): 6 Gait Level of Assist: 7 Gait Assistive Device: None Stairs (FIM): 6 # of Steps: 12 1 Step (curb) (QC): 6 4 Steps (QC): 6 12 Steps (QC): 6 Stairs Level Of Assist: 6 Picking up an Object (QC): 6 OT Snf Goals Tool Technician Goals Time Frame: Oct 26, 2018 Eating (FIM): 7 (no dentures. Met) Eating (QC): 6 (Met) Oral Hygiene (QC): 6 (Met) Grooming(FIM): 6 (Met) Bathing(FIM): 6 (Not met) Shower/Bathe Self (QC): 6 (Not met) Upper Body Dressing(FIM): 6 (Met) Upper Body Dressing (QC): 6 (Met) Lower Body Dressing(FIM): 6 (Met) Lower Body Dressing (QC): 6 (Met) On/Off Footwear (QC): 6 (Met) Toileting(FIM): 6 (Met) Toileting Hygiene (QC): 6 (Met) Toilet/Commode Transfer(FIM): 6 (Met) Toilet/Commode Transfer (QC): 6 (Met) Shower Transfer(FIM): 6 (Not met) Additional Goals: 1-Demonstrate ADL Tasks, 2-Verbalize Understanding, 3- ImproveStrength/Deidra 1=Demonstrate adherence to instructed precautions during ADL tasks. 2=Patient will verbalize/demonstrate understanding of assistive devices/ modifications for ADL. 3=Patient will improve strength/tolerance for activity to enable patient to perform ADL's. Speech Snf Goals Tool Technician Goals Patient will be able to effectively express her wants/needs with 90% accuracy, Met at 75% with written or verbal cues. LYRIC KIRBY PT Oct 16, 2018 09:38
== END 2018-10-13 12:00 | disposition home or self-care (01) | DRG 57 ==
PROVIDERS: ADMIT Physical Medicine & Rehabilitation; ATTEND Physical Medicine & Rehabilitation
DX: I69.351 Hemiplegia and hemiparesis following cerebral infarction affecting right dominant side (principal); I69.320 Aphasia following cerebral infarction; I10 Essential (primary) hypertension; E78.5 Hyperlipidemia, unspecified; E11.9 Type 2 diabetes mellitus without complications; E66.9 Obesity, unspecified; Z68.42 Body mass index [BMI] 45.0-49.9, adult; F32.9 Major depressive disorder, single episode, unspecified; F17.210 Nicotine dependence, cigarettes, uncomplicated; Z79.84 Long term (current) use of oral hypoglycemic drugs
CPT/HCPCS: 82962

== ENCOUNTER 2019-04-15 10:20 | Inpatient (IN) | payer MEDICAID | END 2019-04-19 13:13 | disposition other institution (70) | LOC: ER 10:20 → 4TH 14:00 | DX: I25.110 Atherosclerotic heart disease of native coronary artery with unstable angina pectoris (principal); N30.01 Acute cystitis with hematuria; I69.351 Hemiplegia and hemiparesis following cerebral infarction affecting right dominant side; Z68.41 Body mass index [BMI] 40.0-44.9, adult; R00.1 Bradycardia, unspecified; E11.9 Type 2 diabetes mellitus without complications; I10 Essential (primary) hypertension; E78.00 Pure hypercholesterolemia, unspecified; F17.210 Nicotine dependence, cigarettes, uncomplicated; F32.9 Major depressive disorder, single episode, unspecified; E66.9 Obesity, unspecified; K58.1 Irritable bowel syndrome with constipation; R32 Unspecified urinary incontinence; Z95.5 Presence of coronary angioplasty implant and graft; Z79.82 Long term (current) use of aspirin; Z82.49 Family history of ischemic heart disease and other diseases of the circulatory system ==